=== PATIENT | male | born 1945 | race Caucasian/White ===

== ENCOUNTER 2021-12-22 09:57 | Emergency (ER) | payer OTHER, SELFPAY ==
--- NOTE | ~2021-12-22 | XR_ITS ---
EXAMINATION: XR KNEE, LEFT CLINICAL INFORMATION: Atraumatic left knee pain. COMPARISON: Left knee pain status post trauma. TECHNIQUE: Four views of the left knee. FINDINGS: Bones and soft tissues are normal. No fracture or joint effusion. Alignment is anatomic. Joint spaces are well maintained. No abnormal soft tissue calcification. XR/XR knee LT 3V IMPRESSION: Unremarkable left knee.
--- NOTE | ~2021-12-22 | US_ITS ---
EXAMINATION: US VENOUS ULTRASOUND WITH DOPPLER LOWER EXTREMITY, LEFT CLINICAL INFORMATION: Left calf pain. COMPARISON: None TECHNIQUE: Ultrasound of the deep veins is performed from the hip to the calf with compression sonography and color and pulse Doppler assessment. Spectral analysis with color-flow imaging is performed. FINDINGS: Nonocclusive thrombus is present within the proximal mid, distal left femoral vein and left popliteal vein. The left peroneal vein is not well visualized. There is no significant popliteal fossa cyst. Incidental note is made of a solid circumscribed oval-shaped echogenic structure within the proximal left thigh, measures 1.0 x 1.0 x 1.0 cm, may represent soft tissue neoplasm versus hematoma, not optimally characterized. Clinical correlation is recommended. Follow-up alternative imaging modality including MRI may be considered for further clarification, if appropriate. US/US venous duplex LE IMPRESSION: 1. Abnormal left lower extremity DVT study showing evidence of nonocclusive thrombus involving left thigh to the calf (proximal left femoral vein to the popliteal vein). 2. Solid circumscribed oval shaped echogenic structure within the proximal left thigh musculature, measures 1.0 cm at its maximum dimension, may represent soft tissue neoplasm versus hematoma. This critical result was discussed with Alondra Key NP at 12:55 PM on 12/22/2021 and it was ascertained that the content and urgency of the report was understood at the time of direct communication.
--- NOTE | 2021-12-22 11:09 | ED.LOWEXIN ---
HPI - Extremity Injury (Lower) General Chief Complaint: Extremity Injury, Lower Stated Complaint: swollen L leg Time Seen by Provider: 12/22/21 11:09 Source: patient Mode of arrival: ambulatory Limitations: no limitations History of Present Illness HPI Narrative: 76 y/o male with history of diabetes and hypertension presents to the ER with left lower extremity pain and swelling that started 2 days ago when he woke up. He denies any injury. He reports the pain is mostly behind his left knee. It is causing him to limp. He reports 2 days ago his leg was very swollen and the swelling has gotten better in the last 24 hours. He denies any shortness of breath or chest pain. He has no history of DVT. He admits to a rather sedentary lifestyle, denies any long trips or plane rides. MD complaint: other (LLE Pain and swelling, nontraumatic) Onset (ago): day(s) (2) Type of Injury: unknown Place: home Severity: moderate Relieving factors: nothing Exacerbating factors: weight bearing, movement and palpation Associated symptoms: swelling Other symptoms: none Related Data Previous Rx's Medication Instructions Recorded apixaban 5 mg tablet (Eliquis) See Rx Instructions .ROUTE 12/22/21 .COMPLEX #60 tab Allergies Allergy/AdvReac Type Severity Reaction Status Date / Time Rtqunhm-VNP-KrX Reductase Allergy Intermediate ELEVATED Unverified 04/28/20 15:57 Inhibitor LIVER [Kuxoded-Ofw-Ecn Reductase ENZYMES Inhibitor] Statins Depletion Allergy Unknown Uncoded 12/14/15 00:00 Review of Systems Review of Systems: Constitutional: No Fever, No Chills Cardiovascular: No Chest Pain, No SOB, No Orthopnea, + Edema Respiratory: No Cough, No Sputum Gastrointestinal: No Nausea, No Vomiting Musculoskeletal: No joint pain, No Myalgias Skin: No Skin Lesions, No rash Neuro: No Weakness, No Numbness, No Dizziness, No Headache Psych: No Anxiety/Panic, No Depression Heme/Lymph: No Bruising, No Lymphadenopathy PMFSH Social History Social History Advance Directives: Yes Advance Directives Information Provided: No Advance Directives on File: No Physical Exam Vital Signs: Vital Signs: Last Vital Signs Temp 97.5 F 12/22/21 11:34 Pulse 68 12/22/21 11:34 Resp 16 12/22/21 11:34 BP 115/63 12/22/21 11:34 Pulse Ox 96 12/22/21 11:34 BMI result Body Mass Index 35.5 Appearance: Alert. Oriented X3. No acute distress. HEENT: normal inspection CVS: Normal heart rate and rhythm. Pulses normal. Respiratory: No respiratory distress. Lungs CTAB Skin: Skin warm and dry. Normal skin color. Normal skin turgor. No rashes. Extremities: mild generalized swelling of the left lower extremity, nonpitting. tenderness of the popliteal fossa, no palpable mass. no calf tenderness. NV intact distally. left anterior and posterior thigh are soft, compressible, no soft tissue mass palpable. Neuro: Oriented X 3. No motor deficit. No sensory deficit. Course Course Course Narrative: 76-year-old male with history of hypertension diabetes presents to the ER with 2 days of nontraumatic left lower extremity swelling and pain, causing him to limp. Most of his pain is located in the popliteal fossa without any palpable mass. X-ray of his knee is normal. Reevaluation(s) Reevaluation #1: LE doppler shows nonoccluive DVT from femoral vein down to the calf. He has no chest pain, SOB or clinical signs of PE. His baseline labs are WNL. We discussed the pros and cons of anticoagulation as well as the possibility of an IVC filter. Patient reports history of 2 mechanical falls in the last year, 1 when walking down the stairs in the dark time and to when getting out of a slippery wet tub. He has not fallen in several months. He does not use alcohol. We discussed the risks of GI bleed with anticoagulation as well as traumatic bleeding and possible intracranial bleeding if he were to fall. He expressed comfort in starting anticoagulation, will start Eliquis. Shared decision making had but the patient. His ultrasound also showed 1 cm soft tissue mass in the musculature of the left thigh, differentials including hematoma verses neoplasm. Discussed the results with the patient and expressed need for him to follow-up with his primary care doctor for further evaluation and workup. He will follow-up with his PCP for hypercoagulable workup, and assessment of the 1 cm mass in his LLE. Verbal and written instructions for anticoagulation including the Eliquis load were discussed with the patient and he expressed understanding. He is stable for discharge home with close outpatient follow-up. MDM - Extremity Injury (Lower) Lab Data Result diagrams: 12/22/21 13:20 12/22/21 13:54 Labs: Lab Results 12/22/21 12/22/21 12/22/21 Range/Units 13:20 13:20 13:54 WBC 9.6 (4.8-10.8) X10*3/uL RBC 4.53 L (4.60-5.80) X10*6/uL Hgb 13.2 L (14.0-18.0) g/dl Hct 41.0 L (42.0-52.0) % MCV 90.5 (80.0-98.0) fL MCH 29.1 (27.0-33.0) pg MCHC 32.2 (31.0-36.0) g/dl RDW 14.4 (11.0-16.0) % Plt Count 238 (160-400) X10*3/uL MPV 9.3 L (9.4-12.4) fL Immature Gran % (Auto) 0.3 (0.0-0.4) % Neut % (Auto) 62.5 (45-73) % Lymph % (Auto) 22.1 (20-40) % [place] % (Auto) 11.1 H (2-11) % Eos % (Auto) 3.6 (0-4) % Baso % (Auto) 0.4 (0-2) % Lymph # (Auto) 2.1 (1.2-4.9) X10*3/uL [place] # (Auto) 1.1 (0.1-1.2) X10*3/uL Eos # (Auto) 0.3 (0.0-0.4) X10*3/uL Baso # (Auto) 0.0 (0.0-0.2) X10*3/uL Abs Immat Gran (auto) 0.03 (0.00-0.03) X10*3/uL Absolute Neuts (auto) 6.0 (2.0-8.3) x10*3/uL Absolute Nucleated RBC 0.000 (0.0-0.012) X10*3/uL Nucleated RBC % (auto) 0.0 (0.0-0.2) /100WBC PT 12.3 (9.9-13.0) SEC INR 1.1 (0.9-1.1) APTT 33.0 (24.1-38.0) SEC Sodium 140 (135-145) mmol/L Potassium 4.8 (3.3-5.1) mmol/L Chloride 107 (96-108) mmol/L Carbon Dioxide 26 (22-29) mmol/L Anion Gap 12 (12-20) BUN 24 H (9-16) mg/dL Creatinine 1.37 (0.5-1.4) mg/dL Estim Creat Clear Calc 60.2 Estimated GFR 51 Random Glucose 164 H (60-115) mg/dL Calcium 9.4 (8.4-10.2) mg/dL Magnesium 2.3 (1.6-2.6) mg/dL Total Bilirubin 0.3 (0.0-1.0) mg/dL Direct Bilirubin 0.2 (0.0-0.5) mg/dL AST 15 (5-37) U/L ALT 17 (0-40) U/L Alkaline Phosphatase 47 (39-117) U/L Total Protein 7.0 (6.5-8.0) g/dL Albumin 3.8 (3.5-5.0) g/dL Discharge Plan Discharge Clinical Impression: Acute deep vein thrombosis (DVT) of left lower extremity Patient Disposition: Home, Self-Care Instructions: Deep Vein Thrombosis (ED), Blood Thinners (ED) Additional Instructions: Your ultrasound today showed a blood clot involving the veins of your left thigh down to your left calf. Treatment is anticoagulation with blood thinner, Eliquis has been sent to your pharmacy. Please take as prescribed. You will need to follow-up with her primary care doctor for additional refills. You need to be on this blood thinner for at least 6 months. Elevate your leg when possible to help with swelling. If you develop any signs or symptoms of bleeding or develops any shortness of breath or chest pain call 911 or come back to the ER for further evaluation. Your ultrasound also showed a solid 1 cm oval-shaped structure within the left thigh muscle. This needs to be followed up. This could represent a small hematoma versus a soft tissue neoplasm. Your primary care doctor should arrange follow-up for this. Prescriptions: New Eliquis 5 mg tablet See Rx Instructions .ROUTE .COMPLEX Qty: 60 0RF Rx Instructions: 10 mg PO BID x 7 days then 5 mg PO BID for the rest of treatment Interventions: ED Discharge Assessment Last Done: 12/22/21 15:05 Discharge Date/Time: 12/22/21 15:10
[2021-12-22 11:34] VITALS: BP 115/63; PULSE 68; RESP 16; TEMP 36.4; O2SAT 96; BMI 35.5
[2021-12-22 13:27] LABS: MANUAL DIFF FLAG NO
[2021-12-22 13:29] LABS: Hemoglobin 13.2 g/dl (14.0-18.0); Mean Corpuscular Hemoglobin 29.1 pg (27.0-33.0); Mean Corpuscular Volume 90.5 fL (80.0-98.0); Red Blood Count 4.53 X10*6/uL (4.60-5.80); White Blood Count 9.6 X10*3/uL (4.8-10.8)
[2021-12-22 13:30] LABS: Basophils Percent Auto 0.4 % (0-2); Eosinophils Absolute Auto 0.3 X10*3/uL (0.0-0.4); Eosinophils Percent Auto 3.6 % (0-4); Imm Gran Abs Auto 0.03 X10*3/uL (0.00-0.03); Imm Gran Pct Auto 0.3 % (0.0-0.4); Lymphocytes Absolute Auto 2.1 X10*3/uL (1.2-4.9); Lymphocytes Percent Auto 22.1 % (20-40); Mean Corpuscular HGB Conc 32.2 g/dl (31.0-36.0); Mean Platelet Volume 9.3 fL (9.4-12.4); Monocytes Absolute Auto 1.1 X10*3/uL (0.1-1.2); Monocytes Percent Auto 11.1 % (2-11); Neutrophils Percent Auto 62.5 % (45-73); Platelet Count 238 X10*3/uL (160-400); Red Cell Distribution Width 14.4 % (11.0-16.0)
[2021-12-22 13:41] LABS: INTERNATIONAL NORM RATIO 1.1 (0.9-1.1); Prothrombin Time 12.3 SEC (9.9-13.0)
[2021-12-22 14:18] LABS: Alanine Aminotransferase 17 U/L (0-40); Albumin Level 3.8 g/dL (3.5-5.0); Alkaline Phosphatase 47 U/L (39-117); Anion Gap 12 (12-20); Aspartate Amino Transferase 15 U/L (5-37); Bilirubin Direct 0.2 mg/dL (0.0-0.5); Bilirubin Total 0.3 mg/dL (0.0-1.0); Blood Urea Nitrogen 24 mg/dL (9-16); Calcium 9.4 mg/dL (8.4-10.2); Carbon Dioxide 26 mmol/L (22-29); Chloride 107 mmol/L (96-108); Creatinine Clr Calc Pharmacy 60.2; Estimated Glomerular Filt Rate 51; Glucose Random 164 mg/dL (60-115); Magnesium 2.3 mg/dL (1.6-2.6); Potassium 4.8 mmol/L (3.3-5.1); Sodium 140 mmol/L (135-145)
== END 2021-12-22 15:10 | disposition home or self-care (01) ==
PROVIDERS: Physician Assistant; Emergency Provider Emergency Medicine
DX: I82.412 Acute embolism and thrombosis of left femoral vein (principal); M25.562 Pain in left knee; M79.89 Other specified soft tissue disorders; E11.9 Type 2 diabetes mellitus without complications; I10 Essential (primary) hypertension
CPT/HCPCS: 36415; 73562; 80048; 80076; 83735; 85025; 85610; 85730; 93971; 99283; 99284

== ENCOUNTER 2022-04-10 20:53 | Emergency (ER) | payer OTHER, SELFPAY ==
--- NOTE | ~2022-04-10 | XR_ITS ---
EXAMINATION: RIGHT HIP, RIGHT FEMUR CLINICAL INFORMATION: Fall with pain COMPARISON: None TECHNIQUE: Single view pelvis with 2 additional views right hip, 2 views right femur FINDINGS: No pelvic fracture is seen. Some minimal degenerative changes are present in both hips. No hip fracture is seen. The remainder of the femur appears unremarkable. Incidental note made of degenerative changes in the knee most marked at in the medial compartment. XR/XR hip RT min 2V IMPRESSION: No evidence of a traumatic osseous injury status post the patient's fall.
--- NOTE | ~2022-04-10 | XR_ITS ---
EXAMINATION: RIGHT HIP, RIGHT FEMUR CLINICAL INFORMATION: Fall with pain COMPARISON: None TECHNIQUE: Single view pelvis with 2 additional views right hip, 2 views right femur FINDINGS: No pelvic fracture is seen. Some minimal degenerative changes are present in both hips. No hip fracture is seen. The remainder of the femur appears unremarkable. Incidental note made of degenerative changes in the knee most marked at in the medial compartment. XR/XR femur RT 2V IMPRESSION: No evidence of a traumatic osseous injury status post the patient's fall.
--- NOTE | ~2022-04-10 | CT_ITS ---
EXAMINATION: NONCONTRAST HEAD CT NONCONTRAST CERVICAL SPINE CT INDICATION INFORMATION: Fall on blood thinners COMPARISON: CT head dated 10/08/2019 TECHNIQUE: Separate noncontrast CT examinations of the head and cervical spine were performed. Coronal and sagittal images were created for each examination at the technologist workstation. This CT examination was performed using dose optimization techniques as appropriate, variously including the following: *Automated exposure control *Adjustment of mA and/or kV according to patient size (this includes techniques or standardized protocols for targeted exams where dose is matched to indication/reason for exam; i.e. extremities or head) *Use of iterative reconstruction technique DLP: 1507 mGy-cm FINDINGS: Head: There is no evidence of acute intracranial hemorrhage or territorial infarction. No abnormal mass effect or midline shift is seen. [place] to white matter differentiation is well preserved. No extra-axial fluid collections are identified. No hydrocephalus. No significant volume loss. There is no abnormal attenuation within the brain parenchyma. No acute osseous or soft tissue abnormality. Mild mucosal thickening of the bilateral maxillary sinuses and throughout the ethmoid air cells. Previous functional endoscopic sinus surgery. New chronic appearing fracture of the right lamina papyracea with medial displacement of the 4 mm. Cervical spine: There is anatomic alignment of the vertebral bodies and posterior elements. The atlantoaxial and atlantooccipital articulations are intact. Vertebral body heights maintained. Prominent endplate osteophytes and loss of disc space height present at C5-C6, C6-C7, with accompanying uncovertebral arthrosis. Facet arthropathy present throughout the cervical spine, resulting in varying degrees of foraminal narrowing throughout. No evidence of acute fracture. No prevertebral soft tissue swelling. Visualized portions of the lung apices are unremarkable. The thyroid gland is unremarkable. CT/CT cervical spine wo IV con IMPRESSION: No acute intracranial pathology. No cervical spine fracture or traumatic malalignment.
[2022-04-10 20:55] VITALS: BP 147/65; PULSE 83; RESP 18; TEMP 37.2; O2SAT 99; BMI 35.5
--- NOTE | 2022-04-10 21:02 | ECG_ITS ---
Test Reason : FALL Blood Pressure : / mmHG Vent. Rate : 080 BPM Atrial Rate : 080 BPM P-R Int : 220 ms QRS Dur : 070 ms QT Int : 344 ms P-R-T Axes : 082 017 066 degrees QTc Int : 396 ms Sinus rhythm with 1st degree A-V block with frequent Premature ventricular complexes Otherwise normal ECG When compared with ECG of 08-OCT-2019 13:09, Premature ventricular complexes are now Present Referred By: Generic ED Physician Electronically Signed By:TOBIN WALKER
[2022-04-10 21:18] LABS: MANUAL DIFF FLAG NO
[2022-04-10 21:25] LABS: Basophils Percent Auto 0.3 % (0-2); Eosinophils Absolute Auto 0.2 X10*3/uL (0.0-0.4); Eosinophils Percent Auto 1.6 % (0-4); Hematocrit 40.7 % (42.0-52.0); Hemoglobin 13.1 g/dl (14.0-18.0); Imm Gran Abs Auto 0.04 X10*3/uL (0.00-0.03); Imm Gran Pct Auto 0.3 % (0.0-0.4); Lymphocytes Absolute Auto 3.1 X10*3/uL (1.2-4.9); Lymphocytes Percent Auto 26.2 % (20-40); Mean Corpuscular HGB Conc 32.2 g/dl (31.0-36.0); Mean Corpuscular Hemoglobin 29.2 pg (27.0-33.0); Mean Corpuscular Volume 90.6 fL (80.0-98.0); Mean Platelet Volume 9.8 fL (9.4-12.4); Monocytes Absolute Auto 1.2 X10*3/uL (0.1-1.2); Monocytes Percent Auto 10.5 % (2-11); Neutrophils Absolute Auto 7.1 x10*3/uL (2.0-8.3); Neutrophils Percent Auto 61.1 % (45-73); Platelet Count 227 X10*3/uL (160-400); Red Blood Count 4.49 X10*6/uL (4.60-5.80); Red Cell Distribution Width 15.1 % (11.0-16.0); White Blood Count 11.6 X10*3/uL (4.8-10.8)
[2022-04-10 21:31] LABS: INTERNATIONAL NORM RATIO 1.2 (0.9-1.1); Prothrombin Time 13.7 SEC (10.0-13.1)
[2022-04-10 21:44] LABS: Alanine Aminotransferase 18 U/L (0-40); Alkaline Phosphatase 43 U/L (39-117); Anion Gap 17 (12-20); Aspartate Amino Transferase 20 U/L (5-37); Bilirubin Total 0.5 mg/dL (0.0-1.0); Blood Urea Nitrogen 25 mg/dL (9-16); Calcium 9.4 mg/dL (8.4-10.2); Carbon Dioxide 23 mmol/L (22-29); Chloride 104 mmol/L (96-108); Creatinine Clr Calc Pharmacy 46.6; Estimated Glomerular Filt Rate 38; Glucose Random 255 mg/dL (60-115); Potassium 4.7 mmol/L (3.3-5.1); Sodium 139 mmol/L (135-145)
[2022-04-10 21:48] LABS: Troponin-I High Sensitivity 9.8 ng/L (<3.5-35.0)
--- NOTE | 2022-04-10 22:24 | ED.FALL ---
HPI - Fall General Chief Complaint: Fall Stated Complaint: Fall Time Seen by Provider: 04/10/22 22:07 Source: patient Mode of arrival: ambulatory Limitations: no limitations History of Present Illness HPI Narrative: 76-year-old male who presents emergency department for evaluation of injuries from fall that occurred on Saturday (3 days prior to evaluation). The patient states that he was getting out of his car and turned, he then tripped over a rock falling on his right side. He did strike his head on the driveway. He did not lose consciousness. He was able to get up. States since the fall he has developed a right sided black eye. He has also developed pain in his right eye is having difficulty walking secondary to his right thigh pain. The patient states that in December of 2021 he was diagnosed with a left lower extremity DVT and is on Eliquis. The patient denied headache, nausea, vomiting, fever, chills, chest pain or shortness of breath. He states that he is having pain in his right thigh which is a constant, dull ache which is moderate intensity, 6/10, worse with walking. States he is having difficulty walking secondary to his leg pain. MD complaint: fall Onset (ago): day(s) (3) Fall from: standing Fall witnessed: no Place fall occurred: home Loss of consciousness: none Prolonged down time: no Symptoms prior to fall: none Context: tripped/slipped Location of injury: head and other (Right leg) Severity: moderate Severity scale (1-10): 6 Quality: dull Associated symptoms (after fall): other (Trouble walking secondary to right leg pain) Related Data Previous Rx's Medication Instructions Recorded apixaban 5 mg tablet (Eliquis) See Rx Instructions .Route 12/22/21 .COMPLEX #60 tabs Allergies Allergy/AdvReac Type Severity Reaction Status Date / Time Wsmqicv-QPQ-SsM Reductase Allergy Intermediate ELEVATED Unverified 04/28/20 15:57 Inhibitor LIVER [Sgwewyh-Dnu-Tuj Reductase ENZYMES Inhibitor] Statins Depletion Allergy Unknown Uncoded 12/14/15 00:00 Review of Systems Review of Systems: Yes all other systems are reviewed and are negative COUNT INCLUDES THE [facility] Past Medical History COUNT INCLUDES THE [facility] Narrative: Past medical history: Diabetes mellitus, hypertension, left lower extremity DVT diagnosed December 2021. Past surgical history: None. Social history: He lives alone. Denies tobacco use. He states he very rarely drinks alcohol. He denies drug use. Social History Social History Advance Directives: No Advance Directives Information Provided: Yes Physical Exam Vital Signs: Vital Signs: Last Vital Signs Temp 98.9 F 04/10/22 20:55 Pulse 83 04/10/22 20:55 Resp 18 04/10/22 20:55 BP 147/65 H 04/10/22 20:55 Pulse Ox 99 04/10/22 20:55 O2 Del Method 04/10/22 20:55 BMI result Body Mass Index 35.5 Const: General: cooperative and no acute distress Orientation/consciousness: oriented to person and oriented to place Limitations: no limitations HEENT: Head: Yes normal to inspection, Yes normocephalic and Yes atraumatic Ears: external ears normal General nose exam: Normal external nose present Face and sinus: Yes normal facial exam Mouth: Normal oral and palatal mucosa present Throat: Yes posterior oropharynx normal Eyes: Alignment and Position: alignment normal Periorbital: periorbital findings abnormal right periorbital swelling and periorbital ecchymosis Eyelids: Yes eyelids normal Corneas: corneas normal Pupils: Equal, round and reactive pupils present EOM: EOMs intact bilaterally Direct Ophthalmoscopy: normal light reflex Neck: Neck: Yes normal visual inspection, Yes no lymphadenopathy, Yes trachea midline and Yes supple Chest: Chest palpation & inspection: normal inspection of the chest and normal palpation of entire chest wall Resp: Effort & Inspection: normal respiratory effort and able to speak in complete sentences Auscultation: clear to auscultation bilaterally Cardio: Rate: regular rate Rhythm: regular rhythm Heart sounds: S1 normal heart sound present, S2 normal heart sound present and no murmurs GI: Inspection: Yes normal to inspection Palpation (GI): Soft to palpation, nontender and no guarding Auscultation: normal bowel sounds : General: Yes no CVA tenderness Back/Spine/Pelvis: Back: no CVA tenderness Skin: General skin exam: no rashes or lesions noted Neuro: General: oriented to person and oriented to place Cranial nerves: Yes CN's II-XII intact bilaterally and Yes Equal, round and reactive pupils present Cognition (Neuro): normal cognition Motor exam (neuro): 5/5 motor strength present throughout Extrem: Other: Patient has no ecchymosis of his lower extremities, he does have tenderness palpation of his right lateral thigh muscle with localized swelling in this area consistent with the hematoma, extremities neurovascularly intact Psych: Appearance: grossly normal Speech and movement: Normal speech and movement present Affect: normal affect Attitude: cooperative Thought process: Normal thought process present Thought content: Normal thought content present Course Course Course Narrative: 76-year-old male who had a trip and fall from a standing position 3 days prior, landing on his right side, striking his head with no loss of consciousness. The patient is on Eliquis for a left lower extremity DVT. The patient complained of pain in his right lower extremity and difficulty walking secondary to the pain. Physical examination did reveal right periorbital ecchymosis and swelling and a right lateral thigh hematoma. Given the fact that he is on Eliquis, fell and had a head strike I did order blood work, CT scan of the head and neck, right hip and pelvic x-rays 2229: Laboratory evaluation: H&H was normal 13 and 40.7. Glucose elevated 225. Creatinine elevated 1.77. Troponin detectable but not elevated at 9.8. INR normal at 1.2. Radiology evaluation: X ray of the right right hip and pelvis revealed no acute fractures. Twelve EKG: No acute findings. 2248: CT scan of the head and cervical spine was unremarkable. I did discuss the patient's laboratory and x-ray findings with him. At this time I believe that he has a hematoma in his right thigh muscle which is giving him his right leg pain. He was advised to use ice for 15 minutes 4 to 6 times a day for the next week, take Tylenol for pain and follow-up with his PCP. Patient was advised to continue taking his Eliquis as well. MDM - Fall Medical Records Attestation: I reviewed the patient's medical records. Lab Data Attestation: I reviewed the patient's lab results. Result diagrams: 04/10/22 21:12 04/10/22 21:12 Labs: Lab Results 04/10/22 04/10/22 04/10/22 Range/Units 21:12 21:12 21:12 WBC 11.6 H (4.8-10.8) X10*3/uL RBC 4.49 L (4.60-5.80) X10*6/uL Hgb 13.1 L (14.0-18.0) g/dl Hct 40.7 L (42.0-52.0) % MCV 90.6 (80.0-98.0) fL MCH 29.2 (27.0-33.0) pg MCHC 32.2 (31.0-36.0) g/dl RDW 15.1 (11.0-16.0) % Plt Count 227 (160-400) X10*3/uL MPV 9.8 (9.4-12.4) fL Immature Gran % (Auto) 0.3 (0.0-0.4) % Neut % (Auto) 61.1 (45-73) % Lymph % (Auto) 26.2 (20-40) % [place] % (Auto) 10.5 (2-11) % Eos % (Auto) 1.6 (0-4) % Baso % (Auto) 0.3 (0-2) % Lymph # (Auto) 3.1 (1.2-4.9) X10*3/uL [place] # (Auto) 1.2 (0.1-1.2) X10*3/uL Eos # (Auto) 0.2 (0.0-0.4) X10*3/uL Baso # (Auto) 0.0 (0.0-0.2) X10*3/uL Abs Immat Gran (auto) 0.04 H (0.00-0.03) X10*3/uL Absolute Neuts (auto) 7.1 (2.0-8.3) x10*3/uL Absolute Nucleated RBC 0.000 (0.0-0.012) X10*3/uL Nucleated RBC % (auto) 0.0 (0.0-0.2) /100WBC PT 13.7 H (10.0-13.1) SEC INR 1.2 H (0.9-1.1) Sodium 139 (135-145) mmol/L Potassium 4.7 (3.3-5.1) mmol/L Chloride 104 (96-108) mmol/L Carbon Dioxide 23 (22-29) mmol/L Anion Gap 17 (12-20) BUN 25 H (9-16) mg/dL Creatinine 1.77 H (0.5-1.4) mg/dL Estim Creat Clear Calc 46.6 Estimated GFR 38 Random Glucose 255 H D (60-115) mg/dL Calcium 9.4 (8.4-10.2) mg/dL Total Bilirubin 0.5 (0.0-1.0) mg/dL AST 20 (5-37) U/L ALT 18 (0-40) U/L Alkaline Phosphatase 43 (39-117) U/L Troponin I High Sens (<3.5-35.0) ng/L Total Protein 7.0 (6.5-8.0) g/dL Albumin 4.0 (3.5-5.0) g/dL 04/10/22 Range/Units 21:13 WBC (4.8-10.8) X10*3/uL RBC (4.60-5.80) X10*6/uL Hgb (14.0-18.0) g/dl Hct (42.0-52.0) % MCV (80.0-98.0) fL MCH (27.0-33.0) pg MCHC (31.0-36.0) g/dl RDW (11.0-16.0) % Plt Count (160-400) X10*3/uL MPV (9.4-12.4) fL Immature Gran % (Auto) (0.0-0.4) % Neut % (Auto) (45-73) % Lymph % (Auto) (20-40) % [place] % (Auto) (2-11) % Eos % (Auto) (0-4) % Baso % (Auto) (0-2) % Lymph # (Auto) (1.2-4.9) X10*3/uL [place] # (Auto) (0.1-1.2) X10*3/uL Eos # (Auto) (0.0-0.4) X10*3/uL Baso # (Auto) (0.0-0.2) X10*3/uL Abs Immat Gran (auto) (0.00-0.03) X10*3/uL Absolute Neuts (auto) (2.0-8.3) x10*3/uL Absolute Nucleated RBC (0.0-0.012) X10*3/uL Nucleated RBC % (auto) (0.0-0.2) /100WBC PT (10.0-13.1) SEC INR (0.9-1.1) Sodium (135-145) mmol/L Potassium (3.3-5.1) mmol/L Chloride (96-108) mmol/L Carbon Dioxide (22-29) mmol/L Anion Gap (12-20) BUN (9-16) mg/dL Creatinine (0.5-1.4) mg/dL Estim Creat Clear Calc Estimated GFR Random Glucose (60-115) mg/dL Calcium (8.4-10.2) mg/dL Total Bilirubin (0.0-1.0) mg/dL AST (5-37) U/L ALT (0-40) U/L Alkaline Phosphatase (39-117) U/L Troponin I High Sens 9.8 (<3.5-35.0) ng/L Total Protein (6.5-8.0) g/dL Albumin (3.5-5.0) g/dL ECG Data Attestation: I personally reviewed and interpreted this ECG as follows: Interpretation: 2112: Sinus rhythm with a rate of 81, first-degree block with AL interval of 214 milliseconds, normal QRS and QTC intervals, Q-wave in lead 3, no ST segment elevation, no ST segment depression, no T-wave abnormalities, no PACs, no PVCs. Compared to EKG dated 10/08/2019 there are no acute changes. Discharge Plan Discharge Clinical Impression: Closed head injury, Contusion of periorbital region, right, Hematoma of right thigh, Fall Patient Disposition: Home, Self-Care Instructions: Head Injury (ED), Hematoma (ED) Additional Instructions: Your blood work was unremarkable, you are not anemic which is reassuring. The CT scan of your head and neck revealed no bleeding in the brain and no broken bones. The x-ray of your right hip and pelvic bones revealed no fractures/broken bones. You do have pain along the lateral aspect of your right thigh with swelling in this area, this is consistent with bleeding in the muscle (hematoma). A hematoma is treated with ice for 15-20 minutes 4 to 6 times and elevation. It is important to continue to walk-in be mobile and this will help reduce the pain is well. Take Tylenol (acetaminophen) 500 mg pills, 2 pills every 4 to 6 hours as needed for pain. Continue taking her Eliquis. Follow-up with your doctor in 2 days. Please return to the emergency department if your symptoms get worse or if you develop any symptoms that are concerning to you. Prescriptions: No Action Eliquis 5 mg tablet See Rx Instructions .ROUTE .COMPLEX Qty: 60 0RF Rx Instructions: 10 mg PO BID x 7 days then 5 mg PO BID for the rest of treatment Interventions: ED Discharge Assessment Last Done: 04/10/22 23:22 Discharge Date/Time: 04/10/22 23:23
== END 2022-04-10 23:23 | disposition home or self-care (01) ==
PROVIDERS: Emergency Provider Emergency Medicine Emergency Medical Services
DX: S09.90XA Unspecified injury of head, initial encounter (principal); S00.11XA Contusion of right eyelid and periocular area, initial encounter; S70.11XA Contusion of right thigh, initial encounter; W01.0XXA Fall on same level from slipping, tripping and stumbling without subsequent striking against object, initial encounter; Z86.718 Personal history of other venous thrombosis and embolism; Z79.01 Long term (current) use of anticoagulants; Y93.01 Activity, walking, marching and hiking; Y92.410 Unspecified street and highway as the place of occurrence of the external cause; Y99.9 Unspecified external cause status
CPT/HCPCS: 36415; 70450; 72125; 73502; 73552; 80053; 84484; 85025; 85610; 93005; 99283; 99284

== ENCOUNTER 2023-06-25 19:50 | Inpatient (IN) | payer OTHER, SELFPAY ==
--- NOTE | ~2023-06-25 | XR_ITS ---
EXAMINATION: XR CHEST CLINICAL INFORMATION: Cough COMPARISON: Previous chest x-ray September 2019 TECHNIQUE: Frontal view of the chest was obtained. FINDINGS: The cardiac and mediastinal contours are stable. The lungs are clear. No pleural or pneumothorax. Degenerative changes of the spine. XR/XR chest 1V IMPRESSION: No evidence for acute disease in the chest.
[2023-06-25 19:53] VITALS: BP 130/64; PULSE 93; O2SAT 94
--- NOTE | 2023-06-25 19:58 | ECG_ITS ---
Test Reason : FALL Blood Pressure : / mmHG Vent. Rate : 082 BPM Atrial Rate : 082 BPM P-R Int : 226 ms QRS Dur : 082 ms QT Int : 336 ms P-R-T Axes : 080 048 059 degrees QTc Int : 392 ms Sinus rhythm with 1st degree A-V block Low voltage QRS Abnormal ECG When compared with ECG of 10-APR-2022 21:12, Premature ventricular complexes are no longer Present Referred By: Generic ED Physician Electronically Signed By:ELVIA ULRICH MD
[2023-06-25 20:01] VITALS: BP 142/64; PULSE 88; RESP 19; TEMP 37.5; O2SAT 99; BMI 36.1
[2023-06-25 20:09] VITALS: PULSE 82; RESP 20
[2023-06-25 20:28] LABS: MANUAL DIFF FLAG NO
[2023-06-25 20:30] LABS: Basophils Percent Auto 0.3 % (0-2); Eosinophils Absolute Auto 0.1 X10*3/uL (0.0-0.4); Eosinophils Percent Auto 0.7 % (0-4); Hematocrit 36.8 % (42.0-52.0); Hemoglobin 12.1 g/dl (14.0-18.0); Imm Gran Abs Auto 0.02 X10*3/uL (0.00-0.03); Imm Gran Pct Auto 0.3 % (0.0-0.4); Lymphocytes Absolute Auto 0.9 X10*3/uL (1.2-4.9); Lymphocytes Percent Auto 13.3 % (20-40); Mean Corpuscular HGB Conc 32.9 g/dl (31.0-36.0); Mean Corpuscular Hemoglobin 29.8 pg (27.0-33.0); Mean Corpuscular Volume 90.6 fL (80.0-98.0); Mean Platelet Volume 9.5 fL (9.4-12.4); Monocytes Absolute Auto 1.3 X10*3/uL (0.1-1.2); Monocytes Percent Auto 18.8 % (2-11); Neutrophils Absolute Auto 4.5 x10*3/uL (2.0-8.3); Neutrophils Percent Auto 66.6 % (45-73); Platelet Count 189 X10*3/uL (160-400); Red Blood Count 4.06 X10*6/uL (4.60-5.80); Red Cell Distribution Width 14.6 % (11.0-16.0); White Blood Count 6.8 X10*3/uL (4.8-10.8)
[2023-06-25 20:37] LABS: Partial Thromboplastin Time 28.5 SEC (26.0-36.4)
[2023-06-25 20:42] LABS: Alanine Aminotransferase 14 U/L (0-40); Albumin Level 3.8 g/dL (3.5-5.0); Alkaline Phosphatase 42 U/L (39-117); Anion Gap 14 (12-20); Aspartate Amino Transferase 23 U/L (5-37); Bilirubin Total 0.5 mg/dL (0.0-1.0); Blood Urea Nitrogen 37 mg/dL (9-16); Calcium 9.2 mg/dL (8.4-10.2); Carbon Dioxide 25 mmol/L (22-29); Chloride 105 mmol/L (96-108); Creatinine Clr Calc Pharmacy 46.6; Estimated Glomerular Filt Rate 38; Glucose Random 206 mg/dL (60-115); Potassium 4.8 mmol/L (3.3-5.1); Sodium 139 mmol/L (135-145); Total Protein 7.2 g/dL (6.5-8.0)
[2023-06-25 20:49] LABS: Troponin-I High Sensitivity 12.7 ng/L (<3.5-35.0)
--- NOTE | 2023-06-25 21:18 | ED.DIZZY ---
HPI - Dizziness General Chief Complaint: Dizziness Stated Complaint: DIZZINESS, COUPLE FALLS TODAY,CELLULITIS Time Seen by Provider: 06/25/23 21:13 Source: patient Mode of arrival: EMS Limitations: no limitations History of Present Illness HPI Narrative: Patient diabetic, hypertension , DVT on Eliquis had a small red spot on the right arm for last 4 days unsure whether the bug bite or not was seen at urgent care center on 06/24 prescribed Keflex which she has been taking since then been feeling weak was feeling so weak that today when he tried to get up from the bed could not get up and slumped down to the ground no head injury no loss of consciousness patient been feeling weak and tired not eating much had a trainee temperature 100.7 in the ER and didn't have fever at home but had chills Related Data Previous Rx's Medication Instructions Recorded apixaban 5 mg tablet (Eliquis) See Rx Instructions .Route 12/22/21 .COMPLEX #60 tabs Allergies Allergy/AdvReac Type Severity Reaction Status Date / Time Yeiekcn-YIO-BzZ Reductase Allergy Intermediate ELEVATED Unverified 04/28/20 15:57 Inhibitor LIVER [Fcrjgpi-Wph-Juj Reductase ENZYMES Inhibitor] Statins Depletion Allergy Unknown Uncoded 12/14/15 00:00 Review of Systems Review of Systems: Yes all other systems are reviewed and are negative PMFSH Past Medical History Medical History Mixed hyperlipidemia Benign prostatic hyperplasia Essential hypertension PATRICK on CPAP DVT (deep venous thrombosis) Insulin dependent type 2 diabetes mellitus Social History Social History Smoked in Last 30 Days: No Advance Directives: No Advance Directives Information Provided: No Physical Exam Vital Signs: Vital Signs: Last Vital Signs Temp 100.7 F H 06/25/23 23:57 Pulse 69 06/25/23 23:57 Resp 20 06/25/23 23:57 BP 103/32 L 06/25/23 23:57 Pulse Ox 92 06/25/23 23:57 O2 Del Method Room Air 06/25/23 23:57 BMI result Body Mass Index 36.1 Appearance: Alert. Oriented X3. No acute distress. Eyes: PERRLA, no pyloric ENT: Pharynx normal. Oral Mucosa moist AT NC Neck: Normal inspection. Neck supple. CVS: Normal heart rate and rhythm. Pulses normal. Respiratory: No respiratory distress. Equal air entry bilateral, no wheezing/rales/rhonchi Abdomen: Soft and nontender. Bowel sounds are present, Skin: Skin warm and dry. Right arm small indurated swelling about 1 in in diameter with surrounding erythema and warmth Extremities: No lower extremity edema. No calf tenderness Neuro: Oriented X 3. No motor deficit. No sensory deficit.No cerebellar signs , cranial nerves II-XII intact Medications Administered Discontinued Medications Generic Name Dose Route Start Last Admin Trade Name Freq PRN Reason Stop Dose Admin Acetaminophen 650 mg 06/25/23 21:41 06/25/23 22:31 Acetaminophen 325 Mg Tablet PO 06/25/23 21:42 650 mg ONCE ONE Administration Sodium Chloride 1,000 mls @ 999 mls/hr 06/25/23 21:39 06/25/23 22:31 Ns IV 06/25/23 22:39 999 mls/hr .Q1H1M ONE Administration Vancomycin HCl 1,000 mg/ 270 mls @ 270 mls/hr 06/25/23 21:39 06/25/23 22:32 Sodium Chloride IV 06/25/23 22:38 270 mls/hr ONCE ONE Administration Medical Decision Making Medical Decision Making [facility] Narrative: Patient with small induration swelling with surrounding cellulitis in right arm needle aspiration without any pus. Patient been feeling weak dizzy exhausted failed outpatient antibiotic treatment will admit patient for IV vancomycin like patient has a staph infection Differential Diagnosis Differential Diagnoses: The differential diagnosis associated with the presentation includes Staph infection/cellulitis/bacteremia Admission/Observation Consideration of admission/observation: Escalation of care including admission/observation considered Consult Healthcare Provider Management of the patient was discussed with: Hospitalist Lab Data [facility] Lab Attestation statement: I reviewed the patient's lab results. 06/25/23 20:21 06/25/23 20:21 Labs: Lab Results 06/25/23 06/25/23 06/25/23 Range/Units 20:21 22:14 22:25 WBC 6.8 (4.8-10.8) X10*3/uL RBC 4.06 L (4.60-5.80) X10*6/uL Hgb 12.1 L (14.0-18.0) g/dl Hct 36.8 L (42.0-52.0) % MCV 90.6 (80.0-98.0) fL MCH 29.8 (27.0-33.0) pg MCHC 32.9 (31.0-36.0) g/dl RDW 14.6 (11.0-16.0) % Plt Count 189 (160-400) X10*3/uL MPV 9.5 (9.4-12.4) fL Immature Gran % (Auto) 0.3 (0.0-0.4) % Neut % (Auto) 66.6 (45-73) % Lymph % (Auto) 13.3 L (20-40) % [place] % (Auto) 18.8 H (2-11) % Eos % (Auto) 0.7 (0-4) % Baso % (Auto) 0.3 (0-2) % Lymph # (Auto) 0.9 L (1.2-4.9) X10*3/uL [place] # (Auto) 1.3 H (0.1-1.2) X10*3/uL Eos # (Auto) 0.1 (0.0-0.4) X10*3/uL Baso # (Auto) 0.0 (0.0-0.2) X10*3/uL Abs Immat Gran (auto) 0.02 (0.00-0.03) X10*3/uL Absolute Neuts (auto) 4.5 (2.0-8.3) x10*3/uL Absolute Nucleated RBC 0.000 (0.0-0.012) X10*3/uL Nucleated RBC % (auto) 0.0 (0.0-0.2) /100WBC APTT 28.5 (26.0-36.4) SEC Sodium 139 (135-145) mmol/L Potassium 4.8 (3.3-5.1) mmol/L Chloride 105 (96-108) mmol/L Carbon Dioxide 25 (22-29) mmol/L Anion Gap 14 (12-20) BUN 37 H (9-16) mg/dL Creatinine 1.73 H (0.5-1.4) mg/dL Estim Creat Clear Calc 46.6 Estimated GFR 38 Random Glucose 206 H (60-115) mg/dL Lactic Acid 1.4 (0.5-2.0) mmol/L Calcium 9.2 (8.4-10.2) mg/dL Total Bilirubin 0.5 (0.0-1.0) mg/dL AST 23 (5-37) U/L ALT 14 (0-40) U/L Alkaline Phosphatase 42 (39-117) U/L Troponin I High Sens 12.7 (<3.5-35.0) ng/L Total Protein 7.2 (6.5-8.0) g/dL Albumin 3.8 (3.5-5.0) g/dL Influenza Type A (PCR) NEGATIVE (Negative) Influenza Type B (PCR) NEGATIVE (Negative) RSV RNA Qual (PCR) NEGATIVE (Negative) SARS-CoV-2 RNA (RT-PCR) POSITIVE A (Negative) Independent Interpretation I performed an independent interpretation of an: EKG Interpretation: Normal sinus rhythm SOB or lower no acute ST-T changes no acute ischemia Discharge Plan Discharge Clinical Impression: Cellulitis of arm, right Patient Disposition: Admitted As Inpatient
[2023-06-25] MEDS: Acetaminophen 325 MG TABLET 650 MG PO (22:31)
[2023-06-25] MEDS: 0.9 % Sodium Chloride 1,000 ML 999 ML IV (22:31)
[2023-06-25] MEDS: vancomycin HCL 1,000 MG in 0.9 % Sodium Chloride 250 ML 270 MG IV (22:32)
[2023-06-25 22:42] LABS: Lactic Acid 1.4 mmol/L (0.5-2.0)
[2023-06-25 23:08] LABS: Influenza A PCR NEGATIVE (Negative); Influenza B PCR NEGATIVE (Negative); Resp Syncy Virus RNA Qual PCR NEGATIVE (Negative); SARS COV2 PCR INHOUSE POSITIVE (Negative)
--- NOTE | 2023-06-25 23:32 | P.HPHOSP_ITS ---
History of Present Illness Date of Service: 06/25/23 Chief Complaint: Right arm infection This is a 78-year-old male with pertinent history of DVT on Eliquis, essential hypertension, insulin-dependent diabetes mellitus, mixed hyperlipidemia, BPH, PATRICK on CPAP, chronic kidney disease who presents to the emergency department for evaluation of right upper arm infection. Patient states he noticed redness, burning and warmth over his right arm that started 4 days prior to presentation. Patient went to urgent care and was prescribed Keflex. Patient noticed no improvement with p.o. medications. No associated fevers or chills. No history of similar infections in the past. Patient states he also had an episode of dizziness/lightheadedness when he tried to get up. Denies chest discomfort, palpitations, shortness of breath, abdominal pain, changes in urinary or bowel habits. In the emergency department, patient tested positive for COVID-19. Review of Systems 2 Constitutional: Constitutional: Reports no additional constitutional complaints Cardiovascular: Cardiovascular: Reports no additional cardiovascular complaints Respiratory: Respiratory: Reports no additional respiratory complaints Gastrointestinal: Gastrointestinal: Reports no additional gastrointestinal complaints Genitourinary: Genitourinary: Reports no additional male genitourinary complaints [facility] Medical History Mixed hyperlipidemia Benign prostatic hyperplasia Essential hypertension PATRICK on CPAP DVT (deep venous thrombosis) Insulin dependent type 2 diabetes mellitus Pertinent family history: No family history of early CAD Social History Smoked in Last 30 Days: No Advance Directives: No Advance Directives Information Provided: No Meds Allergies Allergy/AdvReac Type Severity Reaction Status Date / Time Gsgmbwm-GTD-RaF Reductase Allergy Intermediate ELEVATED Unverified 04/28/20 15:57 Inhibitor LIVER [Jhdmafd-Rcy-Gqi Reductase ENZYMES Inhibitor] Statins Depletion Allergy Unknown Uncoded 12/14/15 00:00 Physical Exam 2 Vital Signs and Narrative: Vital Signs: Last Vital Signs Temp 99.5 F 06/25/23 20:01 Pulse 82 06/25/23 20:09 Resp 20 06/25/23 20:09 BP 142/64 H 06/25/23 20:01 Pulse Ox 99 06/25/23 20:01 O2 Del Method Room Air 06/25/23 20:01 BMI result Body Mass Index 36.1 Middle-aged male lying in bed in no distress Neck supple, no JVD Regular rate and rhythm, S1-S2 heard Regular breath sounds bilaterally, no wheezing or crackles appreciated Abdomen soft nontender, no guarding, no rigidity Patient is awake, alert and oriented to self, place, time and person ; no focal motor deficit Skin: Right upper arm with erythema, warmth and tenderness, no drainage Psych: Normal mood No pedal edema Results Labs 06/25/23 20:21 06/25/23 20:21 Labs: Laboratory Results - last 24 hr 06/25/23 06/25/23 06/25/23 20:21 22:14 22:25 MCV 90.6 MCH 29.8 MCHC 32.9 RDW 14.6 Plt Count 189 MPV 9.5 Immature Gran % (Auto) 0.3 Neut % (Auto) 66.6 Lymph % (Auto) 13.3 L [place] % (Auto) 18.8 H Eos % (Auto) 0.7 Baso % (Auto) 0.3 Lymph # (Auto) 0.9 L [place] # (Auto) 1.3 H Eos # (Auto) 0.1 Baso # (Auto) 0.0 Abs Immat Gran (auto) 0.02 Absolute Neuts (auto) 4.5 Absolute Nucleated RBC 0.000 Nucleated RBC % (auto) 0.0 APTT 28.5 Anion Gap 14 Estim Creat Clear Calc 46.6 Estimated GFR 38 Random Glucose 206 H Lactic Acid 1.4 Calcium 9.2 Total Bilirubin 0.5 AST 23 ALT 14 Alkaline Phosphatase 42 Total Protein 7.2 Albumin 3.8 Influenza Type A (PCR) NEGATIVE Influenza Type B (PCR) NEGATIVE RSV RNA Qual (PCR) NEGATIVE SARS-CoV-2 RNA (RT-PCR) POSITIVE A Imaging Radiologist's Impressions: Impressions Chest X-Ray 06/25/23 22:50 IMPRESSION: No evidence for acute disease in the chest. Assessment and Plan (1) Cellulitis: Status: Acute Plan This is a 78-year-old male with pertinent history of DVT on Eliquis, essential hypertension, insulin-dependent diabetes mellitus, mixed hyperlipidemia, BPH, PATRICK on CPAP, chronic kidney disease who presents to the emergency department for evaluation of right upper arm infection. #. Right arm cellulitis: Will admit patient with IV antibiotics as he failed outpatient p.o. antibiotics. No sepsis. #. COVID-19 infection: Isolation precautions. No indication for Decadron as patient not hypoxemic. #. Presyncope, likely orthostatic in the setting of above. Resuscitated with IV crystalloids. Monitor on telemetry. Repeat orthostatics in a.m. #. History of DVT: On Eliquis #. Insulin-dependent diabetes mellitus with hyperglycemia: Initiating basal plus insulin regimen #. BPH: On finasteride #. PATRICK: Continue CPAP at bedtime #. Mixed hyperlipidemia: Continue home medication #. Chronic kidney disease: Creatinine at baseline Med rec pending DVT prophylaxis: Eliquis Admit as inpatient and will require two night minimum hospital stay for IV antibiotics (as above), which is not possible in a lesser acute setting. Quality Stroke Does the patient have a stroke diagnosis?: No VTE Prior VTE?: No VTE Risk Level:: Medical - moderate - high VTE Device Contraindication: Treatment Not Indicated VTE Drug Contraindication: N/A - Med Ordered
[2023-06-25 23:57] VITALS: BP 103/32; PULSE 69; RESP 20; TEMP 38.2; O2SAT 92
[2023-06-26] VITALS (10 sets, daily range): BP systolic 119–158; BP diastolic 58–70; PULSE 60–74; RESP 15–20; TEMP 36.6–37.7; O2SAT 95–97; BMI 34.9
[2023-06-26] MEDS: vancomycin HCL 1,000 MG in 0.9 % Sodium Chloride 250 ML 270 MG IV (00:59)
[2023-06-26] MEDS: Insulin Glargine,Hum.rec.anlog 100 UNIT/ML 10 ML VIAL 20 UNIT SUBCUT ×2 (01:00→20:49)
[2023-06-26 03:59] LABS: Glucose, Whole Blood 161 mg/dL (60-115)
[2023-06-26 05:52] LABS: MANUAL DIFF FLAG NO
[2023-06-26 05:54] LABS: Basophils Percent Auto 0.4 % (0-2); Eosinophils Percent Auto 0.6 % (0-4); Hematocrit 35.5 % (42.0-52.0); Hemoglobin 11.5 g/dl (14.0-18.0); Imm Gran Abs Auto 0.02 X10*3/uL (0.00-0.03); Imm Gran Pct Auto 0.3 % (0.0-0.4); Lymphocytes Absolute Auto 1.4 X10*3/uL (1.2-4.9); Mean Corpuscular HGB Conc 32.4 g/dl (31.0-36.0); Mean Corpuscular Hemoglobin 30.3 pg (27.0-33.0); Mean Corpuscular Volume 93.7 fL (80.0-98.0); Mean Platelet Volume 10.1 fL (9.4-12.4); Monocytes Absolute Auto 1.2 X10*3/uL (0.1-1.2); Monocytes Percent Auto 18.1 % (2-11); Neutrophils Percent Auto 59.6 % (45-73); Platelet Count 171 X10*3/uL (160-400); Red Blood Count 3.79 X10*6/uL (4.60-5.80); Red Cell Distribution Width 14.8 % (11.0-16.0); White Blood Count 6.7 X10*3/uL (4.8-10.8)
[2023-06-26 06:06] LABS: Anion Gap 12 (12-20); Blood Urea Nitrogen 32 mg/dL (9-16); Calcium 8.6 mg/dL (8.4-10.2); Carbon Dioxide 22 mmol/L (22-29); Chloride 111 mmol/L (96-108); Creatinine Clr Calc Pharmacy 50.7; Estimated Glomerular Filt Rate 42; Glucose Random 190 mg/dL (60-115); Potassium 3.9 mmol/L (3.3-5.1); Sodium 141 mmol/L (135-145)
--- NOTE | 2023-06-26 07:11 | MHC.EDTECH ---
Pt up to eat breakfast.
[2023-06-26 07:18] LABS: Glucose, Whole Blood 161 mg/dL (60-115)
[2023-06-26] MEDS: 0.9 % Sodium Chloride Flush 3 ML SYRINGE IVFLUSH ×3 (07:30→20:50)
--- NOTE | 2023-06-26 07:31 | PC.NURSE ---
Patient alert and oriented, denies pain or discomfort, declined insulin stating a bs of 161 does not need insulin. Aware plan is to admit upstairs for IV abt r/t cellulitis.
[2023-06-26 08:55] LABS: C Reactive Protein 5.95 mg/dL (< or = 0.50); Lactate Dehydrogenase 193 U/L (118-273)
[2023-06-26 09:11] LABS: Ferritin 161 ng/mL (20-250)
--- NOTE | 2023-06-26 09:47 | PHA.MEDREC ---
Pharmacy Consult ? Medication Reconciliation Pharmacy has completed the medication reconciliation.PT WAS UNSURE OF MEDICATIONS. OB[facility] LIST [facility] AND CLARIFIED INSULIN DOSING AND TIMING OF MEDICATIONS WITH PATIENT.
[2023-06-26 10:35] LABS: MRSA Nasal PCR NEGATIVE (Negative); SA Nasal PCR POSITIVE (Negative)
[2023-06-26 12:10] LABS: Glucose, Whole Blood 157 mg/dL (60-115)
--- NOTE | 2023-06-26 13:00 | PHA.PROG ---
Admission Date/Time: June 25, 2023 23:30 Indication: SKIN Weight in k.5 kg Adjusted body weight in K.18 [place] body weight in K.3 Obesity Dosing Indication % IBW: Serum Creatinine - Last 168 Hours 06/25/23 06/26/23 20:21 05:16 Creatinine 1.73 H 1.59 H Estimated CrCl and GFR - Last 168 Hours 06/25/23 06/26/23 20:21 05:16 Estim Creat Clear Calc 46.6 50.7 Estimated GFR 38 42 Vancomycin Loading Dose: 1000 X 1 + 1000 X 1 Current Vancomycin Dosing Regimen: 1250 MG q24h Vancomycin Monitoring using AUC goal of 400 - 600 range with trough as surrogate marke: 429 Date and Time for next Vancomycin Level to be drawn: 06/29 @2100 Pharmacist Comments on Vancomycin Plan: Vancomycin dosing will take advantage of [employer] as a clinical decision support tool that uses Bayesian modeling to calculate individual patient's pharmacokinetic parameters and forecast the patient's drug concentration time course with the target goal AUC 24 range of 400 - 600 mg/L/hr.
--- NOTE | 2023-06-26 14:52 | P.PNIM_ITS ---
Subjective Subjective Date of Service: 06/26/23 Interval History: very minimal cough and he says this is chronic sore throat started 4d ago no fever dizziness improved RUE redness improved, no drainage Review of Systems Review of Systems: Yes all other systems are reviewed and are negative Physical Exam 2 Vital Signs: Vital Signs: Last Vital Signs Temp 98.2 F 06/26/23 14:13 Pulse 67 06/26/23 14:13 Resp 20 06/26/23 14:13 BP 124/58 L 06/26/23 14:13 Pulse Ox 96 06/26/23 14:13 O2 Del Method Room Air 06/26/23 14:13 BMI result Body Mass Index 36.1 Gen: in no acute distress HEENT: sclera anicteric, moist mucus membranes Neck: supple Lungs: clear to auscultation bilaterally Heart: regular rate and rhythm, no murmurs Abd: soft, non-tender, non-distended Ext: no edema Skin: warm/well-perfused, RUE over deltoid with erythema/induration but no purulence/fluctuance Neuro: alert and oriented x3, no focal findings Psych: appropriate affect Objective Data Active Medications Acetaminophen (Acetaminophen 325 Mg Tablet) 650 mg PO Q6H PRN PRN Reason: Pain, Mild (Pain Scale 1-3) Dextrose (Dextrose 50 % 25 Gm/50 Ml Syringe) 25 gm IVPUSH Q15M PRN; Protocol PRN Reason: per Hypoglycemia Standing Ord. Glucose (Glucose Gel 15 Gm Gel..Gram.) 15 gm PO Q15M PRN; Protocol PRN Reason: per Hypoglycemia Standing Ord. Vancomycin HCl 1,250 mg/ (Sodium Chloride) 250 mls @ 166.667 mls/hr IV Q24H ENIO Remdesivir 200 mg/ Sodium (Chloride) 210 mls @ 105 mls/hr IV ONCE ONE Stop: 06/26/23 15:59 Remdesivir 100 mg/ Sodium (Chloride) 230 mls @ 115 mls/hr IV Q24H ENIO Stop: 06/28/23 15:59 Insulin Glargine (Insulin Glargine,Hum.Rec.Anlog 100 Unit/Ml 10 Ml Vial) 20 unit SUBCUT BEDTIME [facility] Last Admin: 06/26/23 01:00 Dose: 20 unit Documented By: JERSON Insulin Human Lispro (Insulin Lispro 100 Unit/Ml 3 Ml Vial) 0 unit SUBCUT QIDACHS [facility]; Protocol Last Admin: 06/26/23 12:28 Dose: Not Given Documented By: TEETEE Non-Admin Reason: Patient Refused Melatonin (Melatonin 3 Mg Tablet) 6 mg PO BEDTIME PRN PRN Reason: Insomnia Ondansetron HCl (Ondansetron Hcl 4 Mg/2 Ml Vial) 4 mg IVPUSH Q8H PRN PRN Reason: Nausea and Vomiting Pharmacy Consult (Consult Rx Vancomycin Dosing) 1 each MISCELLANE DAILY PRN PRN Reason: Consult order Sodium Chloride (0.9 % Sodium Chloride Flush 3 Ml Syringe) 3 ml IVFLUSH [facility] Last Admin: 06/26/23 07:30 Dose: 3 ml Documented By: TEETEE Labs 06/26/23 05:16 06/26/23 05:16 Labs: Laboratory Results - last 24 hr 06/25/23 06/25/23 06/25/23 20:21 22:14 22:25 MCV 90.6 MCH 29.8 MCHC 32.9 RDW 14.6 Plt Count 189 MPV 9.5 Immature Gran % (Auto) 0.3 Neut % (Auto) 66.6 Lymph % (Auto) 13.3 L [place] % (Auto) 18.8 H Eos % (Auto) 0.7 Baso % (Auto) 0.3 Lymph # (Auto) 0.9 L [place] # (Auto) 1.3 H Eos # (Auto) 0.1 Baso # (Auto) 0.0 Abs Immat Gran (auto) 0.02 Absolute Neuts (auto) 4.5 Absolute Nucleated RBC 0.000 Nucleated RBC % (auto) 0.0 APTT 28.5 Anion Gap 14 Estim Creat Clear Calc 46.6 Estimated GFR 38 POC Glucose Random Glucose 206 H Lactic Acid 1.4 Calcium 9.2 Ferritin Total Bilirubin 0.5 AST 23 ALT 14 Alkaline Phosphatase 42 Lactate Dehydrogenase C-Reactive Protein Total Protein 7.2 Albumin 3.8 Nasal Screen MRSA (PCR) Nasal S. aureus Screen Nasal MRSA/S.aureus Interp Influenza Type A (PCR) NEGATIVE Influenza Type B (PCR) NEGATIVE RSV RNA Qual (PCR) NEGATIVE SARS-CoV-2 RNA (RT-PCR) POSITIVE A 06/26/23 06/26/23 06/26/23 00:58 05:16 07:13 MCV 93.7 MCH 30.3 MCHC 32.4 RDW 14.8 Plt Count 171 MPV 10.1 Immature Gran % (Auto) 0.3 Neut % (Auto) 59.6 Lymph % (Auto) 21.0 [place] % (Auto) 18.1 H Eos % (Auto) 0.6 Baso % (Auto) 0.4 Lymph # (Auto) 1.4 [place] # (Auto) 1.2 Eos # (Auto) 0.0 Baso # (Auto) 0.0 Abs Immat Gran (auto) 0.02 Absolute Neuts (auto) 4.0 Absolute Nucleated RBC 0.000 Nucleated RBC % (auto) 0.0 APTT Anion Gap 12 Estim Creat Clear Calc 50.7 Estimated GFR 42 POC Glucose 161 H 161 H Random Glucose 190 H Lactic Acid Calcium 8.6 D Ferritin 161 Total Bilirubin AST ALT Alkaline Phosphatase Lactate Dehydrogenase 193 C-Reactive Protein 5.95 H Total Protein Albumin Nasal Screen MRSA (PCR) Nasal S. aureus Screen Nasal MRSA/S.aureus Interp Influenza Type A (PCR) Influenza Type B (PCR) RSV RNA Qual (PCR) SARS-CoV-2 RNA (RT-PCR) 06/26/23 06/26/23 09:12 12:06 MCV MCH MCHC RDW Plt Count MPV Immature Gran % (Auto) Neut % (Auto) Lymph % (Auto) [place] % (Auto) Eos % (Auto) Baso % (Auto) Lymph # (Auto) [place] # (Auto) Eos # (Auto) Baso # (Auto) Abs Immat Gran (auto) Absolute Neuts (auto) Absolute Nucleated RBC Nucleated RBC % (auto) APTT Anion Gap Estim Creat Clear Calc Estimated GFR POC Glucose 157 H Random Glucose Lactic Acid Calcium Ferritin Total Bilirubin AST ALT Alkaline Phosphatase Lactate Dehydrogenase C-Reactive Protein Total Protein Albumin Nasal Screen MRSA (PCR) NEGATIVE Nasal S. aureus Screen POSITIVE A Nasal MRSA/S.aureus Interp SEE NOTE Influenza Type A (PCR) Influenza Type B (PCR) RSV RNA Qual (PCR) SARS-CoV-2 RNA (RT-PCR) Assessment and Plan (1) Cellulitis of arm, right: Status: Acute Plan d2 78yo M with DVT on apixaban, HTN, DM2, HLD, BPH, PATRICK on CPAP, CKD3 presenting with RUE infection failing cephalexin therapy also found to have Covid-19 RUE cellulitis - likely MRSA, will continue vancomycin d2, follow BCx Covid-19 infection - minimally symptomatic but high risk for severe disease given age + DM; will give remdesivir; no dexamethasone as not hypoxic orthostatic syncope - resolved s/p IV fluids hx DVT - apixaban DM2 - basal-bolus insulin BPH - finasteride PATRICK - CPAP HLD - statin HTN - amlodipine, lisinopril CKD3 - SCr at baseline VTE ppx - apixaban dispo - eventual return home In my clinical judgment, the patient requires continued inpatient hospitalization for the following reasons: IV ABX Total time managing care of this patient today: 40 minutes. Quality Stroke Does the patient have a stroke diagnosis?: No VTE Prior VTE?: No VTE Risk Level:: Medical - moderate - high VTE Device Contraindication: Treatment Not Indicated VTE Drug Contraindication: N/A - Med Ordered
[2023-06-26] MEDS: Remdesivir 200 MG in 0.9 % Sodium Chloride 210 ML 105 MG IV (15:29)
[2023-06-26 16:14] LABS: Glucose, Whole Blood 169 mg/dL (60-115)
[2023-06-26 20:26] LABS: Glucose, Whole Blood 199 mg/dL (60-115)
[2023-06-26] MEDS: Apixaban 2.5 MG TABLET PO (20:49)
[2023-06-26] MEDS: amLODIPine Besylate 10 MG TABLET PO (20:49)
[2023-06-26] MEDS: lisinopriL 40 MG TABLET PO (20:49)
[2023-06-26] MEDS: vancomycin HCL 1,250 MG in 0.9 % Sodium Chloride 250 ML 166.67 MG IV (23:16)
[2023-06-27] VITALS: BP 110/61; PULSE 60; RESP 17; TEMP 36.6; O2SAT 94
[2023-06-27 03:49] VITALS: BP 141/80; PULSE 68; RESP 17; TEMP 37.2; O2SAT 96
[2023-06-27 07:17] LABS: Glucose, Whole Blood 130 mg/dL (60-115)
[2023-06-27 07:37] VITALS: BP 123/67; PULSE 59; RESP 20; TEMP 37; O2SAT 93
[2023-06-27 08:30] LABS: Anion Gap 11 (12-20); Blood Urea Nitrogen 24 mg/dL (9-16); Carbon Dioxide 27 mmol/L (22-29); Chloride 106 mmol/L (96-108); Creatinine Clr Calc Pharmacy 60.9; Estimated Glomerular Filt Rate 54; Glucose Random 134 mg/dL (60-115); Potassium 4.8 mmol/L (3.3-5.1); Sodium 139 mmol/L (135-145)
[2023-06-27] MEDS: Apixaban 2.5 MG TABLET PO (09:18)
[2023-06-27] MEDS: 0.9 % Sodium Chloride Flush 3 ML SYRINGE IVFLUSH (09:20)
--- NOTE | 2023-06-27 09:32 | MHC.CM.PN ---
Pt lives alone, is independent, has no home health services. He has a CPAP machine at home, which he uses. He has not utilized VNA services before, nor been in a STR, and offers no preference if it is recommended. His sister is his HCP, he will complete form. A friend will pick him up at DC. Plan is home, self care. CM to follow and assist with DC planning.
[2023-06-27 11:03] LABS: Glucose, Whole Blood 195 mg/dL (60-115)
[2023-06-27 11:16] VITALS: BP 116/59; PULSE 66; RESP 18; TEMP 36.8; O2SAT 95
--- NOTE | 2023-06-27 11:41 | P.DS_ITS ---
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 Patient states he noticed redness, burning and warmth over his right arm that started 4 days prior to presentation. Patient went to urgent care and was prescribed Keflex. Patient noticed no improvement with p.o. medications. No associated fevers or chills. No history of similar infections in the past. Patient states he also had an episode of dizziness/lightheadedness when he tried to get up. Denies chest discomfort, palpitations, shortness of breath, abdominal pain, changes in urinary or bowel habits. In the emergency department, patient tested positive for COVID-19. 78yo M with DVT on apixaban, HTN, DM2, HLD, BPH, PATRICK on CPAP, and CKD3 presenting with RUE infection failing cephalexin therapy, and also found to have Covid-19 though very minimally symptomatic [sore throat; has chronic cough]. He was admitted to the hospitalist service and given IV vancomycin with clinical improvement. Nasal swab positive for MRSA. Blood cultures negative at discharge; final pending. Regarding Covid-19, he was not hypoxic and had little in the way of symptoms but given high risk for severe disease given age, diabetes, and unvaccinated status, he was given remdesivir. He was discharged home on doxycycline for the cellulitis and should see his primary care doctor in 1 week. Time Attestation Total time managing care of this patient today: 35 mintues. Discharge coordination time: Greater than 30 minutes Quality: Safe Use of Opioids Does Pt have an Active Cancer Diagnosis on the Problem List?: No Quality: Stroke Does the patient have a stroke diagnosis?: No Physical Exam Vital Signs: Vital Signs: Last Vital Signs Temp 98.2 F 06/27/23 11:16 Pulse 66 06/27/23 11:16 Resp 18 06/27/23 11:16 BP 116/59 L 06/27/23 11:16 Pulse Ox 95 06/27/23 11:16 O2 Del Method Room Air 06/27/23 11:16 BMI result Body Mass Index 34.9 Gen: in no acute distress HEENT: sclera anicteric, moist mucus membranes Neck: supple Lungs: clear to auscultation bilaterally Heart: regular rate and rhythm, no murmurs Abd: soft, non-tender, non-distended Ext: no edema Skin: warm/well-perfused, RUE over deltoid with erythema/induration but no purulence/fluctuance Neuro: alert and oriented x3, no focal findings Psych: appropriate affect DS: Data Data Completed and Pending Completed studies during hospitalization [Text1]: Laboratory Results WBC 6.7 X10*3/uL (4.8-10.8) 06/26/23 05:16 RBC 3.79 X10*6/uL (4.60-5.80) L 06/26/23 05:16 Hgb 11.5 g/dl (14.0-18.0) L 06/26/23 05:16 Hct 35.5 % (42.0-52.0) L 06/26/23 05:16 MCV 93.7 fL (80.0-98.0) 06/26/23 05:16 MCH 30.3 pg (27.0-33.0) 06/26/23 05:16 MCHC 32.4 g/dl (31.0-36.0) 06/26/23 05:16 RDW 14.8 % (11.0-16.0) 06/26/23 05:16 Plt Count 171 X10*3/uL (160-400) 06/26/23 05:16 MPV 10.1 fL (9.4-12.4) 06/26/23 05:16 Immature Gran % (Auto) 0.3 % (0.0-0.4) 06/26/23 05:16 Neut % (Auto) 59.6 % (45-73) 06/26/23 05:16 Lymph % (Auto) 21.0 % (20-40) 06/26/23 05:16 [place] % (Auto) 18.1 % (2-11) H 06/26/23 05:16 Eos % (Auto) 0.6 % (0-4) 06/26/23 05:16 Baso % (Auto) 0.4 % (0-2) 06/26/23 05:16 Lymph # (Auto) 1.4 X10*3/uL (1.2-4.9) 06/26/23 05:16 [place] # (Auto) 1.2 X10*3/uL (0.1-1.2) 06/26/23 05:16 Eos # (Auto) 0.0 X10*3/uL (0.0-0.4) 06/26/23 05:16 Baso # (Auto) 0.0 X10*3/uL (0.0-0.2) 06/26/23 05:16 Abs Immat Gran (auto) 0.02 X10*3/uL (0.00-0.03) 06/26/23 05:16 Absolute Neuts (auto) 4.0 x10*3/uL (2.0-8.3) 06/26/23 05:16 Absolute Nucleated RBC 0.000 X10*3/uL (0.0-0.012) 06/26/23 05:16 Nucleated RBC % (auto) 0.0 /100WBC (0.0-0.2) 06/26/23 05:16 Hold Purple Top SEE NOTE 06/27/23 07:46 APTT 28.5 SEC (26.0-36.4) 06/25/23 20:21 Sodium 139 mmol/L (135-145) 06/27/23 06:27 Potassium 4.8 mmol/L (3.3-5.1) D 06/27/23 06:27 Chloride 106 mmol/L (96-108) 06/27/23 06:27 Carbon Dioxide 27 mmol/L (22-29) 06/27/23 06:27 Anion Gap 11 (12-20) L 06/27/23 06:27 BUN 24 mg/dL (9-16) H 06/27/23 06:27 Creatinine 1.30 mg/dL (0.5-1.4) 06/27/23 06:27 Estim Creat Clear Calc 60.9 06/27/23 06:27 Estimated GFR 54 06/27/23 06:27 POC Glucose 195 mg/dL (60-115) H 06/27/23 11:00 Random Glucose 134 mg/dL (60-115) H 06/27/23 06:27 Lactic Acid 1.4 mmol/L (0.5-2.0) 06/25/23 22:25 Calcium 9.0 mg/dL (8.4-10.2) 06/27/23 06:27 Ferritin 161 ng/mL (20-250) 06/26/23 05:16 Total Bilirubin 0.5 mg/dL (0.0-1.0) 06/25/23 20:21 AST 23 U/L (5-37) 06/25/23 20:21 ALT 14 U/L (0-40) 06/25/23 20:21 Alkaline Phosphatase 42 U/L (39-117) 06/25/23 20:21 Lactate Dehydrogenase 193 U/L (118-273) 06/26/23 05:16 Troponin I High Sens 12.7 ng/L (<3.5-35.0) 06/25/23 20:21 C-Reactive Protein 5.95 mg/dL (< or = 0.50) H 06/26/23 05:16 Total Protein 7.2 g/dL (6.5-8.0) 06/25/23 20:21 Albumin 3.8 g/dL (3.5-5.0) 06/25/23 20:21 Nasal Screen MRSA (PCR) NEGATIVE (Negative) 06/26/23 09:12 Nasal S. aureus Screen POSITIVE (Negative) A 06/26/23 09:12 Nasal MRSA/S.aureus Interp SEE NOTE 06/26/23 09:12 Influenza Type A (PCR) NEGATIVE (Negative) 06/25/23 22:14 Influenza Type B (PCR) NEGATIVE (Negative) 06/25/23 22:14 RSV RNA Qual (PCR) NEGATIVE (Negative) 06/25/23 22:14 SARS-CoV-2 RNA (RT-PCR) POSITIVE (Negative) A 06/25/23 22:14 Impressions Chest X-Ray 06/25/23 22:50 IMPRESSION: No evidence for acute disease in the chest. Discharge Plan Discharge Anticipated Discharge Date/Time: 06/27/23 11:38 Patient Disposition: Home, Self-Care Discharge Diagnosis: Cellulitis of right upper arm, likely MRSA infection Covid-19 infection Referrals: Josse Iniguez [Physician] - 1 Week Physician,Angus J [Primary Care Provider] - 1 Week Discharge Medications: New doxycycline monohydrate 100 mg tablet 100 mg PO BID Qty: 16 0RF Continued amlodipine 10 mg Tablet 10 mg PO BEDTIME Eliquis 2.5 mg Tablet 2.5 mg PO BID glucosamine sulfate [Glucosamine] 500 mg Tablet 500 mg PO DAILY Rx Instructions: administer with a meal finasteride 5 mg Tablet 5 mg PO DAILY@1200 cholecalciferol (vitamin D3) 50 mcg (2,000 unit) Tablet 50 mcg PO DAILY@1200 empagliflozin 25 mg Tablet 25 mg PO DAILY@1200 insulin glargine 100 unit/mL Solution 26 unit SUBCUT BEDTIME insulin aspart U-100 [Novolog U-100 Insulin aspart] 100 unit/mL Solution 1 sliding scale dose SUBCUT USEASDIRECTD Rx Instructions: MAX 40 UNITS DAILY lisinopril 40 mg Tablet 40 mg PO BEDTIME Discharge Orders: Discharge Order (Routine); Ordered 06/27/23 Ordered By: Danyelle Hutchins Activity on Discharge: As tolerated Stand Alone Forms: Patient Portal Discharge page Care Plan Goals: cure of infection prevention of severe Covid-19 Health Concerns: Cellulitis of right upper arm, likely MRSA infection Covid-19 infection Plan of Treatment: Doxycycline 100 mg twice daily for 8 days Maintain isolation for 5 days from onset of symptoms and wear mask for 5 more days afterwards Please follow up with your primary care doctor within 1 week. Return to the hospital if you experience recurrent or worsening symptoms. Assessment: See Discharge Summary.
[2023-06-27] MEDS: Cholecalciferol (Vitamin D3) 25 MCG TABLET 50 MCG PO (11:54)
[2023-06-27] MEDS: Finasteride 5 MG TABLET PO (11:54)
--- NOTE | 2023-06-28 18:17 | P.CDIM_ITS ---
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 Please review below and update the documentation accordingly. Clinical Indicators: Nursing Height and Weight: BMI 34.9 113.398kg Obese If possible, please provide an associated diagnosis related to the abnormal BMI, such as: Overweight Obesity Due to excess calories Obesity Due to other cause Specify the other cause Other (explain) Clinically unable to determine (explain) Thank you, Marly Guevara, CCS, CDIS Use of terms such as suspected, likely, concern for, or probable (associated with a specific diagnosi s that is being evaluated, monitored, or treated as if it exists) are acceptable and can be coded in the inpatient se tting, when documented at the time of discharge. Please use your independent medical judgment in providing your response. THIS QUERY IS PART OF THE PERMANENT MEDICAL RECORD
== END 2023-06-27 12:45 | disposition home or self-care (01) | DRG 602 ==
LOC: HO.ED 21:13 → HO.EDOVER 23:41 → HO.IMC 06-26 11:45
PROVIDERS: Admitting Provider Student in an Organized Health Care Education/Training Program; Emergency Provider Internal Medicine; PCP Internal Medicine; Visit Provider Family Medicine
DX: L03.113 Cellulitis of right upper limb (principal); U07.1 COVID-19; E11.65 Type 2 diabetes mellitus with hyperglycemia; N18.30 Chronic kidney disease, stage 3 unspecified; I12.9 Hypertensive chronic kidney disease with stage 1 through stage 4 chronic kidney disease, or unspecified chronic kidney disease; E11.22 Type 2 diabetes mellitus with diabetic chronic kidney disease; I95.1 Orthostatic hypotension; E66.8 Other obesity; Z68.34 Body mass index [BMI] 34.0-34.9, adult; N40.0 Benign prostatic hyperplasia without lower urinary tract symptoms; E78.2 Mixed hyperlipidemia; G47.33 Obstructive sleep apnea (adult) (pediatric); Z86.718 Personal history of other venous thrombosis and embolism; Z79.4 Long term (current) use of insulin; Z79.01 Long term (current) use of anticoagulants; Z79.899 Other long term (current) drug therapy
CPT/HCPCS: 0241U; 36415; 71045; 80048; 80053; 82728; 82947; 83605; 83615; 84484; 85025; 85730; 86140; 87040; 87640; 87641; 93005; 94660; 99285; J0248; J3370; J3371

== ENCOUNTER → 2023-06-25 23:30 | Outpatient (BNV) | payer OTHER, SELFPAY | PROVIDERS: Admitting Provider Student in an Organized Health Care Education/Training Program; Emergency Provider Internal Medicine; Visit Provider Student in an Organized Health Care Education/Training Program | DX: L03.113 Cellulitis of right upper limb (principal) | CPT/HCPCS: 99222; 99232; 99239 ==

== ENCOUNTER 2024-10-05 10:58 | Inpatient (IN) | payer OTHER, SELFPAY ==
[2024-10-05] VITALS (8 sets, daily range): BP systolic 112–146; BP diastolic 42–59; PULSE 74–98; RESP 18–25; TEMP 36.6–37.1; O2SAT 96–100; BMI 35.3
--- NOTE | ~2024-10-05 | XR_ITS ---
EXAMINATION: XR CHEST 2 VIEWS HISTORY: cough COMPARISON: Comparison is made with the prior examination dated 06/25/2023. FINDINGS: PA and lateral views of the chest are submitted. The lungs are expanded and clear. There is no pleural effusion, pneumothorax, or pulmonary vascular congestion. The heart is normal in size. There is degenerative disc disease of the spine. XR/XR chest 2V IMPRESSION: No acute cardiopulmonary abnormality. Electronically signed by: Theodore Fuentes MD 10/05/2024 01:24 PM MANAN
--- NOTE | ~2024-10-05 | CT_ITS ---
EXAMINATION: CT ABDOMEN PELVIS WITHOUT IV CONTRAST, CT CHEST WITHOUT IV CONTRAST INDICATION: Chest pain and shortness of breath. Low back pain, difficulty urinating COMPARISON: There are no prior studies available for comparison. TECHNIQUE: CT scan of the chest, abdomen and pelvis was performed without contrast using standard departmental protocol. Coronal and sagittal reformatted images were generated and reviewed. Oral contrast material was not administered at the request of the referring physician. This CT exam was performed with one or more of the following dose reduction techniques: automated exposure control, adjustment of the mA and/or kV according to patient size, use of iterative reconstruction technique. DLP: 1050 mGy-cm CHEST: THYROID: The thyroid is unremarkable. LUNGS: There is scarring at the right lung base. The lungs are otherwise clear. There are no focal airspace opacities. MEDIASTINUM: There is no mediastinal lymphadenopathy. JANINE: Evaluation of the hilar regions is limited by lack of intravenous contrast material. CARDIOVASCULATURE: The heart is normal in size. There is no pericardial effusion. The thoracic aorta is normal in caliber. DEGREE OF CORONARY CALCIFICATION: none PLEURA: There is no pleural effusion. No pneumothorax. MAIN AIRWAYS: The mainstem bronchi and proximal branches are patent. AXILLA: There is no axillary lymphadenopathy. SOFT TISSUES: Unremarkable. BONES: There is degenerative disc disease of the spine. ABDOMEN: LIVER: The liver is normal in size and contour. The liver has an unremarkable unenhanced appearance. GALLBLADDER / BILE DUCTS: The gallbladder is unremarkable. There is no intra or extrahepatic biliary ductal dilatation. SPLEEN: The spleen is normal in size and has an unremarkable unenhanced appearance. PANCREAS: The pancreas is atrophic. There is a 1.0 cm cystic focus in the uncinate process and a 1.4 cm cystic focus in the tail. ADRENAL GLANDS: Unremarkable. KIDNEYS/RETROPERITONEUM: No renal or ureteral calculi are identified. There is no hydronephrosis or hydroureter. LYMPH NODES: No retroperitoneal lymphadenopathy is identified in the abdomen or pelvis. VASCULATURE: The abdominal aorta demonstrates atherosclerotic calcification, but is normal in caliber. MESENTERY/PERITONEUM: No free fluid. No masses. There is no free intraperitoneal gas. STOMACH: The stomach is unremarkable. SMALL BOWEL: The small bowel is normal in caliber. COLON: There is diverticulosis of the descending and sigmoid colon, without evidence of diverticulitis. APPENDIX: Normal. URINARY BLADDER/PELVIC ORGANS: The urinary bladder is unremarkable. The prostate is normal in size. BONES / SOFT TISSUES: There is degenerative disc disease of the spine. CT/CT abdomen pelvis wo IV con IMPRESSION: 1. Scarring at the right lung base. No focal airspace opacity is identified. 2. Cystic foci in the pancreas as described above. Nonemergent MRI of the abdomen without and with contrast is recommended. 3. Diverticulosis of the descending and sigmoid colon, without evidence of diverticulitis. Electronically signed by: Theodore Fuentes MD 10/05/2024 03:27 PM EST
--- NOTE | ~2024-10-05 | CT_ITS ---
Thrombocytopenia PROCEDURES: 1. Limited preprocedure CT of the pelvis. Permanent images saved in PACS. 2. 11 g bone marrow core biopsy of the left posterior iliac spine 3. 11 g bone marrow aspirate of the left posterior iliac spine CLINICIANS: Louie Sorto PA-C MEDICATIONS: -Fentanyl 50 mcg, and lidocaine 1% 10 mL SQ -Antibiotics: None -For additional details, please see nursing flowsheet. COMPLICATIONS: None ESTIMATED BLOOD LOSS: < 5 ml CONTRAST: None SPECIMENS: 11 g core placed in formalin. Bone marrow aspirate placed in EDTA and sodium heparin tubes PROCEDURE NOTE: The procedure, risks, benefits, and alternatives were carefully explained to the patient and written informed consent was obtained. The patient was placed prone on the CT table. A timeout was performed. A limited CT of the pelvis was performed to localize the posterior iliac spine and choose appropriate needle entry and trajectory. The patient was prepped and draped in usual sterile fashion. The skin, subcutaneous tissues, and periosteum were anesthetized with lidocaine. Under CT guidance, an 11-gauge bone marrow biopsy needle was advanced into the left posterior iliac spine, with the tip positioned slightly cephalad. A bone marrow aspiration was performed. The specimen was placed in the provided EDTA and sodium heparin tubes. Next, the 11-gauge bone marrow biopsy needle was then advanced into the posterior iliac spine, under CT guidance, with the tip positioned slightly caudal. An 11-gauge core biopsy of the bone marrow was performed and was placed in formalin. The needle was removed. A dry dressing was applied and secured with Tegaderm. There were no immediate complications. The patient was stable after the procedure and was transferred to the post anesthesia care unit. CT/CT biopsy asp core bone marrow Impression: CT-guided bone marrow biopsy and aspiration. This procedure was performed by Louie Sorto PA-C and supervised by Dr. Munson. Electronically signed by: Noah Munson MD 10/07/2024 02:20 PM [facility]
--- NOTE | ~2024-10-05 | XR_ITS ---
EXAMINATION: XR CHEST CLINICAL INFORMATION: SOB COMPARISON: None available. TECHNIQUE: Frontal view of the chest was obtained. FINDINGS: There is mild rightward rotation. The cardiac, hilar, and mediastinal contours are normal. The lungs are grossly clear bilaterally. No pneumothorax or effusion. No focal osseous or soft tissue abnormality. There are spinal degenerative changes. XR/XR chest 1V IMPRESSION: No active pulmonary disease. Electronically signed by: Brandyn Mosher MD 10/07/2024 09:42 AM MANAN
--- NOTE | 2024-10-05 11:54 | ED_ITS ---
HPI - URI/Sore Throat General Chief Complaint: Weakness Stated Complaint: congestion Time Seen by Provider: 10/05/24 13:41 Source: patient Mode of arrival: ambulatory Limitations: no limitations History of Present Illness ED Provider: Katey Lane PA-C HPI Narrative: Patient is a 79 year old assigned male at with a history of DVT on eliquis, HTN, DM, HLD, BPH, PATRICK on CPAP, and CKD stage 3 presenting to the emergency department today with shortness of breath, low back pain, weakness, and fatigue. Patient states that over the last 3 months he has had fatigue, shortness of breath, low back pain, and weakness. Patient denies any dizziness, lightheadedness, abdominal pain, nausea, vomiting, fever, chills, blurry vision, double vision, loss of vision, chest pain, night sweats, pain with urination, increased urinary frequency, increased urinary urgency, blood in his urine or stool, syncope or a near syncopal episode, recent trauma or falls, bowel incontinence, bladder incontinence, or any other complaints at this time. Patient states that he has a history of smoking for approximately 13 years but quit approximately 55 years ago. 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 Patient states that [facility] 4 [facility]. Relieving factors: nothing Associated symptoms: cough and shortness of breath Treatments prior to arrival: none Related Data Home Medications ?Medication ?Instructions ?Recorded ?Confirmed amlodipine 10 mg tablet 10 mg PO BEDTIME 06/26/23 06/26/23 cholecalciferol (vitamin D3) 50 50 mcg PO DAILY@1200 06/26/23 06/26/23 mcg (2,000 unit) tablet empagliflozin 25 mg tablet 25 mg PO DAILY 06/26/23 06/26/23 finasteride 5 mg tablet 5 mg PO DAILY 06/26/23 06/26/23 glucosamine sulfate 500 mg tablet 1,000 mg PO DAILY 06/26/23 06/26/23 (Glucosamine) insulin aspart U-100 100 unit/mL 1 sliding scale dose subcut 06/26/23 06/26/23 subcutaneous solution (Novolog USEASDIRECTD U-100 Insulin aspart) insulin glargine 100 unit/mL 25 unit subcut BEDTIME 06/26/23 06/26/23 subcutaneous solution lisinopril 40 mg tablet 40 mg PO BEDTIME 06/26/23 06/26/23 albuterol sulfate 90 mcg/actuation 2 puff inhalation Q4H PRN 10/05/24 aerosol inhaler Shortness Of Breath Or Wheezing benzonatate 200 mg capsule 200 mg PO TID PRN Cough 10/05/24 carboxymethylcellulose sodium 0.5 1 drp ophthalmic (eye) QID PRN Dry 10/05/24 % eye drops Eye(S) dextromethorphan-guaifenesin 10 10 ml PO Q6H PRN Cough 10/05/24 mg-100 mg/5 mL oral syrup glucose 4 gram chewable tablet 4 g PO Q15M PRN Low Blood Sugar 10/05/24 rosuvastatin 40 mg tablet 40 mg PO DAILY 10/05/24 Allergies Allergy/AdvReac Type Severity Reaction Status Date / Time Ffmhnnq-XSC-GzG Reductase Allergy Intermediate ELEVATED Verified 10/05/24 11:56 Inhibitor LIVER [Vpsrqkc-Huw-Qwt Reductase ENZYMES Inhibitor] Statins Depletion Allergy Unknown Unknown Uncoded 06/26/23 00:42 Review of Systems 2 Constitutional: Constitutional: Reports no additional constitutional complaints, Denies chills, Denies fever(s), Denies night sweats and Reports weakness Eyes: Eyes: Reports no additional eye complaints, Denies blurry vision, Denies change in vision, Denies diplopia, Denies eye discharge, Denies loss of vision and Denies eye pain ENT: Denies dizziness Cardiovascular: Cardiovascular: Reports no additional cardiovascular complaints, Denies chest pain, Denies lightheadedness, Denies Loss of Consciousness and Reports dyspnea Respiratory: Respiratory: Reports no additional respiratory complaints, Reports cough and Reports dyspnea Gastrointestinal: Gastrointestinal: Reports no additional gastrointestinal complaints, Denies abdominal pain, Denies melena, Denies hematochezia, Denies change in bowel habits and Denies change in stool character Genitourinary: Genitourinary: Reports no additional male genitourinary complaints, Denies hematuria, Denies oliguria, Denies difficulty urinating, Denies dysuria, Denies urinary frequency, Denies urinary hesitancy, Denies urinary incontinence and Denies urinary urgency Musculoskeletal: Musculoskeletal: Reports no additional musculoskeletal complaints, Reports back pain, Denies numbness and Denies tingling Neurologic: Denies dizziness, Denies loss of vision, Denies numbness, Denies tingling and Reports weakness Psychiatric: Psychiatric: Reports no additional psychiatric complaints Endocrine: Endocrine: Reports no additional endocrine complaints Hematologic/Lymphatic: Hematologic/Lymphatic: Reports no additional hematologic/lymphatic complaints Allergic/Immunologic: Allergic/Immunologic: Reports no additional allergic/immunologic complaints [facility] Past Medical History Attestation statement: The following information was validated with the patient. Source: old records reviewed and nursing notes reviewed Medical History Mixed hyperlipidemia Benign prostatic hyperplasia Essential hypertension PATRICK on CPAP DVT (deep venous thrombosis) Insulin dependent type 2 diabetes mellitus Social History Social History Household Members: None Housing: House Do you presently have visiting nurse or other home services: No Patient Tobacco Use Status: Former Tobacco user Smoked in Last 30 Days: No Use of substances other than those prescribed or required for medical reasons: No Advance Directives: No Advance Directives Information Provided: Yes Physical Exam 2 Vital Signs: Vital Signs: Last Vital Signs Temp 98.1 F 10/05/24 19:01 Pulse 74 10/05/24 19:01 Resp 20 10/05/24 19:01 BP 114/49 L 10/05/24 19:01 Pulse Ox 96 10/05/24 18:14 O2 Del Method Room Air 10/05/24 18:14 BMI result Body Mass Index 35.3 Const: General: cooperative, no acute distress, alert and awake Nutritional Appearance: well nourished Orientation/consciousness: patient oriented x3 Limitations: no limitations HEENT: Head: Yes normal to inspection and Yes atraumatic Ears: hearing grossly normal bilaterally and external ears normal General nose exam: Normal external nose present, no nasal discharge noted and no epistaxis Face and sinus: Yes normal facial exam, No abrasion and No laceration Mouth: Normal oral and palatal mucosa present, no drooling and no muffled voice Eyes: General: appearance normal, both eyes and all related structures P eriorbital: periorbital findings normal Eyelids: Yes eyelids normal C onjunctivae: conjunctivae normal Pupils: Equal, round and reactive pupils present EOM: EOMs intact bilaterally Neck: Neck: Yes normal visual inspection, Yes full ROM and Yes no lymphadenopathy Chest: Chest palpation & inspection: normal inspection of the chest Resp: Effort & Inspection: normal respiratory effort and able to speak in complete sentences GI: Inspection: Yes normal to inspection Neuro: General: patient oriented x3, moves all extremities and CN's II-XI intact bilaterally Cranial nerves: Yes Equal, round and reactive pupils present Cognition (Neuro): normal cognition Extrem: General: Yes normal to inspection, Yes full ROM and Yes capillary refill normal Psych: Appearance: grossly normal Mental Status: mental status grossly normal Affect: normal affect Attitude: cooperative Thought process: N ormal thought process present Thought content: Normal thought content present Insight: Good insight present (Psych) Course Course Course Narrative: 79 yo male with PMH of PATRICK on CPAP, HTN, IDDM, DVT on eliquis here with URI symptoms nausea, weakness, FTT, diarrhea, near syncope x 1 month. He has been given neb therapy and antibiotics. [facility] No travel/sick contacts. At this time basic labs, EKG, CXR, viral panel this is a RAPID medical screening exam the rest of the history and physical exam is to be done by the main provider. Medications Administered Generic Name Dose Route Start Last Admin Trade Name Freq PRN Reason Stop Dose Admin Allopurinol 200 mg 10/05/24 16:45 10/05/24 17:10 Allopurinol 100 Mg Tablet PO 200 mg DAILY ENIO Administration Sodium Bicarbonate 150 meq/ 1,000 mls @ 125 mls/hr 10/05/24 18:15 10/05/24 19:06 Dextrose IV 125 mls/hr .Q8H ENIO Administration Discontinued Medications Generic Name Dose Route Start Last Admin Trade Name Freq PRN Reason Stop Dose Admin Sodium Chloride 1,000 mls @ 200 mls/hr 10/05/24 17:30 10/05/24 18:20 Ns IVCONT 10/05/24 22:29 Infused .Q5H ENIO Infusion Rasburicase 6 mg/ Sodium 50 mls @ 100 mls/hr 10/05/24 18:00 10/05/24 19:07 Chloride IV 10/05/24 18:29 Infused ONCE ONE Infusion Silver Nitrate 1 appl 10/05/24 17:30 10/05/24 17:46 Silver Nitrate Applicator Stick..Ea. TOPICAL 10/05/24 17:31 1 appl ONCE ONE Administration Medical Decision Making Medical Decision Making MDM Narrative: Patient is a 79 year old assigned male at with a history of DVT on eliquis, HTN, DM, HLD, BPH, PATRICK on CPAP, and CKD stage 3 presenting to the emergency department today with shortness of breath, low back pain, weakness, and fatigue. Patient's physical exam was unremarkable. Patient's blood work showed multiple abnormalities including a hgb of 9.2, hct of 26.8, plt of 19, ESR of 19, BUN of 70, CR of 2.48, calcium of 10.3 and a grossly abnormal differential. Patient's urine showed no acute process. Patient's EKG was unremarkable. Patient's chest x-ray showed no acute process. Patient's CT chest, abdomen, and pelvis showed no acute process. Patient's abdomen/pelvis CT showed pancreatitis cysts which according to [facility] records, he had an MRI that confirmed the pancrease cysts were only cysts - not malignancy. I consulted with Dr. Nation from heme/onc who recommended medical admission, IV fluids, 200mg of allopurinol, and 1 unit of platelets. She stated there is concern for an underlying malignant pathology such as leukemia or multiple myeloma. I spoke with the hospitalist Dr. Alegria who agreed to admission. Patient's clinical presentation is not consistent with sepsis (@1745). I explained my physical exam findings as well as all test results to the patient. I answered all questions asked by the patient. Patient verbalized agreement and understanding with this treatment plan and admission. While awaiting admission, the patient scratched a skin lesion off of his right shoulder that continued to slowly ooze blood even after pressure with gauze was applied. I applied silver nitrate to the area and the bleeding subsided. Differential Diagnosis Differential Diagnoses: The differential diagnosis associated with the presentation includes Low platelets Hypercalcemia HIRO Admission/Observation Consideration of admission/observation: Escalation of care including admission/observation considered Patient admitted as noted in the MDM Rationale portion of this note. Consult Healthcare Provider Management of the patient was discussed with: Hospitalist (agreed to admission as noted in the MDM Rationale portion of this note.) and Prior Authorization Technician (spoke to the heme/onc team as noted in the MDM Rationale portion of this note.) Lab Data [facility] Lab Attestation statement: I reviewed the patient's lab results. My interpretation of these results are in the MDM Rationale portion of this note. 10/05/24 12:20 10/05/24 18:30 Labs: Lab Results 10/05/24 10/05/24 10/05/24 Range/Units 12:17 12:20 14:14 WBC 9.4 (4.8-10.8) X10*3/uL RBC 3.02 L D (4.60-5.80) X10*6/uL Hgb 9.2 L (14.0-18.0) g/dl Hct 26.8 L D (42.0-52.0) % MCV 88.7 (80.0-98.0) fL MCH 30.5 (27.0-33.0) pg MCHC 34.3 (31.0-36.0) g/dl RDW 15.6 (11.0-16.0) % Plt Count 19 L* D (160-400) X10*3/uL MPV 12.1 (9.4-12.4) fL Immature Gran % (Auto) 4.7 H (0.0-0.4) % Neut % (Auto) 21.7 L (45-73) % Lymph % (Auto) 49.9 H (20-40) % Wirt % (Auto) 22.0 H (2-11) % Eos % (Auto) 0.3 (0-4) % Baso % (Auto) 1.4 (0-2) % Lymph # (Auto) 4.7 (1.2-4.9) X10*3/uL Wirt # (Auto) 2.1 H (0.1-1.2) X10*3/uL Eos # (Auto) 0.0 (0.0-0.4) X10*3/uL Baso # (Auto) 0.1 (0.0-0.2) X10*3/uL Abs Immat Gran (auto) 0.44 H (0.00-0.03) X10*3/uL Absolute Neuts (auto) 2.0 (2.0-8.3) x10*3/uL Absolute Nucleated RBC 0.290 H (0.0-0.012) X10*3/uL Nucleated RBC % (auto) 3.1 H (0.0-0.2) /100WBC Smear Tech's Comments VERIFIED Smear Path Review SEE NOTE ESR (0-15) MM/HR PT 14.3 H (10.9-12.4) SEC INR 1.2 H (0.9-1.1) APTT 25.1 L (26.0-36.8) SEC Fibrinogen (259-690) MG/DL Sodium 134 L (135-145) mmol/L Potassium 5.0 (3.3-5.1) mmol/L Chloride 105 (96-108) mmol/L Carbon Dioxide 22 (22-29) mmol/L Anion Gap 12 (12-20) BUN 78 H (9-16) mg/dL Creatinine 2.59 H (0.5-1.4) mg/dL Estim Creat Clear Calc 29.4 Estimated GFR 24 Random Glucose 274 H (60-115) mg/dL Haptoglobin (40-268) mg/dL Uric Acid (3.4-7.0) mg/dL Calcium 10.7 H D (8.4-10.2) mg/dL Phosphorus (2.7-4.5) mg/dL Magnesium 2.4 (1.6-2.6) mg/dL Ferritin (20-250) ng/mL Total Bilirubin 0.6 (0.0-1.0) mg/dL Direct Bilirubin 0.3 (0.0-0.5) mg/dL AST 41 H (5-37) U/L ALT 47 H (0-40) U/L Alkaline Phosphatase 39 (39-117) U/L Lactate Dehydrogenase (118-273) U/L Troponin I High Sens 11.1 (<3.5-35.0) ng/L C-Reactive Protein 0.30 (< or = 0.50) mg/dL B-Natriuretic Peptide 100 (<100) pg/mL Total Protein 10.9 H (6.5-8.0) g/dL Albumin 3.2 L (3.5-5.0) g/dL Lipase 18 (8-78) U/L Influenza Type A (PCR) NEGATIVE (Negative) Influenza Type B (PCR) NEGATIVE (Negative) RSV RNA Qual (PCR) NEGATIVE (Negative) SARS-CoV-2 RNA (RT-PCR) NEGATIVE (Negative) Blood Type Antibody Screen 10/05/24 10/05/24 Range/Units 15:11 17:07 WBC (4.8-10.8) X10*3/uL RBC (4.60-5.80) X10*6/uL Hgb (14.0-18.0) g/dl Hct (42.0-52.0) % MCV (80.0-98.0) fL MCH (27.0-33.0) pg MCHC (31.0-36.0) g/dl RDW (11.0-16.0) % Plt Count (160-400) X10*3/uL MPV (9.4-12.4) fL Immature Gran % (Auto) (0.0-0.4) % Neut % (Auto) (45-73) % Lymph % (Auto) (20-40) % Wirt % (Auto) (2-11) % Eos % (Auto) (0-4) % Baso % (Auto) (0-2) % Lymph # (Auto) (1.2-4.9) X10*3/uL Wirt # (Auto) (0.1-1.2) X10*3/uL Eos # (Auto) (0.0-0.4) X10*3/uL Baso # (Auto) (0.0-0.2) X10*3/uL Abs Immat Gran (auto) (0.00-0.03) X10*3/uL Absolute Neuts (auto) (2.0-8.3) x10*3/uL Absolute Nucleated RBC (0.0-0.012) X10*3/uL Nucleated RBC % (auto) (0.0-0.2) /100WBC Smear Tech's Comments Smear Path Review ESR 109 H (0-15) MM/HR PT (10.9-12.4) SEC INR (0.9-1.1) APTT (26.0-36.8) SEC Fibrinogen 266 (259-690) MG/DL Sodium (135-145) mmol/L Potassium (3.3-5.1) mmol/L Chloride (96-108) mmol/L Carbon Dioxide (22-29) mmol/L Anion Gap (12-20) BUN (9-16) mg/dL Creatinine (0.5-1.4) mg/dL Estim Creat Clear Calc Estimated GFR Random Glucose (60-115) mg/dL Haptoglobin 97 (40-268) mg/dL Uric Acid 13.3 H (3.4-7.0) mg/dL Calcium (8.4-10.2) mg/dL Phosphorus 5.3 H (2.7-4.5) mg/dL Magnesium (1.6-2.6) mg/dL Ferritin 734 H (20-250) ng/mL Total Bilirubin (0.0-1.0) mg/dL Direct Bilirubin (0.0-0.5) mg/dL AST (5-37) U/L ALT (0-40) U/L Alkaline Phosphatase (39-117) U/L Lactate Dehydrogenase 300 H (118-273) U/L Troponin I High Sens (<3.5-35.0) ng/L C-Reactive Protein (< or = 0.50) mg/dL B-Natriuretic Peptide (<100) pg/mL Total Protein (6.5-8.0) g/dL Albumin (3.5-5.0) g/dL Lipase (8-78) U/L Influenza Type A (PCR) (Negative) Influenza Type B (PCR) (Negative) RSV RNA Qual (PCR) (Negative) SARS-CoV-2 RNA (RT-PCR) (Negative) Blood Type A Positive Antibody Screen NEGATIVE Independent Interpretation I performed an independent interpretation of an: EKG, Plain X-Ray and CT Scan Interpretation: My interpretation is in agreement with the radiologist's impression of these imaging studies. L Report Number: [id number]: Total DLP = 303.00 mGy-cm EXAMINATION: CT ABDOMEN PELVIS WITHOUT IV CONTRAST, CT CHEST WITHOUT IV CONTRAST INDICATION: Chest pain and shortness of breath. Low back pain, difficulty urinating COMPARISON: There are no prior studies available for comparison. TECHNIQUE: CT scan of the chest, abdomen and pelvis was performed without contrast using standard departmental protocol. Coronal and sagittal reformatted images were generated and reviewed. Oral contrast material was not administered at the request of the referring physician. This CT exam was performed with one or more of the following dose reduction techniques: automated exposure control, adjustment of the mA and/or kV according to patient size, use of iterative reconstruction technique. DLP: 1050 mGy-cm CHEST: THYROID: The thyroid is unremarkable. LUNGS: There is scarring at the right lung base. The lungs are otherwise clear. There are no focal airspace opacities. MEDIASTINUM: There is no mediastinal lymphadenopathy. JANINE: Evaluation of the hilar regions is limited by lack of intravenous contrast material. CARDIOVASCULATURE: The heart is normal in size. There is no pericardial effusion. The thoracic aorta is normal in caliber. DEGREE OF CORONARY CALCIFICATION: none PLEURA: There is no pleural effusion. No pneumothorax. MAIN AIRWAYS: The mainstem bronchi and proximal branches are patent. AXILLA: There is no axillary lymphadenopathy. SOFT TISSUES: Unremarkable. BONES: There is degenerative disc disease of the spine. ABDOMEN: LIVER: The liver is normal in size and contour. The liver has an unremarkable unenhanced appearance. GALLBLADDER / BILE DUCTS: The gallbladder is unremarkable. There is no intra or extrahepatic biliary ductal dilatation. SPLEEN: The spleen is normal in size and has an unremarkable unenhanced appearance. PANCREAS: The pancreas is atrophic. There is a 1.0 cm cystic focus in the uncinate process and a 1.4 cm cystic focus in the tail. ADRENAL GLANDS: Unremarkable. KIDNEYS/RETROPERITONEUM: No renal or ureteral calculi are identified. There is no hydronephrosis or hydroureter. LYMPH NODES: No retroperitoneal lymphadenopathy is identified in the abdomen or pelvis. VASCULATURE: The abdominal aorta demonstrates atherosclerotic calcification, but is normal in caliber. MESENTERY/PERITONEUM: No free fluid. No masses. There is no free intraperitoneal gas. STOMACH: The stomach is unremarkable. SMALL BOWEL: The small bowel is normal in caliber. COLON: There is diverticulosis of the descending and sigmoid colon, without evidence of diverticulitis. APPENDIX: Normal. URINARY BLADDER/PELVIC ORGANS: The urinary bladder is unremarkable. The prostate is normal in size. BONES / SOFT TISSUES: There is degenerative disc disease of the spine. CT/CT chest wo IV con IMPRESSION: 1. Scarring at the right lung base. No focal airspace opacity is identified. 2. Cystic foci in the pancreas as described above. Nonemergent MRI of the abdomen without and with contrast is recommended. 3. Diverticulosis of the descending and sigmoid colon, without evidence of diverticulitis. Electronically signed by: Theodore Fuentes MD 10/05/2024 03:27 PM EST RP Dictated By: Theodore Fuentes MD Signed By: Electronically signed by Theodore Fuentes MD 10/05/24 1527 EXAMINATION: XR CHEST 2 VIEWS HISTORY: cough COMPARISON: Comparison is made with the prior examination dated 06/25/2023. FINDINGS: PA and lateral views of the chest are submitted. The lungs are expanded and clear. There is no pleural effusion, pneumothorax, or pulmonary vascular congestion. The heart is normal in size. There is degenerative disc disease of the spine. XR/XR chest 2V IMPRESSION: No acute cardiopulmonary abnormality. Electronically signed by: Theodore Fuentes MD 10/05/2024 01:24 PM [facility] RP Dictated By: Theodore Fuentes MD Signed By: Electronically signed by Theodore Fuentes MD 10/05/24 1324 I independently interpreted this EKG and am in agreement with the below findings: Vent. Rate: 82 BPM Atrial Rate: 82 BPM P-R Int: 258 ms QRS Dur: 70 ms QT Int: 340 ms P-R-T Axes: 10 25 65 degrees QTcB Int: 397 ms Baseline artifact Undetermined rhythm Premature ventricular complexes Nonspecific ST abnormality When compared with ECG of 25-Jun-2023 20:06, Premature ventricular complexes are now Present Referred By: Judy Lobato Electronically Signed By: OJ BARRY Dictated By: Oj Barry MD Signed By: Electronically signed by Oj Barry MD 10/05/24 2951 Radiology Impression Discussion of test interpretation with radiology: I have reviewed the radiologist's reading. Chronic Conditions Patient?s care impacted by: Diabetes and Hypertension Procedures Laceration right shoulder lesion: Side (If applicable): right Size (cm): 0.5 Description: other (circular) Depth: simple, single layer Pre-repair: deep structures intact Technique: other (silver nitrate applied - gauze + pressure held) Critical Care Time Critical Care Time Critical Care Time: Yes Total Critical Care Time: 58 Attestation: I spent 58 minutes of Critical Care Time with this patient. This does not include time spent on separately reported billable procedures. Discharge Plan Discharge Clinical Impression: HIRO (acute kidney injury), Low platelet count, Hypercalcemia Patient Disposition: Admitted As Inpatient
--- NOTE | 2024-10-05 11:57 | ECG_ITS ---
Test Reason : DYSPNEA Blood Pressure : */* mmHG Vent. Rate : 82 BPM Atrial Rate : 82 BPM P-R Int : 258 ms QRS Dur : 70 ms QT Int : 340 ms P-R-T Axes : 10 25 65 degrees QTcB Int : 397 ms Baseline artifact Undetermined rhythm Premature ventricular complexes Nonspecific ST abnormality Abnormal ECG When compared with ECG of 25-Jun-2023 20:06, Premature ventricular complexes are now Present Referred By: Judy Lobato Electronically Signed By: LON BARRY
[2024-10-05 12:49] LABS: Basophils Absolute Auto 0.1 X10*3/uL (0.0-0.2); Basophils Percent Auto 1.4 % (0-2); Eosinophils Percent Auto 0.3 % (0-4); Hematocrit 26.8 % (42.0-52.0); Hemoglobin 9.2 g/dl (14.0-18.0); Imm Gran Abs Auto 0.44 X10*3/uL (0.00-0.03); Imm Gran Pct Auto 4.7 % (0.0-0.4); Lymphocytes Absolute Auto 4.7 X10*3/uL (1.2-4.9); Lymphocytes Percent Auto 49.9 % (20-40); MANUAL DIFF FLAG SCAN; Mean Corpuscular HGB Conc 34.3 g/dl (31.0-36.0); Mean Corpuscular Hemoglobin 30.5 pg (27.0-33.0); Mean Corpuscular Volume 88.7 fL (80.0-98.0); Mean Platelet Volume 12.1 fL (9.4-12.4); Monocytes Absolute Auto 2.1 X10*3/uL (0.1-1.2); Neutrophils Percent Auto 21.7 % (45-73); PLT CLUMP 1; Red Blood Count 3.02 X10*6/uL (4.60-5.80); Red Cell Distribution Width 15.6 % (11.0-16.0); SCAN SMEAR FLAG 1
[2024-10-05 12:50] LABS: NRBC Pct Auto 3.1 /100WBC (0.0-0.2); White Blood Count 9.4 X10*3/uL (4.8-10.8)
[2024-10-05 12:51] LABS: B Type Natriuretic Peptide 100 pg/mL (<100)
[2024-10-05 12:53] LABS: Albumin Level 3.2 g/dL (3.5-5.0); Alkaline Phosphatase 39 U/L (39-117); Anion Gap 12 (12-20); Aspartate Amino Transferase 41 U/L (5-37); Bilirubin Direct 0.3 mg/dL (0.0-0.5); Bilirubin Total 0.6 mg/dL (0.0-1.0); Blood Urea Nitrogen 78 mg/dL (9-16); Calcium 10.7 mg/dL (8.4-10.2); Carbon Dioxide 22 mmol/L (22-29); Chloride 105 mmol/L (96-108); Creatinine Clr Calc Pharmacy 29.4; Estimated Glomerular Filt Rate 24; Glucose Random 274 mg/dL (60-115); Lipase 18 U/L (8-78); Magnesium 2.4 mg/dL (1.6-2.6); Sodium 134 mmol/L (135-145); Total Protein 10.9 g/dL (6.5-8.0)
[2024-10-05 12:56] LABS: Platelet Count 19 X10*3/uL (160-400); SLIDE REVIEW VERIFIED
[2024-10-05 12:57] LABS: Troponin-I High Sensitivity 11.1 ng/L (<3.5-35.0)
[2024-10-05 13:05] LABS: Influenza A PCR NEGATIVE (Negative); Influenza B PCR NEGATIVE (Negative); Resp Syncy Virus RNA Qual PCR NEGATIVE (Negative); SARS COV2 PCR INHOUSE NEGATIVE (Negative)
[2024-10-05 13:11] LABS: Alanine Aminotransferase 47 U/L (0-40)
[2024-10-05 15:24] LABS: Fibrinogen 266 MG/DL (259-690)
[2024-10-05 15:25] LABS: INTERNATIONAL NORM RATIO 1.2 (0.9-1.1); Prothrombin Time 14.3 SEC (10.9-12.4)
[2024-10-05 15:27] LABS: Partial Thromboplastin Time 25.1 SEC (26.0-36.8)
[2024-10-05 15:45] LABS: Haptoglobin 97 mg/dL (40-268)
[2024-10-05 15:49] LABS: Lactate Dehydrogenase 300 U/L (118-273); Uric Acid 13.3 mg/dL (3.4-7.0)
[2024-10-05 16:02] LABS: Erythrocyte Sedimentation Rate 109 MM/HR (0-15)
--- NOTE | 2024-10-05 17:04 | PM.HEMONCCN ---
Subjective - Subjective Chief complaint: Weakness/fatigue Patient: new to practice Consult date: 10/05/24 Requesting Physician: Katey KHAN Primary Care Provider: Josse Iniguez Final Expense Agent Utilized?: No - Congolese Speaking HPI - Consult Narrative Reason for consult: Thrombocytopenia/anemia Narrative: Raman Ogden is a 79 year old male with history of diabetes mellitus, chronic kidney disease stage 3, obstructive sleep apnea, DVT on Eliquis who presented with 2 to three-month history of fatigue and weakness. He has been feeling poorly, he had low back pain, loss of appetite and some weight loss. [facility] [place] a few days ago for upper respiratory symptoms and was prescribed azithromycin. He was diagnosed with left lower extremity DVT in December 2021. He appears to be on Eliquis ever since. He denies chest pain, abdominal pain or change in bowel habits. He has never been told of low blood counts in the past. He saw his PCP at the OR in [facility] about 3 months ago. He denies any fever or chills. He lives alone at home. He has a brother and sister who are next of kin. He has never been diagnosed with any malignancy in the past. He was exposed to agent orange. Review of Systems - Constitutional Reports as per HPI, Reports fatigue, Reports lack of energy, Reports malaise, Reports poor appetite - Cardiovascular Reports no additional cardiovascular complaints - Respiratory Reports no additional respiratory complaints - Gastrointestinal Reports no additional gastrointestinal complaints [facility] Medical History: Medical History (Last Reviewed 06/26/23 @ 14:39 by Tony Irving RN) Benign prostatic hyperplasia DVT (deep venous thrombosis) Essential hypertension Insulin dependent type 2 diabetes mellitus Mixed hyperlipidemia PATRICK on CPAP Social History: Social History (Last Reviewed 06/26/23 @ 00:17 by Satish Adams MD) Living Situation History: Household Members: None Housing: House Do you presently have visiting nurse or other home services: No Alcohol History Details: 1. How often do you have a drink containing alcohol?: a. Never Tobacco History: Patient Tobacco Use Status: Former Tobacco user Smoked in Last 30 Days: No Substance Use History: Use of substances other than those prescribed or required for medical reasons: No Advance Directives: Advance Directives: No Advance Directives Information Provided: Yes Home Medications and Allergies Current Medications: Current Medications Allopurinol (Allopurinol 100 Mg Tablet) 200 mg PO DAILY ENIO Sodium Chloride (Ns) 500 mls @ 200 mls/hr IV .Q2H30M ENIO Stop: 10/05/24 19:14 Home Medications ?Medication ?Instructions ?Recorded ?Confirmed ?Type amlodipine 10 mg tablet 10 mg PO BEDTIME 06/26/23 06/26/23 History apixaban 2.5 mg tablet (Eliquis) 2.5 mg PO BID 06/26/23 06/26/23 History cholecalciferol (vitamin D3) 50 50 mcg PO DAILY@1200 06/26/23 06/26/23 History mcg (2,000 unit) tablet empagliflozin 25 mg tablet 25 mg PO DAILY@1200 06/26/23 06/26/23 History finasteride 5 mg tablet 5 mg PO DAILY@1200 06/26/23 06/26/23 History glucosamine sulfate 500 mg tablet 500 mg PO DAILY 06/26/23 06/26/23 History (Glucosamine) insulin aspart U-100 100 unit/mL 1 sliding scale dose subcut 06/26/23 06/26/23 History subcutaneous solution (Novolog USEASDIRECTD U-100 Insulin aspart) insulin glargine 100 unit/mL 26 unit subcut BEDTIME 06/26/23 06/26/23 History subcutaneous solution lisinopril 40 mg tablet 40 mg PO BEDTIME 06/26/23 06/26/23 History Allergies Allergy/AdvReac Type Severity Reaction Status Date / Time Vjcnhdb-PMY-DcA Reductase Allergy Intermediate ELEVATED Verified 10/05/24 11:56 Inhibitor LIVER [Zpjsvys-Wev-Jvu Reductase ENZYMES Inhibitor] Statins Depletion Allergy Unknown Unknown Uncoded 06/26/23 00:42 Physical Exam Vital signs: Vital Signs Temp 98.7 F 10/05/24 15:23 Pulse 98 10/05/24 15:23 Resp 18 10/05/24 15:23 BP 112/59 L 10/05/24 15:23 Pulse Ox 100 10/05/24 15:23 O2 Del Method Room Air 10/05/24 15:23 Intake & Output 10/04/24 10/05/24 10/05/24 18:59 06:59 18:59 Other: Weight 111.6 kg Weight 111.6 kg - Constitutional Present: no acute distress, obese - Routine HEENT Exam Head: Present: normal inspection Eye: Present: EOMI, PERRL - Routine Neck Exam Present: supple. Absent: lymphadenopathy - Routine Respiratory Exam Present: CTAB. Absent: accessory muscle use, stridor, wheezes - Routine Cardiovascular Exam Cardiovascular: Present: RRR, S1, S2 - Routine Abdominal Exam Present: soft. Absent: mass - Routine Extremities Exam Present: normal inspection. Absent: pedal edema - Routine Skin Exam Present: intact - Routine Neurological Exam Present: alert, oriented X3 Hem/Onc Consult Result - Labs CBC & Chem 7: 10/05/24 12:20 10/05/24 12:20 Labs: Short CBC 10/05/24 Range/Units 12:20 WBC 9.4 (4.8-10.8) X10*3/uL Hgb 9.2 L (14.0-18.0) g/dl Hct 26.8 L D (42.0-52.0) % Plt Count 19 L* D (160-400) X10*3/uL BMP 10/05/24 12:20 Sodium 134 L Potassium 5.0 Chloride 105 Carbon Dioxide 22 BUN 78 H Creatinine 2.59 H Calcium 10.7 H D Liver Function 10/05/24 Range/Units 12:20 Total Bilirubin 0.6 (0.0-1.0) mg/dL Direct Bilirubin 0.3 (0.0-0.5) mg/dL AST 41 H (5-37) U/L ALT 47 H (0-40) U/L Alkaline Phosphatase 39 (39-117) U/L Albumin 3.2 L (3.5-5.0) g/dL Assessment and Plan Patient Active problem list reviewed?: Yes (1) Thrombocytopenia Status: Acute Assessment and plan: 1. This is a 79-year-old male with multiple medical problems including diabetes mellitus, hypertension, obstructive sleep apnea, chronic stage 3 kidney disease and history of left lower extremity DVT who is presenting with new onset thrombocytopenia and anemia. He also has developed acute on chronic insufficiency. He received azithromycin recently for upper respiratory symptoms. Blood work shows moderately severe thrombocytopenia, platelet count of 19, previously 171 K. ESR elevated at 109, LDH elevated 300, uric acid 13.3. This no evidence of hemolysis. No evidence of DIC or myelophthisic process such as TTP. Pathology review of peripheral smear shows rare nucleated red blood cells, atypical cells in reactive appearing lymphocytes. Platelets are reduced in number. Total protein is elevated it is suppressed albumin raising concern for plasma cell dyscrasia. Differential diagnosis include acute hematological process such as leukemia, myelodysplastic syndrome and lymphoma. Imaging with CT chest/abdomen and pelvis without contrast shows scarring at right lung base. Cystic foci in pancreas and diverticulosis. No evidence of hepatosplenomegaly or lymphadenopathy. I recommend hydration, platelet transfusion, rasburicase/allopurinol for hyperuricemia. CT-guided bone marrow aspiration/biopsy. Further recommendations to follow. Above was discussed with the patient and hospitalist. Follow daily labs including LDH and uric acid. I thank you for this referral. - Time Spent With Patient Time Spent with Patient (in minutes): 20
[2024-10-05] MEDS: allopurinoL 100 MG TABLET 200 MG PO (17:10)
--- OUTSIDE RECORDS SUMMARY | 2024-10-05 17:22 | XMS_ITS | Clinical Summary ---
Author Organization [employer] Address [address] [place] [address] Care Team Providers Care Credit Union Manager Name Role Phone Unavailable Primary Care Provider Unavailabl e Social History Tobacco Use Types Packs/Day Years Used Date Smoking Tobacco: Never Assessed Sex and Gender Information Value Date Recorded Sex Assigned at Male 06/11/2022 10:36 AM EDT Legal Sex Male 10:36 AM EDT Gender Identity Not on file Sexual Orientation Not on file Plan of Treatment Health Maintenance Due Date Last Done Comments Depression Screening 1945 Lipid Panel 1946 Alcohol/Substance Use Screening 1958 Tobacco Screening 1958 DTaP/Tdap/Td Vaccines (1 - Tdap) 1965 Pneumococcal Vaccine: 50+ Ye ars (1 of 1 - PCV) 1996 Zoster Vaccines (1 of 2) 1996 RSV Patients and Pa tients Aged 60 years or older (1 - 1-dose 75+ series) 2021 COVID-19 Vaccine ( - 2023-2 5 season) 2024 Influenza Vaccine (#1) 2024 HIB Vaccines Aged Out No longer eligi ble based on patient's age to complete this topic HPV Vaccines Aged Out No longer eligi ble based on patient's age to complete this topic Hepatitis A Vaccines Aged Out No long er eligible based on patient's age to complete this topic Hepatitis B Vaccines Aged Out No long er eligible based on patient's age to complete this topic IPV Vaccines Aged Out No longer eligi ble based on patient's age to complete this topic Meningococcal Vaccine Aged Out No sonido anthony eligible based on patient's age to complete this topic RSV under 20 months Aged Out No longe r eligible based on patient's age to complete this topic Rotavirus Vaccines Aged Out No longer eligible based on patient's age to complete this topic
--- OUTSIDE RECORDS SUMMARY | 2024-10-05 17:22 | XMS_ITS | Encounter Summary ---
Author Organization [employer] Address [address] [place] [address] Care Team Providers Care Buffer Copper Name Role Phone Unavailable Primary Care Provider Unavailabl e Encounter Details Date Type Department Care Team (Latest Contact Info) Description 10/15/2019 Abstract [facility] CONVERSIONS Dental, Provider, DDS Social History Tobacco Use Types Packs/Day Years Used Date Smoking Tobacco: Never Assessed Sex and Gender Information Value Date Recorded Sex Assigned at Male 06/11/2022 10:36 AM EDT Legal Sex Male 10:36 AM EDT Gender Identity Not on file Sexual Orientation Not on file documented as of this encounter Plan of Treatment Not on file documented as of this encounter Visit Diagnoses Not on filedocumented in this encounter
[2024-10-05] MEDS: 0.9 % Sodium Chloride 1,000 ML 200 ML IVCONT (17:46)
[2024-10-05] MEDS: Silver Nitrate Applicator STICK..EA. 1 APPL TOPICAL (17:46)
--- NOTE | 2024-10-05 17:47 | PM.IMHP ---
History of Present Illness Date of Service: 10/05/24 Attending physician on admission: Judy Alegria Chief Complaint: ? 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 Recently had URI for which he went to [facility] and was given azithromycin and cough medication, he did not improve much and still was not feeling better and getting more weaker and weaker so decided to come to the hospital. Denies any new complaint of chest pain or abdominal pain or fever or chills or nausea or vomiting Has Dry cough Lab imaging reviewed: Found to have anemia H&H of 9, platelets of 19 peripheral smear shows rare nucleated red blood cells, atypical cells in reactive appearing lymphocytes. Platelets are reduced in number. Sodium of 134, BUN 78, creatinine is 2.59 Uric acid 13.3, haptoglobin 97 Calcium 10.7 Magnesium 2.4, phosphorus level added, ferritin also pending, LDH is 300 Total protein is 10.9 and albumin is 3.2 Coagulation profile: PT is 14.3, INR 1.2, APTT is 25.1, fibrinogen is 266. CT chest: 1. Scarring at the right lung base. No focal airspace opacity is identified. 2. Cystic foci in the pancreas as described above. Nonemergent MRI of the abdomen without and with contrast is recommended. 3. Diverticulosis of the descending and sigmoid colon, without evidence of diverticulitis. CTabdomen:1 CT/CT abdomen pelvis wo IV con IMPRESSION: 1. Scarring at the right lung base. No focal airspace opacity is identified. 2. Cystic foci in the pancreas as described above. Nonemergent MRI of the abdomen without and with contrast is recommended. 3. Diverticulosis of the descending and sigmoid colon, without evidence of diverticulitis Review of Systems Review of Systems: As above. Yes all other systems are reviewed and are negative [facility] Medical History Mixed hyperlipidemia Benign prostatic hyperplasia Essential hypertension PATRICK on CPAP DVT (deep venous thrombosis) Insulin dependent type 2 diabetes mellitus Social History Household Members: None Housing: House Do you presently have visiting nurse or other home services: No Patient Tobacco Use Status: Former Tobacco user service: Yes Meds Allergies Allergy/AdvReac Type Severity Reaction Status Date / Time Mygkczw-ZEX-AiJ Reductase Allergy Intermediate ELEVATED Verified 10/05/24 11:56 Inhibitor LIVER [Egdkndc-Ihp-Mpx Reductase ENZYMES Inhibitor] Statins Depletion Allergy Unknown Unknown Uncoded 06/26/23 00:42 Active Medications: Current Medications Acetaminophen (Acetaminophen 325 Mg Tablet) 650 mg PO Q6H PRN PRN Reason: Pain, Mild 1-3,fever,headache Allopurinol (Allopurinol 100 Mg Tablet) 200 mg PO DAILY [facility] Last Admin: 10/05/24 17:10 Dose: 200 mg Calcium Carbonate (Calcium Carbonate 750 Mg Tab.Chew) 750 mg PO Q4H PRN PRN Reason: Heartburn Dextrose (Dextrose 50 % 25 Gm/50 Ml Syringe) 25 gm IVPUSH Q15M PRN; Protocol PRN Reason: per Hypoglycemia Standing Ord. Finasteride (Finasteride 5 Mg Tablet) 5 mg PO DAILY [facility] Glucose (Glucose Gel 15 Gm Gel..Gram.) 15 gm PO Q15M PRN; Protocol PRN Reason: per Hypoglycemia Standing Ord. Sodium Chloride (Ns) 1,000 mls @ 200 mls/hr IVCONT .Q5H ENIO Stop: 10/05/24 22:29 Last Admin: 10/05/24 17:46 Dose: 200 mls/hr Rasburicase 6 mg/ Sodium (Chloride) 50 mls @ 100 mls/hr IV ONCE ONE Stop: 10/05/24 18:29 Insulin Human Lispro (Insulin Lispro 100 Unit/Ml 3 Ml Vial) 0 unit SUBCUT QIDACHS [facility]; Protocol Magnesium Hydroxide (Milk Of Magnesia 30 Ml Oral.Susp) 30 ml PO DAILY PRN PRN Reason: Constipation Melatonin (Melatonin 3 Mg Tablet) 6 mg PO BEDTIME PRN PRN Reason: Insomnia Sodium Chloride (0.9 % Sodium Chloride Flush 3 Ml Syringe) 3 ml IVFLUSH QSHIFT [facility] Tamsulosin HCl (Tamsulosin Hcl 0.4 Mg Capsule) 0.4 mg PO BEDTIME ENIO Home Medications ?Medication ?Instructions ?Recorded ?Confirmed ?Last Taken ?Type amlodipine 10 mg tablet 10 mg PO BEDTIME 06/26/23 10/05/24 10/04/24 History cholecalciferol (vitamin D3) 50 50 mcg PO DAILY@1200 06/26/23 10/05/24 10/04/24 History mcg (2,000 unit) tablet empagliflozin 25 mg tablet 25 mg PO DAILY 06/26/23 10/05/24 10/04/24 History finasteride 5 mg tablet 5 mg PO DAILY 06/26/23 10/05/24 10/04/24 History glucosamine sulfate 500 mg tablet 1,000 mg PO DAILY 06/26/23 10/05/24 10/04/24 History (Glucosamine) insulin aspart U-100 100 unit/mL 1 sliding scale dose subcut TIDAC 06/26/23 10/05/24 10/04/24 History subcutaneous solution (Novolog U-100 Insulin aspart) insulin glargine 100 unit/mL 25 unit subcut BEDTIME 06/26/23 10/05/24 10/04/24 History subcutaneous solution lisinopril 40 mg tablet 40 mg PO BEDTIME 06/26/23 10/05/24 10/04/24 History albuterol sulfate 90 mcg/actuation 2 puff inhalation Q4H PRN 10/05/24 10/05/24 10/04/24 History aerosol inhaler Shortness Of Breath Or Wheezing apixaban 2.5 mg tablet (Eliquis) 2.5 mg PO BID 10/05/24 10/05/24 10/04/24 History benzonatate 200 mg capsule 200 mg PO TID PRN Cough 10/05/24 10/05/24 10/04/24 History carboxymethylcellulose sodium 0.5 1 drp ophthalmic (eye) QID PRN Dry 10/05/24 10/05/24 10/04/24 History % eye drops Eye(S) dextromethorphan-guaifenesin 10 10 ml PO Q6H PRN Cough 10/05/24 10/05/24 10/04/24 History mg-100 mg/5 mL oral syrup glucose 4 gram chewable tablet 4 g PO Q15M PRN Low Blood Sugar 10/05/24 10/05/24 10/04/24 History rosuvastatin 40 mg tablet 20 mg PO DAILY 10/05/24 10/05/24 10/04/24 History Physical Exam Vital Signs and Narrative: Vital Signs: Last Vital Signs Temp 98.7 F 10/05/24 15:23 Pulse 98 10/05/24 15:23 Resp 18 10/05/24 15:23 BP 112/59 L 10/05/24 15:23 Pulse Ox 100 10/05/24 15:23 O2 Del Method Room Air 10/05/24 15:23 BMI result Body Mass Index 35.3 Appearance: Alert.? Oriented X3.? generlaised weak , seems ch sick. cvs: rrr, [id number]. res: air entry fair ,slightly diminshed at bases. abd: no rebound or guarding ,nt, bs present. ext pulses present , no cyanosis. skin:? Skin erosion and right shoulder area. neuro: axo3 , nonfocal. Results Labs 10/07/24 06:32 10/07/24 06:32 Labs: Laboratory Results - last 24 hr 10/05/24 10/05/24 10/05/24 12:17 12:20 14:14 MCV 88.7 MCH 30.5 MCHC 34.3 RDW 15.6 Plt Count 19 L* D MPV 12.1 Immature Gran % (Auto) 4.7 H Neut % (Auto) 21.7 L Lymph % (Auto) 49.9 H [place] % (Auto) 22.0 H Eos % (Auto) 0.3 Baso % (Auto) 1.4 Lymph # (Auto) 4.7 [place] # (Auto) 2.1 H Eos # (Auto) 0.0 Baso # (Auto) 0.1 Abs Immat Gran (auto) 0.44 H Absolute Neuts (auto) 2.0 Absolute Nucleated RBC 0.290 H Nucleated RBC % (auto) 3.1 H Smear Tech's Comments VERIFIED Smear Path Review SEE NOTE ESR PT 14.3 H INR 1.2 H APTT 25.1 L Fibrinogen Anion Gap 12 Estim Creat Clear Calc 29.4 Estimated GFR 24 Random Glucose 274 H Haptoglobin Uric Acid Calcium 10.7 H D Magnesium 2.4 Total Bilirubin 0.6 Direct Bilirubin 0.3 AST 41 H ALT 47 H Alkaline Phosphatase 39 Lactate Dehydrogenase C-Reactive Protein 0.30 B-Natriuretic Peptide 100 Total Protein 10.9 H Albumin 3.2 L Lipase 18 Influenza Type A (PCR) NEGATIVE Influenza Type B (PCR) NEGATIVE RSV RNA Qual (PCR) NEGATIVE SARS-CoV-2 RNA (RT-PCR) NEGATIVE Blood Type 10/05/24 10/05/24 15:11 17:07 MCV MCH MCHC RDW Plt Count MPV Immature Gran % (Auto) Neut % (Auto) Lymph % (Auto) [place] % (Auto) Eos % (Auto) Baso % (Auto) Lymph # (Auto) [place] # (Auto) Eos # (Auto) Baso # (Auto) Abs Immat Gran (auto) Absolute Neuts (auto) Absolute Nucleated RBC Nucleated RBC % (auto) Smear Tech's Comments Smear Path Review ESR 109 H PT INR APTT Fibrinogen 266 Anion Gap Estim Creat Clear Calc Estimated GFR Random Glucose Haptoglobin 97 Uric Acid 13.3 H Calcium Magnesium Total Bilirubin Direct Bilirubin AST ALT Alkaline Phosphatase Lactate Dehydrogenase 300 H C-Reactive Protein B-Natriuretic Peptide Total Protein Albumin Lipase Influenza Type A (PCR) Influenza Type B (PCR) RSV RNA Qual (PCR) SARS-CoV-2 RNA (RT-PCR) Blood Type A Positive Imaging Radiologist's Impressions: Impressions Chest X-Ray 10/05/24 11:57 IMPRESSION: No acute cardiopulmonary abnormality. Electronically signed by: Theodore Fuentes MD 10/05/2024 01:24 PM EST RP Abdomen/Pelvis CT 10/05/24 14:01 IMPRESSION: 1. Scarring at the right lung base. No focal airspace opacity is identified. 2. Cystic foci in the pancreas as described above. Nonemergent MRI of the abdomen without and with contrast is recommended. 3. Diverticulosis of the descending and sigmoid colon, without evidence of diverticulitis. Electronically signed by: Theodore Fuentes MD 10/05/2024 03:27 PM EST RP Chest CT 10/05/24 14:42 IMPRESSION: 1. Scarring at the right lung base. No focal airspace opacity is identified. 2. Cystic foci in the pancreas as described above. Nonemergent MRI of the abdomen without and with contrast is recommended. 3. Diverticulosis of the descending and sigmoid colon, without evidence of diverticulitis. Electronically signed by: Theodore Fuentes MD 10/05/2024 03:27 PM EST RP Assessment and Plan (1) Thrombocytopenia: Status: Acute (2) Anemia: Qualifiers: Anemia type: unspecified type Qualified Code(s): D64.9 - Anemia, unspecified Status: Acute (3) HIRO (acute kidney injury): Status: Acute (4) Hyperuricemia: Status: Acute Plan 79-year-old male with multiple medical issues comes to the patient with multiple nonspecific complain with decreased appetite decreased urination weight loss and multiple hematological and renal function and electrolyte abnormalities; Anemia/thrombocytopenia: Peripheral smear mostly unrevealing except some reactive lymphocytosis and reduced platelets number. Less likely hemolysis or DIC per lab review. But patient has HIRO, elevated protein level, hypercalcemia mildly as well as hyperuricemia and anemia/thrombocytopenia-differential could be broad including hematological process leukemia, myelodysplastic syndrome and lymphoma. Discussed with the Hematology and Nephrology : Plan is to hydration, added allopurinol, 1 unit of platelet, rasburicase.CT-guided bone marrow aspiration/biopsy. Will also add bicarb drip which help alkaline addition of urine . Monitor BMP q.6 hours Hematology/Nephrology evaluation pending Hypertension: Hold lisinopril blood pressures acceptable without medications. Hold medication that can interfere with kidney function. HIRO on CKD 3 a: Possibly multifactorial blood pressure medications, decreased p.o. intake, question hematological process as above. Management is hydration/respiratory care/allopurinol PVR monitoring I&O monitoring Nephrology evaluation as above. hx DVT Hold apixaban-due to thrombocytopenia DM2- fingerstick with sliding scale coverage. BPH- finasteride PATRICK- CPAP Above management discussed with the patient in detail length he understand and in agreement with the above plan, time spent 70 minute patient is full code. Considering multiple hematological/electrolytic abnormalities and unclear diagnosis-patient need IV hydration/allopurinol/rasburicase/close monitoring of electrolytes and CBC as well as further workup for hematological process-patient will benefit from 2 midnight stays at least. Above was discussed in detail with the Hematology/Oncology as well as Nephro( due to availabity of rasburicase)-recommended above management and currently did not recommend to transfer patient. Quality Stroke Does the patient have a stroke diagnosis?: No VTE Prior VTE?: No VTE Risk Level:: Medical - moderate - high VTE Device Contraindication: N/A - Device Ordered VTE Drug Contraindication: N/A - Med Ordered
--- NOTE | 2024-10-05 17:47 | PC.NURSE ---
Pt able to urinate 350mL on his own.
[2024-10-05 18:27] LABS: Ferritin 734 ng/mL (20-250); Phosphorus 5.3 mg/dL (2.7-4.5)
[2024-10-05] MEDS: Rasburicase 6 MG in 0.9 % Sodium Chloride 46 ML 100 MG IV (18:33)
[2024-10-05 18:43] LABS: Appearance Urine Clear; Color Urine Yellow; Glucose Urine UA >=1000 mg/dL (Negative); Leukocyte Esterase Urine Negative (Negative); Nitrite Urine Negative (Negative); PH 5.5 (5.0-9.0); UMIC TRIGGER UACC YES; Urine Blood Trace (Negative); Urine Ketones Negative (Negative); Urine Protein Trace mg/dL (Neg-Trace)
--- NOTE | 2024-10-05 18:43 | PC.NURSE ---
Stuart placed with no issues, 400 mL of urine output immediately
[2024-10-05 18:45] LABS: Bacteria Urine None Seen (None Seen); RBC Urine 0-2 /HPF (0-2); Squamous Epithelial Cell Urine 0-2 /HPF (0-2); WBC Urine 0-5 /HPF (0-5)
[2024-10-05 18:52] LABS: Anion Gap 11 (12-20); Blood Urea Nitrogen 70 mg/dL (9-16); Calcium 10.3 mg/dL (8.4-10.2); Carbon Dioxide 21 mmol/L (22-29); Chloride 107 mmol/L (96-108); Creatinine Clr Calc Pharmacy 30.7; Estimated Glomerular Filt Rate 25; Glucose Random 161 mg/dL (60-115); Potassium 4.5 mmol/L (3.3-5.1); Sodium 134 mmol/L (135-145)
--- NOTE | 2024-10-05 18:52 | PC.NURSE ---
Platelets infusing, this RN remaining in the room. No infusion related reactions at this time, vitals remaining stable
[2024-10-05 19:01] LABS: Glucose, Whole Blood 144 mg/dL (60-115)
[2024-10-05] MEDS: Sodium Bicarbonate 8.4% 150 MEQ in Dextrose 5 % 850 ML 125 MEQ IV (19:06)
--- NOTE | 2024-10-05 19:26 | PC.NURSE ---
assumed care of pt at 1900. report received from Saritha MONTANEZ. pt resting comfortably, on ballroom dance instructor, respirations even and unlabored. call yang within reach,. plan of care ongoing.
[2024-10-05] MEDS: Calcium Carbonate 750 MG TAB.CHEW PO (19:50)
[2024-10-05 20:12] LABS: Folate 4.4 ng/mL (> or = 4.0); Vitamin B12 383 pg/mL (200-900)
--- NOTE | 2024-10-05 21:17 | PHA.MEDREC ---
Addendum entered by Jonathan Ferraro, [facility], located within [facility] 10/06/24 08:52: Spoke to pharmacist Francisco Javier Love at the [facility]...last fill of eliquis 2.5 mg bid was on 11/14/22, there was a note on 05/30/23 that patient is overdue for refill and patient was contacted about it. Notified Dr. Alegria of the finding and Dr. Alegria said hold eliquis for now because of anemia and thrombocytopenia . Addendum entered by Debora Sharma [facility] located [facility] 10/05/24 22:51: [facility] reviewed. will follow up with [facility] pharmacy in AM to confirm patient is on because eliquis was not on med list sent over by overnight [facility]. Original Note: Pharmacy Consult ? Medication Reconciliation Pharmacy has completed the medication reconciliation. Got list from [facility] and spoke with patient and confirmed list. Patient confirmed the Novolog insulin and states he is testing his blood sugars three times a day before meals and injecting it per a sliding scale. He also confirmed the insulin glargine and confirmed he is injecting 25 units of that at bedtime. He confirmed he is still taking the Eliquis 2.5mg tab twice a day and stated he only fills medicaiotns at the [facility] unless he can get them over the counter. He also confirmed he is taking the Rosuvastatin 40mg tab 1/2 tab in the morning. He confirmed he last took his medications yesterday and was not able to take any today.
[2024-10-05 22:11] LABS: Glucose, Whole Blood 278 mg/dL (60-115)
[2024-10-05] MEDS: Insulin Lispro 100 UNIT/ML 3 ML VIAL SUBCUT (22:38)
[2024-10-05] MEDS: Tamsulosin HCL 0.4 MG CAPSULE PO (22:38)
--- NOTE | 2024-10-05 22:54 | PC.RT ---
Patient declining hospital cpap at this time.
[2024-10-05 23:57] LABS: Anion Gap 11 (12-20); Blood Urea Nitrogen 70 mg/dL (9-16); Calcium 9.7 mg/dL (8.4-10.2); Carbon Dioxide 23 mmol/L (22-29); Chloride 102 mmol/L (96-108); Estimated Glomerular Filt Rate 26; Glucose Random 332 mg/dL (60-115); Potassium 4.1 mmol/L (3.3-5.1); Sodium 132 mmol/L (135-145)
[2024-10-06] VITALS (13 sets, daily range): BP systolic 103–137; BP diastolic 48–67; PULSE 71–87; RESP 14–22; TEMP 36.4–37; O2SAT 92–97; BMI 35.2
--- NOTE | 2024-10-06 01:46 | PC.NURSE ---
1300 cc urine drained/emptied from brasher catheter bag. appeared to be blood tinged. unknown if pt had blood in urine prior. MD Acosta made aware. no other interventions/orders at this time.
[2024-10-06] MEDS: Sodium Bicarbonate 8.4% 150 MEQ in Dextrose 5 % 850 ML 125 MEQ IV ×2 (03:18→10:52)
--- NOTE | 2024-10-06 03:48 | PC.NURSE ---
patient with episodes of bradycardia, noted to be in the 30's at the lowest. patient appears to be asleep at this time
[2024-10-06 05:25] LABS: Anion Gap 11 (12-20); Blood Urea Nitrogen 66 mg/dL (9-16); Calcium 9.6 mg/dL (8.4-10.2); Carbon Dioxide 24 mmol/L (22-29); Chloride 104 mmol/L (96-108); Creatinine Clr Calc Pharmacy 33.6; Estimated Glomerular Filt Rate 28; Glucose Random 199 mg/dL (60-115); Lactate Dehydrogenase 307 U/L (118-273); Sodium 135 mmol/L (135-145)
[2024-10-06 06:57] LABS: Glucose, Whole Blood 175 mg/dL (60-115)
[2024-10-06] MEDS: Insulin Lispro 100 UNIT/ML 3 ML VIAL SUBCUT ×4 (07:22→21:48)
[2024-10-06 08:06] LABS: Hemoglobin 8.8 g/dl (14.0-18.0); Mean Corpuscular HGB Conc 33.8 g/dl (31.0-36.0); Mean Corpuscular Hemoglobin 30.3 pg (27.0-33.0); Mean Corpuscular Volume 89.7 fL (80.0-98.0); Mean Platelet Volume 11.6 fL (9.4-12.4); Red Cell Distribution Width 15.5 % (11.0-16.0); White Blood Count 9.6 X10*3/uL (4.8-10.8)
[2024-10-06 08:07] LABS: NRBC Pct Auto 3.1 /100WBC (0.0-0.2); Platelet Count 35 X10*3/uL (160-400)
--- NOTE | 2024-10-06 08:41 | P.PNIM_ITS ---
Subjective Subjective Date of Service: 10/06/24 Interval History: multiple electrolytic abnormalities Review of Systems seems feels some improving -less weak denies any other c/o except has hematuria -light punch colour( got brasher last night) no fevers Physical Exam 2 Vital Signs: Vital Signs: Last Vital Signs Temp 98.2 F 10/06/24 08:28 Pulse 79 10/06/24 08:28 Resp 20 10/06/24 08:28 BP 109/48 L 10/06/24 08:28 Pulse Ox 93 10/06/24 08:28 O2 Del Method Room Air 10/06/24 08:28 BMI result Body Mass Index 35.3 Appearance: Alert.? Oriented X3.?feeling little improving cvs: rrr, [id number]. res: air entry fair ,slightly diminshed at bases. abd: no rebound or guarding ,nt, bs present. ext pulses present , no cyanosis. skin:? Skin erosion and right shoulder area-no ozzing today. Gu-has brasher -light punch color urine. neuro: axo3 , nonfocal. Objective Data Active Medications Acetaminophen (Acetaminophen 325 Mg Tablet) 650 mg PO Q6H PRN PRN Reason: Pain, Mild 1-3,fever,headache Allopurinol (Allopurinol 100 Mg Tablet) 200 mg PO DAILY [facility] Last Admin: 10/05/24 17:10 Dose: 200 mg Documented By: PAUL Calcium Carbonate (Calcium Carbonate 750 Mg Tab.Chew) 750 mg PO Q4H PRN PRN Reason: Heartburn Last Admin: 10/05/24 19:50 Dose: 750 mg Documented By: ANIVAL Dextrose (Dextrose 50 % 25 Gm/50 Ml Syringe) 25 gm IVPUSH Q15M PRN; Protocol PRN Reason: per Hypoglycemia Standing Ord. Finasteride (Finasteride 5 Mg Tablet) 5 mg PO DAILY [facility] Glucose (Glucose Gel 15 Gm Gel..Gram.) 15 gm PO Q15M PRN; Protocol PRN Reason: per Hypoglycemia Standing Ord. Sodium Bicarbonate 150 meq/ (Dextrose) 1,000 mls @ 125 mls/hr IV .Q8H [facility] Last Admin: 10/06/24 03:18 Dose: 125 mls/hr Documented By: IHSAN Insulin Human Lispro (Insulin Lispro 100 Unit/Ml 3 Ml Vial) 0 unit SUBCUT QIDACHS [facility]; Protocol Last Admin: 10/06/24 07:22 Dose: 2 unit Documented By: МАРИЯ Magnesium Hydroxide (Milk Of Magnesia 30 Ml Oral.Susp) 30 ml PO DAILY PRN PRN Reason: Constipation Melatonin (Melatonin 3 Mg Tablet) 6 mg PO BEDTIME PRN PRN Reason: Insomnia Sodium Chloride (0.9 % Sodium Chloride Flush 3 Ml Syringe) 3 ml IVFLUSH QSHIFT [facility] Last Admin: 10/06/24 06:59 Dose: Not Given Documented By: МАРИЯ Non-Admin Reason: IV Running Tamsulosin HCl (Tamsulosin Hcl 0.4 Mg Capsule) 0.4 mg PO BEDTIME [facility] Last Admin: 10/05/24 22:38 Dose: 0.4 mg Documented By: ANIVAL Labs 10/06/24 07:59 10/06/24 04:50 Labs: Laboratory Results - last 24 hr 10/05/24 10/05/24 10/05/24 12:17 12:20 14:14 MCV 88.7 MCH 30.5 MCHC 34.3 RDW 15.6 Plt Count 19 L* D MPV 12.1 Immature Gran % (Auto) 4.7 H Neut % (Auto) 21.7 L Lymph % (Auto) 49.9 H [place] % (Auto) 22.0 H Eos % (Auto) 0.3 Baso % (Auto) 1.4 Lymph # (Auto) 4.7 [place] # (Auto) 2.1 H Eos # (Auto) 0.0 Baso # (Auto) 0.1 Abs Immat Gran (auto) 0.44 H Absolute Neuts (auto) 2.0 Absolute Nucleated RBC 0.290 H Nucleated RBC % (auto) 3.1 H Smear Tech's Comments VERIFIED Smear Path Review SEE NOTE ESR PT 14.3 H INR 1.2 H APTT 25.1 L Fibrinogen Anion Gap 12 Estim Creat Clear Calc 29.4 Estimated GFR 24 POC Glucose Random Glucose 274 H Haptoglobin Uric Acid Calcium 10.7 H D Phosphorus Magnesium 2.4 Ferritin Total Bilirubin 0.6 Direct Bilirubin 0.3 AST 41 H ALT 47 H Alkaline Phosphatase 39 Lactate Dehydrogenase C-Reactive Protein 0.30 B-Natriuretic Peptide 100 Total Protein 10.9 H Albumin 3.2 L Lipase 18 Vitamin B12 Folate Urine Color Urine Appearance Urine pH Ur Specific [place] Urine Protein Urine Glucose (UA) Urine Ketones Urine Blood Urine Nitrite Ur Leukocyte Esterase Urine RBC Urine WBC Ur Squamous Epith Cells Urine Bacteria Hyaline Casts Uric Pt Rasburicase Influenza Type A (PCR) NEGATIVE Influenza Type B (PCR) NEGATIVE RSV RNA Qual (PCR) NEGATIVE SARS-CoV-2 RNA (RT-PCR) NEGATIVE Blood Type Antibody Screen 10/05/24 10/05/24 10/05/24 15:11 17:07 18:30 MCV MCH MCHC RDW Plt Count MPV Immature Gran % (Auto) Neut % (Auto) Lymph % (Auto) [place] % (Auto) Eos % (Auto) Baso % (Auto) Lymph # (Auto) [place] # (Auto) Eos # (Auto) Baso # (Auto) Abs Immat Gran (auto) Absolute Neuts (auto) Absolute Nucleated RBC Nucleated RBC % (auto) Smear Tech's Comments Smear Path Review ESR 109 H PT INR APTT Fibrinogen 266 Anion Gap 11 L Estim Creat Clear Calc 30.7 Estimated GFR 25 POC Glucose Random Glucose 161 H Haptoglobin 97 Uric Acid 13.3 H Calcium 10.3 H Phosphorus 5.3 H Magnesium Ferritin 734 H Total Bilirubin Direct Bilirubin AST ALT Alkaline Phosphatase Lactate Dehydrogenase 300 H C-Reactive Protein B-Natriuretic Peptide Total Protein Albumin Lipase Vitamin B12 383 Folate 4.4 Urine Color Yellow Urine Appearance Clear Urine pH 5.5 Ur Specific [place] 1.020 Urine Protein Trace Urine Glucose (UA) >=1000 H Urine Ketones Negative Urine Blood Trace H Urine Nitrite Negative Ur Leukocyte Esterase Negative Urine RBC 0-2 Urine WBC 0-5 Ur Squamous Epith Cells 0-2 Urine Bacteria None Seen Hyaline Casts 3-5 Uric Pt Rasburicase Influenza Type A (PCR) Influenza Type B (PCR) RSV RNA Qual (PCR) SARS-CoV-2 RNA (RT-PCR) Blood Type A Positive Antibody Screen NEGATIVE 10/05/24 10/05/24 10/05/24 18:56 22:07 23:41 MCV MCH MCHC RDW Plt Count MPV Immature Gran % (Auto) Neut % (Auto) Lymph % (Auto) [place] % (Auto) Eos % (Auto) Baso % (Auto) Lymph # (Auto) [place] # (Auto) Eos # (Auto) Baso # (Auto) Abs Immat Gran (auto) Absolute Neuts (auto) Absolute Nucleated RBC Nucleated RBC % (auto) Smear Tech's Comments Smear Path Review ESR PT INR APTT Fibrinogen Anion Gap 11 L Estim Creat Clear Calc 31.0 Estimated GFR 26 POC Glucose 144 H 278 H Random Glucose 332 H Haptoglobin Uric Acid Calcium 9.7 Phosphorus Magnesium Ferritin Total Bilirubin Direct Bilirubin AST ALT Alkaline Phosphatase Lactate Dehydrogenase C-Reactive Protein B-Natriuretic Peptide Total Protein Albumin Lipase Vitamin B12 Folate Urine Color Urine Appearance Urine pH Ur Specific [place] Urine Protein Urine Glucose (UA) Urine Ketones Urine Blood Urine Nitrite Ur Leukocyte Esterase Urine RBC Urine WBC Ur Squamous Epith Cells Urine Bacteria Hyaline Casts Uric Pt Rasburicase Influenza Type A (PCR) Influenza Type B (PCR) RSV RNA Qual (PCR) SARS-CoV-2 RNA (RT-PCR) Blood Type Antibody Screen 10/06/24 10/06/24 10/06/24 04:50 06:53 07:59 MCV 89.7 MCH 30.3 MCHC 33.8 RDW 15.5 Plt Count 35 L D MPV 11.6 Immature Gran % (Auto) Neut % (Auto) Lymph % (Auto) [place] % (Auto) Eos % (Auto) Baso % (Auto) Lymph # (Auto) [place] # (Auto) Eos # (Auto) Baso # (Auto) Abs Immat Gran (auto) Absolute Neuts (auto) Absolute Nucleated RBC 0.300 H Nucleated RBC % (auto) 3.1 H Smear Tech's Comments Smear Path Review ESR PT INR APTT Fibrinogen Anion Gap 11 L Estim Creat Clear Calc 33.6 Estimated GFR 28 POC Glucose 175 H Random Glucose 199 H Haptoglobin Uric Acid Calcium 9.6 Phosphorus Magnesium Ferritin Total Bilirubin Direct Bilirubin AST ALT Alkaline Phosphatase Lactate Dehydrogenase 307 H C-Reactive Protein B-Natriuretic Peptide Total Protein Albumin Lipase Vitamin B12 Folate Urine Color Urine Appearance Urine pH Ur Specific [place] Urine Protein Urine Glucose (UA) Urine Ketones Urine Blood Urine Nitrite Ur Leukocyte Esterase Urine RBC Urine WBC Ur Squamous Epith Cells Urine Bacteria Hyaline Casts Uric Pt Rasburicase 4.0 Influenza Type A (PCR) Influenza Type B (PCR) RSV RNA Qual (PCR) SARS-CoV-2 RNA (RT-PCR) Blood Type Antibody Screen Assessment and Plan (1) Hypercalcemia: Status: Acute (2) Low platelet count: Status: Acute (3) Hyperuricemia: Status: Acute (4) HIRO (acute kidney injury): Status: Acute Plan 79-year-old male with multiple medical issues comes to the patient with multiple nonspecific complain with decreased appetite decreased urination weight loss and multiple hematological and renal function and electrolyte abnormalities; Anemia/thrombocytopenia: Peripheral smear mostly unrevealing except some reactive lymphocytosis and reduced platelets number. Less likely hemolysis or DIC per lab review. HIRO, elevated protein level, hypercalcemia mildly as well as hyperuricemia and anemia/thrombocytopenia-differential could be broad including hematological process leukemia, myelodysplastic syndrome and lymphoma. Discussed with the Hematology and Nephrology : given hydration, allopurinol, 1 unit of platelet, rasburicase, bicarb drip. CT-guided bone marrow aspiration/biopsy-s/p biopsy Will change bicarb drip to normal saline 80 mL/hours since hyperuricemia and hypercalcemia and kidney functions also slightly improving. Patient is still making urine, BMP Q daily Nephrology following as well as Hem/onc: Labs with PT PTT INR, fibrinogen added,, CBC. Hypertension: Hold lisinopril blood pressures acceptable without medications. Hold medication that can interfere with kidney function. HIRO on CKD 3 a: Possibly multifactorial blood pressure medications, decreased p.o. intake, question hematological process as above. PVR monitoring I&O monitoring Nephrology evaluation noted as well as discussed the case: IV fluid with normal saline as above. Hematuria: Possible related to difficult Brasher insertion in the setting of BPH and thrombocytopenia. Platelet count improving Patient has Brasher, producing urine Urology evaluation added, hold apixaban due to multiple factors- thrombocytopenia, hematuria. hx DVT-Hold apixaban-as above. DM2- fingerstick with sliding scale coverage. BPH- finasteride PATRICK- CPAP bedtime Quality Stroke Does the patient have a stroke diagnosis?: No VTE Prior VTE?: No VTE Risk Level:: Medical - moderate - high VTE Device Contraindication: N/A - Device Ordered VTE Drug Contraindication: N/A - Med Ordered
--- NOTE | 2024-10-06 10:05 | PC.NURSE ---
plan to observe urine output from brasher, bladder scan obtained d/t clotting noticed in the brasher bag. 0mL urine in bladder.
--- NOTE | 2024-10-06 10:06 | PC.NURSE ---
plan for bone marrow biopsy approx [id number]
--- NOTE | 2024-10-06 10:32 | MHC.CM.PN ---
Pt lives alone, he does not have home care services. PCP is confirmed: Josse Iniguez at the [place]. For DME, he has a CPAP machine. He is able to arrange transport home at [place]. DCP: home with services. CM to follow for DC needs.
[2024-10-06] MEDS: fentaNYL citrate/PF 100 MCG/2 ML VIAL 50 MCG IVPUSH (11:35)
--- NOTE | 2024-10-06 11:58 | PM.PROC ---
Brief Operative Note Date of procedure: 10/06/24 Pre-op diagnosis: Thrombocytopenia Post-op diagnosis: same Procedure: CT bone marrow biopsy Left PIS- 11 g core and aspiration performed. No immediate complications.
[2024-10-06 12:16] LABS: Bone Marrow SEE SEPARATE REPORT
--- NOTE | 2024-10-06 13:01 | P.CONNP_ITS ---
History of Present Illness Reason for Consult Consult date: 10/06/24 Reason for consult: HIRO Chief Complaint Chief complaint: ? myeloma/tumer lysis syndrome, VT History of Present Illness Narrative: 79-year-old male with pertinent history of DVT on Eliquis, essential hypertension, insulin-dependent diabetes mellitus, mixed hyperlipidemia, BPH, PATRICK on CPAP, chronic kidney disease who presents patient came with multiple nonspecific complaints including generalized weakness, fatigue, low appetite, weight loss, he also says that he has decreased urination from long time unable to tell duration, also some short of breath initially-he says his symptoms are from 2-3 months duration. Recently had URI for which he went to [facility] and was given azithromycin and cough medication, he did not improve much and still was not feeling better and getting more weaker and weaker so decided to come to the hospital. At the time of admission serum creatinine was 2.48. With IV hydration creatinine has decreased to 2.26. He had hypercalcemia with a elevated serum protein and low serum albumin. LDH was elevated at 300. Uric acid was elevated Haptoglobin was normal. He was also found to have severe anemia with thrombocytopenia. Hematology consult has been requested. Review of Systems Constitutional: Denies fever(s) and Denies weight loss Cardiovascular: Denies chest pain Respiratory: Denies cough and Denies hemoptysis Gastrointestinal: Denies abdominal pain, Denies diarrhea and Denies nausea Musculoskeletal: Denies back pain Denies focal weakness PMFSH Past Medical History Medical History Mixed hyperlipidemia Benign prostatic hyperplasia Essential hypertension PATRICK on CPAP DVT (deep venous thrombosis) Insulin dependent type 2 diabetes mellitus Social History Social History Household Members: None Housing: House Do you presently have visiting nurse or other home services: No Patient Tobacco Use Status: Former Tobacco user service: Yes Meds Allergies Allergy/AdvReac Type Severity Reaction Status Date / Time Ncqgcgd-WQC-[id number] Reductase Allergy Intermediate ELEVATED Verified 10/05/24 11:56 Inhibitor LIVER [Swmwpqg-Nju-Ssg Reductase ENZYMES Inhibitor] Statins Depletion Allergy Unknown Unknown Uncoded 06/26/23 00:42 Active Medications: Current Medications Acetaminophen (Acetaminophen 325 Mg Tablet) 650 mg PO Q6H PRN PRN Reason: Pain, Mild 1-3,fever,headache Allopurinol (Allopurinol 100 Mg Tablet) 200 mg PO DAILY [facility] Last Admin: 10/06/24 12:49 Dose: Not Given Calcium Carbonate (Calcium Carbonate 750 Mg Tab.Chew) 750 mg PO Q4H PRN PRN Reason: Heartburn Last Admin: 10/05/24 19:50 Dose: 750 mg Dextrose (Dextrose 50 % 25 Gm/50 Ml Syringe) 25 gm IVPUSH Q15M PRN; Protocol PRN Reason: per Hypoglycemia Standing Ord. Finasteride (Finasteride 5 Mg Tablet) 5 mg PO DAILY [facility] Last Admin: 10/06/24 12:48 Dose: Not Given Glucose (Glucose Gel 15 Gm Gel..Gram.) 15 gm PO Q15M PRN; Protocol PRN Reason: per Hypoglycemia Standing Ord. Sodium Bicarbonate 150 meq/ (Dextrose) 1,000 mls @ 125 mls/hr IV .Q8H [facility] Last Admin: 10/06/24 10:52 Dose: 125 mls/hr Insulin Human Lispro (Insulin Lispro 100 Unit/Ml 3 Ml Vial) 0 unit SUBCUT QIDACHS [facility]; Protocol Last Admin: 10/06/24 07:22 Dose: 2 unit Magnesium Hydroxide (Milk Of Magnesia 30 Ml Oral.Susp) 30 ml PO DAILY PRN PRN Reason: Constipation Melatonin (Melatonin 3 Mg Tablet) 6 mg PO BEDTIME PRN PRN Reason: Insomnia Sodium Chloride (0.9 % Sodium Chloride Flush 3 Ml Syringe) 3 ml IVFLUSH QSHIFT [facility] Last Admin: 10/06/24 06:59 Dose: Not Given Tamsulosin HCl (Tamsulosin Hcl 0.4 Mg Capsule) 0.4 mg PO BEDTIME [facility] Last Admin: 10/05/24 22:38 Dose: 0.4 mg Home Medications ?Medication ?Instructions ?Recorded ?Confirmed ?Last Taken ?Type amlodipine 10 mg tablet 10 mg PO BEDTIME 06/26/23 10/05/24 10/04/24 History cholecalciferol (vitamin D3) 50 50 mcg PO DAILY@1200 06/26/23 10/05/24 10/04/24 History mcg (2,000 unit) tablet empagliflozin 25 mg tablet 25 mg PO DAILY 06/26/23 10/05/24 10/04/24 History finasteride 5 mg tablet 5 mg PO DAILY 06/26/23 10/05/24 10/04/24 History glucosamine sulfate 500 mg tablet 1,000 mg PO DAILY 06/26/23 10/05/24 10/04/24 History (Glucosamine) insulin aspart U-100 100 unit/mL 1 sliding scale dose subcut TIDAC 06/26/23 10/05/24 10/04/24 History subcutaneous solution (Novolog U-100 Insulin aspart) insulin glargine 100 unit/mL 25 unit subcut BEDTIME 06/26/23 10/05/24 10/04/24 History subcutaneous solution lisinopril 40 mg tablet 40 mg PO BEDTIME 06/26/23 10/05/24 10/04/24 History albuterol sulfate 90 mcg/actuation 2 puff inhalation Q4H PRN 10/05/24 10/05/24 10/04/24 History aerosol inhaler Shortness Of Breath Or Wheezing apixaban 2.5 mg tablet (Eliquis) 2.5 mg PO BID 10/05/24 10/05/24 10/04/24 History benzonatate 200 mg capsule 200 mg PO TID PRN Cough 10/05/24 10/05/24 10/04/24 History carboxymethylcellulose sodium 0.5 1 drp ophthalmic (eye) QID PRN Dry 10/05/24 10/05/24 10/04/24 History % eye drops Eye(S) dextromethorphan-guaifenesin 10 10 ml PO Q6H PRN Cough 10/05/24 10/05/24 10/04/24 History mg-100 mg/5 mL oral syrup glucose 4 gram chewable tablet 4 g PO Q15M PRN Low Blood Sugar 10/05/24 10/05/24 10/04/24 History rosuvastatin 40 mg tablet 20 mg PO DAILY 10/05/24 10/05/24 10/04/24 History Physical Exam Vital Signs: Last Vital Signs Temp 98.2 F 10/06/24 08:28 Pulse 82 10/06/24 11:50 Resp 15 10/06/24 11:50 BP 120/62 10/06/24 11:50 Pulse Ox 97 10/06/24 11:50 O2 Del Method Room Air 10/06/24 11:50 BMI result Body Mass Index 35.3 Awake. Comfortable. Neck is supple. Mucosa moist. Lungs bilateral scattered rhonchi. Heart S1-S2 heard no gallop. Abdomen soft. Extremities no edema. No involuntary movements. No myoclonus. No rash. No petechiae Results Lab Results 10/08/24 05:53 10/08/24 05:53 Lab results: Chemistry 10/05/24 10/05/24 10/05/24 12:20 15:11 18:30 Sodium 134 L 134 L Potassium 5.0 4.5 Carbon Dioxide 22 21 L BUN 78 H 70 H Creatinine 2.59 H 2.48 H Calcium 10.7 H D 10.3 H Phosphorus 5.3 H 10/05/24 10/06/24 23:41 04:50 Sodium 132 L 135 Potassium 4.1 4.0 Carbon Dioxide 23 24 BUN 70 H 66 H Creatinine 2.45 H 2.26 H Calcium 9.7 9.6 Phosphorus Hematology 10/05/24 10/06/24 12:20 07:59 WBC 9.4 9.6 Hgb 9.2 L 8.8 L Plt Count 19 L* D 35 L D Urinalysis 10/05/24 18:30 Urine Color Yellow Urine Appearance Clear Urine pH 5.5 Ur Specific [place] 1.020 Urine Protein Trace Urine Glucose (UA) >=1000 H Urine Ketones Negative Urine Blood Trace H Urine Nitrite Negative Ur Leukocyte Esterase Negative Urine RBC 0-2 Urine WBC 0-5 Ur Squamous Epith Cells 0-2 Hyaline Casts 3-5 Assessment and Plan (1) HIRO (acute kidney injury): Status: Acute (2) Hyperuricemia: Status: Acute (3) Anemia: Qualifiers: Anemia type: unspecified type Qualified Code(s): D64.9 - Anemia, unspecified Status: Acute (4) Thrombocytopenia: Status: Acute (5) Hypercalcemia: Status: Acute Plan 73-year-old man with acute kidney injury with severe anemia and thrombocytopenia along with hypercalcemia and hyperuricemia. Differential diagnosis includes tumor lysis syndrome. Although he has severe thrombocytopenia there were no schistocytes. No petechiae. Urine sediments were benign. HUS/ TTP seems unlikely. Given hypercalcemia with elevated serum protein multiple myeloma seems likely Suggest IV hydration with bicarbonate. Keep intake more than output. He will benefit from rasburicase. Watch urine output Watch serum calcium potassium and uric acid. Serology workup ordered. No absolute indication for dialysis today. Further clinical course we will determine this. Follow results of bone marrow biopsy Procedures Date of Service Date of Service: 10/08/24
[2024-10-06 13:41] LABS: Uric Acid < 1.0 mg/dL (3.4-7.0)
[2024-10-06 13:42] LABS: Glucose, Whole Blood 224 mg/dL (60-115)
[2024-10-06] MEDS: Calcium Carbonate 750 MG TAB.CHEW PO (13:43)
[2024-10-06 15:02] LABS: Hemoglobin 8.3 g/dl (14.0-18.0); Mean Corpuscular HGB Conc 33.2 g/dl (31.0-36.0); Mean Corpuscular Hemoglobin 30.3 pg (27.0-33.0); Mean Corpuscular Volume 91.2 fL (80.0-98.0); Mean Platelet Volume 9.6 fL (9.4-12.4); NRBC Pct Auto 2.9 /100WBC (0.0-0.2); Platelet Count 27 X10*3/uL (160-400); Red Blood Count 2.74 X10*6/uL (4.60-5.80); Red Cell Distribution Width 15.2 % (11.0-16.0); White Blood Count 7.2 X10*3/uL (4.8-10.8)
[2024-10-06 15:09] LABS: Fibrinogen 243 MG/DL (259-690); INTERNATIONAL NORM RATIO 1.3 (0.9-1.1); Prothrombin Time 14.6 SEC (10.9-12.4)
[2024-10-06 15:26] LABS: Partial Thromboplastin Time > 200.0 SEC (26.0-36.8)
--- NOTE | 2024-10-06 16:00 | PM.UROCN ---
History of Present Illness Consult details Consult date: 10/06/24 Narrative: 79-year-old male with pertinent history of DVT on Eliquis, essential hypertension, insulin-dependent diabetes mellitus, mixed hyperlipidemia, BPH, PATRICK on CPAP, chronic kidney disease presenting with complaints including generalized weakness, fatigue, low appetite, weight loss. Recently had URI for which he went to [facility] and was given azithromycin. Pt denies hematuria prior to admission Brasher placed in ED. Comorbidity thrombocytopenia. hematuria post brasher Urology called due to hematuria. Pt currently on CBI. Blood products ordered 10/05/24--KIDNEYS/RETROPERITONEUM: No renal or ureteral calculi are identified. There is no hydronephrosis or hydroureter. Review of Systems Review of Systems: Yes all other systems are reviewed and are negative Constitutional: Constitutional: Reports no additional constitutional complaints Eyes: Eyes: Reports no additional eye complaints ENT: Reports system reviewed and no additional complaints, except as documented Cardiovascular: Cardiovascular: Reports no additional cardiovascular complaints Respiratory: Respiratory: Reports no additional respiratory complaints Gastrointestinal: Gastrointestinal: Reports no additional gastrointestinal complaints Genitourinary: Genitourinary: Reports as per HPI Musculoskeletal: Musculoskeletal: Reports no additional musculoskeletal complaints Integumentary/Breasts: Skin/Breast: Reports system reviewed and no additional complaints, except as docu Neurologic: Reports system reviewed and no additional complaints, except as documented Psychiatric: Psychiatric: Reports no additional psychiatric complaints Endocrine: Endocrine: Reports no additional endocrine complaints Hematologic/Lymphatic: Hematologic/Lymphatic: Reports no additional hematologic/lymphatic complaints Allergic/Immunologic: Allergic/Immunologic: Reports no additional allergic/immunologic complaints [facility] Past Medical History Medical History Mixed hyperlipidemia Benign prostatic hyperplasia Essential hypertension PATRICK on CPAP DVT (deep venous thrombosis) Insulin dependent type 2 diabetes mellitus Social History Social History Household Members: None Housing: House Do you presently have visiting nurse or other home services: No Patient Tobacco Use Status: Former Tobacco user service: Yes Meds Allergies Allergy/AdvReac Type Severity Reaction Status Date / Time Ypsolvd-LHN-OgS Reductase Allergy Intermediate ELEVATED Verified 10/05/24 11:56 Inhibitor LIVER [Eefhmrz-Nnl-Myy Reductase ENZYMES Inhibitor] Statins Depletion Allergy Unknown Unknown Uncoded 06/26/23 00:42 Active Medications: Current Medications Acetaminophen (Acetaminophen 325 Mg Tablet) 650 mg PO Q6H PRN PRN Reason: Pain, Mild 1-3,fever,headache Albuterol Sulfate (Albuterol Sulfate 90 Mcg 8 Gm Inhaler) 2 puff INHALE Q4H PRN PRN Reason: Shortness Of Breath Or Wheezing Artificial Tears (Artificial Tears 15 Ml Drops) 1 drop EYE-BOTH QID PRN PRN Reason: Dry Eye(S) Calcium Carbonate (Calcium Carbonate 750 Mg Tab.Chew) 750 mg PO Q4H PRN PRN Reason: Heartburn Last Admin: 10/06/24 13:43 Dose: 750 mg Dextrose (Dextrose 50 % 25 Gm/50 Ml Syringe) 25 gm IVPUSH Q15M PRN; Protocol PRN Reason: per Hypoglycemia Standing Ord. Finasteride (Finasteride 5 Mg Tablet) 5 mg PO DAILY [facility] Last Admin: 10/06/24 12:48 Dose: Not Given Glucose (Glucose Gel 15 Gm Gel..Gram.) 15 gm PO Q15M PRN; Protocol PRN Reason: per Hypoglycemia Standing Ord. Sodium Chloride (Ns) 1,000 mls @ 80 mls/hr IVCONT .[id number] [facility] Insulin Human Lispro (Insulin Lispro 100 Unit/Ml 3 Ml Vial) 0 unit SUBCUT QIDACHS [facility]; Protocol Last Admin: 10/06/24 13:43 Dose: 4 unit Magnesium Hydroxide (Milk Of Magnesia 30 Ml Oral.Susp) 30 ml PO DAILY PRN PRN Reason: Constipation Melatonin (Melatonin 3 Mg Tablet) 6 mg PO BEDTIME PRN PRN Reason: Insomnia Sodium Chloride (0.9 % Sodium Chloride Flush 3 Ml Syringe) 3 ml IVFLUSH QSHIFT [facility] Last Admin: 10/06/24 06:59 Dose: Not Given Tamsulosin HCl (Tamsulosin Hcl 0.4 Mg Capsule) 0.4 mg PO BEDTIME [facility] Last Admin: 10/05/24 22:38 Dose: 0.4 mg Home Medications ?Medication ?Instructions ?Recorded ?Confirmed ?Last Taken ?Type amlodipine 10 mg tablet 10 mg PO BEDTIME 06/26/23 10/05/24 10/04/24 History cholecalciferol (vitamin D3) 50 50 mcg PO DAILY@1200 06/26/23 10/05/24 10/04/24 History mcg (2,000 unit) tablet empagliflozin 25 mg tablet 25 mg PO DAILY 06/26/23 10/05/24 10/04/24 History finasteride 5 mg tablet 5 mg PO DAILY 06/26/23 10/05/24 10/04/24 History glucosamine sulfate 500 mg tablet 1,000 mg PO DAILY 06/26/23 10/05/24 10/04/24 History (Glucosamine) insulin aspart U-100 100 unit/mL 1 sliding scale dose subcut TIDAC 06/26/23 10/05/24 10/04/24 History subcutaneous solution (Novolog U-100 Insulin aspart) insulin glargine 100 unit/mL 25 unit subcut BEDTIME 06/26/23 10/05/24 10/04/24 History subcutaneous solution lisinopril 40 mg tablet 40 mg PO BEDTIME 06/26/23 10/05/24 10/04/24 History albuterol sulfate 90 mcg/actuation 2 puff inhalation Q4H PRN 10/05/24 10/05/24 10/04/24 History aerosol inhaler Shortness Of Breath Or Wheezing apixaban 2.5 mg tablet (Eliquis) 2.5 mg PO BID 10/05/24 10/05/24 10/04/24 History benzonatate 200 mg capsule 200 mg PO TID PRN Cough 10/05/24 10/05/24 10/04/24 History carboxymethylcellulose sodium 0.5 1 drp ophthalmic (eye) QID PRN Dry 10/05/24 10/05/24 10/04/24 History % eye drops Eye(S) dextromethorphan-guaifenesin 10 10 ml PO Q6H PRN Cough 10/05/24 10/05/24 10/04/24 History mg-100 mg/5 mL oral syrup glucose 4 gram chewable tablet 4 g PO Q15M PRN Low Blood Sugar 10/05/24 10/05/24 10/04/24 History rosuvastatin 40 mg tablet 20 mg PO DAILY 10/05/24 10/05/24 10/04/24 History Physical Exam Vital Signs: Vital Signs: Last Vital Signs Temp 98.2 F 10/06/24 08:28 Pulse 82 10/06/24 11:50 Resp 15 10/06/24 11:50 BP 120/62 10/06/24 11:50 Pulse Ox 97 10/06/24 11:50 O2 Del Method Room Air 10/06/24 11:50 BMI result Body Mass Index 35.3 Const: General: healthy appearing, no acute distress and well developed Orientation/consciousness: patient oriented x3 HEENT: Head: Yes normocephalic and Yes atraumatic Eyes: Conjunctivae: conjunctivae normal Neck: Neck: Yes normal visual inspection Chest: Chest palpation & inspection: normal inspection of the chest Resp: Effort & Inspection: normal respiratory effort Cardio: Rate: regular rate GI: Inspection: Yes normal to inspection Palpation (GI): Soft to palpation : Other: brasher with CBI- running Neuro: General: patient oriented x3 Psych: Appearance: grossly normal Affect: normal affect Results Labs 10/09/24 05:59 10/09/24 05:59 Labs: Abnormal lab results 10/05/24 10/05/24 10/05/24 Range/Units 15:11 18:30 18:56 RBC (4.60-5.80) X10*6/uL Hgb (14.0-18.0) g/dl Hct (42.0-52.0) % Plt Count (160-400) X10*3/uL Absolute Nucleated RBC (0.0-0.012) X10*3/uL Nucleated RBC % (auto) (0.0-0.2) /100WBC ESR 109 H (0-15) MM/HR PT (10.9-12.4) SEC INR (0.9-1.1) APTT (26.0-36.8) SEC Fibrinogen (259-690) MG/DL Sodium 134 L (135-145) mmol/L Carbon Dioxide 21 L (22-29) mmol/L Anion Gap 11 L (12-20) BUN 70 H (9-16) mg/dL Creatinine 2.48 H (0.5-1.4) mg/dL POC Glucose 144 H (60-115) mg/dL Random Glucose 161 H (60-115) mg/dL Uric Acid (3.4-7.0) mg/dL Calcium 10.3 H (8.4-10.2) mg/dL Phosphorus 5.3 H (2.7-4.5) mg/dL Ferritin 734 H (20-250) ng/mL Lactate Dehydrogenase (118-273) U/L Urine Glucose (UA) >=1000 H (Negative) mg/dL Urine Blood Trace H (Negative) 10/05/24 10/05/24 10/06/24 Range/Units 22:07 23:41 04:50 RBC (4.60-5.80) X10*6/uL Hgb (14.0-18.0) g/dl Hct (42.0-52.0) % Plt Count (160-400) X10*3/uL Absolute Nucleated RBC (0.0-0.012) X10*3/uL Nucleated RBC % (auto) (0.0-0.2) /100WBC ESR (0-15) MM/HR PT (10.9-12.4) SEC INR (0.9-1.1) APTT (26.0-36.8) SEC Fibrinogen (259-690) MG/DL Sodium 132 L (135-145) mmol/L Carbon Dioxide (22-29) mmol/L Anion Gap 11 L 11 L (12-20) BUN 70 H 66 H (9-16) mg/dL Creatinine 2.45 H 2.26 H (0.5-1.4) mg/dL POC Glucose 278 H (60-115) mg/dL Random Glucose 332 H 199 H (60-115) mg/dL Uric Acid < 1.0 L (3.4-7.0) mg/dL Calcium (8.4-10.2) mg/dL Phosphorus (2.7-4.5) mg/dL Ferritin (20-250) ng/mL Lactate Dehydrogenase 307 H (118-273) U/L Urine Glucose (UA) (Negative) mg/dL Urine Blood (Negative) 10/06/24 10/06/24 10/06/24 Range/Units 06:53 07:59 13:35 RBC 2.90 L (4.60-5.80) X10*6/uL Hgb 8.8 L (14.0-18.0) g/dl Hct 26.0 L (42.0-52.0) % Plt Count 35 L D (160-400) X10*3/uL Absolute Nucleated RBC 0.300 H (0.0-0.012) X10*3/uL Nucleated RBC % (auto) 3.1 H (0.0-0.2) /100WBC ESR (0-15) MM/HR PT (10.9-12.4) SEC INR (0.9-1.1) APTT (26.0-36.8) SEC Fibrinogen (259-690) MG/DL Sodium (135-145) mmol/L Carbon Dioxide (22-29) mmol/L Anion Gap (12-20) BUN (9-16) mg/dL Creatinine (0.5-1.4) mg/dL POC Glucose 175 H 224 H (60-115) mg/dL Random Glucose (60-115) mg/dL Uric Acid (3.4-7.0) mg/dL Calcium (8.4-10.2) mg/dL Phosphorus (2.7-4.5) mg/dL Ferritin (20-250) ng/mL Lactate Dehydrogenase (118-273) U/L Urine Glucose (UA) (Negative) mg/dL Urine Blood (Negative) 10/06/24 Range/Units 14:55 RBC 2.74 L (4.60-5.80) X10*6/uL Hgb 8.3 L (14.0-18.0) g/dl Hct 25.0 L (42.0-52.0) % Plt Count 27 L (160-400) X10*3/uL Absolute Nucleated RBC 0.210 H (0.0-0.012) X10*3/uL Nucleated RBC % (auto) 2.9 H (0.0-0.2) /100WBC ESR (0-15) MM/HR PT 14.6 H (10.9-12.4) SEC INR 1.3 H (0.9-1.1) APTT > 200.0 H* D (26.0-36.8) SEC Fibrinogen 243 L (259-690) MG/DL Sodium (135-145) mmol/L Carbon Dioxide (22-29) mmol/L Anion Gap (12-20) BUN (9-16) mg/dL Creatinine (0.5-1.4) mg/dL POC Glucose (60-115) mg/dL Random Glucose (60-115) mg/dL Uric Acid (3.4-7.0) mg/dL Calcium (8.4-10.2) mg/dL Phosphorus (2.7-4.5) mg/dL Ferritin (20-250) ng/mL Lactate Dehydrogenase (118-273) U/L Urine Glucose (UA) (Negative) mg/dL Urine Blood (Negative) Short CBC 10/06/24 10/06/24 Range/Units 07:59 14:55 WBC 9.6 7.2 (4.8-10.8) X10*3/uL Hgb 8.8 L 8.3 L (14.0-18.0) g/dl Hct 26.0 L 25.0 L (42.0-52.0) % Plt Count 35 L D 27 L (160-400) X10*3/uL BMP 10/05/24 10/05/24 10/06/24 18:30 23:41 04:50 Sodium 134 L 132 L 135 Potassium 4.5 4.1 4.0 Chloride 107 102 104 Carbon Dioxide 21 L 23 24 BUN 70 H 70 H 66 H Creatinine 2.48 H 2.45 H 2.26 H Calcium 10.3 H 9.7 9.6 Urine 10/05/24 Range/Units 18:30 Urine Color Yellow Urine Appearance Clear Urine pH 5.5 (5.0-9.0) Ur Specific [place] 1.020 (1.005-1.025) Urine Protein Trace (Neg-Trace) mg/dL Urine Glucose (UA) >=1000 H (Negative) mg/dL Imaging Abdomen CT scan report/results: report reviewed and image reviewed CT scan - pelvis: report reviewed and image reviewed Additional studies: Date of Service: 10/05/24 EXAMINATION: CT ABDOMEN PELVIS WITHOUT IV CONTRAST, CT CHEST WITHOUT IV CONTRAST INDICATION: Chest pain and shortness of breath. Low back pain, difficulty urinating COMPARISON: There are no prior studies available for comparison. TECHNIQUE: CT scan of the chest, abdomen and pelvis was performed without contrast using standard departmental protocol. Coronal and sagittal reformatted images were generated and reviewed. Oral contrast material was not administered at the request of the referring physician. This CT exam was performed with one or more of the following dose reduction techniques: automated exposure control, adjustment of the mA and/or kV according to patient size, use of iterative reconstruction technique. DLP: 1050 mGy-cm CHEST: THYROID: The thyroid is unremarkable. LUNGS: There is scarring at the right lung base. The lungs are otherwise clear. There are no focal airspace opacities. MEDIASTINUM: There is no mediastinal lymphadenopathy. JANINE: Evaluation of the hilar regions is limited by lack of intravenous contrast material. CARDIOVASCULATURE: The heart is normal in size. There is no pericardial effusion. The thoracic aorta is normal in caliber. DEGREE OF CORONARY CALCIFICATION: none PLEURA: There is no pleural effusion. No pneumothorax. MAIN AIRWAYS: The mainstem bronchi and proximal branches are patent. AXILLA: There is no axillary lymphadenopathy. SOFT TISSUES: Unremarkable. BONES: There is degenerative disc disease of the spine. ABDOMEN: LIVER: The liver is normal in size and contour. The liver has an unremarkable unenhanced appearance. GALLBLADDER / BILE DUCTS: The gallbladder is unremarkable. There is no intra or extrahepatic biliary ductal dilatation. SPLEEN: The spleen is normal in size and has an unremarkable unenhanced appearance. PANCREAS: The pancreas is atrophic. There is a 1.0 cm cystic focus in the uncinate process and a 1.4 cm cystic focus in the tail. ADRENAL GLANDS: Unremarkable. KIDNEYS/RETROPERITONEUM: No renal or ureteral calculi are identified. There is no hydronephrosis or hydroureter. LYMPH NODES: No retroperitoneal lymphadenopathy is identified in the abdomen or pelvis. VASCULATURE: The abdominal aorta demonstrates atherosclerotic calcification, but is normal in caliber. MESENTERY/PERITONEUM: No free fluid. No masses. There is no free intraperitoneal gas. STOMACH: The stomach is unremarkable. SMALL BOWEL: The small bowel is normal in caliber. COLON: There is diverticulosis of the descending and sigmoid colon, without evidence of diverticulitis. APPENDIX: Normal. URINARY BLADDER/PELVIC ORGANS: The urinary bladder is unremarkable. The prostate is normal in size. BONES / SOFT TISSUES: There is degenerative disc disease of the spine. IMPRESSION: 1. Scarring at the right lung base. No focal airspace opacity is identified. 2. Cystic foci in the pancreas as described above. Nonemergent MRI of the abdomen without and with contrast is recommended. 3. Diverticulosis of the descending and sigmoid colon, without evidence of diverticulitis. Assessment and Plan (1) Low platelet count: Status: Acute (2) Gross hematuria: Status: Acute Plan Pt being treated for pneumonia. hematuria may be secondary to traumatic brasher placement, Comorbidity, thrombocytopenia Cont CBI Procedures Date of Service Date of Service: 10/09/24
[2024-10-06] MEDS: 0.9 % Sodium Chloride 1,000 ML 80 ML IVCONT (16:23)
[2024-10-06] MEDS: 0.9 % Sodium Chloride Flush 3 ML SYRINGE IVFLUSH (16:23)
[2024-10-06 16:47] LABS: Appearance Urine Cloudy; Color Urine RED; Fibrinogen 260 MG/DL (259-690); Glucose Urine UA >=1000 mg/dL (Negative); INTERNATIONAL NORM RATIO 1.3 (0.9-1.1); Nitrite Urine Positive (Negative); PH 8.5 (5.0-9.0); Prothrombin Time 15.2 SEC (10.9-12.4); Specific Gravity - Urine 1.015 (1.005-1.025); UMIC TRIGGER UA YES; Urine Blood Large (3+) (Negative); Urine Ketones Trace mg/dL (Negative); Urine Protein 30 (1+) mg/dL (Neg-Trace)
[2024-10-06 16:48] LABS: Leukocyte Esterase Urine Large (3+) (Negative)
[2024-10-06 16:50] LABS: Partial Thromboplastin Time 24.9 SEC (26.0-36.8)
[2024-10-06 16:51] LABS: Bacteria Urine None Seen (None Seen); Hyaline Casts Urine 0-2 /LPF (0-2); RBC Urine >20 /HPF (0-2); Squamous Epithelial Cell Urine 0-2 /HPF (0-2); WBC Urine 21-50 /HPF (0-5)
[2024-10-06 17:05] LABS: Creatinine Urine 47.73 mg/dL; Microalbum/Creatinine Ratio Ur 670.4 ug/mg cr (<30); Total Protein Urine Random 105 mg/dL (<12)
--- NOTE | 2024-10-06 17:12 | P.PNHO-ONC_ITS ---
Medical Summary - Medical Summary Date of Service: 10/06/24 Chief complaint: Hematuria Primary Care Provider: [employer] Psychologist Utilized?: No - Yi Speaking Interval History Interval history: Raman Ogden is a 79 year old male with history of diabetes mellitus, chronic kidney disease stage 3, obstructive sleep apnea, DVT on Eliquis who presented with 2 to three-month history of fatigue and weakness. He has been feeling poorly, he had low back pain, loss of appetite and some weight loss. [facility] at [facility] [place] [facility] ago for upper respiratory symptoms and was prescribed azithromycin. He was diagnosed with left lower extremity DVT in December 2021. He appears to be on Eliquis ever since. He denies chest pain, abdominal pain or change in bowel habits. He has never been told of low blood counts in the past. He saw his PCP at the [facility] about 3 months ago. He denies any fever or chills. He lives alone at home. He has a brother and sister who are next of kin. He has never been diagnosed with any malignancy in the past. He was exposed to agent orange. Today he reported hematuria. He had Brasher catheter placed last night. He denies any other bruising or mucosal bleeding. Review of Systems - Neurologic Denies dizziness, Denies focal weakness, Denies loss of vision, Denies numbness, Denies tingling, Reports weakness PMFSH Medical History: Medical History (Last Reviewed 10/06/24 @ 17:55 by Amina Pastrana RN) Benign prostatic hyperplasia DVT (deep venous thrombosis) Essential hypertension Insulin dependent type 2 diabetes mellitus Mixed hyperlipidemia PATRICK on CPAP Social History: Social History (Last Reviewed 10/05/24 @ 19:13 by REIN Oakley) Living Situation History: Household Members: None Housing: House Do you presently have visiting nurse or other home services: No Tobacco History: Patient Tobacco Use Status: Former Tobacco user Occupation Assessmet: service: Yes Home Medications and Allergies Current Medications: Current Medications Acetaminophen (Acetaminophen 325 Mg Tablet) 650 mg PO Q6H PRN PRN Reason: Pain, Mild 1-3,fever,headache Albuterol Sulfate (Albuterol Sulfate 90 Mcg 8 Gm Inhaler) 2 puff INHALE Q4H PRN PRN Reason: Shortness Of Breath Or Wheezing Artificial Tears (Artificial Tears 15 Ml Drops) 1 drop EYE-BOTH QID PRN PRN Reason: Dry Eye(S) Calcium Carbonate (Calcium Carbonate 750 Mg Tab.Chew) 750 mg PO Q4H PRN PRN Reason: Heartburn Last Admin: 10/06/24 13:43 Dose: 750 mg Dextrose (Dextrose 50 % 25 Gm/50 Ml Syringe) 25 gm IVPUSH Q15M PRN; Protocol PRN Reason: per Hypoglycemia Standing Ord. Finasteride (Finasteride 5 Mg Tablet) 5 mg PO DAILY [facility] Last Admin: 10/06/24 12:48 Dose: Not Given Glucose (Glucose Gel 15 Gm Gel..Gram.) 15 gm PO Q15M PRN; Protocol PRN Reason: per Hypoglycemia Standing Ord. Sodium Chloride (Ns) 1,000 mls @ 80 mls/hr IVCONT .[id number] [facility] Last Admin: 10/06/24 16:23 Dose: 80 mls/hr Insulin Human Lispro (Insulin Lispro 100 Unit/Ml 3 Ml Vial) 0 unit SUBCUT QIDACHS [facility]; Protocol Last Admin: 10/06/24 13:43 Dose: 4 unit Magnesium Hydroxide (Milk Of Magnesia 30 Ml Oral.Susp) 30 ml PO DAILY PRN PRN Reason: Constipation Melatonin (Melatonin 3 Mg Tablet) 6 mg PO BEDTIME PRN PRN Reason: Insomnia Sodium Chloride (0.9 % Sodium Chloride Flush 3 Ml Syringe) 3 ml IVFLUSH QSHIFT [facility] Last Admin: 10/06/24 16:23 Dose: 3 ml Tamsulosin HCl (Tamsulosin Hcl 0.4 Mg Capsule) 0.4 mg PO BEDTIME [facility] Last Admin: 10/05/24 22:38 Dose: 0.4 mg Home Medications ?Medication ?Instructions ?Recorded ?Confirmed ?Type amlodipine 10 mg tablet 10 mg PO BEDTIME 06/26/23 10/05/24 History cholecalciferol (vitamin D3) 50 50 mcg PO DAILY@1200 06/26/23 10/05/24 History mcg (2,000 unit) tablet empagliflozin 25 mg tablet 25 mg PO DAILY 06/26/23 10/05/24 History finasteride 5 mg tablet 5 mg PO DAILY 06/26/23 10/05/24 History glucosamine sulfate 500 mg tablet 1,000 mg PO DAILY 06/26/23 10/05/24 History (Glucosamine) insulin aspart U-100 100 unit/mL 1 sliding scale dose subcut TIDAC 11/15/23 02/24/25 History subcutaneous solution (Novolog U-100 Insulin aspart) insulin glargine 100 unit/mL 25 unit subcut BEDTIME 06/26/23 10/05/24 History subcutaneous solution lisinopril 40 mg tablet 40 mg PO BEDTIME 06/26/23 10/05/24 History albuterol sulfate 90 mcg/actuation 2 puff inhalation Q4H PRN 10/05/24 10/05/24 History aerosol inhaler Shortness Of Breath Or Wheezing apixaban 2.5 mg tablet (Eliquis) 2.5 mg PO BID 10/05/24 10/05/24 History benzonatate 200 mg capsule 200 mg PO TID PRN Cough 10/05/24 10/05/24 History carboxymethylcellulose sodium 0.5 1 drp ophthalmic (eye) QID PRN Dry 10/05/24 10/05/24 History % eye drops Eye(S) dextromethorphan-guaifenesin 10 10 ml PO Q6H PRN Cough 10/05/24 10/05/24 History mg-100 mg/5 mL oral syrup glucose 4 gram chewable tablet 4 g PO Q15M PRN Low Blood Sugar 10/05/24 10/05/24 History rosuvastatin 40 mg tablet 20 mg PO DAILY 10/05/24 10/05/24 History Allergies Allergy/AdvReac Type Severity Reaction Status Date / Time Ymbnisn-LPD-InU Reductase Allergy Intermediate ELEVATED Verified 10/05/24 11:56 Inhibitor LIVER [Lnqfhhj-Gft-Eop Reductase ENZYMES Inhibitor] Statins Depletion Allergy Unknown Unknown Uncoded 06/26/23 00:42 Exam Vital signs: Vital Signs Temp 97.9 F 10/06/24 16:27 Pulse 81 10/06/24 16:27 Resp 22 H 10/06/24 16:27 BP 104/56 L 10/06/24 16:27 Pulse Ox 94 10/06/24 16:27 O2 Del Method Room Air 10/06/24 16:27 Intake & Output 10/05/24 10/06/24 10/06/24 18:59 06:59 18:59 Intake Total 113.333 / 6619.584 3477 / 6688.616 3260.750 / 750 Output Total 817 / 2742 1925 / 2742 200 / 200 Balance -703.667 / -1187.667 -484 / -6071.595 4000.750 / 1803.750 Urine Output (Average ml/kg/hr) 0.26 1.44 0.15 Intake: Intake, Oral Amount 120 / 120 360 / 360 Intake (Blood Product) Amount 0 271 271 / 271 Plt Aph Pas Pathreduced(E8341) 0 271 / 271 Unit [id number] Intake, IV Amount 113.333 / 9582.816 5121 / 2379.788 5698.750 / 1643.750 Rasburicase 6 mg In 0.9 % 50 / 50 Sodium Chloride 46 ml @ 100 mls /hr IV ONCE ONE Rx#:[id number] Sodium Bicarbonate 8.4% 150 meq 1000 / 1000 1643.750 / 1643.750 In Dextrose 5 % 850 ml @ 125 mls/hr IV .Q8H [facility] Rx#: [id number] 0.9 % Sodium Chloride 1,000 ml 113.333 / 113.333 @ 200 mls/hr IVCONT .Q5H [facility] Rx #:[id number] Output: Output, Urine Amount 350 / 1650 1300 / 1650 Output, Post Void Residual 467 / 467 Amount Output, Urine Amount (Catheter) 625 / 625 200 / 200 2-way Urethral 625 / 625 200 / 200 Other: Breakfast % Eaten 75% Urine brasher Urine Color Punch Punch Weight 111.6 kg Weight 111.6 kg BMI result Body Mass Index 35.3 - Constitutional Present: no acute distress, obese - Routine HEENT Exam Head: Present: normal inspection - Routine Respiratory Exam Present: CTAB. Absent: accessory muscle use, stridor, wheezes - Routine Cardiovascular Exam Cardiovascular: Present: RRR, S1, S2 - Routine Abdominal Exam Present: soft. Absent: mass - Routine Extremities Exam Present: normal inspection. Absent: pedal edema - Routine Skin Exam Present: intact - Routine Neurological Exam Present: alert, oriented X3 Data - Labs CBC & Chem 7: 10/08/24 05:53 10/08/24 05:53 Labs: Laboratory Last Values WBC 7.2 X10*3/uL (4.8-10.8) 10/06/24 14:55 RBC 2.74 X10*6/uL (4.60-5.80) L 10/06/24 14:55 Hgb 8.3 g/dl (14.0-18.0) L 10/06/24 14:55 Hct 25.0 % (42.0-52.0) L 10/06/24 14:55 MCV 91.2 fL (80.0-98.0) 10/06/24 14:55 MCH 30.3 pg (27.0-33.0) 10/06/24 14:55 MCHC 33.2 g/dl (31.0-36.0) 10/06/24 14:55 RDW 15.2 % (11.0-16.0) 10/06/24 14:55 Plt Count 27 X10*3/uL (160-400) L 10/06/24 14:55 MPV 9.6 fL (9.4-12.4) 10/06/24 14:55 Immature Gran % (Auto) 4.7 % (0.0-0.4) H 10/05/24 12:20 Neut % (Auto) 21.7 % (45-73) L 10/05/24 12:20 Lymph % (Auto) 49.9 % (20-40) H 10/05/24 12:20 [place] % (Auto) 22.0 % (2-11) H 10/05/24 12:20 Eos % (Auto) 0.3 % (0-4) 10/05/24 12:20 Baso % (Auto) 1.4 % (0-2) 10/05/24 12:20 Lymph # (Auto) 4.7 X10*3/uL (1.2-4.9) 10/05/24 12:20 [place] # (Auto) 2.1 X10*3/uL (0.1-1.2) H 10/05/24 12:20 Eos # (Auto) 0.0 X10*3/uL (0.0-0.4) 10/05/24 12:20 Baso # (Auto) 0.1 X10*3/uL (0.0-0.2) 10/05/24 12:20 Abs Immat Gran (auto) 0.44 X10*3/uL (0.00-0.03) H 10/05/24 12:20 Absolute Neuts (auto) 2.0 x10*3/uL (2.0-8.3) 10/05/24 12:20 Absolute Nucleated RBC 0.210 X10*3/uL (0.0-0.012) H 10/06/24 14:55 Nucleated RBC % (auto) 2.9 /100WBC (0.0-0.2) H 10/06/24 14:55 Smear Tech's Comments VERIFIED 10/05/24 12:20 Smear Path Review SEE NOTE 10/05/24 12:20 ESR 109 MM/HR (0-15) H 10/05/24 15:11 PT 15.2 SEC (10.9-12.4) H 10/06/24 16:37 INR 1.3 (0.9-1.1) H 10/06/24 16:37 APTT 24.9 SEC (26.0-36.8) L D 10/06/24 16:37 Fibrinogen 260 MG/DL (259-690) 10/06/24 16:37 Sodium 135 mmol/L (135-145) 10/06/24 04:50 Potassium 4.0 mmol/L (3.3-5.1) 10/06/24 04:50 Chloride 104 mmol/L (96-108) 10/06/24 04:50 Carbon Dioxide 24 mmol/L (22-29) 10/06/24 04:50 Anion Gap 11 (12-20) L 10/06/24 04:50 BUN 66 mg/dL (9-16) H 10/06/24 04:50 Creatinine 2.26 mg/dL (0.5-1.4) H 10/06/24 04:50 Estim Creat Clear Calc 33.6 10/06/24 04:50 Estimated GFR 28 10/06/24 04:50 POC Glucose 224 mg/dL (60-115) H 10/06/24 13:35 Random Glucose 199 mg/dL (60-115) H 10/06/24 04:50 Haptoglobin 97 mg/dL (40-268) 10/05/24 15:11 Uric Acid < 1.0 mg/dL (3.4-7.0) L 10/06/24 04:50 Calcium 9.6 mg/dL (8.4-10.2) 10/06/24 04:50 Phosphorus 5.3 mg/dL (2.7-4.5) H 10/05/24 15:11 Magnesium 2.4 mg/dL (1.6-2.6) 10/05/24 12:20 Ferritin 734 ng/mL (20-250) H 10/05/24 15:11 Total Bilirubin 0.6 mg/dL (0.0-1.0) 10/05/24 12:20 Direct Bilirubin 0.3 mg/dL (0.0-0.5) 10/05/24 12:20 AST 41 U/L (5-37) H 10/05/24 12:20 ALT 47 U/L (0-40) H 10/05/24 12:20 Alkaline Phosphatase 39 U/L (39-117) 10/05/24 12:20 Lactate Dehydrogenase 307 U/L (118-273) H 10/06/24 04:50 Troponin I High Sens 11.1 ng/L (<3.5-35.0) 10/05/24 12:20 C-Reactive Protein 0.30 mg/dL (< or = 0.50) 10/05/24 12:20 B-Natriuretic Peptide 100 pg/mL (<100) 10/05/24 12:20 Total Protein 10.9 g/dL (6.5-8.0) H 10/05/24 12:20 Albumin 3.2 g/dL (3.5-5.0) L 10/05/24 12:20 Lipase 18 U/L (8-78) 10/05/24 12:20 Vitamin B12 383 pg/mL (200-900) 10/05/24 15:11 Folate 4.4 ng/mL (> or = 4.0) 10/05/24 15:11 Urine Color RED 10/06/24 16:37 Urine Appearance Cloudy 10/06/24 16:37 Urine pH 8.5 (5.0-9.0) 10/06/24 16:37 Ur Specific [place] 1.015 (1.005-1.025) 10/06/24 16:37 Urine Protein 30 (1+) mg/dL (Neg-Trace) H 10/06/24 16:37 Urine Glucose (UA) >=1000 mg/dL (Negative) H 10/06/24 16:37 Urine Ketones Trace mg/dL (Negative) 10/06/24 16:37 Urine Blood Large (3+) (Negative) H 10/06/24 16:37 Urine Nitrite Positive (Negative) H 10/06/24 16:37 Ur Leukocyte Esterase Large (3+) (Negative) H 10/06/24 16:37 Urine RBC >20 /HPF (0-2) H 10/06/24 16:37 Urine WBC 21-50 /HPF (0-5) H 10/06/24 16:37 Ur Squamous Epith Cells 0-2 /HPF (0-2) 10/06/24 16:37 Urine Bacteria None Seen (None Seen) 10/06/24 16:37 Hyaline Casts 0-2 /LPF (0-2) 10/06/24 16:37 U Random Total Protein 105 mg/dL (<12) H 10/06/24 16:37 Urine Creatinine 47.73 mg/dL 10/06/24 16:37 Urine Microalbumin 320.0 mg/L 10/06/24 16:37 Microalb/Creat Ratio 670.4 ug/mg cr (<30) H 10/06/24 16:37 Protein/Creatinin Ratio 2.20 (<0.2) H 10/06/24 16:37 Uric Pt Rasburicase 4.0 mg/dL 10/06/24 04:50 Influenza Type A (PCR) NEGATIVE (Negative) 10/05/24 12:17 Influenza Type B (PCR) NEGATIVE (Negative) 10/05/24 12:17 RSV RNA Qual (PCR) NEGATIVE (Negative) 10/05/24 12:17 SARS-CoV-2 RNA (RT-PCR) NEGATIVE (Negative) 10/05/24 12:17 Blood Type A Positive 10/05/24 17:07 Antibody Screen NEGATIVE 10/05/24 17:07 - Imaging Radiologist's impression: ITS Impressions Chest X-Ray 10/05/24 11:57 IMPRESSION: No acute cardiopulmonary abnormality. Electronically signed by: Theodore Fuentes MD 10/05/2024 01:24 PM [facility] Abdomen/Pelvis CT 10/05/24 14:01 IMPRESSION: 1. Scarring at the right lung base. No focal airspace opacity is identified. 2. Cystic foci in the pancreas as described above. Nonemergent MRI of the abdomen without and with contrast is recommended. 3. Diverticulosis of the descending and sigmoid colon, without evidence of diverticulitis. Electronically signed by: Theodore Fuentes MD 10/05/2024 03:27 PM EST RP Chest CT 10/05/24 14:42 IMPRESSION: 1. Scarring at the right lung base. No focal airspace opacity is identified. 2. Cystic foci in the pancreas as described above. Nonemergent MRI of the abdomen without and with contrast is recommended. 3. Diverticulosis of the descending and sigmoid colon, without evidence of diverticulitis. Electronically signed by: Theodore Fuentes MD 10/05/2024 03:27 PM EST RP Assessment and Plan Patient Active problem list reviewed?: Yes (1) Thrombocytopenia Status: Acute Assessment and plan: 1. This is a 79-year-old male with multiple medical problems including diabetes mellitus, hypertension, obstructive sleep apnea, chronic stage 3 kidney disease and history of left lower extremity DVT who is presenting with new onset thrombocytopenia and anemia. He also has developed acute on chronic insufficiency. He received azithromycin recently for upper respiratory symptoms. Blood work shows moderately severe thrombocytopenia, platelet count of 19, previously 171 K. ESR elevated at 109, LDH elevated 300, uric acid 13.3. This no evidence of hemolysis. No evidence of DIC or myelophthisic process such as TTP. Pathology review of peripheral smear shows rare nucleated red blood cells, atypical cells in reactive appearing lymphocytes. Platelets are reduced in number. Total protein is elevated it is suppressed albumin raising concern for plasma cell dyscrasia. Differential diagnosis include acute hematological process such as leukemia, myelodysplastic syndrome and lymphoma. Imaging with CT chest/abdomen and pelvis without contrast shows scarring at right lung base. Cystic foci in pancreas and diverticulosis. No evidence of hepatosplenomegaly or lymphadenopathy. I recommend hydration, platelet transfusion, rasburicase/allopurinol for hyperuricemia. Hematuria probably secondary to traumatic Brasher catheter placement and low platelets. Repeat coagulation tests do not show evidence of DIC. CT-guided bone marrow aspiration/biopsy has been scheduled for today. Will follow with you. I - Time Spent With Patient Time Spent with Patient (in minutes): 10
[2024-10-06 19:59] LABS: Glucose, Whole Blood 233 mg/dL (60-115)
[2024-10-06 21:09] LABS: Glucose, Whole Blood 154 mg/dL (60-115)
[2024-10-06] MEDS: Tamsulosin HCL 0.4 MG CAPSULE PO (21:48)
[2024-10-06] MEDS: Throat Lozenge, Medicated LOZENGE 1 LOZENGE MUCOUS MEM (21:49)
[2024-10-07] VITALS (11 sets, daily range): BP systolic 99–174; BP diastolic 52–84; PULSE 73–145; RESP 16–18; TEMP 24.2–37.1; O2SAT 90–96
[2024-10-07] MEDS: 0.9 % Sodium Chloride 1,000 ML 80 ML IVCONT (04:22)
[2024-10-07 07:18] LABS: Hematocrit 24.5 % (42.0-52.0); Hemoglobin 8.1 g/dl (14.0-18.0); Mean Corpuscular HGB Conc 33.1 g/dl (31.0-36.0); Mean Corpuscular Hemoglobin 30.2 pg (27.0-33.0); Mean Corpuscular Volume 91.4 fL (80.0-98.0); Red Blood Count 2.68 X10*6/uL (4.60-5.80); Red Cell Distribution Width 15.2 % (11.0-16.0); White Blood Count 8.6 X10*3/uL (4.8-10.8)
[2024-10-07 07:23] LABS: NRBC Pct Auto 2.4 /100WBC (0.0-0.2); Platelet Count 28 X10*3/uL (160-400)
[2024-10-07 07:28] LABS: Anion Gap 9 (12-20); Blood Urea Nitrogen 59 mg/dL (9-16); Calcium 9.4 mg/dL (8.4-10.2); Carbon Dioxide 26 mmol/L (22-29); Chloride 105 mmol/L (96-108); Estimated Glomerular Filt Rate 27; Glucose Random 152 mg/dL (60-115); Potassium 4.3 mmol/L (3.3-5.1); Sodium 136 mmol/L (135-145)
--- NOTE | 2024-10-07 07:28 | HO.SKINPHOTO ---
Location: Right shoulder Category: Chronic nodule Foam applied
[2024-10-07 07:58] LABS: Glucose, Whole Blood 153 mg/dL (60-115)
[2024-10-07] MEDS: Insulin Lispro 100 UNIT/ML 3 ML VIAL SUBCUT ×4 (08:03→21:18)
[2024-10-07] MEDS: 0.9 % Sodium Chloride Flush 3 ML SYRINGE IVFLUSH ×3 (08:04→21:20)
[2024-10-07] MEDS: Finasteride 5 MG TABLET PO (08:10)
--- NOTE | 2024-10-07 10:52 | HO.PM.IMPN ---
Subjective Subjective Date of Service: 10/07/24 Interval History: c/o sob and doesn't feel good cxr no acute finding, per record he has been feeling short of breath for nearly 3 months. episodes of Vtachs topping 200 bpm Physical Exam Vital Signs: Vital Signs: Last Vital Signs Temp 98.7 F 10/07/24 07:27 Pulse 79 10/07/24 07:27 Resp 18 10/07/24 07:27 BP 102/55 L 10/07/24 07:27 Pulse Ox 90 L 10/07/24 07:27 O2 Del Method Room Air 10/07/24 07:27 BMI result Body Mass Index 35.2 Const: Other: General: AO X 3, no acute distress, obesity Resp: CTA bilateral CVS: S1,S2,RRR GI: +BS, NT, no distention Skin: No rash Neuro: motor grossly intact Psych: appropriate affect Objective Data Active Medications Acetaminophen (Acetaminophen 325 Mg Tablet) 650 mg PO Q6H PRN PRN Reason: Pain, Mild 1-3,fever,headache Albuterol Sulfate (Albuterol Sulfate 90 Mcg 8 Gm Inhaler) 2 puff INHALE Q4H PRN PRN Reason: Shortness Of Breath Or Wheezing Artificial Tears (Artificial Tears 15 Ml Drops) 1 drop EYE-BOTH QID PRN PRN Reason: Dry Eye(S) Benzocaine (Throat Lozenge, Medicated Lozenge) 1 lozenge MUCOUS MEM Q2H PRN PRN Reason: Sore Throat Last Admin: 10/06/24 21:49 Dose: 1 lozenge Documented By: LACIE Calcium Carbonate (Calcium Carbonate 750 Mg Tab.Chew) 750 mg PO Q4H PRN PRN Reason: Heartburn Last Admin: 10/06/24 13:43 Dose: 750 mg Documented By: ELLA Dextrose (Dextrose 50 % 25 Gm/50 Ml Syringe) 25 gm IVPUSH Q15M PRN; Protocol PRN Reason: per Hypoglycemia Standing Ord. Finasteride (Finasteride 5 Mg Tablet) 5 mg PO DAILY [facility] Last Admin: 10/07/24 08:10 Dose: 5 mg Documented By: TEMO Glucose (Glucose Gel 15 Gm Gel..Gram.) 15 gm PO Q15M PRN; Protocol PRN Reason: per Hypoglycemia Standing Ord. Insulin Human Lispro (Insulin Lispro 100 Unit/Ml 3 Ml Vial) 0 unit SUBCUT QIDACHS [facility]; Protocol Last Admin: 10/07/24 08:03 Dose: 2 unit Documented By: TEMO Comments: Magnesium Hydroxide (Milk Of Magnesia 30 Ml Oral.Susp) 30 ml PO DAILY PRN PRN Reason: Constipation Melatonin (Melatonin 3 Mg Tablet) 6 mg PO BEDTIME PRN PRN Reason: Insomnia Sodium Chloride (0.9 % Sodium Chloride Flush 3 Ml Syringe) 3 ml IVFLUSH QSHIFT [facility] Last Admin: 10/07/24 08:04 Dose: 3 ml Documented By: TEMO Tamsulosin HCl (Tamsulosin Hcl 0.4 Mg Capsule) 0.4 mg PO BEDTIME [facility] Last Admin: 10/06/24 21:48 Dose: 0.4 mg Documented By: PABLOUMOC Labs 10/08/24 05:53 10/08/24 05:53 Labs: Laboratory Results - last 24 hr 10/06/24 10/06/24 10/06/24 04:50 13:35 14:55 MCV 91.2 MCH 30.3 MCHC 33.2 RDW 15.2 Plt Count 27 L MPV 9.6 Absolute Nucleated RBC 0.210 H Nucleated RBC % (auto) 2.9 H PT 14.6 H INR 1.3 H APTT > 200.0 H* D Fibrinogen 243 L Anion Gap Estim Creat Clear Calc Estimated GFR POC Glucose 224 H Random Glucose Uric Acid < 1.0 L Calcium Urine Color Urine Appearance Urine pH Ur Specific [place] Urine Protein Urine Glucose (UA) Urine Ketones Urine Blood Urine Nitrite Ur Leukocyte Esterase Urine RBC Urine WBC Ur Squamous Epith Cells Urine Bacteria Hyaline Casts U Random Total Protein Urine Creatinine Urine Microalbumin Microalb/Creat Ratio Protein/Creatinin Ratio 10/06/24 10/06/24 10/06/24 16:37 17:38 21:02 MCV MCH MCHC RDW Plt Count MPV Absolute Nucleated RBC Nucleated RBC % (auto) PT 15.2 H INR 1.3 H APTT 24.9 L D Fibrinogen 260 Anion Gap Estim Creat Clear Calc Estimated GFR POC Glucose 233 H 154 H Random Glucose Uric Acid Calcium Urine Color RED Urine Appearance Cloudy Urine pH 8.5 Ur Specific [place] 1.015 Urine Protein 30 (1+) H Urine Glucose (UA) >=1000 H Urine Ketones Trace Urine Blood Large (3+) H Urine Nitrite Positive H Ur Leukocyte Esterase Large (3+) H Urine RBC >20 H Urine WBC 21-50 H Ur Squamous Epith Cells 0-2 Urine Bacteria None Seen Hyaline Casts 0-2 U Random Total Protein 105 H Urine Creatinine 47.73 Urine Microalbumin 320.0 Microalb/Creat Ratio 670.4 H Protein/Creatinin Ratio 2.20 H 10/07/24 10/07/24 06:32 07:55 MCV 91.4 MCH 30.2 MCHC 33.1 RDW 15.2 Plt Count 28 L MPV 11.0 Absolute Nucleated RBC 0.210 H Nucleated RBC % (auto) 2.4 H PT INR APTT Fibrinogen Anion Gap 9 L Estim Creat Clear Calc 33.0 Estimated GFR 27 POC Glucose 153 H Random Glucose 152 H Uric Acid Calcium 9.4 Urine Color Urine Appearance Urine pH Ur Specific [place] Urine Protein Urine Glucose (UA) Urine Ketones Urine Blood Urine Nitrite Ur Leukocyte Esterase Urine RBC Urine WBC Ur Squamous Epith Cells Urine Bacteria Hyaline Casts U Random Total Protein Urine Creatinine Urine Microalbumin Microalb/Creat Ratio Protein/Creatinin Ratio Assessment and Plan (1) Hypercalcemia: Status: Acute (2) Low platelet count: Status: Acute (3) Hyperuricemia: Status: Acute (4) HIRO (acute kidney injury): Status: Acute Plan 79/m with history of DVT on eliquis, HTN, DM, HLD, BPH, PATRICK on CPAP, and CKD stage 3 presenting to the emergency department today with shortness of breath, low back pain, weakness, and fatigue for 3 months and found to have HIRO, anemia, thromobocytopenia, high calcium, elevated urinc acid that rasied concern for tumor lyis, he has been having hematuria. 10/07 evpisodes of sustained VTs Anemia/thrombocytopenia. Peripheral smear mostly unrevealing except some reactive lymphocytosis and reduced platelets number. DIC ruled out, doesn't look like hemolysis either. H/H has been stable, has not required transfusion as of yet. Seen by Heme and had bone marrow biopsy on 10/06 result pending. HIRO on CDd3, elevated protein level, hypercalcemia mildly as well as hyperuricemia and anemia/thrombocytopenia-differential could be broad including hematological process leukemia, myelodysplastic syndrome and lymphoma. renal function is stable Discussed with the Hematology and Nephrology : given hydration, allopurinol, platelet, rasburicase, bicarb drip. renal function stable. Nephrology following, no indication for HD at this time time. Hematuria: Possible related to difficult Stuart insertion in the setting of BPH and thrombocytopenia. Plat low and experieincing hematuria, CBI started. No anticoagulation Platlet transfusion, consider tranexamic acid. Follow H/H. Urology following Sustained VTs, iv metoprolol, and start oral metoprolol 25 mg twice a day, get echo tomorrow and cardiology consultation. If recurrent, start amiodarone Hypertension: Hold lisinopril blood pressures acceptable without medications. Hold medication that can interfere with kidney function. hx DVT-Hold apixaban d/t low platlets anemia and hematuria DM2- sliding scale insulin BPH- finasteride PATRICK- CPAP bedtime DVT : low palat Full code Quality Stroke Does the patient have a stroke diagnosis?: No VTE Prior VTE?: No VTE Risk Level:: Medical - moderate - high VTE Device Contraindication: N/A - Device Ordered VTE Drug Contraindication: N/A - Med Ordered
[2024-10-07 11:25] LABS: Magnesium 2.1 mg/dL (1.6-2.6)
[2024-10-07 11:51] LABS: Glucose, Whole Blood 237 mg/dL (60-115)
[2024-10-07 13:19] LABS: Kappa Light Chain, Free Serum 12.2 mg/L (3.3-19.4); Kappa/Lambda Lt Ch Free Ratio 0.04 (0.26-1.65)
--- NOTE | 2024-10-07 13:26 | P.PNNP_ITS ---
Subjective Subjective Date of Service: 10/07/24 Interval history: Seen this AM. C/O SOB; All recent data reviewed. Had bone marrow biopsy yesterday Physical Exam 2 Vital Signs: Vital Signs: Last Vital Signs Temp 98.3 F 10/07/24 11:20 Pulse 91 10/07/24 11:20 Resp 18 10/07/24 11:20 BP 99/55 L 10/07/24 11:20 Pulse Ox 94 10/07/24 11:20 O2 Del Method Room Air 10/07/24 11:20 BMI result Body Mass Index 35.2 Const: General: no acute distress Orientation/consciousness: patient oriented x3 Eyes: EOM: EOMs intact bilaterally Neck: Neck: Yes supple Resp: Auscultation: diminished lung sounds Cardio: Rate: regular rate GI: Palpation (GI): Soft to palpation Neuro: General: patient oriented x3 Objective Data Labs 10/07/24 06:32 10/07/24 06:32 Labs: Laboratory Results - last 24 hr 10/05/24 10/06/24 10/06/24 15:11 04:50 13:35 WBC RBC Hgb Hct MCV MCH MCHC RDW Plt Count MPV Absolute Nucleated RBC Nucleated RBC % (auto) PT INR APTT Fibrinogen Sodium Potassium Chloride Carbon Dioxide Anion Gap BUN Creatinine Estim Creat Clear Calc Estimated GFR POC Glucose 224 H Random Glucose Uric Acid < 1.0 L Calcium Magnesium Urine Color Urine Appearance Urine pH Ur Specific [place] Urine Protein Urine Glucose (UA) Urine Ketones Urine Blood Urine Nitrite Ur Leukocyte Esterase Urine RBC Urine WBC Ur Squamous Epith Cells Urine Bacteria Hyaline Casts U Random Total Protein Urine Creatinine Urine Microalbumin Microalb/Creat Ratio Protein/Creatinin Ratio Free [place] LC, Quant 12.2 Free Lambda LC, Quant 305.0 H Free [place]/Lambda Ratio 0.04 L 10/06/24 10/06/24 10/06/24 14:55 16:37 17:38 WBC 7.2 RBC 2.74 L Hgb 8.3 L Hct 25.0 L MCV 91.2 MCH 30.3 MCHC 33.2 RDW 15.2 Plt Count 27 L MPV 9.6 Absolute Nucleated RBC 0.210 H Nucleated RBC % (auto) 2.9 H PT 14.6 H 15.2 H INR 1.3 H 1.3 H APTT > 200.0 H* D 24.9 L D Fibrinogen 243 L 260 Sodium Potassium Chloride Carbon Dioxide Anion Gap BUN Creatinine Estim Creat Clear Calc Estimated GFR POC Glucose 233 H Random Glucose Uric Acid Calcium Magnesium Urine Color RED Urine Appearance Cloudy Urine pH 8.5 Ur Specific [place] 1.015 Urine Protein 30 (1+) H Urine Glucose (UA) >=1000 H Urine Ketones Trace Urine Blood Large (3+) H Urine Nitrite Positive H Ur Leukocyte Esterase Large (3+) H Urine RBC >20 H Urine WBC 21-50 H Ur Squamous Epith Cells 0-2 Urine Bacteria None Seen Hyaline Casts 0-2 U Random Total Protein 105 H Urine Creatinine 47.73 Urine Microalbumin 320.0 Microalb/Creat Ratio 670.4 H Protein/Creatinin Ratio 2.20 H Free [place] LC, Quant Free Lambda LC, Quant Free [place]/Lambda Ratio 10/06/24 10/07/24 10/07/24 21:02 06:32 07:55 WBC 8.6 RBC 2.68 L Hgb 8.1 L Hct 24.5 L MCV 91.4 MCH 30.2 MCHC 33.1 RDW 15.2 Plt Count 28 L MPV 11.0 Absolute Nucleated RBC 0.210 H Nucleated RBC % (auto) 2.4 H PT INR APTT Fibrinogen Sodium 136 Potassium 4.3 Chloride 105 Carbon Dioxide 26 Anion Gap 9 L BUN 59 H Creatinine 2.37 H Estim Creat Clear Calc 33.0 Estimated GFR 27 POC Glucose 154 H 153 H Random Glucose 152 H Uric Acid Calcium 9.4 Magnesium 2.1 Urine Color Urine Appearance Urine pH Ur Specific [place] Urine Protein Urine Glucose (UA) Urine Ketones Urine Blood Urine Nitrite Ur Leukocyte Esterase Urine RBC Urine WBC Ur Squamous Epith Cells Urine Bacteria Hyaline Casts U Random Total Protein Urine Creatinine Urine Microalbumin Microalb/Creat Ratio Protein/Creatinin Ratio Free [place] LC, Quant Free Lambda LC, Quant Free [place]/Lambda Ratio 10/07/24 11:24 WBC RBC Hgb Hct MCV MCH MCHC RDW Plt Count MPV Absolute Nucleated RBC Nucleated RBC % (auto) PT INR APTT Fibrinogen Sodium Potassium Chloride Carbon Dioxide Anion Gap BUN Creatinine Estim Creat Clear Calc Estimated GFR POC Glucose 237 H Random Glucose Uric Acid Calcium Magnesium Urine Color Urine Appearance Urine pH Ur Specific [place] Urine Protein Urine Glucose (UA) Urine Ketones Urine Blood Urine Nitrite Ur Leukocyte Esterase Urine RBC Urine WBC Ur Squamous Epith Cells Urine Bacteria Hyaline Casts U Random Total Protein Urine Creatinine Urine Microalbumin Microalb/Creat Ratio Protein/Creatinin Ratio Free [place] LC, Quant Free Lambda LC, Quant Free [place]/Lambda Ratio Procedures Date of Service Date of Service: 10/07/24 Assessment & Plan Assessment and plan (1) HIRO (acute kidney injury): Status: Acute (2) Hypercalcemia: Status: Acute (3) Low platelet count: Status: Acute Plan 73-year-old man with acute kidney injury with severe anemia and thrombocytopenia along with hypercalcemia and hyperuricemia. no schistocytes. No petechiae. Urine sediments were benign. HUS/ TTP seems unlikely. Given hypercalcemia with elevated serum protein multiple myeloma seems likely D/C IV fluids; Await bone marrow biopsy results; NO indication for renal replacement CXR. May need diuresis; Shall closely follow up Progress Note: Quality Stroke Does the patient have a stroke diagnosis?: No
[2024-10-07 16:16] LABS: Glucose, Whole Blood 210 mg/dL (60-115)
--- NOTE | 2024-10-07 17:33 | ECG_ITS ---
Test Reason : vtach Blood Pressure : */* mmHG Vent. Rate : 117 BPM Atrial Rate : * BPM P-R Int : * ms QRS Dur : 76 ms QT Int : 306 ms P-R-T Axes : * 17 66 degrees QTcB Int : 426 ms Sinus tachycardia with occasional Premature ventricular complexes Nonspecific ST abnormality Abnormal ECG When compared with ECG of 05-Oct-2024 12:11, No significant changes seen Referred By: Casper Romero Electronically Signed By: Tommie Masters
[2024-10-07] MEDS: Metoprolol Tartrate 5 MG/5 ML VIAL IVPUSH (17:42)
[2024-10-07] MEDS: Metoprolol Tartrate 25 MG TABLET PO (18:26)
[2024-10-07 19:16] LABS: Hematocrit 23.9 % (42.0-52.0); Mean Corpuscular HGB Conc 33.5 g/dl (31.0-36.0); Mean Corpuscular Hemoglobin 30.8 pg (27.0-33.0); Mean Corpuscular Volume 91.9 fL (80.0-98.0); Mean Platelet Volume 9.9 fL (9.4-12.4); Red Cell Distribution Width 15.6 % (11.0-16.0); White Blood Count 12.4 X10*3/uL (4.8-10.8)
[2024-10-07 19:30] LABS: Platelet Count 27 X10*3/uL (160-400)
--- NOTE | 2024-10-07 19:57 | PC.NURSE ---
At approx 1733, pt ambulated to toilet and was straining to have a bowel movement. At this time, pt's cardiac rhythm changed from SR with PVCs to SVT, HR as high as 200. MD aware. Pt asymptomatic, converted to sinus tachycardia while on toilet, finished cleaning himself and was ambulated back to bed. MD at bedside. New orders placed, see OCT.
[2024-10-07 21:01] LABS: Glucose, Whole Blood 249 mg/dL (60-115)
[2024-10-07] MEDS: Tamsulosin HCL 0.4 MG CAPSULE PO (21:18)
[2024-10-07 21:43] LABS: Prot Elec - Albumin 3.9 g/dL (3.8-4.8); Prot Elec - Alpha1 0.3 g/dL (0.2-0.3); Prot Elec - Alpha2 0.8 g/dL (0.5-0.9); Prot Elec - Beta 1 0.4 g/dL (0.4-0.6); Prot Elec - Beta 2 0.3 g/dL (0.2-0.5); Prot Elec - Gamma 4.5 g/dL (0.8-1.7); Prot Elec - Total Protein 10.2 g/dL (6.1-8.1)
[2024-10-08 00:38] VITALS: BP 132/60; PULSE 95; RESP 20; TEMP 36.6
[2024-10-08 03:12] VITALS: BP 109/49; PULSE 70; RESP 18; TEMP 36.8; O2SAT 92
[2024-10-08 03:23] LABS: IgA 21 mg/dL (70-320); IgG 6587 mg/dL (600-1540); IgM <5 mg/dL (50-300)
[2024-10-08 06:42] LABS: Hematocrit 23.7 % (42.0-52.0); Hemoglobin 8.1 g/dl (14.0-18.0); Mean Corpuscular HGB Conc 34.2 g/dl (31.0-36.0); Mean Corpuscular Hemoglobin 30.9 pg (27.0-33.0); Mean Corpuscular Volume 90.5 fL (80.0-98.0); Red Blood Count 2.62 X10*6/uL (4.60-5.80); Red Cell Distribution Width 15.6 % (11.0-16.0); White Blood Count 12.7 X10*3/uL (4.8-10.8)
[2024-10-08 06:45] LABS: NRBC Pct Auto 2.1 /100WBC (0.0-0.2); Platelet Count 39 X10*3/uL (160-400)
[2024-10-08 06:57] LABS: Anion Gap 11 (12-20); Blood Urea Nitrogen 59 mg/dL (9-16); Calcium 9.8 mg/dL (8.4-10.2); Carbon Dioxide 24 mmol/L (22-29); Chloride 105 mmol/L (96-108); Creatinine Clr Calc Pharmacy 34.5; Estimated Glomerular Filt Rate 28; Glucose Random 156 mg/dL (60-115); Potassium 4.3 mmol/L (3.3-5.1); Sodium 136 mmol/L (135-145)
--- NOTE | 2024-10-08 07:00 | CA_ITS ---
Transthoracic Echocardiogram Patient (Last, First, Middle): Raman Ogden, Gender: Male Date of : 1945 Age: 79 Procedure Date: 10/08/2024 Procedure Type: Transthoracic Echocardiogram Location: [facility] [place] Height: 180. cm Weight: 114.31 kg BSA: 2.32 m2 Heart Rate: 80 bpm BP: 122 / 59 mmHg [employer] Machine Tender: JASON Referring MD: Casper Romero MD Symptoms: Ventricular tachycardia Study Quality: Fair w/Contrast Conclusions: - Normal left ventricular size, thickness, systolic function, and wall motion. The visually estimated ejection fraction is between 55-60%. - E/E prime ratio is between 8 and 15 consistent with indeterminate filling pressures. - Mildly increased right ventricular cavity size. There is normal right ventricular systolic function. - The left atrium is mildly dilated. The right atrium is mildly dilated. - There is mild aortic valve stenosis. - There is mild dilatation of the ascending aorta measuring 4.20 cm and mild dilatation of the aortic arch measuring 4.00 cm. Findings Procedure Information Contrast agent, definity, is being given per protocol without apparent complications. Left Ventricle Normal left ventricular size, thickness, systolic function, and wall motion. The visually estimated ejection fraction is between 55-60%. Abnormal diastolic function is noted. Spectral Doppler is indicative of a pseudonormal filling pattern. E/E prime ratio is between 8 and 15 consistent with indeterminate filling pressures. Right Ventricle Mildly increased right ventricular cavity size. There is normal right ventricular systolic function. Atria The left atrium is mildly dilated. The right atrium is mildly dilated. Aortic Valve There is a normal trileaflet aortic valve. There is mild calcification of the aortic valve. There is mild aortic valve stenosis. There is no aortic valve regurgitation. Mitral Valve The mitral valve appears normal. There is no mitral valve regurgitation. There is no mitral valve stenosis. Pulmonic Valve The pulmonic valve is normal. There is no pulmonic valve regurgitation. Tricuspid Valve Normal tricuspid valve structure. There is mild tricuspid valve regurgitation. The right ventricular systolic pressure is 35 mmHg. Moderately elevated right atrial pressure. Mild pulmonary hypertension is present. Great Vessels There is mild dilatation of the ascending aorta measuring 4.20 cm and mild dilatation of the aortic arch measuring 4.00 cm. The visualized portions of the pulmonary artery and branches are normal. Venous The inferior vena cava is dilated and collapses greater than 50% with inspiration. Pericardium/Pleural There is no evidence of pericardial effusion. Prior Study Comparison No prior study available for comparison. Measurements 2D Linear Measurements IVSd: 1.03 0.6-0.9/0.6-1.0 cm LVIDd: 5.31 3.9-5.3/4.2-5.9 cm LVIDd Index: 2.29 2.4-3.2/2.2-3.1 cm/m2 LVIDs: 3.17 2.0-3.6 cm LVPWd: 1.04 0.7-1.1 cm LA Diam: 4.50 2.7-3.8/3.0-4.0 cm LAIDs Index: 1.94 1.5-2.3 cm/m2 LV Mass: 262.32 67-162/88-224 g LV Mass Index: 113.07 43-95/49-115 g/m2 LVOT Diam: 2.10 3.0+(-)1.3 cm 2D Systolic Function EF 4C: 63.00 >55% EF 2C: 69.30 >55% EF BiP: 66.10 >55% Mitral Valve MV Pk E: 1.01 MV PK A: 0.89 MV Decel Time: 266.00 E/A: 1.10 E'Lateral: 8.78 E'Medial: 7.07 E/E' Med: 14.30 E/E' Lat: 11.50 PHT: 78.00 MVA PHT: 2.82 Decel [place]: 3.80 Aortic Valve AoV Pk Mendoza: 2.08 AoV Mn Mendoza: 1.49 AoV VTI: 0.43 AoV Pk Grad: 17.00 Aov Mn Grad: 10.00 MYAH Cont.VTI: 2.61 LVOT LVOT Pk Mendo[place]: 1.57 LVOT Mn [place]endo[place]: 1.13 LVOT VTI: 0.32 LVOT Pk Grad: 10.00 LVOT Mn Grad: 6.00 LVOT Diam: 2.10 LVOT Area: 3.46 Diastolic Function MV Pk E: 1.01 MV Pk A: 0.89 E/A: 1.10 E'Medial: 7.07 E/E' Med: 14.30 E' Laterial: 8.78 E/E' Lat: 11.50 Right Ventricle TAPSE (mm): 31.00 TVS' Mendoza: 15.10 Tricuspid Valve TR Pk Mendoza: 2.58 TR Pk Grad: 27.00 RA Press: 8.00 RVSP: 35.00 Great Vessels Aorta Sinus of Valsalva: 3.30 2.0-3.5 cm Ao Asc: 4.20 2.1-3.4 cm Ao Arch: 4.00 Pulmonary Valve PV Pk Mendoza: 1.90 Peak PV Grad: 14.00 Updated in Other Vendor System with Status of Final Tommie Masters MD electronically signed on 10/08/2024 1:21:19 PM with status of Final
[2024-10-08 07:10] LABS: INTERNATIONAL NORM RATIO 1.3 (0.9-1.1); Prothrombin Time 14.9 SEC (10.9-12.4)
[2024-10-08 07:20] VITALS: BP 122/59; PULSE 84; RESP 18; TEMP 36.7; O2SAT 92
[2024-10-08 07:44] LABS: Glucose, Whole Blood 150 mg/dL (60-115)
--- NOTE | 2024-10-08 07:45 | PC.NURSE ---
Upon starting shift at 18:45 CBI was running. Bright red output with large clots. CBI required to be irrigated multiple times throughout shift for large clots. Patient denied any pain but describes feeling pressure. Approximately at 06:00 CBI was not able to run. Irrigating CBI attempted but unable to pass clots. Patient denies any pain but describes feeling pressure to abdomen. Dr. Horvath notified at 06:00 and ordered to pause CBI.
--- NOTE | 2024-10-08 07:55 | PC.NURSE ---
At 10/07/2024 22:30 temperature accidentally recorded for 75.6. Patients temperature at 22:30 is 97.6 temporal.
--- NOTE | 2024-10-08 08:26 | PM.HEMONCPN ---
Medical Summary - Medical Summary Date of Service: 10/08/24 Chief complaint: Fatigue Primary Care Provider: Josse Iniguez Monitoring Coordinator Utilized?: No - Ukrainian Speaking Interval History Interval history: Raman Ogden is a 79 year old male with history of diabetes mellitus, chronic kidney disease stage 3, obstructive sleep apnea, DVT on Eliquis who presented with 2 to three-month history of fatigue and weakness. He has been feeling poorly, he had low back pain, loss of appetite and some weight loss. [facility] and was prescribed azithromycin. He was diagnosed with left lower extremity DVT in December 2021. He appears to be on Eliquis ever since. He denies chest pain, abdominal pain or change in bowel habits. He has never been told of low blood counts in the past. He saw his PCP at the [facility] about 3 months ago. He denies any fever or chills. He lives alone at home. He has a brother and sister who are next of kin. He has never been diagnosed with any malignancy in the past. He was exposed to agent orange. He reports persistent fatigue. He received platelets yesterday because of ongoing hematuria. Eliquis is on hold. Review of Systems - Constitutional Reports as per HPI, Reports fatigue, Reports malaise - Cardiovascular Denies chest pain at rest - Respiratory Denies cough, Denies dyspnea - Neurologic Denies dizziness, Denies focal weakness, Denies loss of vision, Denies numbness, Denies tingling, Reports weakness PMFSH Medical History: Medical History (Last Reviewed 10/06/24 @ 17:55 by Amina Pastrana RN) Benign prostatic hyperplasia DVT (deep venous thrombosis) Essential hypertension Insulin dependent type 2 diabetes mellitus Mixed hyperlipidemia PATRICK on CPAP Social History: Social History (Last Reviewed 10/05/24 @ 19:13 by ERIN Oakley) Living Situation History: Household Members: None Housing: House Do you presently have visiting nurse or other home services: No Tobacco History: Patient Tobacco Use Status: Former Tobacco user Occupation Assessmet: service: Yes Home Medications and Allergies Current Medications: Current Medications Acetaminophen (Acetaminophen 325 Mg Tablet) 650 mg PO Q6H PRN PRN Reason: Pain, Mild 1-3,fever,headache Albuterol Sulfate (Albuterol Sulfate 90 Mcg 8 Gm Inhaler) 2 puff INHALE Q4H PRN PRN Reason: Shortness Of Breath Or Wheezing Artificial Tears (Artificial Tears 15 Ml Drops) 1 drop EYE-BOTH QID PRN PRN Reason: Dry Eye(S) Benzocaine (Throat Lozenge, Medicated Lozenge) 1 lozenge MUCOUS MEM Q2H PRN PRN Reason: Sore Throat Last Admin: 10/06/24 21:49 Dose: 1 lozenge Calcium Carbonate (Calcium Carbonate 750 Mg Tab.Chew) 750 mg PO Q4H PRN PRN Reason: Heartburn Last Admin: 10/06/24 13:43 Dose: 750 mg Dextrose (Dextrose 50 % 25 Gm/50 Ml Syringe) 25 gm IVPUSH Q15M PRN; Protocol PRN Reason: per Hypoglycemia Standing Ord. Finasteride (Finasteride 5 Mg Tablet) 5 mg PO DAILY [facility] Last Admin: 10/07/24 08:10 Dose: 5 mg Glucose (Glucose Gel 15 Gm Gel..Gram.) 15 gm PO Q15M PRN; Protocol PRN Reason: per Hypoglycemia Standing Ord. Insulin Human Lispro (Insulin Lispro 100 Unit/Ml 3 Ml Vial) 0 unit SUBCUT QIDACHS [facility]; Protocol Last Admin: 10/07/24 21:18 Dose: 4 unit Magnesium Hydroxide (Milk Of Magnesia 30 Ml Oral.Susp) 30 ml PO DAILY PRN PRN Reason: Constipation Melatonin (Melatonin 3 Mg Tablet) 6 mg PO BEDTIME PRN PRN Reason: Insomnia Metoprolol Tartrate (Metoprolol Tartrate 25 Mg Tablet) 25 mg PO BID [facility]; Protocol Last Admin: 10/07/24 18:26 Dose: 25 mg Sodium Chloride (0.9 % Sodium Chloride Flush 3 Ml Syringe) 3 [facility] Last Admin: 10/07/24 21:20 Dose: 3 ml Tamsulosin HCl (Tamsulosin Hcl 0.4 Mg Capsule) 0.4 mg PO BEDTIME [facility] Last Admin: 10/07/24 21:18 Dose: 0.4 mg Home Medications ?Medication ?Instructions ?Recorded ?Confirmed ?Type amlodipine 10 mg tablet 10 mg PO BEDTIME 06/26/23 10/05/24 History cholecalciferol (vitamin D3) 50 50 mcg PO DAILY@1200 06/26/23 10/05/24 History mcg (2,000 unit) tablet empagliflozin 25 mg tablet 25 mg PO DAILY 06/26/23 10/05/24 History finasteride 5 mg tablet 5 mg PO DAILY 06/26/23 10/05/24 History glucosamine sulfate 500 mg tablet 1,000 mg PO DAILY 06/26/23 10/05/24 History (Glucosamine) insulin aspart U-100 100 unit/mL 1 sliding scale dose subcut TIDAC 06/26/23 10/05/24 History subcutaneous solution (Novolog U-100 Insulin aspart) insulin glargine 100 unit/mL 25 unit subcut BEDTIME 06/26/23 10/05/24 History subcutaneous solution lisinopril 40 mg tablet 40 mg PO BEDTIME 06/26/23 10/05/24 History albuterol sulfate 90 mcg/actuation 2 puff inhalation Q4H PRN 10/05/24 10/05/24 History aerosol inhaler Shortness Of Breath Or Wheezing apixaban 2.5 mg tablet (Eliquis) 2.5 mg PO BID 10/05/24 10/05/24 History benzonatate 200 mg capsule 200 mg PO TID PRN Cough 10/05/24 10/05/24 History carboxymethylcellulose sodium 0.5 1 drp ophthalmic (eye) QID PRN Dry 10/05/24 10/05/24 History % eye drops Eye(S) dextromethorphan-guaifenesin 10 10 ml PO Q6H PRN Cough 10/05/24 10/05/24 History mg-100 mg/5 mL oral syrup glucose 4 gram chewable tablet 4 g PO Q15M PRN Low Blood Sugar 10/05/24 10/05/24 History rosuvastatin 40 mg tablet 20 mg PO DAILY 10/05/24 10/05/24 History Allergies Allergy/AdvReac Type Severity Reaction Status Date / Time [id number] Reductase Allergy Intermediate ELEVATED Verified 10/05/24 11:56 Inhibitor LIVER [Cwkgpgk-Via-Rhi Reductase ENZYMES Inhibitor] Statins Depletion Allergy Unknown Unknown Uncoded 06/26/23 00:42 Exam Vital signs: Vital Signs Temp 98.1 F 10/08/24 07:20 Pulse 84 10/08/24 07:20 Resp 18 10/08/24 07:20 BP 122/59 L 10/08/24 07:20 Pulse Ox 92 10/08/24 07:20 O2 Del Method Room Air 10/08/24 07:20 Intake & Output 10/07/24 10/08/24 10/08/24 18:59 06:59 18:59 Intake Total -498.333 / 222.667 721 / 222.667 Output Total 2024 Balance -2523.333 / -1802.333 721 / -1802.333 Urine Output (Average ml/kg/hr) 1.47 1.47 Intake: Intake, Oral Amount 720 / 1190 470 / 1190 Intake (Blood Product) Amount 251 / 251 Plt Aph Pas Pathreduced(E8343) 251 / 251 Unit [id number] Continuous Bladder Irrigation -1625 / -1625 Fluid - Amount Retained 3-way Urethral -1625 / -1625 Intake, IV Amount 406.667 / 406.667 0.9 % Sodium Chloride 1,000 ml 406.667 / 406.667 @ 80 mls/hr IVCONT .[id number] [facility] Rx#:[id number] Output: Output, Urine Amount (Catheter) 2024 2-way Urethral 400 / 400 3-way Urethral 1625 / 1625 Other: Number of Bowel Movements 2 2 Urine Color Punch Last Bowel Movement 10/07/24 10/08/24 Stool Bathroom Stool Amount Small Small Stool Color Brown Brown Stool Consistency Formed Soft Continuous Bladder Irrigation Fluid - Amount Instilled 3-way Urethral 3,000 Continuous Bladder Irrigation Fluid - Amount Drained 3-way Urethral 3,500 Weight 114.5 kg BMI result Body Mass Index 35.2 - Constitutional Present: no acute distress, obese - Routine HEENT Exam Head: Present: normal inspection - Routine Respiratory Exam Present: CTAB. Absent: accessory muscle use, stridor, wheezes - Routine Cardiovascular Exam Cardiovascular: Present: RRR, S1, S2 - Routine Abdominal Exam Present: soft. Absent: mass - Routine Extremities Exam Present: normal inspection. Absent: pedal edema - Routine Skin Exam Present: intact - Routine Neurological Exam Present: alert, oriented X3 Data - Labs CBC & Chem 7: 10/08/24 05:53 10/08/24 05:53 - Imaging Radiologist's impression: ITS Impressions Chest X-Ray 10/05/24 11:57 IMPRESSION: No acute cardiopulmonary abnormality. Electronically signed by: Theodore Fuentes MD 10/05/2024 01:24 PM EST RP Abdomen/Pelvis CT 10/05/24 14:01 IMPRESSION: 1. Scarring at the right lung base. No focal airspace opacity is identified. 2. Cystic foci in the pancreas as described above. Nonemergent MRI of the abdomen without and with contrast is recommended. 3. Diverticulosis of the descending and sigmoid colon, without evidence of diverticulitis. Electronically signed by: Theodore Fuentes MD 10/05/2024 03:27 PM EST RP Chest CT 10/05/24 14:42 IMPRESSION: 1. Scarring at the right lung base. No focal airspace opacity is identified. 2. Cystic foci in the pancreas as described above. Nonemergent MRI of the abdomen without and with contrast is recommended. 3. Diverticulosis of the descending and sigmoid colon, without evidence of diverticulitis. Electronically signed by: Theodore Fuentes MD 10/05/2024 03:27 PM EST RP Bone Marrow Biopsy w/ CT 10/06/24 11:12 Impression: CT-guided bone marrow biopsy and aspiration. This procedure was performed by Louie Sorto PA-C and supervised by Dr. Munson. Electronically signed by: Noah Munson MD 10/07/2024 02:20 PM EST RP Chest X-Ray 10/07/24 09:22 IMPRESSION: No active pulmonary disease. Electronically signed by: Brandyn Mosher MD 10/07/2024 09:42 AM EST RP Assessment and Plan Patient Active problem list reviewed?: Yes (1) Thrombocytopenia Status: Acute Assessment and plan: 1. This is a 79-year-old male with multiple medical problems including diabetes mellitus, hypertension, obstructive sleep apnea, chronic stage 3 kidney disease and history of left lower extremity DVT who is presenting with new onset thrombocytopenia and anemia. He also has developed acute on chronic insufficiency. He received azithromycin recently for upper respiratory symptoms. Blood work shows moderately severe thrombocytopenia, platelet count of 19, previously 171 K. ESR elevated at 109, LDH elevated 300, uric acid 13.3. This no evidence of hemolysis. No evidence of DIC or myelophthisic process such as TTP. Imaging with CT chest/abdomen and pelvis without contrast shows scarring at right lung base. Cystic foci in pancreas and diverticulosis. No evidence of hepatosplenomegaly or lymphadenopathy. I recommend hydration, platelet transfusion, rasburicase/allopurinol for hyperuricemia. Hematuria probably secondary to traumatic Stuart catheter placement and low platelets. Repeat coagulation tests do not show evidence of DIC. CT-guided bone marrow aspiration/biopsy, flow cytometry shows lambda light chain restricted plasma cells. Serum immunofixation showed IgG lambda monoclonal band, IgG level 6.5 g with suppression of IgA and IgM levels. Free kappa/lambda ratio 12.2/305, abnormal at 0.04. He has only mild hypercalcemia, this has improved with IV hydration. His kidney functions are stable. He does not need any acute intervention such as plasma pheresis or dialysis. I discussed with the patient about diagnosis of lambda light chain multiple myeloma. He will be started on pulse steroids with dexamethasone 40 mg IV for 4 days. Upon discharge he will start treatment with daratumumab/Velcade and dexamethasone. He mentioned some sort of allergy to prednisone but he could not say what happened. I reached out to his PCP Dr. Josse Iniguez this morning, have not heard back from him. Please monitor daily labs including LFTs. Will follow with you. I - Time Spent With Patient Time Spent with Patient (in minutes): 20 Additional Coding: - Additional E/M codes Complex E/M visit Add On: CPT G2211
[2024-10-08 09:26] LABS: Alanine Aminotransferase 27 U/L (0-40); Albumin Level 2.7 g/dL (3.5-5.0); Alkaline Phosphatase 34 U/L (39-117); Aspartate Amino Transferase 38 U/L (5-37); Bilirubin Direct 0.3 mg/dL (0.0-0.5); Bilirubin Total 0.6 mg/dL (0.0-1.0); Total Protein 9.3 g/dL (6.5-8.0)
--- NOTE | 2024-10-08 10:07 | PC.NURSE ---
Stuart cath was irrigated as per Dr Romero order , moderate blood clot came out, pink tinged drainage in the collection bag . Pt denied bladder spasm at this time , CBI still on hold ,
[2024-10-08] MEDS: Metoprolol Tartrate 25 MG TABLET PO ×2 (10:30→20:51)
[2024-10-08] MEDS: Finasteride 5 MG TABLET PO (10:31)
[2024-10-08] MEDS: Insulin Glargine,Hum.rec.anlog 100 UNIT/ML 10 ML VIAL 25 UNIT SUBCUT (10:31)
[2024-10-08] MEDS: 0.9 % Sodium Chloride Flush 3 ML SYRINGE IVFLUSH ×3 (10:32→20:56)
[2024-10-08] MEDS: DEXAMETHASONE SOD PHOSPHATE IV (10:38)
[2024-10-08] MEDS: SODIUM CHLORIDE 0.9% IV (10:38)
[2024-10-08 10:43] LABS: Complement C3 89 mg/dL (82-185)
--- NOTE | 2024-10-08 10:47 | HO.PM.IMPN ---
Subjective Subjective Date of Service: 10/08/24 Interval History: feels the same, some sob cxr 10/07 no acute finding, he has been feeling short of breath for nearly 3 months. episodes of Vtachs topping 200 bpm yesterday, none reported overnight, hematuria --> CBI overnight, frequent irigation for clot, tasia color this morning. Bone marrow aspirate results suggest multiple myeloma (MM) Physical Exam Vital Signs: Vital Signs: Last Vital Signs Temp 98.1 F 10/08/24 07:20 Pulse 84 10/08/24 07:20 Resp 18 10/08/24 07:20 BP 122/59 L 10/08/24 07:20 Pulse Ox 92 10/08/24 07:20 O2 Del Method Room Air 10/08/24 07:20 BMI result Body Mass Index 35.2 Const: Other: General: AO X 3, no acute distress, obese Resp: CTA bilateral CVS: S1,S2,RRR GI: +BS, NT, no distention Skin: No rash Neuro: motor grossly intact Psych: appropriate affect Objective Data Active Medications Acetaminophen (Acetaminophen 325 Mg Tablet) 650 mg PO Q6H PRN PRN Reason: Pain, Mild 1-3,fever,headache Albuterol Sulfate (Albuterol Sulfate 90 Mcg 8 Gm Inhaler) 2 puff INHALE Q4H PRN PRN Reason: Shortness Of Breath Or Wheezing Artificial Tears (Artificial Tears 15 Ml Drops) 1 drop EYE-BOTH QID PRN PRN Reason: Dry Eye(S) Benzocaine (Throat Lozenge, Medicated Lozenge) 1 lozenge MUCOUS MEM Q2H PRN PRN Reason: Sore Throat Last Admin: 10/06/24 21:49 Dose: 1 lozenge Documented By: LACIE Calcium Carbonate (Calcium Carbonate 750 Mg Tab.Chew) 750 mg PO Q4H PRN PRN Reason: Heartburn Last Admin: 10/06/24 13:43 Dose: 750 mg Documented By: ELLA Dextrose (Dextrose 50 % 25 Gm/50 Ml Syringe) 25 gm IVPUSH Q15M PRN; Protocol PRN Reason: per Hypoglycemia Standing Ord. Finasteride (Finasteride 5 Mg Tablet) 5 mg PO DAILY [facility] Last Admin: 10/08/24 10:31 Dose: 5 mg Documented By: HO.NICK Glucose (Glucose Gel 15 Gm Gel..Gram.) 15 gm PO Q15M PRN; Protocol PRN Reason: per Hypoglycemia Standing Ord. Dexamethasone Sodium Phosphate (40 mg/ Sodium Chloride) 54 mls @ 216 mls/hr IV DAILY [facility] Stop: 10/11/24 09:00 Last Admin: 10/08/24 10:38 Dose: 216 mls/hr Documented By: KEVIN Insulin Glargine (Insulin Glargine,Hum.Rec.Anlog 100 Unit/Ml 10 Ml Vial) 25 unit SUBCUT DAILY [facility] Last Admin: 10/08/24 10:31 Dose: 25 unit Documented By: KEVIN Insulin Human Lispro (Insulin Lispro 100 Unit/Ml 3 Ml Vial) 0 unit SUBCUT QIDACHS [facility]; Protocol Last Admin: 10/08/24 10:03 Dose: Not Given Documented By: KEVIN Non-Admin Reason: No Insulin Coverage Magnesium Hydroxide (Milk Of Magnesia 30 Ml Oral.Susp) 30 ml PO DAILY PRN PRN Reason: Constipation Melatonin (Melatonin 3 Mg Tablet) 6 mg PO BEDTIME PRN PRN Reason: Insomnia Metoprolol Tartrate (Metoprolol Tartrate 25 Mg Tablet) 25 mg PO BID [facility]; Protocol Last Admin: 10/08/24 10:30 Dose: 25 mg Documented By: KEVIN Sodium Chloride (0.9 % Sodium Chloride Flush 3 Ml Syringe) 3 ml IVFLUSH QSHIFT [facility] Last Admin: 10/08/24 10:32 Dose: 3 ml Documented By: KEVIN Tamsulosin HCl (Tamsulosin Hcl 0.4 Mg Capsule) 0.4 mg PO BEDTIME [facility] Last Admin: 10/07/24 21:18 Dose: 0.4 mg Documented By: MELANIE Labs 10/08/24 05:53 10/08/24 05:53 Labs: Laboratory Results - last 24 hr 10/05/24 10/05/24 10/07/24 15:11 17:07 06:32 MCV MCH MCHC RDW Plt Count MPV Absolute Nucleated RBC Nucleated RBC % (auto) PT INR Hold Blue Top Anion Gap Estim Creat Clear Calc Estimated GFR POC Glucose Random Glucose Calcium Magnesium 2.1 Total Bilirubin Direct Bilirubin AST ALT Alkaline Phosphatase Total Protein Total Protein (PEP) 10.2 H Albumin Albumin (PEP) 3.9 Xwzrp-5-Zewwcvuzd 0.3 Lgrte-9-Tdocwfjzv 0.8 Qdcr-3-Kszpohhl 0.4 Ybxn-6-Auoxqefi 0.3 Gamma Globulins 4.5 H Abnorm Protein Band 1 4.0 H PEP Interpretation SEE NOTE Hold Yellow Top IgG Total 6587 H IgA Total 21 L IgM <5 L KATHRYN Interpretation SEE NOTE Complement C3 89 Complement C4 6 L Free [place] LC, Quant 12.2 Free Lambda LC, Quant 305.0 H Free [place]/Lambda Ratio 0.04 L Blood Type A Positive Antibody Screen NEGATIVE 10/07/24 10/07/24 10/07/24 11:24 16:12 18:58 MCV 91.9 MCH 30.8 MCHC 33.5 RDW 15.6 Plt Count 27 L MPV 9.9 Absolute Nucleated RBC 0.370 H Nucleated RBC % (auto) 3.0 H PT INR Hold Blue Top SEE NOTE Anion Gap Estim Creat Clear Calc Estimated GFR POC Glucose 237 H 210 H Random Glucose Calcium Magnesium Total Bilirubin Direct Bilirubin AST ALT Alkaline Phosphatase Total Protein Total Protein (PEP) Albumin Albumin (PEP) Akzxm-4-Yuvjikzgo Lpjwq-6-Yarsfsnrc Eluo-0-Clyzojak Aouy-6-Byksljsj Gamma Globulins Abnorm Protein Band 1 PEP Interpretation Hold Yellow Top See Note IgG Total IgA Total IgM KATHRYN Interpretation Complement C3 Complement C4 Free [place] LC, Quant Free Lambda LC, Quant Free [place]/Lambda Ratio Blood Type Antibody Screen 10/07/24 10/08/24 10/08/24 20:53 05:53 07:38 MCV 90.5 MCH 30.9 MCHC 34.2 RDW 15.6 Plt Count 39 L D MPV 11.0 Absolute Nucleated RBC 0.270 H Nucleated RBC % (auto) 2.1 H PT 14.9 H INR 1.3 H Hold Blue Top Anion Gap 11 L Estim Creat Clear Calc 34.5 Estimated GFR 28 POC Glucose 249 H 150 H Random Glucose 156 H Calcium 9.8 Magnesium Total Bilirubin 0.6 Direct Bilirubin 0.3 AST 38 H ALT 27 Alkaline Phosphatase 34 L Total Protein 9.3 H Total Protein (PEP) Albumin 2.7 L Albumin (PEP) Bdhlp-9-Qegrrmupg Jinfm-2-Mkgcrerzk Tqjr-1-Rigpkqlk Rwwr-9-Idurdrcn Gamma Globulins Abnorm Protein Band 1 PEP Interpretation Hold Yellow Top IgG Total IgA Total IgM KATHRYN Interpretation Complement C3 Complement C4 Free [place] LC, Quant Free Lambda LC, Quant Free [place]/Lambda Ratio Blood Type Antibody Screen Microbiology Microbiology Results: Microbiology 10/06/24 16:37 Urine Culture - Preliminary Urine clean catch - Clean Catch Midstream Enterococcus/Streptococcus sp Assessment and Plan (1) Hypercalcemia: Status: Acute (2) Low platelet count: Status: Acute (3) Hyperuricemia: Status: Acute (4) HIRO (acute kidney injury): Status: Acute Plan 79/m with history of DVT on eliquis, HTN, DM, HLD, BPH, PATRICK on CPAP, and CKD stage 3 presenting to the emergency department today with shortness of breath, low back pain, weakness, and fatigue for 3 months and found to have HIRO, anemia, thromobocytopenia, high calcium, elevated urinc acid that rasied concern for tumor lyis, he has been having hematuria. 10/07 evpisodes of sustained VTs Anemia/thrombocytopenia. Peripheral smear mostly unrevealing except some reactive lymphocytosis and reduced platelets number. DIC ruled out, doesn't look like hemolysis either. H/H has been stable, has not required transfusion as of yet. Seen by Heme and had bone marrow biopsy on 10/06 pending. Immunological study suggest Multiple Myeloma (MM). Platlets is better following 1 unit fo transfusion 10/07 and 2 units on , monitor level MM--Heme starting Dexamethasone, watch for hyperglycemia HIRO on CD3 d/t MM -stable after IVF -continue monitoring and further management of MM as above Hematuria: Possible related to difficult Stuart insertion in the setting of BPH and thrombocytopenia. Hematuria is better, CBI with gross hematuria. Urology following. Sustained VTs, iv metoprolol overn and started on oral metoprolol 25 mg twice a day, Echo today and cardiology consultation. If recurrent, start amiodarone Hypertension: BP lower side, hold meds, especially in light of renal failure. hx DVT-Hold apixaban d/t low platlets anemia and hematuria DM2- sliding scale insulin BPH- finasteride PATRICK- CPAP bedtime DVT : low palat, compression device Full code, discussed with RN present on 10/07 Quality Stroke Does the patient have a stroke diagnosis?: No VTE Prior VTE?: No VTE Risk Level:: Medical - moderate - high VTE Device Contraindication: N/A - Device Ordered VTE Drug Contraindication: N/A - Med Ordered
[2024-10-08 11:06] LABS: Glucose, Whole Blood 199 mg/dL (60-115)
[2024-10-08 11:14] VITALS: BP 108/53; PULSE 93; RESP 18; TEMP 36.7; O2SAT 94
--- NOTE | 2024-10-08 11:22 | PC.NURSE ---
Pt stated he gave his car keys and his home keys to his friends Manpreet and Efrain .
--- NOTE | 2024-10-08 11:23 | PC.NURSE ---
RN spoke with Dr Mccray from urology and per MD : keep Stuart cath to to drainage , do not restart CBI at this time , Hand irrigate PRN for blood clots
[2024-10-08] MEDS: Insulin Lispro 100 UNIT/ML 3 ML VIAL SUBCUT ×5 (13:09→21:13)
--- NOTE | 2024-10-08 13:11 | PM.CNCAR ---
History of Present Illness History of Present Illness Date of Service: 10/08/24 Requesting physician: Casper Romero Chief complaint: ? myeloma/tumer lysis syndrome, VT Narrative: 79-year-old gentleman with background history of DVT on Eliquis, hypertension, diabetes, hyperlipidemia, chronic kidney disease stage 3 who presented with shortness of breath low back pain and weakness and was noticed to have hypercalcemia and hyperuricemia along with thrombocytopenia and anemia. He was diagnosed as tumor lysis syndrome. He has been noticed to have runs of nonsustained VT on telemetry. The patient did not have any syncopal episode. He did have some dizziness off and on but he is saying that did not happen yesterday. He is somewhat vague about the history. He also has a pressure-like feeling in his chest which is persistently present. Telemetry reviewed which is showing runs of nonsustained VT. He is saying he is feeling somewhat better compared to when he presented to the hospital. [facility] Past Medical History Medical History Mixed hyperlipidemia Benign prostatic hyperplasia Essential hypertension PATRICK on CPAP DVT (deep venous thrombosis) Insulin dependent type 2 diabetes mellitus Social History Social History Household Members: None Housing: House Do you presently have visiting nurse or other home services: No Patient Tobacco Use Status: Former Tobacco user service: Yes Meds Allergies Allergy/AdvReac Type Severity Reaction Status Date / Time Syrgpok-LEL-SaP Reductase Allergy Intermediate ELEVATED Verified 10/05/24 11:56 Inhibitor LIVER [Kpcxuol-Avv-Yuf Reductase ENZYMES Inhibitor] Statins Depletion Allergy Unknown Unknown Uncoded 06/26/23 00:42 Active Medications: Current Medications Acetaminophen (Acetaminophen 325 Mg Tablet) 650 mg PO Q6H PRN PRN Reason: Pain, Mild 1-3,fever,headache Albuterol Sulfate (Albuterol Sulfate 90 Mcg 8 Gm Inhaler) 2 puff INHALE Q4H PRN PRN Reason: Shortness Of Breath Or Wheezing Artificial Tears (Artificial Tears 15 Ml Drops) 1 drop EYE-BOTH QID PRN PRN Reason: Dry Eye(S) Benzocaine (Throat Lozenge, Medicated Lozenge) 1 lozenge MUCOUS MEM Q2H PRN PRN Reason: Sore Throat Last Admin: 10/06/24 21:49 Dose: 1 lozenge Calcium Carbonate (Calcium Carbonate 750 Mg Tab.Chew) 750 mg PO Q4H PRN PRN Reason: Heartburn Last Admin: 10/06/24 13:43 Dose: 750 mg Dextrose (Dextrose 50 % 25 Gm/50 Ml Syringe) 25 gm IVPUSH Q15M PRN; Protocol PRN Reason: per Hypoglycemia Standing Ord. Finasteride (Finasteride 5 Mg Tablet) 5 mg PO DAILY [facility] Last Admin: 10/08/24 10:31 Dose: 5 mg Glucose (Glucose Gel 15 Gm Gel..Gram.) 15 gm PO Q15M PRN; Protocol PRN Reason: per Hypoglycemia Standing Ord. Dexamethasone Sodium Phosphate (40 mg/ Sodium Chloride) 54 mls @ 216 mls/hr IV DAILY [facility] Stop: 10/11/24 09:00 Last Infusion: 10/08/24 11:14 Dose: Infused Insulin Glargine (Insulin Glargine,Hum.Rec.Anlog 100 Unit/Ml 10 Ml Vial) 25 unit SUBCUT DAILY [facility] Last Admin: 10/08/24 10:31 Dose: 25 unit Insulin Human Lispro (Insulin Lispro 100 Unit/Ml 3 Ml Vial) 0 unit SUBCUT QIDACHS [facility]; Protocol Last Admin: 10/08/24 13:09 Dose: 2 unit Magnesium Hydroxide (Milk Of Magnesia 30 Ml Oral.Susp) 30 ml PO DAILY PRN PRN Reason: Constipation Melatonin (Melatonin 3 Mg Tablet) 6 mg PO BEDTIME PRN PRN Reason: Insomnia Metoprolol Tartrate (Metoprolol Tartrate 25 Mg Tablet) 25 mg PO BID [facility]; Protocol Last Admin: 10/08/24 10:30 Dose: 25 mg Sodium Chloride (0.9 % Sodium Chloride Flush 3 Ml Syringe) 3 ml IVFLUSH QSHIFT [facility] Last Admin: 10/08/24 10:32 Dose: 3 ml Tamsulosin HCl (Tamsulosin Hcl 0.4 Mg Capsule) 0.4 mg PO BEDTIME [facility] Last Admin: 10/07/24 21:18 Dose: 0.4 mg Home Medications ?Medication ?Instructions ?Recorded ?Confirmed ?Last Taken ?Type amlodipine 10 mg tablet 10 mg PO BEDTIME 06/26/23 10/05/24 10/04/24 History cholecalciferol (vitamin D3) 50 50 mcg PO DAILY@1200 06/26/23 10/05/24 10/04/24 History mcg (2,000 unit) tablet empagliflozin 25 mg tablet 25 mg PO DAILY 06/26/23 10/05/24 10/04/24 History finasteride 5 mg tablet 5 mg PO DAILY 06/26/23 10/05/24 10/04/24 History glucosamine sulfate 500 mg tablet 1,000 mg PO DAILY 06/26/23 10/05/24 10/04/24 History (Glucosamine) insulin aspart U-100 100 unit/mL 1 sliding scale dose subcut TIDAC 06/26/23 10/05/24 10/04/24 History subcutaneous solution (Novolog U-100 Insulin aspart) insulin glargine 100 unit/mL 25 unit subcut BEDTIME 06/26/23 10/05/24 10/04/24 History subcutaneous solution lisinopril 40 mg tablet 40 mg PO BEDTIME 06/26/23 10/05/24 10/04/24 History albuterol sulfate 90 mcg/actuation 2 puff inhalation Q4H PRN 10/05/24 10/05/24 10/04/24 History aerosol inhaler Shortness Of Breath Or Wheezing apixaban 2.5 mg tablet (Eliquis) 2.5 mg PO BID 10/05/24 10/05/24 10/04/24 History benzonatate 200 mg capsule 200 mg PO TID PRN Cough 10/05/24 10/05/24 10/04/24 History carboxymethylcellulose sodium 0.5 1 drp ophthalmic (eye) QID PRN Dry 10/05/24 10/05/24 10/04/24 History % eye drops Eye(S) dextromethorphan-guaifenesin 10 10 ml PO Q6H PRN Cough 10/05/24 10/05/24 10/04/24 History mg-100 mg/5 mL oral syrup glucose 4 gram chewable tablet 4 g PO Q15M PRN Low Blood Sugar 10/05/24 10/05/24 10/04/24 History rosuvastatin 40 mg tablet 20 mg PO DAILY 10/05/24 10/05/24 10/04/24 History Physical Exam Vital Signs: Vital Signs: Last Vital Signs Temp 98.1 F 10/08/24 11:14 Pulse 93 10/08/24 11:14 Resp 18 10/08/24 11:14 BP 108/53 L 10/08/24 11:14 Pulse Ox 94 10/08/24 11:14 O2 Del Method Room Air 10/08/24 11:14 BMI result Body Mass Index 35.2 GENERAL APPEARANCE: in no acute distress, pleasant. NECK: no carotid bruit, no jugular venous distention. SKIN: no suspicious lesions, warm and dry. HEART: no murmurs, regular rate and rhythm. LUNGS: clear to auscultation bilaterally. ABDOMEN: soft, nontender. EXTREMITIES: no edema. PERIPHERAL PULSES: equal. NEUROLOGIC: No gross deficits, AAO X 3 Objective Labs and Meds 10/08/24 05:53 10/08/24 05:53 Lab results: Laboratory Results - last 24 hr 10/05/24 10/05/24 10/06/24 15:11 17:07 11:42 WBC RBC Hgb Hct MCV MCH MCHC RDW Plt Count MPV Absolute Nucleated RBC Nucleated RBC % (auto) PT INR Hold Blue Top Sodium Potassium Chloride Carbon Dioxide Anion Gap BUN Creatinine Estim Creat Clear Calc Estimated GFR POC Glucose Random Glucose Calcium Total Bilirubin Direct Bilirubin AST ALT Alkaline Phosphatase Total Protein Total Protein (PEP) 10.2 H Albumin Albumin (PEP) 3.9 Rtutk-2-Qxjjzdyzj 0.3 Xqcyz-9-Qfvrrgrde 0.8 Sjqs-5-Yxkyzgzk 0.4 Gkjq-2-Vodfvfxd 0.3 Gamma Globulins 4.5 H Abnorm Protein Band 1 4.0 H Abnorm Protein Band 2 TNP Abnorm Protein Band 3 TNP PEP Interpretation SEE NOTE Hold Yellow Top IgG Total 6587 H IgA Total 21 L IgM <5 L KATHRYN Interpretation SEE NOTE Complement C3 Complement C4 Leuk/Lym Interpretation See Note Free [place] LC, Quant 12.2 Free Lambda LC, Quant 305.0 H Free [place]/Lambda Ratio 0.04 L Blood Type A Positive Antibody Screen NEGATIVE 10/07/24 10/07/24 10/07/24 06:32 16:12 18:58 WBC 12.4 H RBC 2.60 L Hgb 8.0 L Hct 23.9 L MCV 91.9 MCH 30.8 MCHC 33.5 RDW 15.6 Plt Count 27 L MPV 9.9 Absolute Nucleated RBC 0.370 H Nucleated RBC % (auto) 3.0 H PT INR Hold Blue Top SEE NOTE Sodium Potassium Chloride Carbon Dioxide Anion Gap BUN Creatinine Estim Creat Clear Calc Estimated GFR POC Glucose 210 H Random Glucose Calcium Total Bilirubin Direct Bilirubin AST ALT Alkaline Phosphatase Total Protein Total Protein (PEP) Albumin Albumin (PEP) Cqyrt-0-Uxfsjqdkz Fqiwa-5-Dgcnfqrgo Zyni-0-Crpqqvhm Lyvj-4-Iichzlvt Gamma Globulins Abnorm Protein Band 1 Abnorm Protein Band 2 Abnorm Protein Band 3 PEP Interpretation Hold Yellow Top See Note IgG Total IgA Total IgM KATHRYN Interpretation Complement C3 89 Complement C4 6 L Leuk/Lym Interpretation Free [place] LC, Quant Free [place]ambda LC, Quant Free [place]/Lambda Ratio Blood Type Antibody Screen 10/07/24 10/08/24 10/08/24 20:53 05:53 07:38 WBC 12.7 H RBC 2.62 L Hgb 8.1 L Hct 23.7 L MCV 90.5 MCH 30.9 MCHC 34.2 RDW 15.6 Plt Count 39 L D MPV 11.0 Absolute Nucleated RBC 0.270 H Nucleated RBC % (auto) 2.1 H PT 14.9 H INR 1.3 H Hold Blue Top Sodium 136 Potassium 4.3 Chloride 105 Carbon Dioxide 24 Anion Gap 11 L BUN 59 H Creatinine 2.27 H Estim Creat Clear Calc 34.5 Estimated GFR 28 POC Glucose 249 H 150 H Random Glucose 156 H Calcium 9.8 Total Bilirubin 0.6 Direct Bilirubin 0.3 AST 38 H ALT 27 Alkaline Phosphatase 34 L Total Protein 9.3 H Total Protein (PEP) Albumin 2.7 L Albumin (PEP) Cpvos-0-Ymoqvetxd Oshal-2-Uutpukrfu Dbod-6-Csdhdwrs Qjyu-5-Aylzrewv Gamma Globulins Abnorm Protein Band 1 Abnorm Protein Band 2 Abnorm Protein Band 3 PEP Interpretation Hold Yellow Top IgG Total IgA Total IgM KATHRYN Interpretation Complement C3 Complement C4 Leuk/Lym Interpretation Free [place] LC, Quant Free [place]ambda LC, Quant Free [place]/Lambda Ratio Blood Type Antibody Screen 10/08/24 11:00 WBC RBC Hgb Hct MCV MCH MCHC RDW Plt Count MPV Absolute Nucleated RBC Nucleated RBC % (auto) PT INR Hold Blue Top Sodium Potassium Chloride Carbon Dioxide Anion Gap BUN Creatinine Estim Creat Clear Calc Estimated GFR POC Glucose 199 H Random Glucose Calcium Total Bilirubin Direct Bilirubin AST ALT Alkaline Phosphatase Total Protein Total Protein (PEP) Albumin Albumin (PEP) Jomlm-7-Sywwuaymp Jvyqs-9-Qgvkssoms Nvkf-4-Krqkznmb Vkql-3-Dikbdcpf Gamma Globulins Abnorm Protein Band 1 Abnorm Protein Band 2 Abnorm Protein Band 3 PEP Interpretation Hold Yellow Top IgG Total IgA Total IgM KATHRYN Interpretation Complement C3 Complement C4 Leuk/Lym Interpretation Free [place] LC, Quant Free [place]ambda LC, Quant Free [place]/Lambda Ratio Blood Type Antibody Screen Imaging Radiologist's impression: Impressions Bone Marrow Biopsy w/ CT 10/06/24 11:12 Impression: CT-guided bone marrow biopsy and aspiration. This procedure was performed by Louie Sorto PA-C and supervised by Dr. Munson. 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 He was noticed to have runs of nonsustained VT on telemetry. He is mostly asymptomatic. Echocardiography reviewed showing normal LV function with mild RV dilation but normal function of the right ventricle. Clinically not in heart failure. Increase metoprolol to 50 mg twice a day. If he tolerates this then can be changed to Toprol-XL 100 mg daily in the coming days. If he has persistent runs of VT despite titration of metoprolol then we will consider adding amiodarone. Thank you for allowing me to participate in the care of your patient. Please feel free to contact me if you have any questions. Procedures Date of Service Date of Service: 10/08/24
--- NOTE | 2024-10-08 13:44 | PC.NURSE ---
urinary cath irrigated by hand x 2 for small blood clots
--- NOTE | 2024-10-08 14:23 | MHC.CM.PN ---
CM assisted Patient with the completion of a HCP; he named his Brother/Merlin as his Agent.
--- NOTE | 2024-10-08 15:18 | P.PNNP_ITS ---
Subjective Subjective Date of Service: 10/08/24 Interval history: Event s noted No significant change in creatinine. Bone marrow biopsy suggestive of multiple myeloma Physical Exam 2 Vital Signs: Vital Signs: Last Vital Signs Temp 98.1 F 10/08/24 11:14 Pulse 93 10/08/24 11:14 Resp 18 10/08/24 11:14 BP 108/53 L 10/08/24 11:14 Pulse Ox 94 10/08/24 11:14 O2 Del Method Room Air 10/08/24 11:14 BMI result Body Mass Index 35.2 Const: General: no acute distress Orientation/consciousness: patient oriented x3 Eyes: EOM: EOMs intact bilaterally Neck: Neck: Yes supple Resp: Auscultation: diminished lung sounds Cardio: Rate: regular rate GI: Palpation (GI): Soft to palpation Neuro: General: patient oriented x3 Objective Data Labs 10/12/24 06:14 10/12/24 06:14 Labs: Laboratory Results - last 24 hr 10/05/24 10/05/24 10/06/24 15:11 17:07 11:42 WBC RBC Hgb Hct MCV MCH MCHC RDW Plt Count MPV Absolute Nucleated RBC Nucleated RBC % (auto) PT INR Hold Blue Top Sodium Potassium Chloride Carbon Dioxide Anion Gap BUN Creatinine Estim Creat Clear Calc Estimated GFR POC Glucose Random Glucose Calcium Total Bilirubin Direct Bilirubin AST ALT Alkaline Phosphatase Total Protein Total Protein (PEP) 10.2 H Albumin Albumin (PEP) 3.9 Yhlpo-4-Kkaqifvkb 0.3 Jscel-5-Ekqgenkkz 0.8 Tcar-1-Rwfetwtm 0.4 Dmhv-5-Ycaaoune 0.3 Gamma Globulins 4.5 H Abnorm Protein Band 1 4.0 H Abnorm Protein Band 2 TNP Abnorm Protein Band 3 TNP PEP Interpretation SEE NOTE Hold Yellow Top IgG Total 6587 H IgA Total 21 L IgM <5 L KATHRYN Interpretation SEE NOTE Complement C3 Complement C4 Leuk/Lym Interpretation See Note Blood Type A Positive Antibody Screen NEGATIVE 10/07/24 10/07/24 10/07/24 06:32 16:12 18:58 WBC 12.4 H RBC 2.60 L Hgb 8.0 L Hct 23.9 L MCV 91.9 MCH 30.8 MCHC 33.5 RDW 15.6 Plt Count 27 L MPV 9.9 Absolute Nucleated RBC 0.370 H Nucleated RBC % (auto) 3.0 H PT INR Hold Blue Top SEE NOTE Sodium Potassium Chloride Carbon Dioxide Anion Gap BUN Creatinine Estim Creat Clear Calc Estimated GFR POC Glucose 210 H Random Glucose Calcium Total Bilirubin Direct Bilirubin AST ALT Alkaline Phosphatase Total Protein Total Protein (PEP) Albumin Albumin (PEP) Cwwxv-1-Zzxzcwoye Pcxda-6-Pdgorwmzo Hszf-7-Ltzisdio Qzvl-2-Rfauwhzj Gamma Globulins Abnorm Protein Band 1 Abnorm Protein Band 2 Abnorm Protein Band 3 PEP Interpretation Hold Yellow Top See Note IgG Total IgA Total IgM KATHRYN Interpretation Complement C3 89 Complement C4 6 L Leuk/Lym Interpretation Blood Type Antibody Screen 10/07/24 10/08/24 10/08/24 20:53 05:53 07:38 WBC 12.7 H RBC 2.62 L Hgb 8.1 L Hct 23.7 L MCV 90.5 MCH 30.9 MCHC 34.2 RDW 15.6 Plt Count 39 L D MPV 11.0 Absolute Nucleated RBC 0.270 H Nucleated RBC % (auto) 2.1 H PT 14.9 H INR 1.3 H Hold Blue Top Sodium 136 Potassium 4.3 Chloride 105 Carbon Dioxide 24 Anion Gap 11 L BUN 59 H Creatinine 2.27 H Estim Creat Clear Calc 34.5 Estimated GFR 28 POC Glucose 249 H 150 H Random Glucose 156 H Calcium 9.8 Total Bilirubin 0.6 Direct Bilirubin 0.3 AST 38 H ALT 27 Alkaline Phosphatase 34 L Total Protein 9.3 H Total Protein (PEP) Albumin 2.7 L Albumin (PEP) Evrcg-6-Orofvqigo Vaylp-6-Uzqudgnrh Ikwp-3-Kqqcnrxd Mjvn-0-Ozrdiwwf Gamma Globulins Abnorm Protein Band 1 Abnorm Protein Band 2 Abnorm Protein Band 3 PEP Interpretation Hold Yellow Top IgG Total IgA Total IgM KATHRYN Interpretation Complement C3 Complement C4 Leuk/Lym Interpretation Blood Type Antibody Screen 10/08/24 11:00 WBC RBC Hgb Hct MCV MCH MCHC RDW Plt Count MPV Absolute Nucleated RBC Nucleated RBC % (auto) PT INR Hold Blue Top Sodium Potassium Chloride Carbon Dioxide Anion Gap BUN Creatinine Estim Creat Clear Calc Estimated GFR POC Glucose 199 H Random Glucose Calcium Total Bilirubin Direct Bilirubin AST ALT Alkaline Phosphatase Total Protein Total Protein (PEP) Albumin Albumin (PEP) Bpdqz-0-Beenybhss Kyums-0-Ixxtarjco Eazr-7-Nrhvystp Gqnv-1-Zbbcgcog Gamma Globulins Abnorm Protein Band 1 Abnorm Protein Band 2 Abnorm Protein Band 3 PEP Interpretation Hold Yellow Top IgG Total IgA Total IgM KATHRYN Interpretation Complement C3 Complement C4 Leuk/Lym Interpretation Blood Type Antibody Screen Microbiology Microbiology Results: Microbiology 10/06/24 16:37 Urine clean catch - Clean Catch Midstream Urine Culture - Preliminary Enterococcus/Streptococcus sp Procedures Date of Service Date of Service: 10/12/24 Assessment & Plan Assessment and plan (1) HIRO (acute kidney injury): Status: Acute (2) Hyperuricemia: Status: Acute (3) Anemia: Status: Acute (4) Thrombocytopenia: Status: Acute (5) Hypercalcemia: Status: Acute (6) Low platelet count: Status: Acute Plan 73-year-old man with acute kidney injury with severe anemia and thrombocytopenia along with hypercalcemia and hyperuricemia. Differential diagnosis includes tumor lysis syndrome. Although he has severe thrombocytopenia there were no schistocytes. No petechiae. Urine sediments were benign. HUS/ TTP seems unlikely. 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 Watch urine output Watch serum calcium potassium and uric acid. Serology workup in progress No absolute indication for dialysis today. Time Spent With Patient Time: Total time managing care of this patient today ____ minutes. Progress Note: Quality Stroke Does the patient have a stroke diagnosis?: No
[2024-10-08 15:43] VITALS: BP 122/60; PULSE 78; RESP 20; TEMP 36.5; O2SAT 92
[2024-10-08 16:24] LABS: Glucose, Whole Blood 374 mg/dL (60-115)
[2024-10-08 19:31] VITALS: BP 105/53; PULSE 72; RESP 18; TEMP 36.5; O2SAT 93
[2024-10-08 20:41] LABS: Glucose, Whole Blood 362 mg/dL (60-115)
[2024-10-08] MEDS: Tamsulosin HCL 0.4 MG CAPSULE PO (20:51)
[2024-10-09] VITALS (8 sets, daily range): BP systolic 100–153; BP diastolic 53–86; PULSE 71–86; RESP 17–20; TEMP 36.1–36.6; O2SAT 93–95
[2024-10-09 06:49] LABS: Hematocrit 23.4 % (42.0-52.0); Mean Corpuscular HGB Conc 34.2 g/dl (31.0-36.0); Mean Corpuscular Hemoglobin 30.9 pg (27.0-33.0); Mean Corpuscular Volume 90.3 fL (80.0-98.0); Mean Platelet Volume 10.2 fL (9.4-12.4); NRBC Pct Auto 2.6 /100WBC (0.0-0.2); Platelet Count 35 X10*3/uL (160-400); Red Blood Count 2.59 X10*6/uL (4.60-5.80); Red Cell Distribution Width 15.7 % (11.0-16.0); White Blood Count 10.5 X10*3/uL (4.8-10.8)
[2024-10-09 06:51] LABS: Anion Gap 11 (12-20); Blood Urea Nitrogen 68 mg/dL (9-16); Calcium 10.3 mg/dL (8.4-10.2); Carbon Dioxide 23 mmol/L (22-29); Chloride 105 mmol/L (96-108); Creatinine Clr Calc Pharmacy 34.9; Estimated Glomerular Filt Rate 28; Glucose Random 242 mg/dL (60-115); Potassium 4.3 mmol/L (3.3-5.1); Sodium 135 mmol/L (135-145)
[2024-10-09 07:19] LABS: Glucose, Whole Blood 245 mg/dL (60-115)
[2024-10-09] MEDS: Insulin Lispro 100 UNIT/ML 3 ML VIAL SUBCUT ×8 (07:46→20:52)
[2024-10-09] MEDS: 0.9 % Sodium Chloride Flush 3 ML SYRINGE IVFLUSH ×3 (07:50→20:53)
--- NOTE | 2024-10-09 08:33 | PC.NURSE ---
CBI restarted now as per DR Horvath order , cath hand irrigated multiple time overnight per retail shift leader report, this am cath irrigated x 1 for a multiple bloody clots ,
[2024-10-09 09:03] LABS: Anti Glomerular Basement Memb <1.0 AI; Myeloperoxidase Antibody <1.0 AI; Proteinase 3 PR3 Antibodies <1.0 AI
--- NOTE | 2024-10-09 09:09 | MHC.CM.PN ---
Patient is not yet medically cleared for dc (CBI started); Patient may benefit from a PT Eval to assist with disposition. CM will follow.
[2024-10-09] MEDS: Finasteride 5 MG TABLET PO (09:37)
[2024-10-09] MEDS: Metoprolol Tartrate 25 MG TABLET PO ×2 (09:37→20:50)
[2024-10-09] MEDS: SODIUM CHLORIDE 0.9% IV (09:38)
[2024-10-09] MEDS: DEXAMETHASONE SOD PHOSPHATE IV (09:38)
[2024-10-09] MEDS: Insulin Glargine,Hum.rec.anlog 100 UNIT/ML 10 ML VIAL 25 UNIT SUBCUT (09:38)
--- NOTE | 2024-10-09 10:16 | PC.NURSE ---
pt's friend brought back to patient pt's car and home keys
[2024-10-09 10:56] LABS: Magnesium 2.3 mg/dL (1.6-2.6)
[2024-10-09 11:10] LABS: Glucose, Whole Blood 404 mg/dL (60-115)
--- NOTE | 2024-10-09 12:56 | P.PNNP_ITS ---
Subjective Subjective Date of Service: 10/09/24 Interval history: Serum creatinine stable; Bone marrow biopsy suggestive of multiple myeloma Physical Exam 2 Vital Signs: Vital Signs: Last Vital Signs Temp 97.0 F 10/09/24 11:51 Pulse 82 10/09/24 11:51 Resp 18 10/09/24 11:51 BP 107/53 L 10/09/24 11:51 Pulse Ox 94 10/09/24 11:51 O2 Del Method Room Air 10/09/24 11:51 BMI result Body Mass Index 35.2 Const: General: no acute distress Orientation/consciousness: patient oriented x3 Eyes: EOM: EOMs intact bilaterally Neck: Neck: Yes supple Resp: Auscultation: diminished lung sounds Cardio: Rate: regular rate GI: Palpation (GI): Soft to palpation Neuro: General: patient oriented x3 and moves all extremities Objective Data Labs 10/09/24 05:59 10/09/24 05:59 Labs: Laboratory Results - last 24 hr 10/07/24 10/08/24 10/08/24 06:32 16:15 20:37 WBC RBC Hgb Hct MCV MCH MCHC RDW Plt Count MPV Absolute Nucleated RBC Nucleated RBC % (auto) Sodium Potassium Chloride Carbon Dioxide Anion Gap BUN Creatinine Estim Creat Clear Calc Estimated GFR POC Glucose 374 H* 362 H* Random Glucose Calcium Magnesium Proteinase 3 (PR3) Ab <1.0 Myeloperoxidase Ab <1.0 Glomerular Base Memb Ab <1.0 10/09/24 10/09/24 10/09/24 05:59 07:04 10:55 WBC 10.5 RBC 2.59 L Hgb 8.0 L Hct 23.4 L MCV 90.3 MCH 30.9 MCHC 34.2 RDW 15.7 Plt Count 35 L MPV 10.2 Absolute Nucleated RBC 0.270 H Nucleated RBC % (auto) 2.6 H Sodium 135 Potassium 4.3 Chloride 105 Carbon Dioxide 23 Anion Gap 11 L BUN 68 H Creatinine 2.24 H Estim Creat Clear Calc 34.9 Estimated GFR 28 POC Glucose 245 H 404 H* Random Glucose 242 H Calcium 10.3 H Magnesium 2.3 Proteinase 3 (PR3) Ab Myeloperoxidase Ab Glomerular Base Memb Ab Microbiology Microbiology Results: Microbiology 10/06/24 16:37 Urine clean catch - Clean Catch Midstream Urine Culture - Preliminary Gram positive cocci Procedures Date of Service Date of Service: 10/09/24 Assessment & Plan Assessment and plan (1) HIRO (acute kidney injury): Status: Acute Plan 73-year-old man with acute kidney injury with severe anemia and thrombocytopenia along with hypercalcemia and hyperuricemia. No schistocytes. No petechiae. Urine sediments were benign. Had hypercalcemia with elevated serum protein - multiple myeloma confirmed by bone marrow biopsy NO indication for renal replacement; C/W current supportive management; Shall closely follow up Progress Note: Quality Stroke Does the patient have a stroke diagnosis?: No
--- NOTE | 2024-10-09 12:56 | PM.PNCARD ---
Subjective Subjective Date of Service: 10/09/24 Interval history: seen examined at bedside. Frequent PVCs in a bigeminy pattern. Physical Exam Vital Signs: Last Vital Signs Temp 97.0 F 10/09/24 11:51 Pulse 82 10/09/24 11:51 Resp 18 10/09/24 11:51 BP 107/53 L 10/09/24 11:51 Pulse Ox 94 10/09/24 11:51 O2 Del Method Room Air 10/09/24 11:51 BMI result Body Mass Index 35.2 GENERAL APPEARANCE: in no acute distress, pleasant. NECK: no carotid bruit, no jugular venous distention. SKIN: no suspicious lesions, warm and dry. HEART: no murmurs, regular rate and rhythm. LUNGS: clear to auscultation bilaterally. ABDOMEN: soft, nontender. EXTREMITIES: no edema. PERIPHERAL PULSES: equal. NEUROLOGIC: No gross deficits, AAO X 3 Objective Labs and Meds 10/09/24 05:59 10/09/24 05:59 Lab results: Laboratory Results - last 24 hr 10/07/24 10/08/24 10/08/24 06:32 16:15 20:37 WBC RBC Hgb Hct MCV MCH MCHC RDW Plt Count MPV Absolute Nucleated RBC Nucleated RBC % (auto) Sodium Potassium Chloride Carbon Dioxide Anion Gap BUN Creatinine Estim Creat Clear Calc Estimated GFR POC Glucose 374 H* 362 H* Random Glucose Calcium Magnesium Proteinase 3 (PR3) Ab <1.0 Myeloperoxidase Ab <1.0 Glomerular Base Memb Ab <1.0 10/09/24 10/09/24 10/09/24 05:59 07:04 10:55 WBC 10.5 RBC 2.59 L Hgb 8.0 L Hct 23.4 L MCV 90.3 MCH 30.9 MCHC 34.2 RDW 15.7 Plt Count 35 L MPV 10.2 Absolute Nucleated RBC 0.270 H Nucleated RBC % (auto) 2.6 H Sodium 135 Potassium 4.3 Chloride 105 Carbon Dioxide 23 Anion Gap 11 L BUN 68 H Creatinine 2.24 H Estim Creat Clear Calc 34.9 Estimated GFR 28 POC Glucose 245 H 404 H* Random Glucose 242 H Calcium 10.3 H Magnesium 2.3 Proteinase 3 (PR3) Ab Myeloperoxidase Ab Glomerular Base Memb Ab Progress Note: A&P Assessment and plan (1) NSVT (nonsustained ventricular tachycardia): Status: Acute Plan 79-year-old gentleman with nonsustained ventricular tachycardia. he has been on metoprolol but continues to have frequent PVCs and bigeminy. I think we should start him on amiodarone 400 mg daily and continue the metoprolol succinate at 50 mg daily. Amiodarone should be decreased to 200 mg in 2 weeks. Thank you for allowing me to participate in the care of your patient. Please feel free to contact me if you have any questions. Time Spent With Patient Time: Total time managing care of this patient today ____ minutes. Progress Note: Quality Stroke Does the patient have a stroke diagnosis?: No Procedures Date of Service Date of Service: 10/09/24
[2024-10-09] MEDS: Amiodarone HCL 200 MG TABLET 400 MG PO ×2 (13:31→20:50)
[2024-10-09 13:35] LABS: Glucose, Whole Blood 478 mg/dL (60-115)
[2024-10-09] MEDS: Insulin Regular, Human 100 UNIT/ML 10 ML VIAL 10 UNIT IVPUSH ×2 (14:17→17:05)
--- NOTE | 2024-10-09 14:40 | HO.PM.IMPN ---
Subjective Subjective Date of Service: 10/09/24 Interval History: feels a little better, no sob having frequent ventricular ectopy and hyperglycemia Physical Exam Vital Signs: Vital Signs: Last Vital Signs Temp 97.0 F 10/09/24 11:51 Pulse 82 10/09/24 11:51 Resp 18 10/09/24 11:51 BP 107/53 L 10/09/24 11:51 Pulse Ox 94 10/09/24 11:51 O2 Del Method Room Air 10/09/24 11:51 BMI result Body Mass Index 35.2 Const: Other: General: AO X 3, no acute distress, obese Resp: CTA bilateral CVS: S1,S2,RRR GI: +BS, NT, no distention Skin: No rash Neuro: motor grossly intact Psych: appropriate affect Objective Data Active Medications Acetaminophen (Acetaminophen 325 Mg Tablet) 650 mg PO Q6H PRN PRN Reason: Pain, Mild 1-3,fever,headache Albuterol Sulfate (Albuterol Sulfate 90 Mcg 8 Gm Inhaler) 2 puff INHALE Q4H PRN PRN Reason: Shortness Of Breath Or Wheezing Amiodarone HCl (Amiodarone Hcl 200 Mg Tablet) 400 mg PO BID [facility] Last Admin: 10/09/24 13:31 Dose: 400 mg Documented By: KEVIN Artificial Tears (Artificial Tears 15 Ml Drops) 1 drop EYE-BOTH QID PRN PRN Reason: Dry Eye(S) Benzocaine (Throat Lozenge, Medicated Lozenge) 1 lozenge MUCOUS MEM Q2H PRN PRN Reason: Sore Throat Last Admin: 10/06/24 21:49 Dose: 1 lozenge Documented By: LACIE Calcium Carbonate (Calcium Carbonate 750 Mg Tab.Chew) 750 mg PO Q4H PRN PRN Reason: Heartburn Last Admin: 10/06/24 13:43 Dose: 750 mg Documented By: ELLA Dextrose (Dextrose 50 % 25 Gm/50 Ml Syringe) 25 gm IVPUSH Q15M PRN; Protocol PRN Reason: per Hypoglycemia Standing Ord. Finasteride (Finasteride 5 Mg Tablet) 5 mg PO DAILY [facility] Last Admin: 10/09/24 09:37 Dose: 5 mg Documented By: KEVIN Glucose (Glucose Gel 15 Gm Gel..Gram.) 15 gm PO Q15M PRN; Protocol PRN Reason: per Hypoglycemia Standing Ord. Dexamethasone Sodium Phosphate (40 mg/ Sodium Chloride) 54 mls @ 216 mls/hr IV DAILY [facility] Stop: 10/11/24 09:00 Last Infusion: 10/09/24 10:10 Dose: Infused Documented By: KEVIN Insulin Glargine (Insulin Glargine,Hum.Rec.Anlog 100 Unit/Ml 10 Ml Vial) 25 unit SUBCUT DAILY [facility] Last Admin: 10/09/24 09:38 Dose: 25 unit Documented By: KEVIN Insulin Human Lispro (Insulin Lispro 100 Unit/Ml 3 Ml Vial) 0 unit SUBCUT QIDACHS [facility]; Protocol Last Admin: 10/09/24 11:34 Dose: 10 unit Documented By: KEVIN Insulin Human Lispro (Insulin Lispro 100 Unit/Ml 3 Ml Vial) 5 unit SUBCUT QIDACHS [facility] Last Admin: 10/09/24 11:33 Dose: 5 unit Documented By: KEVIN Magnesium Hydroxide (Milk Of Magnesia 30 Ml Oral.Susp) 30 ml PO DAILY PRN PRN Reason: Constipation Melatonin (Melatonin 3 Mg Tablet) 6 mg PO BEDTIME PRN PRN Reason: Insomnia Metoprolol Tartrate (Metoprolol Tartrate 25 Mg Tablet) 25 mg PO BID [facility]; Protocol Last Admin: 10/09/24 09:37 Dose: 25 mg Documented By: KEVIN Sodium Chloride (0.9 % Sodium Chloride Flush 3 Ml Syringe) 3 ml IVFLUSH QSHIFT [facility] Last Admin: 10/09/24 13:32 Dose: 3 ml Documented By: KEVIN Tamsulosin HCl (Tamsulosin Hcl 0.4 Mg Capsule) 0.4 mg PO BEDTIME [facility] Last Admin: 10/08/24 20:51 Dose: 0.4 mg Documented By: MELANIE Labs 10/09/24 05:59 10/09/24 05:59 Labs: Laboratory Results - last 24 hr 10/07/24 10/08/24 10/08/24 06:32 16:15 20:37 MCV MCH MCHC RDW Plt Count MPV Absolute Nucleated RBC Nucleated RBC % (auto) Anion Gap Estim Creat Clear Calc Estimated GFR POC Glucose 374 H* 362 H* Random Glucose Calcium Magnesium Proteinase 3 (PR3) Ab <1.0 Myeloperoxidase Ab <1.0 Glomerular Base Memb Ab <1.0 10/09/24 10/09/24 10/09/24 05:59 07:04 10:55 MCV 90.3 MCH 30.9 MCHC 34.2 RDW 15.7 Plt Count 35 L MPV 10.2 Absolute Nucleated RBC 0.270 H Nucleated RBC % (auto) 2.6 H Anion Gap 11 L Estim Creat Clear Calc 34.9 Estimated GFR 28 POC Glucose 245 H 404 H* Random Glucose 242 H Calcium 10.3 H Magnesium 2.3 Proteinase 3 (PR3) Ab Myeloperoxidase Ab Glomerular Base Memb Ab 10/09/24 13:31 MCV MCH MCHC RDW Plt Count MPV Absolute Nucleated RBC Nucleated RBC % (auto) Anion Gap Estim Creat Clear Calc Estimated GFR POC Glucose 478 H* Random Glucose Calcium Magnesium Proteinase 3 (PR3) Ab Myeloperoxidase Ab Glomerular Base Memb Ab Microbiology Microbiology Results: Microbiology 10/06/24 16:37 Urine Culture - Preliminary Urine clean catch - Clean Catch Midstream Gram positive cocci Assessment and Plan (1) Hypercalcemia: Status: Acute (2) Low platelet count: Status: Acute (3) Hyperuricemia: Status: Acute (4) HIRO (acute kidney injury): Status: Acute Plan 79/m with history of DVT on eliquis, HTN, DM, HLD, BPH, PATRICK on CPAP, and CKD stage 3 presenting to the emergency department today with shortness of breath, low back pain, weakness, and fatigue for 3 months and found to have HIRO, anemia, thromobocytopenia, high calcium, elevated urinc acid that rasied concern for tumor lyis, he has been having hematuria. 10/07 evpisodes of sustained VTs Anemia/thrombocytopenia. Peripheral smear mostly unrevealing except some reactive lymphocytosis and reduced platelets number. DIC ruled out, doesn't look like hemolysis either. H/H has been stable, has not required transfusion as of yet. Seen by Lan and had bone marrow biopsy on 10/06 pending. Immunological study suggest Multiple Myeloma (MM). Platlets low but stable, 1 unit fo transfusion 10/07 and 2 units on , monitor level MM--Heme starting Dexamethasone, watch for hyperglycemia HIRO on CD3 d/t MM -stable after IVF -continue monitoring and further management of MM as above Hematuria: Possible related to difficult Stuart insertion in the setting of BPH and thrombocytopenia. Hematuria is better, CBI ongoing, uro following Sustained VTs, iv metoprolol overn and started on oral metoprolol 25 mg twice a day, persistent frequent ventricular ectopy. cardiology advises amio 400 bid and Hypertension: BP lower side, hold meds, especially in light of renal failure. hx DVT-Hold apixaban d/t low platlets anemia and hematuria DM2- with hyperglycemia d/t steroid, continue Lantus, pre-meal insulin, might add bedtime Lantus BPH- finasteride PATRICK- CPAP bedtime DVT : low palat, compression device when platlet above 50 Full code, discussed with RN present on 10/07 Quality Stroke Does the patient have a stroke diagnosis?: No VTE Prior VTE?: No VTE Risk Level:: Medical - moderate - high VTE Device Contraindication: N/A - Device Ordered VTE Drug Contraindication: N/A - Med Ordered
--- NOTE | 2024-10-09 15:15 | PC.NURSE ---
blood sugar 478, Regular Insulin 10 units IV administered as per order
[2024-10-09 16:24] LABS: Glucose, Whole Blood 403 mg/dL (60-115)
[2024-10-09 17:02] LABS: Glucose, Whole Blood 401 mg/dL (60-115)
[2024-10-09 19:17] LABS: Glucose, Whole Blood 341 mg/dL (60-115)
[2024-10-09] MEDS: Tamsulosin HCL 0.4 MG CAPSULE PO (20:51)
[2024-10-09] MEDS: Insulin Glargine,Hum.rec.anlog 100 UNIT/ML 10 ML VIAL 15 UNIT SUBCUT (20:52)
[2024-10-09] MEDS: Calcium Carbonate 750 MG TAB.CHEW PO (21:02)
[2024-10-09 22:07] LABS: Glucose, Whole Blood 296 mg/dL (60-115)
[2024-10-10 03:07] VITALS: BP 131/62; PULSE 66; RESP 17; TEMP 36.3; O2SAT 93
--- NOTE | 2024-10-10 03:17 | PC.NURSE ---
Assumed care of patient at 19:00. POCs were high in 400s during the day prior to assuming care and required regular insulin IVP x2 per MAR review. Of note, this patient is on daily dexamethasone infusions for multiple myeloma. At 19:08, a POC was obtained to reassess = 341. Covering Dr. Acosta was notified with orders to give ISS per MAR as well as 15 units lantus HS also ordered. Both were administered with MD written orders to recheck POC at 22:00. Repeat POC was 296. MD made aware, orders to resume previously ordered achs POCs, next to be done before breakfast. Remains sinus rhythm with PACs and PVCs on tele. Pt c/o heartburn this evening and requested tums, reported he ate a burger for dinner. Denies chest pain or palpitations. Tums given with +effect. No further complaints. Patient resting in bed. Breathing is even and unlabored without distress. Bed alarm on and safety measures in place. Call yang is within reach and educated on use. Rings to make needs known. Q2h repositioning. Please see shift assessments, tasks, and MAR for full details.
[2024-10-10 07:48] LABS: Hematocrit 23.3 % (42.0-52.0); Hemoglobin 7.9 g/dl (14.0-18.0); Mean Corpuscular HGB Conc 33.9 g/dl (31.0-36.0); Mean Corpuscular Hemoglobin 30.6 pg (27.0-33.0); Mean Corpuscular Volume 90.3 fL (80.0-98.0); Mean Platelet Volume 11.8 fL (9.4-12.4); Red Blood Count 2.58 X10*6/uL (4.60-5.80); Red Cell Distribution Width 15.5 % (11.0-16.0); White Blood Count 10.2 X10*3/uL (4.8-10.8)
[2024-10-10 07:56] LABS: NRBC Pct Auto 4.5 /100WBC (0.0-0.2); Platelet Count 30 X10*3/uL (160-400)
[2024-10-10 07:59] LABS: Anion Gap 10 (12-20); Blood Urea Nitrogen 76 mg/dL (9-16); Calcium 9.8 mg/dL (8.4-10.2); Carbon Dioxide 21 mmol/L (22-29); Chloride 105 mmol/L (96-108); Creatinine Clr Calc Pharmacy 38.4; Estimated Glomerular Filt Rate 32; Glucose Random 255 mg/dL (60-115); Potassium 4.4 mmol/L (3.3-5.1); Sodium 132 mmol/L (135-145)
[2024-10-10 08:00] VITALS: BP 135/65; PULSE 75; RESP 16; TEMP 36.6; O2SAT 94
[2024-10-10 08:38] LABS: Glucose, Whole Blood 254 mg/dL (60-115)
[2024-10-10] MEDS: Insulin Lispro 100 UNIT/ML 3 ML VIAL SUBCUT ×5 (09:24→21:13)
[2024-10-10] MEDS: Insulin Glargine,Hum.rec.anlog 100 UNIT/ML 10 ML VIAL 25 UNIT SUBCUT (09:24)
[2024-10-10] MEDS: 0.9 % Sodium Chloride Flush 3 ML SYRINGE IVFLUSH ×3 (09:25→21:14)
[2024-10-10] MEDS: Amiodarone HCL 200 MG TABLET 400 MG PO ×2 (09:26→21:10)
[2024-10-10] MEDS: Metoprolol Tartrate 25 MG TABLET PO ×2 (09:26→21:11)
[2024-10-10] MEDS: Finasteride 5 MG TABLET PO (09:28)
[2024-10-10] MEDS: SODIUM CHLORIDE 0.9% IV (09:28)
[2024-10-10] MEDS: DEXAMETHASONE SOD PHOSPHATE IV (09:28)
[2024-10-10 11:29] LABS: Glucose, Whole Blood 399 mg/dL (60-115)
[2024-10-10 11:29] LABS: Glucose, Whole Blood 394 mg/dL (60-115)
--- NOTE | 2024-10-10 11:43 | ECG_ITS ---
Test Reason : new a.fib Blood Pressure : */* mmHG Vent. Rate : 68 BPM Atrial Rate : * BPM P-R Int : * ms QRS Dur : 94 ms QT Int : 394 ms P-R-T Axes : * 29 60 degrees QTcB Int : 418 ms Atrial fibrillation with premature ventricular or aberrantly conducted complexes Abnormal ECG When compared with ECG of 07-Oct-2024 17:33, Atrial fibrillation has replaced Junctional rhythm Vent. rate has decreased by 49 bpm Referred By: Casper Rmoero Electronically Signed By: Tommie Masters
[2024-10-10 12:00] VITALS: BP 133/53; PULSE 65; RESP 20; TEMP 36.6; O2SAT 95
[2024-10-10] MEDS: Insulin Lispro 100 UNIT/ML 3 ML VIAL 8 UNIT SUBCUT ×2 (12:13→16:56)
--- NOTE | 2024-10-10 14:11 | P.PNHO-ONC_ITS ---
Medical Summary - Medical Summary Date of Service: 10/10/24 Primary Care Provider: Josse Iniguez Corporate Event Planner Utilized?: No - [place] Speaking Interval History Interval history: Raman Ogden is a 79 year old male with history of diabetes mellitus, chronic kidney disease stage 3, obstructive sleep apnea, DVT on Eliquis who presented with 2 to three-month history of fatigue and weakness. He has been feeling poorly, he had low back pain, loss of appetite and some weight loss. [facility] upper [facility] symptoms and was prescribed azithromycin. He was diagnosed with left lower extremity DVT in December 2021. He appears to be on Eliquis ever since. He denies chest pain, abdominal pain or change in bowel habits. He has never been told of low blood counts in the past. He saw his PCP at the [facility] about 3 months ago. He denies any fever or chills. He lives alone at home. He has a brother and sister who are next of kin. He has never been diagnosed with any malignancy in the past. He was exposed to agent orange. He reports persistent fatigue. He received platelets yesterday because of ongoing hematuria. Eliquis is on hold. Review of Systems - Eyes Reports other - ENT Reports other - Cardiovascular Reports shortness of breath - Respiratory Reports dyspnea - Gastrointestinal Reports abdominal pain - Neurologic Reports system reviewed and no additional complaints, except as documented, Reports weakness, Denies focal weakness, Denies loss of vision, Denies numbness, Denies tingling PMFSH Medical History: Medical History (Last Reviewed 10/06/24 @ 17:55 by Amina Pastrana RN) Benign prostatic hyperplasia DVT (deep venous thrombosis) Essential hypertension Insulin dependent type 2 diabetes mellitus Mixed hyperlipidemia PATRICK on CPAP Social History: Social History (Last Reviewed 10/05/24 @ 19:13 by ERIN Oakley) Living Situation History: Household Members: None Housing: House Do you presently have visiting nurse or other home services: No Tobacco History: Patient Tobacco Use Status: Former Tobacco user Occupation Assessmet: service: Yes Home Medications and Allergies Current Medications: Current Medications Acetaminophen (Acetaminophen 325 Mg Tablet) 650 mg PO Q6H PRN PRN Reason: Pain, Mild 1-3,fever,headache Albuterol Sulfate (Albuterol Sulfate 90 Mcg 8 Gm Inhaler) 2 puff INHALE Q4H PRN PRN Reason: Shortness Of Breath Or Wheezing Amiodarone HCl (Amiodarone Hcl 200 Mg Tablet) 400 mg PO BID [facility] Last Admin: 10/10/24 09:26 Dose: 400 mg Artificial Tears (Artificial Tears 15 Ml Drops) 1 drop EYE-BOTH QID PRN PRN Reason: Dry Eye(S) Benzocaine (Throat Lozenge, Medicated Lozenge) 1 lozenge MUCOUS MEM Q2H PRN PRN Reason: Sore Throat Last Admin: 10/06/24 21:49 Dose: 1 lozenge Calcium Carbonate (Calcium Carbonate 750 Mg Tab.Chew) 750 mg PO Q4H PRN PRN Reason: Heartburn Last Admin: 10/09/24 21:02 Dose: 750 mg Dextrose (Dextrose 50 % 25 Gm/50 Ml Syringe) 25 gm IVPUSH Q15M PRN; Protocol PRN Reason: per Hypoglycemia Standing Ord. Finasteride (Finasteride 5 Mg Tablet) 5 mg PO DAILY [facility] Last Admin: 10/10/24 09:28 Dose: 5 mg Glucose (Glucose Gel 15 Gm Gel..Gram.) 15 gm PO Q15M PRN; Protocol PRN Reason: per Hypoglycemia Standing Ord. Dexamethasone Sodium Phosphate (40 mg/ Sodium Chloride) 54 mls @ 216 mls/hr IV DAILY [facility] Stop: 10/11/24 09:00 Last Infusion: 10/10/24 09:57 Dose: Infused Insulin Glargine (Insulin Glargine,Hum.Rec.Anlog 100 Unit/Ml 10 Ml Vial) 25 unit SUBCUT DAILY [facility] Last Admin: 10/10/24 09:24 Dose: 25 unit Insulin Glargine (Insulin Glargine,Hum.Rec.Anlog 100 Unit/Ml 10 Ml Vial) 15 unit SUBCUT BEDTIME [facility] Last Admin: 10/09/24 20:52 Dose: 15 unit Insulin Human Lispro (Insulin Lispro 100 Unit/Ml 3 Ml Vial) 0 unit SUBCUT QIDACHS [facility]; Protocol Last Admin: 10/10/24 12:07 Dose: 12 unit Insulin Human Lispro (Insulin Lispro 100 Unit/Ml 3 Ml Vial) 8 unit SUBCUT QIDACHS [facility] Last Admin: 10/10/24 12:13 Dose: 8 unit Magnesium Hydroxide (Milk Of Magnesia 30 Ml Oral.Susp) 30 ml PO DAILY PRN PRN Reason: Constipation Melatonin (Melatonin 3 Mg Tablet) 6 mg PO BEDTIME PRN PRN Reason: Insomnia Metoprolol Tartrate (Metoprolol Tartrate 25 Mg Tablet) 25 mg PO BID [facility]; Protocol Last Admin: 10/10/24 09:26 Dose: 25 mg Sodium Chloride (0.9 % Sodium Chloride Flush 3 Ml Syringe) 3 ml IVFLUSH QSHIFT [facility] Last Admin: 10/10/24 09:25 Dose: 3 ml Tamsulosin HCl (Tamsulosin Hcl 0.4 Mg Capsule) 0.4 mg PO BEDTIME [facility] Last Admin: 10/09/24 20:51 Dose: 0.4 mg Home Medications ?Medication ?Instructions ?Recorded ?Confirmed ?Type amlodipine 10 mg tablet 10 mg PO BEDTIME 06/26/23 10/05/24 History cholecalciferol (vitamin D3) 50 50 mcg PO DAILY@1200 06/26/23 10/05/24 History mcg (2,000 unit) tablet empagliflozin 25 mg tablet 25 mg PO DAILY 06/26/23 10/05/24 History finasteride 5 mg tablet 5 mg PO DAILY 06/26/23 10/05/24 History glucosamine sulfate 500 mg tablet 1,000 mg PO DAILY 06/26/23 10/05/24 History (Glucosamine) insulin aspart U-100 100 unit/mL 1 sliding scale dose subcut TIDAC 06/26/23 10/05/24 History subcutaneous solution (Novolog U-100 Insulin aspart) insulin glargine 100 unit/mL 25 unit subcut BEDTIME 06/26/23 10/05/24 History subcutaneous solution lisinopril 40 mg tablet 40 mg PO BEDTIME 06/26/23 10/05/24 History albuterol sulfate 90 mcg/actuation 2 puff inhalation Q4H PRN 10/05/24 10/05/24 History aerosol inhaler Shortness Of Breath Or Wheezing apixaban 2.5 mg tablet (Eliquis) 2.5 mg PO BID 10/05/24 10/05/24 History benzonatate 200 mg capsule 200 mg PO TID PRN Cough 10/05/24 10/05/24 History carboxymethylcellulose sodium 0.5 1 drp ophthalmic (eye) QID PRN Dry 10/05/24 10/05/24 History % eye drops Eye(S) dextromethorphan-guaifenesin 10 10 ml PO Q6H PRN Cough 10/05/24 10/05/24 History mg-100 mg/5 mL oral syrup glucose 4 gram chewable tablet 4 g PO Q15M PRN Low Blood Sugar 10/05/24 10/05/24 History rosuvastatin 40 mg tablet 20 mg PO DAILY 10/05/24 10/05/24 History Allergies Allergy/AdvReac Type Severity Reaction Status Date / Time [id number] Reductase Allergy Intermediate ELEVATED Verified 10/05/24 11:56 Inhibitor LIVER [Iparada-Hmy-Rqi Reductase ENZYMES Inhibitor] Statins Depletion Allergy Unknown Unknown Uncoded 06/26/23 00:42 Exam Vital signs: Vital Signs Temp 97.8 F 10/10/24 12:00 Pulse 65 10/10/24 12:00 Resp 20 10/10/24 12:00 BP 133/53 L 10/10/24 12:00 Pulse Ox 95 10/10/24 12:00 O2 Del Method Room Air 10/10/24 12:00 Intake & Output 10/09/24 10/10/24 10/10/24 18:59 06:59 18:59 Intake Total -1226 / -3616 -2390 / -3616 -746 / -746 Output Total 2400 / 5300 2900 / 5300 1900 / 1900 Balance -3626 / -8916 -5290 / -8916 -2646 / -2646 Urine Output (Average ml/kg/hr) 1.75 2.11 1.24 Intake: Intake, Oral Amount 270 / 780 510 / 780 400 / 400 Continuous Bladder Irrigation -1550 / -4450 -2900 / -4450 -1200 / -1200 Fluid - Amount Retained 3-way Urethral -1550 / -4450 -2900 / -4450 -1200 / -1200 Intake, IV Amount 54 / 54 54 / 54 dexAMETHasone sod phosphate 40 54 / 54 54 / 54 mg In 0.9 % Sodium Chloride 50 ml @ 216 mls/hr IV DAILY [facility] Rx #:[id number] Output: Output, Stool Amount 0 / 0 Output, Urine/Stool Mix Amount 0 / 0 Output, Other Amount 200 / 200 Output, Urine Amount (Catheter) 2400 / 5300 2900 / 5300 1700 / 1700 3-way Urethral 2400 / 5300 2900 / 5300 1700 / 1700 Other: Meal Refused No NPO No Breakfast % Eaten 100% 100% Lunch % Eaten 100% Dinner % Eaten 75% Eating (Feeding) Ability Independent Independent Number of Bowel Movements 0 0 Urine Color [place] Tinged T[place] Tinged Red Tinged Last Bowel Movement 10/09/24 10/10/24 Stool Bedside Commode Stool Amount Moderate Stool Color Brown Stool Consistency Mushy Continuous Bladder Irrigation Fluid - Amount Instilled 3-way Urethral 3,000 3,000 3,000 Continuous Bladder Irrigation Fluid - Amount Drained 3-way Urethral 3,600 3,100 3,300 Weight 114.5 kg BMI result Body Mass Index 35.2 - Constitutional Present: no acute distress, obese - Routine HEENT Exam Head: Present: atraumatic, normal inspection ENT: Present: normal oropharynx - Routine Neck Exam Present: full ROM - Routine Respiratory Exam Present: CTAB. Absent: accessory muscle use, stridor, wheezes - Routine Cardiovascular Exam Cardiovascular: Present: RRR (obese), S1, S2 - Routine Abdominal Exam Present: soft. Absent: mass - Routine Extremities Exam Present: normal inspection. Absent: pedal edema - Routine Skin Exam Present: intact - Routine Neurological Exam Present: alert, oriented X3 Data - Labs CBC & Chem 7: 10/10/24 07:22 10/10/24 07:22 - Imaging Radiologist's impression: ITS Impressions Chest X-Ray 10/05/24 11:57 IMPRESSION: No acute cardiopulmonary abnormality. Electronically signed by: Theodore Fuentes MD 10/05/2024 01:24 PM EST RP Abdomen/Pelvis CT 10/05/24 14:01 IMPRESSION: 1. Scarring at the right lung base. No focal airspace opacity is identified. 2. Cystic foci in the pancreas as described above. Nonemergent MRI of the abdomen without and with contrast is recommended. 3. Diverticulosis of the descending and sigmoid colon, without evidence of diverticulitis. Electronically signed by: Theodore Fuentes MD 10/05/2024 03:27 PM EST RP Chest CT 10/05/24 14:42 IMPRESSION: 1. Scarring at the right lung base. No focal airspace opacity is identified. 2. Cystic foci in the pancreas as described above. Nonemergent MRI of the abdomen without and with contrast is recommended. 3. Diverticulosis of the descending and sigmoid colon, without evidence of diverticulitis. Electronically signed by: Theodore Fuentes MD 10/05/2024 03:27 PM EST RP Bone Marrow Biopsy w/ CT 10/06/24 11:12 Impression: CT-guided bone marrow biopsy and aspiration. This procedure was performed by Louie Sorto PA-C and supervised by Dr. Munson. Electronically signed by: Noah Munson MD 10/07/2024 02:20 PM EST RP Chest X-Ray 10/07/24 09:22 IMPRESSION: No active pulmonary disease. Electronically signed by: Brandyn Mosher MD 10/07/2024 09:42 AM EST RP Assessment and Plan Patient Active problem list reviewed?: Yes (1) Thrombocytopenia Status: Acute Assessment and plan: 1. This is a 79-year-old male with multiple medical problems including diabetes mellitus, hypertension, obstructive sleep apnea, chronic stage 3 kidney disease and history of left lower extremity DVT who is presenting with new onset thrombocytopenia and anemia. He also has developed acute on chronic insufficiency. He received azithromycin recently for upper respiratory symptoms. Blood work shows moderately severe thrombocytopenia, platelet count of 19, previously 171 K. ESR elevated at 109, LDH elevated 300, uric acid 13.3. This no evidence of hemolysis. No evidence of DIC or myelophthisic process such as TTP. Imaging with CT chest/abdomen and pelvis without contrast shows scarring at right lung base. Cystic foci in pancreas and diverticulosis. No evidence of hepatosplenomegaly or lymphadenopathy. I recommend hydration, platelet transfusion, rasburicase/allopurinol for hyperuricemia. Hematuria probably secondary to traumatic Stuart catheter placement and low platelets. Repeat coagulation tests do not show evidence of DIC. CT-guided bone marrow aspiration/biopsy, flow cytometry shows lambda light chain restricted plasma cells. Serum immunofixation showed IgG lambda monoclonal band, IgG level 6.5 g with suppression of IgA and IgM levels. Free kappa/lambda ratio 12.2/305, abnormal at 0.04. He has only mild hypercalcemia, this has improved with IV hydration. His kidney functions are stable. He does not need any acute intervention such as plasma pheresis or dialysis. I discussed with the patient about diagnosis of lambda light chain multiple myeloma. He will be started on pulse steroids with dexamethasone 40 mg IV for 4 days. Upon discharge he will start treatment with daratumumab/Velcade and dexamethasone. He mentioned some sort of allergy to prednisone but he could not say what happened. I reached out to his PCP Dr. Josse Iniguez this morning, have not heard back from him. Please monitor daily labs including LFTs. Will follow with you. I - Time Spent With Patient Time Spent with Patient (in minutes): 15
--- NOTE | 2024-10-10 15:08 | P.PNIM_ITS ---
Subjective Subjective Date of Service: 10/10/24 Interval History: feels a little better, no sob less frequent ventricular arrythmia, went into afib today but controlled rate Physical Exam 2 Vital Signs: Vital Signs: Last Vital Signs Temp 97.8 F 10/10/24 12:00 Pulse 65 10/10/24 12:00 Resp 20 10/10/24 12:00 BP 133/53 L 10/10/24 12:00 Pulse Ox 95 10/10/24 12:00 O2 Del Method Room Air 10/10/24 12:00 BMI result Body Mass Index 35.2 Const: Other: General: AO X 3, no acute distress Resp: CTA bilateral CVS: S1,S2,RRR GI: +BS, NT, no distention Skin: No rash Neuro: motor grossly intact Psych: appropriate affect Objective Data Active Medications Acetaminophen (Acetaminophen 325 Mg Tablet) 650 mg PO Q6H PRN PRN Reason: Pain, Mild 1-3,fever,headache Albuterol Sulfate (Albuterol Sulfate 90 Mcg 8 Gm Inhaler) 2 puff INHALE Q4H PRN PRN Reason: Shortness Of Breath Or Wheezing Amiodarone HCl (Amiodarone Hcl 200 Mg Tablet) 400 mg PO BID [facility] Last Admin: 10/10/24 09:26 Dose: 400 mg Documented By: RAY Artificial Tears (Artificial Tears 15 Ml Drops) 1 drop EYE-BOTH QID PRN PRN Reason: Dry Eye(S) Benzocaine (Throat Lozenge, Medicated Lozenge) 1 lozenge MUCOUS MEM Q2H PRN PRN Reason: Sore Throat Last Admin: 10/06/24 21:49 Dose: 1 lozenge Documented By: LACIE Calcium Carbonate (Calcium Carbonate 750 Mg Tab.Chew) 750 mg PO Q4H PRN PRN Reason: Heartburn Last Admin: 10/09/24 21:02 Dose: 750 mg Documented By: SHAAN Dextrose (Dextrose 50 % 25 Gm/50 Ml Syringe) 25 gm IVPUSH Q15M PRN; Protocol PRN Reason: per Hypoglycemia Standing Ord. Finasteride (Finasteride 5 Mg Tablet) 5 mg PO DAILY [facility] Last Admin: 10/10/24 09:28 Dose: 5 mg Documented By: RAY Glucose (Glucose Gel 15 Gm Gel..Gram.) 15 gm PO Q15M PRN; Protocol PRN Reason: per Hypoglycemia Standing Ord. Dexamethasone Sodium Phosphate (40 mg/ Sodium Chloride) 54 mls @ 216 mls/hr IV DAILY [facility] Stop: 10/11/24 09:00 Last Infusion: 10/10/24 09:57 Dose: Infused Documented By: RAY Insulin Glargine (Insulin Glargine,Hum.Rec.Anlog 100 Unit/Ml 10 Ml Vial) 25 unit SUBCUT DAILY [facility] Last Admin: 10/10/24 09:24 Dose: 25 unit Documented By: RAY Insulin Glargine (Insulin Glargine,Hum.Rec.Anlog 100 Unit/Ml 10 Ml Vial) 15 unit SUBCUT BEDTIME [facility] Last Admin: 10/09/24 20:52 Dose: 15 unit Documented By: SHAAN Insulin Human Lispro (Insulin Lispro 100 Unit/Ml 3 Ml Vial) 0 unit SUBCUT QIDACHS [facility]; Protocol Last Admin: 10/10/24 12:07 Dose: 12 unit Documented By: RAY Insulin Human Lispro (Insulin Lispro 100 Unit/Ml 3 Ml Vial) 8 unit SUBCUT QIDACHS [facility] Last Admin: 10/10/24 12:13 Dose: 8 unit Documented By: RAY Magnesium Hydroxide (Milk Of Magnesia 30 Ml Oral.Susp) 30 ml PO DAILY PRN PRN Reason: Constipation Melatonin (Melatonin 3 Mg Tablet) 6 mg PO BEDTIME PRN PRN Reason: Insomnia Metoprolol Tartrate (Metoprolol Tartrate 25 Mg Tablet) 25 mg PO BID [facility]; Protocol Last Admin: 10/10/24 09:26 Dose: 25 mg Documented By: RAY Sodium Chloride (0.9 % Sodium Chloride Flush 3 Ml Syringe) 3 ml IVFLUSH QSHIFT [facility] Last Admin: 10/10/24 09:25 Dose: 3 ml Documented By: RAY Tamsulosin HCl (Tamsulosin Hcl 0.4 Mg Capsule) 0.4 mg PO BEDTIME [facility] Last Admin: 10/09/24 20:51 Dose: 0.4 mg Documented By: SHAAN Labs 10/10/24 07:22 10/10/24 07:22 Labs: Laboratory Results - last 24 hr 10/09/24 10/09/24 10/09/24 16:21 16:50 19:08 MCV MCH MCHC RDW Plt Count MPV Absolute Nucleated RBC Nucleated RBC % (auto) Anion Gap Estim Creat Clear Calc Estimated GFR POC Glucose 403 H* 401 H* 341 H Random Glucose Calcium 10/09/24 10/10/24 10/10/24 22:03 07:22 08:27 MCV 90.3 MCH 30.6 MCHC 33.9 RDW 15.5 Plt Count 30 L MPV 11.8 Absolute Nucleated RBC 0.460 H Nucleated RBC % (auto) 4.5 H Anion Gap 10 L Estim Creat Clear Calc 38.4 Estimated GFR 32 POC Glucose 296 H 254 H Random Glucose 255 H Calcium 9.8 10/10/24 10/10/24 11:24 11:26 MCV MCH MCHC RDW Plt Count MPV Absolute Nucleated RBC Nucleated RBC % (auto) Anion Gap Estim Creat Clear Calc Estimated GFR POC Glucose 394 H* 399 H* Random Glucose Calcium Microbiology Microbiology Results: Microbiology 10/06/24 16:37 Urine Culture - Final Urine clean catch - Clean Catch Midstream Staphylococcus epidermidis Assessment and Plan (1) Hypercalcemia: Status: Acute (2) Low platelet count: Status: Acute (3) Hyperuricemia: Status: Acute (4) HIRO (acute kidney injury): Status: Acute Plan 79/m with history of DVT on eliquis, HTN, DM, HLD, BPH, PATRICK on CPAP, and CKD stage 3 presenting to the emergency department today with shortness of breath, low back pain, weakness, and fatigue for 3 months and found to have HIRO, anemia, thromobocytopenia, high calcium, elevated urinc acid that rasied concern for tumor lyis, he has been having hematuria. 10/07 evpisodes of sustained VTs Anemia/thrombocytopenia. Peripheral smear mostly unrevealing except some reactive lymphocytosis and reduced platelets number. DIC ruled out, doesn't look like hemolysis either. H/H has been stable, has not required transfusion as of yet. Seen by [facility] and had bone marrow biopsy on 10/06 pending, pre prieto MM. Immunological study suggest Multiple Myeloma (MM). Platlets low but stable, 1 unit fo transfusion 10/07 and 2 units on , monitor level MM--Heme starting Dexamethasone, watch for hyperglycemia HIRO on CD3 d/t MM -stable after IVF -continue monitoring and further management of MM as above Hematuria: Possible related to difficult Stuart insertion in the setting of BPH and thrombocytopenia. Hematuria is better, CBI ongoing, uro following Sustained VTs, iv metoprolol overn and started on oral metoprolol 25 mg twice a day, persistent frequent ventricular ectopy. cardiology advises amio 400 bid and . Now new AFIB, no indication for anticoagulation given low plat, once plat within normal can con Hypertension: BP lower side, hold meds, especially in light of renal failure. hx DVT-Hold apixaban d/t low platlets anemia and hematuria DM2- with hyperglycemia d/t steroid, continue Lantus, pre-meal insulin, might add bedtime Lantus BPH- finasteride PATRICK- CPAP bedtime DVT : low palat, compression device when platlet above 50 Full code, discussed with RN present on 10/07 Quality Stroke Does the patient have a stroke diagnosis?: No VTE Prior VTE?: No VTE Risk Level:: Medical - moderate - high VTE Device Contraindication: N/A - Device Ordered VTE Drug Contraindication: N/A - Med Ordered
[2024-10-10 16:00] VITALS: BP 111/58; PULSE 70; RESP 20; TEMP 37.1; O2SAT 95
[2024-10-10 16:51] LABS: Glucose, Whole Blood 285 mg/dL (60-115)
[2024-10-10 20:00] VITALS: BP 121/57; PULSE 63; RESP 18; TEMP 36.2; O2SAT 93
[2024-10-10 21:05] LABS: Glucose, Whole Blood 245 mg/dL (60-115)
--- NOTE | 2024-10-10 21:07 | PC.NURSE ---
Assumed care of patient at 19:00. Dr. Romero called regarding evening POC and coverage. POC 245 this evening. advised to give ISS and lantus per MAR, hold additional 8 units lispro ordered.
[2024-10-10 21:11] VITALS: BP 121/58; PULSE 78
[2024-10-10] MEDS: Tamsulosin HCL 0.4 MG CAPSULE PO (21:11)
[2024-10-10] MEDS: Insulin Glargine,Hum.rec.anlog 100 UNIT/ML 10 ML VIAL 15 UNIT SUBCUT (21:14)
[2024-10-11] VITALS (14 sets, daily range): BP systolic 109–129; BP diastolic 53–65; PULSE 53–80; RESP 16–20; TEMP 36–36.8; O2SAT 93–100
[2024-10-11 07:36] LABS: Glucose, Whole Blood 195 mg/dL (60-115)
[2024-10-11] MEDS: Amiodarone HCL 200 MG TABLET 400 MG PO (08:40)
[2024-10-11] MEDS: Finasteride 5 MG TABLET PO (08:40)
[2024-10-11] MEDS: Metoprolol Tartrate 25 MG TABLET PO ×2 (08:40→19:55)
[2024-10-11] MEDS: Insulin Lispro 100 UNIT/ML 3 ML VIAL SUBCUT ×4 (08:42→21:37)
[2024-10-11] MEDS: 0.9 % Sodium Chloride Flush 3 ML SYRINGE IVFLUSH ×2 (08:43→14:34)
[2024-10-11] MEDS: Insulin Glargine,Hum.rec.anlog 100 UNIT/ML 10 ML VIAL 25 UNIT SUBCUT (08:43)
[2024-10-11] MEDS: DEXAMETHASONE SOD PHOSPHATE IV (08:47)
[2024-10-11] MEDS: SODIUM CHLORIDE 0.9% IV (08:47)
[2024-10-11 09:29] LABS: Hemoglobin 7.8 g/dl (14.0-18.0); Mean Corpuscular HGB Conc 33.9 g/dl (31.0-36.0); Mean Corpuscular Hemoglobin 31.1 pg (27.0-33.0); Mean Corpuscular Volume 91.6 fL (80.0-98.0); Mean Platelet Volume 10.1 fL (9.4-12.4); Red Blood Count 2.51 X10*6/uL (4.60-5.80); Red Cell Distribution Width 15.5 % (11.0-16.0); White Blood Count 9.1 X10*3/uL (4.8-10.8)
[2024-10-11 09:32] LABS: Platelet Count 23 X10*3/uL (160-400)
[2024-10-11 09:43] LABS: Anion Gap 11 (12-20); Blood Urea Nitrogen 80 mg/dL (9-16); Carbon Dioxide 23 mmol/L (22-29); Chloride 104 mmol/L (96-108); Creatinine Clr Calc Pharmacy 37.1; Estimated Glomerular Filt Rate 31; Glucose Random 205 mg/dL (60-115); Potassium 4.5 mmol/L (3.3-5.1); Sodium 133 mmol/L (135-145)
--- NOTE | 2024-10-11 11:12 | P.PNIM_ITS ---
Subjective Subjective Date of Service: 10/11/24 Interval History: feels a little better, no sob less frequent ventricular arrythmia, remains in AFIB with controlled rate cbi still going, plat level is lower and h/h lower Physical Exam 2 Vital Signs: Vital Signs: Last Vital Signs Temp 96.8 F 10/11/24 08:00 Pulse 71 10/11/24 08:00 Resp 16 10/11/24 08:00 BP 129/60 10/11/24 08:00 Pulse Ox 93 10/11/24 08:00 O2 Del Method Room Air 10/11/24 08:00 O2 Flow Rate 3 10/10/24 20:00 BMI result Body Mass Index 35.2 Const: Other: General: AO X 3, no acute distress Resp: CTA bilateral CVS: S1,S2,RRR GI: +BS, NT, no distention : cbi with puch color urine Skin: No rash Neuro: motor grossly intact Psych: appropriate affect Objective Data Active Medications Acetaminophen (Acetaminophen 325 Mg Tablet) 650 mg PO Q6H PRN PRN Reason: Pain, Mild 1-3,fever,headache Albuterol Sulfate (Albuterol Sulfate 90 Mcg 8 Gm Inhaler) 2 puff INHALE Q4H PRN PRN Reason: Shortness Of Breath Or Wheezing Amiodarone HCl (Amiodarone Hcl 200 Mg Tablet) 400 mg PO BID [facility] Last Admin: 10/11/24 08:40 Dose: 400 mg Documented By: SHANDA Artificial Tears (Artificial Tears 15 Ml Drops) 1 drop EYE-BOTH QID PRN PRN Reason: Dry Eye(S) Benzocaine (Throat Lozenge, Medicated Lozenge) 1 lozenge MUCOUS MEM Q2H PRN PRN Reason: Sore Throat Last Admin: 10/06/24 21:49 Dose: 1 lozenge Documented By: LACIE Calcium Carbonate (Calcium Carbonate 750 Mg Tab.Chew) 750 mg PO Q4H PRN PRN Reason: Heartburn Last Admin: 10/09/24 21:02 Dose: 750 mg Documented By: SHAAN Dextrose (Dextrose 50 % 25 Gm/50 Ml Syringe) 25 gm IVPUSH Q15M PRN; Protocol PRN Reason: per Hypoglycemia Standing Ord. Finasteride (Finasteride 5 Mg Tablet) 5 mg PO DAILY [facility] Last Admin: 10/11/24 08:40 Dose: 5 mg Documented By: SHANDA Glucose (Glucose Gel 15 Gm Gel..Gram.) 15 gm PO Q15M PRN; Protocol PRN Reason: per Hypoglycemia Standing Ord. Insulin Glargine (Insulin Glargine,Hum.Rec.Anlog 100 Unit/Ml 10 Ml Vial) 25 unit SUBCUT DAILY [facility] Last Admin: 10/11/24 08:43 Dose: 25 unit Documented By: SHANDA Insulin Glargine (Insulin Glargine,Hum.Rec.Anlog 100 Unit/Ml 10 Ml Vial) 20 unit SUBCUT BEDTIME [facility] Insulin Human Lispro (Insulin Lispro 100 Unit/Ml 3 Ml Vial) 0 unit SUBCUT QIDACHS [facility]; Protocol Last Admin: 10/11/24 08:42 Dose: 2 unit Documented By: SHANDA Magnesium Hydroxide (Milk Of Magnesia 30 Ml Oral.Susp) 30 ml PO DAILY PRN PRN Reason: Constipation Melatonin (Melatonin 3 Mg Tablet) 6 mg PO BEDTIME PRN PRN Reason: Insomnia Metoprolol Tartrate (Metoprolol Tartrate 25 Mg Tablet) 25 mg PO BID [facility]; Protocol Last Admin: 10/11/24 08:40 Dose: 25 mg Documented By: SHANDA Sodium Chloride (0.9 % Sodium Chloride Flush 3 Ml Syringe) 3 ml IVFLUSH QSHIFT [facility] Last Admin: 10/11/24 08:43 Dose: 3 ml Documented By: SHANDA Tamsulosin HCl (Tamsulosin Hcl 0.4 Mg Capsule) 0.4 mg PO BEDTIME [facility] Last Admin: 10/10/24 21:11 Dose: 0.4 mg Documented By: SHAAN Labs 10/12/24 06:14 10/12/24 06:14 Labs: Laboratory Results - last 24 hr 10/10/24 10/10/24 10/10/24 11:24 11:26 16:39 MCV MCH MCHC RDW Plt Count MPV Absolute Nucleated RBC Nucleated RBC % (auto) Anion Gap Estim Creat Clear Calc Estimated GFR POC Glucose 394 H* 399 H* 285 H Random Glucose Calcium Blood Type Antibody Screen 10/10/24 10/11/24 10/11/24 20:37 07:32 08:39 MCV MCH MCHC RDW Plt Count MPV Absolute Nucleated RBC Nucleated RBC % (auto) Anion Gap 11 L Estim Creat Clear Calc 37.1 Estimated GFR 31 POC Glucose 245 H 195 H Random Glucose 205 H Calcium 10.0 Blood Type A Positive Antibody Screen NEGATIVE 10/11/24 08:48 MCV 91.6 MCH 31.1 MCHC 33.9 RDW 15.5 Plt Count 23 L MPV 10.1 Absolute Nucleated RBC 0.640 H Nucleated RBC % (auto) 7.0 H Anion Gap Estim Creat Clear Calc Estimated GFR POC Glucose Random Glucose Calcium Blood Type Antibody Screen Microbiology Microbiology Results: Microbiology 10/06/24 16:37 Urine Culture - Final Urine clean catch - Clean Catch Midstream Staphylococcus epidermidis Assessment and Plan (1) Hypercalcemia: Status: Acute (2) Low platelet count: Status: Acute (3) Hyperuricemia: Status: Acute (4) HIRO (acute kidney injury): Status: Acute Plan 79/m with history of DVT on eliquis, HTN, DM, HLD, BPH, PATRICK on CPAP, and CKD stage 3 presenting to the emergency department today with shortness of breath, low back pain, weakness, and fatigue for 3 months and found to have HIRO, anemia, thromobocytopenia, high calcium, elevated urinc acid that rasied concern for tumor lyis, he has been having hematuria. 10/07 evpisodes of sustained VTs Anemia/thrombocytopenia. Peripheral smear mostly unrevealing except some reactive lymphocytosis and reduced platelets number. DIC ruled out, doesn't look like hemolysis either. H/H has been stable, has not required transfusion as of yet. Seen by Heme and had bone marrow biopsy on 10/06 pending, pre prieto MM. Immunological study suggest Multiple Myeloma (MM). Platlets low but stable, 1 unit fo transfusion 10/07 and 2 units on , monitor level. Transfuse 1 unit of plat and 1 unit of rbc MM--Heme starting Dexamethasone, watch for hyperglycemia HIRO on CD3 d/t MM -stable after IVF -continue monitoring and further management of MM as above Hematuria:Possible related to difficult Stuart insertion in the setting of BPH and thrombocytopenia. Hematuria is better, CBI ongoing, uro following Sustained VTs, iv metoprolol overn and started on oral metoprolol 25 mg twice a day, persistent frequent ventricular ectopy. cardiology advises amio 400 bid and . New AFIB, no indication for anticoagulation given low plat, once plat within normal can continue. Amio stopped per card Hypertension: BP lower side, hold meds, especially in light of renal failure. hx DVT-Hold apixaban d/t low platlets anemia and hematuria DM2- with hyperglycemia d/t steroid, continue Lantus, twice a day. BPH- finasteride PATRICK- CPAP bedtime DVT : low palat, compression device when platlet above 50 Full code, discussed with RN present on 10/07 Quality Stroke Does the patient have a stroke diagnosis?: No VTE Prior VTE?: No VTE Risk Level:: Medical - moderate - high VTE Device Contraindication: N/A - Device Ordered VTE Drug Contraindication: N/A - Med Ordered
[2024-10-11 11:37] LABS: Glucose, Whole Blood 272 mg/dL (60-115)
[2024-10-11] MEDS: Throat Lozenge, Medicated LOZENGE 1 LOZENGE MUCOUS MEM (11:45)
--- NOTE | 2024-10-11 12:34 | P.PNCA_ITS ---
Subjective Subjective Date of Service: 10/11/24 Interval history: Seen examined at bedside. Feeling weak and tired. Telemetry has shown AFib with slow ventricular response. Physical Exam Vital Signs: Last Vital Signs Temp 97.3 F 10/11/24 11:59 Pulse 53 10/11/24 11:59 Resp 20 10/11/24 11:59 BP 115/65 10/11/24 11:59 Pulse Ox 95 10/11/24 11:59 O2 Del Method Room Air 10/11/24 11:59 O2 Flow Rate 3 10/10/24 20:00 BMI result Body Mass Index 35.2 GENERAL APPEARANCE: in no acute distress. NECK: no carotid bruit, no jugular venous distention. SKIN: no suspicious lesions, warm and dry. HEART: no murmurs, irregular rate and rhythm. LUNGS: Bilateral expiratory wheezes. ABDOMEN: soft, nontender. EXTREMITIES: no edema. PERIPHERAL PULSES: equal. NEUROLOGIC: No gross deficits, AAO X 3 Objective Labs and Meds 10/11/24 08:48 10/11/24 08:39 Lab results: Laboratory Results - last 24 hr 10/10/24 10/10/24 10/11/24 16:39 20:37 07:32 WBC RBC Hgb Hct MCV MCH MCHC RDW Plt Count MPV Absolute Nucleated RBC Nucleated RBC % (auto) Sodium Potassium Chloride Carbon Dioxide Anion Gap BUN Creatinine Estim Creat Clear Calc Estimated GFR POC Glucose 285 H 245 H 195 H Random Glucose Calcium Blood Type Antibody Screen Crossmatch 10/11/24 10/11/24 10/11/24 08:39 08:48 11:32 WBC 9.1 RBC 2.51 L Hgb 7.8 L Hct 23.0 L MCV 91.6 MCH 31.1 MCHC 33.9 RDW 15.5 Plt Count 23 L MPV 10.1 Absolute Nucleated RBC 0.640 H Nucleated RBC % (auto) 7.0 H Sodium 133 L Potassium 4.5 Chloride 104 Carbon Dioxide 23 Anion Gap 11 L BUN 80 H Creatinine 2.11 H Estim Creat Clear Calc 37.1 Estimated GFR 31 POC Glucose 272 H Random Glucose 205 H Calcium 10.0 Blood Type A Positive Antibody Screen NEGATIVE Crossmatch See Detail Progress Note: A&P Assessment and plan (1) Gross hematuria: Status: Acute (2) NSVT (nonsustained ventricular tachycardia): Status: Acute (3) PAF (paroxysmal atrial fibrillation): Status: Acute Plan 79 year gentleman with complex issues including gross hematuria currently getting 3 way bladder irrigation. He was in and out of ventricular tachycardia- nonsustained. This was treated with beta-blockers but he had significant PVCs and was in bigeminy. He was started on amiodarone 2 days ago. Yesterday was noticed to be in AFib. We continued amiodarone till today but he continues to be in AFib and is getting more slow response at this stage. Stop the amiodarone. Continue oral beta-blockers with close monitoring of heart rate. If concerns for bradycardia then beta-blockers have to be held 2. Not on anticoagulation due to gross hematuria. Thank you for allowing me to participate in the care of your patient. Please feel free to contact me if you have any questions. Time Spent With Patient Time: Total time managing care of this patient today ____ minutes. Progress Note: Quality Stroke Does the patient have a stroke diagnosis?: No Procedures Date of Service Date of Service: 10/11/24
[2024-10-11] MEDS: Albuterol/Iprat 2.5/0.5MG 3 ML AMPUL.NEB INHALE ×2 (15:13→19:13)
[2024-10-11 17:03] LABS: Glucose, Whole Blood 297 mg/dL (60-115)
--- NOTE | 2024-10-11 19:40 | PC.NURSE ---
Addendum entered by Brenda Bolivar RN 10/11/24 19:42: plts and RBC infusions delayed d/t non-ideal IV gauge size that pt currently had. pt is a hard stick and required a US guided IV with a larger gauze size for safer blood product administration. Original Note: 1200 pt reporting some mild pressure on his bladder. brasher irrigated, no clots removed. pt stated that pressure improved after irrigation
[2024-10-11] MEDS: Tamsulosin HCL 0.4 MG CAPSULE PO (19:55)
[2024-10-11 21:27] LABS: Glucose, Whole Blood 393 mg/dL (60-115)
[2024-10-11] MEDS: Insulin Glargine,Hum.rec.anlog 100 UNIT/ML 10 ML VIAL 20 UNIT SUBCUT (21:37)
[2024-10-12] VITALS (10 sets, daily range): BP systolic 105–135; BP diastolic 53–65; PULSE 63–84; RESP 16–22; TEMP 36.2–36.8; O2SAT 93–97
[2024-10-12] MEDS: Calcium Carbonate 750 MG TAB.CHEW PO (00:25)
[2024-10-12 06:28] LABS: Hematocrit 23.9 % (42.0-52.0); Hemoglobin 8.2 g/dl (14.0-18.0); Mean Corpuscular HGB Conc 34.3 g/dl (31.0-36.0); Mean Corpuscular Hemoglobin 30.7 pg (27.0-33.0); Mean Corpuscular Volume 89.5 fL (80.0-98.0); Mean Platelet Volume 8.8 fL (9.4-12.4); NRBC Pct Auto 10.5 /100WBC (0.0-0.2); Platelet Count 24 X10*3/uL (160-400); Red Blood Count 2.67 X10*6/uL (4.60-5.80); Red Cell Distribution Width 14.9 % (11.0-16.0); White Blood Count 7.9 X10*3/uL (4.8-10.8)
[2024-10-12 06:43] LABS: Anion Gap 12 (12-20); Blood Urea Nitrogen 79 mg/dL (9-16); Calcium 9.7 mg/dL (8.4-10.2); Carbon Dioxide 21 mmol/L (22-29); Chloride 102 mmol/L (96-108); Creatinine Clr Calc Pharmacy 37.6; Estimated Glomerular Filt Rate 31; Glucose Random 314 mg/dL (60-115); Potassium 4.5 mmol/L (3.3-5.1); Sodium 130 mmol/L (135-145)
[2024-10-12] MEDS: Albuterol/Iprat 2.5/0.5MG 3 ML AMPUL.NEB INHALE ×4 (07:15→20:11)
[2024-10-12 07:24] LABS: Alanine Aminotransferase 24 U/L (0-40); Albumin Level 2.5 g/dL (3.5-5.0); Alkaline Phosphatase 33 U/L (39-117); Aspartate Amino Transferase 22 U/L (5-37); Bilirubin Direct 0.3 mg/dL (0.0-0.5); Bilirubin Total 0.6 mg/dL (0.0-1.0); Total Protein 9.2 g/dL (6.5-8.0)
[2024-10-12 07:37] LABS: Glucose, Whole Blood 284 mg/dL (60-115)
[2024-10-12] MEDS: 0.9 % Sodium Chloride Flush 3 ML SYRINGE IVFLUSH ×2 (08:58→16:23)
[2024-10-12] MEDS: Metoprolol Tartrate 25 MG TABLET PO ×2 (08:59→20:05)
[2024-10-12] MEDS: Insulin Lispro 100 UNIT/ML 3 ML VIAL SUBCUT ×4 (08:59→20:06)
[2024-10-12] MEDS: Finasteride 5 MG TABLET PO (08:59)
[2024-10-12] MEDS: Insulin Glargine,Hum.rec.anlog 100 UNIT/ML 10 ML VIAL 25 UNIT SUBCUT (08:59)
[2024-10-12] MEDS: Acetaminophen 325 MG TABLET 650 MG PO (09:01)
--- NOTE | 2024-10-12 09:41 | P.PNNP_ITS ---
Subjective Subjective Date of Service: 10/12/24 Interval history: Events noted Still with hematuria and CBI Physical Exam 2 Vital Signs: Vital Signs: Last Vital Signs Temp 97.2 F 10/12/24 07:30 Pulse 71 10/12/24 07:30 Resp 18 10/12/24 07:30 BP 129/60 10/12/24 07:30 Pulse Ox 97 10/12/24 07:30 O2 Del Method Aerosol Mask 10/12/24 07:30 O2 Flow Rate 5 10/12/24 07:30 BMI result Body Mass Index 35.2 Const: General: no acute distress Orientation/consciousness: patient oriented x3 Eyes: EOM: EOMs intact bilaterally Neck: Neck: Yes supple Resp: Auscultation: diminished lung sounds Cardio: Rate: regular rate GI: Palpation (GI): Soft to palpation Neuro: General: patient oriented x3 and moves all extremities Objective Data Labs 10/13/24 06:47 10/13/24 06:47 Labs: Laboratory Results - last 24 hr 10/11/24 10/11/24 10/11/24 08:39 11:32 16:59 WBC RBC Hgb Hct MCV MCH MCHC RDW Plt Count MPV Absolute Nucleated RBC Nucleated RBC % (auto) Sodium 133 L Potassium 4.5 Chloride 104 Carbon Dioxide 23 Anion Gap 11 L BUN 80 H Creatinine 2.11 H Estim Creat Clear Calc 37.1 Estimated GFR 31 POC Glucose 272 H 297 H Random Glucose 205 H Calcium 10.0 Total Bilirubin Direct Bilirubin AST ALT Alkaline Phosphatase Total Protein Albumin Blood Type A Positive Antibody Screen NEGATIVE Crossmatch See Detail 10/11/24 10/12/24 10/12/24 21:15 06:14 07:29 WBC 7.9 RBC 2.67 L Hgb 8.2 L Hct 23.9 L MCV 89.5 MCH 30.7 MCHC 34.3 RDW 14.9 Plt Count 24 L MPV 8.8 L Absolute Nucleated RBC 0.830 H Nucleated RBC % (auto) 10.5 H Sodium 130 L Potassium 4.5 Chloride 102 Carbon Dioxide 21 L Anion Gap 12 BUN 79 H Creatinine 2.08 H Estim Creat Clear Calc 37.6 Estimated GFR 31 POC Glucose 393 H* 284 H Random Glucose 314 H Calcium 9.7 Total Bilirubin 0.6 Direct Bilirubin 0.3 AST 22 ALT 24 Alkaline Phosphatase 33 L Total Protein 9.2 H Albumin 2.5 L Blood Type Antibody Screen Crossmatch Microbiology Microbiology Results: Microbiology 10/06/24 16:37 Urine clean catch - Clean Catch Midstream Urine Culture - Final Staphylococcus epidermidis Procedures Date of Service Date of Service: 10/13/24 Assessment & Plan Assessment and plan (1) HIRO (acute kidney injury): Status: Acute (2) Hyperuricemia: Status: Acute (3) Anemia: Status: Acute (4) Thrombocytopenia: Status: Acute (5) Hypercalcemia: Status: Acute (6) Low platelet count: Status: Acute Plan 73-year-old man with acute kidney injury with severe anemia and thrombocytopenia along with hypercalcemia and hyperuricemia. Although he has severe thrombocytopenia there were no schistocytes. No petechiae. Urine sediments were benign. HUS/ TTP seems unlikely. 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 Management per Hematology AFib with a rapid ventricular rate. Hematuria currently on CBI Renal function is improving Watch urine output Watch serum calcium potassium and uric acid. No absolute indication for dialysis today. Time Spent With Patient Time: Total time managing care of this patient today ____ minutes. Progress Note: Quality Stroke Does the patient have a stroke diagnosis?: No
--- NOTE | 2024-10-12 10:45 | PM.PNCARD ---
Subjective Subjective Date of Service: 10/12/24 Principal diagnosis: atrial fibrillation, nonsustained VT Interval history: patient offers no cardiac symptoms. Remains in atrial fibrillation controlled rate at this point time. Blood pressure is controlled. No overnight significant ventricular arrhythmias. Echocardiogram done on October 08 showed preserved LV ejection fraction with mild biatrial enlargement. He does not recall having atrial fibrillation in the past. Continues to have hematuria Review of Systems Constitutional: Reports no additional constitutional complaints Cardiovascular: Reports no additional cardiovascular complaints Respiratory: Reports no additional respiratory complaints Genitourinary: Reports hematuria Musculoskeletal: Reports no additional musculoskeletal complaints Reports system reviewed and no additional complaints, except as documented Physical Exam Vital Signs: Last Vital Signs Temp 97.2 F 10/12/24 07:30 Pulse 71 10/12/24 07:30 Resp 18 10/12/24 07:30 BP 129/60 10/12/24 07:30 Pulse Ox 97 10/12/24 07:30 O2 Del Method Aerosol Mask 10/12/24 07:30 O2 Flow Rate 5 10/12/24 07:30 BMI result Body Mass Index 35.2 Objective Labs and Meds 10/12/24 06:14 10/12/24 06:14 Lab results: Laboratory Results - last 24 hr 10/11/24 10/11/24 10/11/24 08:39 11:32 16:59 WBC RBC Hgb Hct MCV MCH MCHC RDW Plt Count MPV Absolute Nucleated RBC Nucleated RBC % (auto) Sodium Potassium Chloride Carbon Dioxide Anion Gap BUN Creatinine Estim Creat Clear Calc Estimated GFR POC Glucose 272 H 297 H Random Glucose Calcium Total Bilirubin Direct Bilirubin AST ALT Alkaline Phosphatase Total Protein Albumin Blood Type A Positive Antibody Screen NEGATIVE Crossmatch See Detail 10/11/24 10/12/24 10/12/24 21:15 06:14 07:29 WBC 7.9 RBC 2.67 L Hgb 8.2 L Hct 23.9 L MCV 89.5 MCH 30.7 MCHC 34.3 RDW 14.9 Plt Count 24 L MPV 8.8 L Absolute Nucleated RBC 0.830 H Nucleated RBC % (auto) 10.5 H Sodium 130 L Potassium 4.5 Chloride 102 Carbon Dioxide 21 L Anion Gap 12 BUN 79 H Creatinine 2.08 H Estim Creat Clear Calc 37.6 Estimated GFR 31 POC Glucose 393 H* 284 H Random Glucose 314 H Calcium 9.7 Total Bilirubin 0.6 Direct Bilirubin 0.3 AST 22 ALT 24 Alkaline Phosphatase 33 L Total Protein 9.2 H Albumin 2.5 L Blood Type Antibody Screen Crossmatch Progress Note: A&P Assessment and plan (1) Persistent atrial fibrillation: Status: Acute Assessment and Plan: patient remains in atrial fibrillation with controlled ventricular response. Currently rate is controlled on current metoprolol therapy. Wewould avoid amiodarone given that there has possibility of chemical cardioversion and given that he can not be on no anticoagulation increase risk of stroke. At this point time he can not be anticoagulated due to his active hematuria. Need to pursue cause for hematuria for further guidance of treatment from cardiac perspective. No signs or symptoms of heart failure at this point time. (2) NSVT (nonsustained ventricular tachycardia): Status: Acute Assessment and Plan: Nonsustained ventricular tachycardia with preserved LV ejection fraction. Continue metoprolol therapy. At this point time will sign off. Can follow-up as outpatient. Time Spent With Patient Time: Total time managing care of this patient today ____ minutes. Progress Note: Quality Stroke Does the patient have a stroke diagnosis?: No Procedures Date of Service Date of Service: 10/12/24
--- NOTE | 2024-10-12 10:56 | MHC.CM.PN ---
Per ROUNDS discussion, Patient is not yet medically cleared for dc (tele monitoring & CBI); Patient may benefit from a PT Eval to assist with disposition. CM will follow.
[2024-10-12 11:27] LABS: Glucose, Whole Blood 390 mg/dL (60-115)
[2024-10-12] MEDS: Insulin Lispro 100 UNIT/ML 3 ML VIAL 8 UNIT SUBCUT ×3 (12:00→20:06)
--- NOTE | 2024-10-12 12:14 | PM.HEMONCPN ---
Medical Summary - Medical Summary Date of Service: 10/12/24 Chief complaint: Weakness Primary Care Provider: Josse Iniguez Glass Melt Operator Utilized?: No - Austrian Speaking Interval History Interval history: Raman Ogden is a 79 year old male with history of diabetes mellitus, chronic kidney disease stage 3, obstructive sleep apnea, DVT on Eliquis who presented with 2 to three-month history of fatigue and weakness. He has been feeling poorly, he had low back pain, loss of appetite and some weight loss. [facility] [place] [facility] for upper respiratory symptoms and was prescribed azithromycin. He was diagnosed with left lower extremity DVT in December 2021. He appears to be on Eliquis ever since. He denies chest pain, abdominal pain or change in bowel habits. He has never been told of low blood counts in the past. He saw his PCP at the [facility] in [place] about 3 months ago. He denies any fever or chills. He lives alone at home. He has a brother and sister who are next of kin. He has never been diagnosed with any malignancy in the past. He was exposed to agent orange. He reports persistent fatigue. He received platelets yesterday because of ongoing hematuria. Eliquis is on hold. Review of Systems - Neurologic Reports no additional neurologic complaints, Denies dizziness, Denies focal weakness, Denies loss of vision, Denies numbness, Denies tingling, Reports weakness PMFSH Medical History: Medical History (Last Updated 10/12/24 @ 10:45 by Rehan Lazo MD) Benign prostatic hyperplasia DVT (deep venous thrombosis) Essential hypertension Insulin dependent type 2 diabetes mellitus Mixed hyperlipidemia PATRICK on CPAP Social History: Social History (Last Reviewed 10/05/24 @ 19:13 by ERIN Oakley) Living Situation History: Household Members: None Housing: House Do you presently have visiting nurse or other home services: No Tobacco History: Patient Tobacco Use Status: Former Tobacco user Occupation Assessmet: service: Yes Home Medications and Allergies Current Medications: Current Medications Acetaminophen (Acetaminophen 325 Mg Tablet) 650 mg PO Q6H PRN PRN Reason: Pain, Mild 1-3,fever,headache Last Admin: 10/12/24 09:01 Dose: 650 mg Albuterol Sulfate (Albuterol Sulfate 90 Mcg 8 Gm Inhaler) 2 puff INHALE Q4H PRN PRN Reason: Shortness Of Breath Or Wheezing Albuterol/Ipratropium (Albuterol/Iprat 2.5/0.5mg 3 Ml Ampul.Neb) 3 ml INHALE RQ4H WHILE AWAKE [facility] Last Admin: 10/12/24 11:05 Dose: 3 ml Artificial Tears (Artificial Tears 15 Ml Drops) 1 drop EYE-BOTH QID PRN PRN Reason: Dry Eye(S) Benzocaine (Throat Lozenge, Medicated Lozenge) 1 lozenge MUCOUS MEM Q2H PRN PRN Reason: Sore Throat Last Admin: 10/11/24 11:45 Dose: 1 lozenge Calcium Carbonate (Calcium Carbonate 750 Mg Tab.Chew) 750 mg PO Q4H PRN PRN Reason: Heartburn Last Admin: 10/12/24 00:25 Dose: 750 mg Dextrose (Dextrose 50 % 25 Gm/50 Ml Syringe) 25 gm IVPUSH Q15M PRN; Protocol PRN Reason: per Hypoglycemia Standing Ord. Finasteride (Finasteride 5 Mg Tablet) 5 mg PO DAILY [facility] Last Admin: 10/12/24 08:59 Dose: 5 mg Glucose (Glucose Gel 15 Gm Gel..Gram.) 15 gm PO Q15M PRN; Protocol PRN Reason: per Hypoglycemia Standing Ord. Insulin Glargine (Insulin Glargine,Hum.Rec.Anlog 100 Unit/Ml 10 Ml Vial) 25 unit SUBCUT DAILY [facility] Last Admin: 10/12/24 08:59 Dose: 25 unit Insulin Glargine (Insulin Glargine,Hum.Rec.Anlog 100 Unit/Ml 10 Ml Vial) 20 unit SUBCUT BEDTIME [facility] Last Admin: 10/11/24 21:37 Dose: 20 unit Insulin Human Lispro (Insulin Lispro 100 Unit/Ml 3 Ml Vial) 0 unit SUBCUT QIDACHS [facility]; Protocol Last Admin: 10/12/24 11:58 Dose: 12 unit Insulin Human Lispro (Insulin Lispro 100 Unit/Ml 3 Ml Vial) 8 unit SUBCUT QIDACHS [facility] Last Admin: 10/12/24 12:00 Dose: 8 unit Magnesium Hydroxide (Milk Of Magnesia 30 Ml Oral.Susp) 30 ml PO DAILY PRN PRN Reason: Constipation Melatonin (Melatonin 3 Mg Tablet) 6 mg PO BEDTIME PRN PRN Reason: Insomnia Metoprolol Tartrate (Metoprolol Tartrate 25 Mg Tablet) 25 mg PO BID [facility]; Protocol Last Admin: 10/12/24 08:59 Dose: 25 mg Sodium Chloride (0.9 % Sodium Chloride Flush 3 Ml Syringe) 3 ml IVFLUSH QSHIFT [facility] Last Admin: 10/12/24 08:58 Dose: 3 ml Tamsulosin HCl (Tamsulosin Hcl 0.4 Mg Capsule) 0.4 mg PO BEDTIME [facility] Last Admin: 10/11/24 19:55 Dose: 0.4 mg Home Medications ?Medication ?Instructions ?Recorded ?Confirmed ?Type amlodipine 10 mg tablet 10 mg PO BEDTIME 06/26/23 10/05/24 History cholecalciferol (vitamin D3) 50 50 mcg PO DAILY@1200 06/26/23 10/05/24 History mcg (2,000 unit) tablet empagliflozin 25 mg tablet 25 mg PO DAILY 06/26/23 10/05/24 History finasteride 5 mg tablet 5 mg PO DAILY 06/26/23 10/05/24 History glucosamine sulfate 500 mg tablet 1,000 mg PO DAILY 06/26/23 10/05/24 History (Glucosamine) insulin aspart U-100 100 unit/mL 1 sliding scale dose subcut TIDAC 06/26/23 10/05/24 History subcutaneous solution (Novolog U-100 Insulin aspart) insulin glargine 100 unit/mL 25 unit subcut BEDTIME 06/26/23 10/05/24 History subcutaneous solution lisinopril 40 mg tablet 40 mg PO BEDTIME 06/26/23 10/05/24 History albuterol sulfate 90 mcg/actuation 2 puff inhalation Q4H PRN 10/05/24 10/05/24 History aerosol inhaler Shortness Of Breath Or Wheezing apixaban 2.5 mg tablet (Eliquis) 2.5 mg PO BID 10/05/24 10/05/24 History benzonatate 200 mg capsule 200 mg PO TID PRN Cough 10/05/24 10/05/24 History carboxymethylcellulose sodium 0.5 1 drp ophthalmic (eye) QID PRN Dry 10/05/24 10/05/24 History % eye drops Eye(S) dextromethorphan-guaifenesin 10 10 ml PO Q6H PRN Cough 10/05/24 10/05/24 History mg-100 mg/5 mL oral syrup glucose 4 gram chewable tablet 4 g PO Q15M PRN Low Blood Sugar 10/05/24 10/05/24 History rosuvastatin 40 mg tablet 20 mg PO DAILY 10/05/24 10/05/24 History Allergies Allergy/AdvReac Type Severity Reaction Status Date / Time [id number] Reductase Allergy Intermediate ELEVATED Verified 10/05/24 11:56 Inhibitor LIVER [Rutuydy-Wph-Ddn Reductase ENZYMES Inhibitor] Statins Depletion Allergy Unknown Unknown Uncoded 06/26/23 00:42 Exam Vital signs: Vital Signs Temp 97.5 F 10/12/24 11:41 Pulse 83 10/12/24 11:41 Resp 16 10/12/24 11:41 BP 105/54 L 10/12/24 11:41 Pulse Ox 96 10/12/24 11:41 O2 Del Method Room Air 10/12/24 11:41 O2 Flow Rate 5 10/12/24 07:30 Intake & Output 10/11/24 10/12/24 10/12/24 18:59 06:59 18:59 Intake Total -2616 / -1856 760 / -1856 250 / 250 Output Total 3625 / 3625 Balance -6241 / -5481 760 / -5481 250 / 250 Urine Output (Average ml/kg/hr) 2.64 2.64 2.64 Intake: Intake, Oral Amount 200 / 610 410 / 610 250 / 250 Intake (Blood Product) Amount 355 / 705 350 / 705 Plt Aph Pas Pathreduced(E8341) 355 / 355 Unit [id number] Red Blood Cells (E0336) Unit 0 / 350 350 / 350 [id number] Continuous Bladder Irrigation -5 / -3225 Fluid - Amount Retained 3-way Urethral -5 / -3225 Intake, IV Amount 54 / 54 dexAMETHasone sod phosphate 40 54 / 54 mg In 0.9 % Sodium Chloride 50 ml @ 216 mls/hr IV DAILY [facility] Rx #:[id number] Output: Output, Urine Amount (Catheter) 3625 / 3625 3-way Urethral 3625 / 3625 Other: Meal Refused No NPO No Breakfast % Eaten 100% 100% Number of Bowel Movements 1 Urine Color Red Tinged Redan Tinged Last Bowel Movement 10/11/24 10/12/24 10/11/24 Stool Bedside Commode Stool Amount Moderate Stool Color Brown Stool Consistency Soft Continuous Bladder Irrigation Fluid - Amount Instilled 3-way Urethral 3,000 Continuous Bladder Irrigation Fluid - Amount Drained 3-way Urethral 3,475 Weight 114.5 kg BMI result Body Mass Index 35.2 - Constitutional Present: no acute distress, obese - Routine HEENT Exam Head: Present: atraumatic, normal inspection - Routine Neck Exam Present: full ROM - Routine Respiratory Exam Present: CTAB. Absent: accessory muscle use, stridor, wheezes - Routine Cardiovascular Exam Cardiovascular: Present: RRR (obese), S1, S2 - Routine Abdominal Exam Present: soft. Absent: mass - Routine Extremities Exam Present: normal inspection. Absent: pedal edema - Routine Skin Exam Present: intact - Routine Neurological Exam Present: alert, oriented X3 Data - Labs CBC & Chem 7: 10/12/24 06:14 10/12/24 06:14 - Imaging Radiologist's impression: ITS Impressions Chest X-Ray 10/05/24 11:57 IMPRESSION: No acute cardiopulmonary abnormality. Electronically signed by: Theodore Fuentes MD 10/05/2024 01:24 PM EST RP Abdomen/Pelvis CT 10/05/24 14:01 IMPRESSION: 1. Scarring at the right lung base. No focal airspace opacity is identified. 2. Cystic foci in the pancreas as described above. Nonemergent MRI of the abdomen without and with contrast is recommended. 3. Diverticulosis of the descending and sigmoid colon, without evidence of diverticulitis. Electronically signed by: Theodore Fuentes MD 10/05/2024 03:27 PM EST RP Chest CT 10/05/24 14:42 IMPRESSION: 1. Scarring at the right lung base. No focal airspace opacity is identified. 2. Cystic foci in the pancreas as described above. Nonemergent MRI of the abdomen without and with contrast is recommended. 3. Diverticulosis of the descending and sigmoid colon, without evidence of diverticulitis. Electronically signed by: Theodore Fuentes MD 10/05/2024 03:27 PM EST RP Bone Marrow Biopsy w/ CT 10/06/24 11:12 Impression: CT-guided bone marrow biopsy and aspiration. This procedure was performed by Louie Sorto PA-C and supervised by Dr. Munson. Electronically signed by: Noah Munson MD 10/07/2024 02:20 PM EST RP Chest X-Ray 10/07/24 09:22 IMPRESSION: No active pulmonary disease. Electronically signed by: Brandyn Mosher MD 10/07/2024 09:42 AM EST RP Assessment and Plan Patient Active problem list reviewed?: Yes (1) Thrombocytopenia Status: Acute Assessment and plan: 1. This is a 79-year-old male with multiple medical problems including diabetes mellitus, hypertension, obstructive sleep apnea, chronic stage 3 kidney disease and history of left lower extremity DVT who is presenting with new onset thrombocytopenia and anemia. Bone marrow biopsy performed 10/07/2024 confirmed plasma cell myeloma, 80% plasma cells in bone marrow. Flow cytometry showed lambda light chain restricted plasma cells comprising 56% of total. Myeloma fish panel is pending. Imaging with CT chest/abdomen and pelvis without contrast shows scarring at right lung base. Cystic foci in pancreas and diverticulosis. No evidence of hepatosplenomegaly or lymphadenopathy. Serum immunofixation showed IgG lambda monoclonal band, IgG level 6.5 g with suppression of IgA and IgM levels. Free kappa/lambda ratio 12.2/305, abnormal at 0.04. He has mild hypercalcemia, this has improved with IV hydration. His kidney functions are stable. He does not need any acute intervention such as plasma pheresis or dialysis. I discussed with the patient about diagnosis of lambda light chain multiple myeloma. He was started on pulse steroids with dexamethasone 40 mg IV for 4 days. Upon discharge he will start treatment with daratumumab/Velcade and dexamethasone. Patient will need to start treatment as outpatient. He will need family support which unfortunately he does not seem to have at this time. He will need placement I discussed his case with social media community manager and hospitalist. Unfortunately, initiating cancer therapy without adequate social support system in this elderly gentleman with multiple comorbidities is going to be challenging. - Time Spent With Patient Time Spent with Patient (in minutes): 20
--- NOTE | 2024-10-12 12:15 | HO.PM.IMPN ---
Subjective Subjective Date of Service: 10/12/24 Interval History: Persistent hematuria no sob Physical Exam Vital Signs: Vital Signs: Last Vital Signs Temp 97.5 F 10/12/24 11:41 Pulse 83 10/12/24 11:41 Resp 16 10/12/24 11:41 BP 105/54 L 10/12/24 11:41 Pulse Ox 96 10/12/24 11:41 O2 Del Method Room Air 10/12/24 11:41 O2 Flow Rate 5 10/12/24 07:30 BMI result Body Mass Index 35.2 Objective Data Active Medications Acetaminophen (Acetaminophen 325 Mg Tablet) 650 mg PO Q6H PRN PRN Reason: Pain, Mild 1-3,fever,headache Last Admin: 10/12/24 09:01 Dose: 650 mg Documented By: DAVID Albuterol Sulfate (Albuterol Sulfate 90 Mcg 8 Gm Inhaler) 2 puff INHALE Q4H PRN PRN Reason: Shortness Of Breath Or Wheezing Albuterol/Ipratropium (Albuterol/Iprat 2.5/0.5mg 3 Ml Ampul.Neb) 3 ml INHALE RQ4H WHILE AWAKE [facility] Last Admin: 10/12/24 11:05 Dose: 3 ml Documented By: ARCELIA Artificial Tears (Artificial Tears 15 Ml Drops) 1 drop EYE-BOTH QID PRN PRN Reason: Dry Eye(S) Benzocaine (Throat Lozenge, Medicated Lozenge) 1 lozenge MUCOUS MEM Q2H PRN PRN Reason: Sore Throat Last Admin: 10/11/24 11:45 Dose: 1 lozenge Documented By: SHANDA Calcium Carbonate (Calcium Carbonate 750 Mg Tab.Chew) 750 mg PO Q4H PRN PRN Reason: Heartburn Last Admin: 10/12/24 00:25 Dose: 750 mg Documented By: MAMADOU Dextrose (Dextrose 50 % 25 Gm/50 Ml Syringe) 25 gm IVPUSH Q15M PRN; Protocol PRN Reason: per Hypoglycemia Standing Ord. Finasteride (Finasteride 5 Mg Tablet) 5 mg PO DAILY [facility] Last Admin: 10/12/24 08:59 Dose: 5 mg Documented By: DAVID Glucose (Glucose Gel 15 Gm Gel..Gram.) 15 gm PO Q15M PRN; Protocol PRN Reason: per Hypoglycemia Standing Ord. Insulin Glargine (Insulin Glargine,Hum.Rec.Anlog 100 Unit/Ml 10 Ml Vial) 25 unit SUBCUT DAILY [facility] Last Admin: 10/12/24 08:59 Dose: 25 unit Documented By: DAVID Insulin Glargine (Insulin Glargine,Hum.Rec.Anlog 100 Unit/Ml 10 Ml Vial) 20 unit SUBCUT BEDTIME [facility] Last Admin: 10/11/24 21:37 Dose: 20 unit Documented By: MAMADOU Insulin Human Lispro (Insulin Lispro 100 Unit/Ml 3 Ml Vial) 0 unit SUBCUT QIDACHS [facility]; Protocol Last Admin: 10/12/24 11:58 Dose: 12 unit Documented By: DAVID Insulin Human Lispro (Insulin Lispro 100 Unit/Ml 3 Ml Vial) 8 unit SUBCUT QIDACHS [facility] Last Admin: 10/12/24 12:00 Dose: 8 unit Documented By: DAVID Magnesium Hydroxide (Milk Of Magnesia 30 Ml Oral.Susp) 30 ml PO DAILY PRN PRN Reason: Constipation Melatonin (Melatonin 3 Mg Tablet) 6 mg PO BEDTIME PRN PRN Reason: Insomnia Metoprolol Tartrate (Metoprolol Tartrate 25 Mg Tablet) 25 mg PO BID [facility]; Protocol Last Admin: 10/12/24 08:59 Dose: 25 mg Documented By: DAVID Sodium Chloride (0.9 % Sodium Chloride Flush 3 Ml Syringe) 3 ml IVFLUSH QSHIFT [facility] Last Admin: 10/12/24 08:58 Dose: 3 ml Documented By: DAVID Tamsulosin HCl (Tamsulosin Hcl 0.4 Mg Capsule) 0.4 mg PO BEDTIME [facility] Last Admin: 10/11/24 19:55 Dose: 0.4 mg Documented By: MAMADOU Labs 10/12/24 06:14 10/12/24 06:14 Labs: Laboratory Results - last 24 hr 10/11/24 10/11/24 10/11/24 08:39 16:59 21:15 MCV MCH MCHC RDW Plt Count MPV Absolute Nucleated RBC Nucleated RBC % (auto) Anion Gap Estim Creat Clear Calc Estimated GFR POC Glucose 297 H 393 H* Random Glucose Calcium Total Bilirubin Direct Bilirubin AST ALT Alkaline Phosphatase Total Protein Albumin Blood Type A Positive Antibody Screen NEGATIVE Crossmatch See Detail 10/12/24 10/12/24 10/12/24 06:14 07:29 11:15 MCV 89.5 MCH 30.7 MCHC 34.3 RDW 14.9 Plt Count 24 L MPV 8.8 L Absolute Nucleated RBC 0.830 H Nucleated RBC % (auto) 10.5 H Anion Gap 12 Estim Creat Clear Calc 37.6 Estimated GFR 31 POC Glucose 284 H 390 H* Random Glucose 314 H Calcium 9.7 Total Bilirubin 0.6 Direct Bilirubin 0.3 AST 22 ALT 24 Alkaline Phosphatase 33 L Total Protein 9.2 H Albumin 2.5 L Blood Type Antibody Screen Crossmatch Assessment and Plan (1) Hypercalcemia: Status: Acute (2) Low platelet count: Status: Acute (3) Hyperuricemia: Status: Acute (4) HIRO (acute kidney injury): Status: Acute Plan 79/m with history of DVT on eliquis, HTN, DM, HLD, BPH, PATRICK on CPAP, and CKD stage 3 presenting to the emergency department today with shortness of breath, low back pain, weakness, and fatigue for 3 months and found to have HIRO, anemia, thromobocytopenia, high calcium, elevated urinc acid that rasied concern for tumor lyis, he has been having hematuria. 10/07 evpisodes of sustained VTs Anemia/thrombocytopenia. Peripheral smear mostly unrevealing except some reactive lymphocytosis and reduced platelets number. DIC ruled out, doesn't look like hemolysis either. H/H has been stable, has not required transfusion as of yet. Seen by [facility] and had bone marrow biopsy on 10/06 pending, pre prieto MM. Immunological study suggest Multiple Myeloma (MM). Platlets low but stable, 1 unit fo transfusion 10/07 and 2 units on , monitor level. 10/11 Transfused 1 unit of plat and 1 unit of rbc, 10/12 2 units of plat for ongoing hematuria MM--Heme starting Dexamethasone, watch for hyperglycemia HIRO on CD3 d/t MM -stable after IVF -continue monitoring and further management of MM as above Hematuria:Possible related to difficult Stuart insertion in the setting of BPH and thrombocytopenia. Hematuria is better, CBI ongoing, uro following Sustained VTs, iv metoprolol overn and started on oral metoprolol 25 mg twice a day, persistent frequent ventricular ectopy. cardiology advises amio 400 bid and . New AFIB, no indication for anticoagulation given low plat, once plat within normal can continue. Amio stopped per card Hypertension: BP lower side, hold meds, especially in light of renal failure. hx DVT-Hold apixaban d/t low platlets anemia and hematuria DM2- with hyperglycemia d/t steroid, continue Lantus 20 am, 25 pm and adjusted as needed, Pre-meal insulin and sliding scale BPH- finasteride PATRICK- CPAP bedtime DVT : low palat, compression device when platlet above 50 Full code, discussed with RN present on 10/07 Quality Stroke Does the patient have a stroke diagnosis?: No VTE Prior VTE?: No VTE Risk Level:: Medical - moderate - high VTE Device Contraindication: N/A - Device Ordered VTE Drug Contraindication: N/A - Med Ordered
--- NOTE | 2024-10-12 15:52 | MHC.CM.PN ---
Per Hailee at the [place] ([phone]), Patient does NOT have SNF benefits under his [employer] insurance.CM is looking into other possible insurances.
[2024-10-12 16:25] LABS: Glucose, Whole Blood 333 mg/dL (60-115)
[2024-10-12 19:55] LABS: Glucose, Whole Blood 263 mg/dL (60-115)
[2024-10-12] MEDS: Insulin Glargine,Hum.rec.anlog 100 UNIT/ML 10 ML VIAL 20 UNIT SUBCUT (20:05)
[2024-10-12] MEDS: Tamsulosin HCL 0.4 MG CAPSULE PO (20:05)
[2024-10-13] VITALS (16 sets, daily range): BP systolic 103–141; BP diastolic 51–65; PULSE 70–105; RESP 16–20; TEMP 36.2–36.9; O2SAT 94–99
[2024-10-13] MEDS: 0.9 % Sodium Chloride Flush 3 ML SYRINGE IVFLUSH ×4 (03:51→21:07)
[2024-10-13 07:08] LABS: Hematocrit 24.5 % (42.0-52.0); Hemoglobin 8.3 g/dl (14.0-18.0); Mean Corpuscular HGB Conc 33.9 g/dl (31.0-36.0); Mean Corpuscular Hemoglobin 30.6 pg (27.0-33.0); Mean Corpuscular Volume 90.4 fL (80.0-98.0); Mean Platelet Volume 9.8 fL (9.4-12.4); Red Blood Count 2.71 X10*6/uL (4.60-5.80); Red Cell Distribution Width 15.2 % (11.0-16.0); White Blood Count 8.2 X10*3/uL (4.8-10.8)
[2024-10-13 07:10] LABS: Glucose, Whole Blood 83 mg/dL (60-115)
[2024-10-13 07:18] LABS: NRBC Pct Auto 14.2 /100WBC (0.0-0.2); Platelet Count 47 X10*3/uL (160-400)
[2024-10-13 07:28] LABS: Anion Gap 10 (12-20); Blood Urea Nitrogen 65 mg/dL (9-16); Calcium 9.9 mg/dL (8.4-10.2); Carbon Dioxide 24 mmol/L (22-29); Chloride 103 mmol/L (96-108); Estimated Glomerular Filt Rate 36; Glucose Random 74 mg/dL (60-115); Potassium 4.2 mmol/L (3.3-5.1); Sodium 133 mmol/L (135-145)
[2024-10-13] MEDS: Albuterol/Iprat 2.5/0.5MG 3 ML AMPUL.NEB INHALE ×4 (07:29→19:58)
[2024-10-13] MEDS: Finasteride 5 MG TABLET PO (08:28)
[2024-10-13] MEDS: Metoprolol Tartrate 25 MG TABLET PO ×2 (08:28→21:06)
[2024-10-13] MEDS: Insulin Glargine,Hum.rec.anlog 100 UNIT/ML 10 ML VIAL 25 UNIT SUBCUT (08:29)
--- NOTE | 2024-10-13 09:41 | HO.PM.IMPN ---
Subjective Subjective Date of Service: 10/13/24 Interval History: Persistent hematuria sob is better, renal function is better Physical Exam Vital Signs: Vital Signs: Last Vital Signs Temp 97.7 F 10/13/24 07:16 Pulse 71 10/13/24 07:31 Resp 18 10/13/24 07:31 BP 103/54 L 10/13/24 07:16 Pulse Ox 98 10/13/24 07:16 O2 Del Method Room Air 10/13/24 07:16 O2 Flow Rate 5 10/12/24 07:30 BMI result Body Mass Index 35.2 Const: Other: General: AO X 3, no acute distress Resp: CTA bilateral CVS: S1,S2,RRR GI: +BS, NT, no distention : cbi with puch color urine Skin: No rash Neuro: motor grossly intact Psych: appropriate affect Objective Data Active Medications Acetaminophen (Acetaminophen 325 Mg Tablet) 650 mg PO Q6H PRN PRN Reason: Pain, Mild 1-3,fever,headache Last Admin: 10/12/24 09:01 Dose: 650 mg Documented By: DAVID Albuterol Sulfate (Albuterol Sulfate 90 Mcg 8 Gm Inhaler) 2 puff INHALE Q4H PRN PRN Reason: Shortness Of Breath Or Wheezing Albuterol/Ipratropium (Albuterol/Iprat 2.5/0.5mg 3 Ml Ampul.Neb) 3 ml INHALE RQ4H WHILE AWAKE ENIO Last Admin: 10/13/24 07:29 Dose: 3 ml Documented By: HERIBERTO Artificial Tears (Artificial Tears 15 Ml Drops) 1 drop EYE-BOTH QID PRN PRN Reason: Dry Eye(S) Benzocaine (Throat Lozenge, Medicated Lozenge) 1 lozenge MUCOUS MEM Q2H PRN PRN Reason: Sore Throat Last Admin: 10/11/24 11:45 Dose: 1 lozenge Documented By: SHANDA Calcium Carbonate (Calcium Carbonate 750 Mg Tab.Chew) 750 mg PO Q4H PRN PRN Reason: Heartburn Last Admin: 10/12/24 00:25 Dose: 750 mg Documented By: MAMADOU Dextrose (Dextrose 50 % 25 Gm/50 Ml Syringe) 25 gm IVPUSH Q15M PRN; Protocol PRN Reason: per Hypoglycemia Standing Ord. Finasteride (Finasteride 5 Mg Tablet) 5 mg PO DAILY [facility] Last Admin: 10/13/24 08:28 Dose: 5 mg Documented By: DAVID Glucose (Glucose Gel 15 Gm Gel..Gram.) 15 gm PO Q15M PRN; Protocol PRN Reason: per Hypoglycemia Standing Ord. Insulin Glargine (Insulin Glargine,Hum.Rec.Anlog 100 Unit/Ml 10 Ml Vial) 25 unit SUBCUT DAILY [facility] Last Admin: 10/13/24 08:29 Dose: 25 unit Documented By: DAVID Insulin Glargine (Insulin Glargine,Hum.Rec.Anlog 100 Unit/Ml 10 Ml Vial) 20 unit SUBCUT BEDTIME [facility] Last Admin: 10/12/24 20:05 Dose: 20 unit Documented By: MAMADOU Insulin Human Lispro (Insulin Lispro 100 Unit/Ml 3 Ml Vial) 0 unit SUBCUT QIDACHS [facility]; Protocol Last Admin: 10/13/24 08:31 Dose: Not Given Documented By: DAVID Non-Admin Reason: No Insulin Coverage Insulin Human Lispro (Insulin Lispro 100 Unit/Ml 3 Ml Vial) 8 unit SUBCUT QIDACHS [facility] Last Admin: 10/13/24 08:31 Dose: Not Given Documented By: DAVID Non-Admin Reason: No Insulin Coverage Magnesium Hydroxide (Milk Of Magnesia 30 Ml Oral.Susp) 30 ml PO DAILY PRN PRN Reason: Constipation Melatonin (Melatonin 3 Mg Tablet) 6 mg PO BEDTIME PRN PRN Reason: Insomnia Metoprolol Tartrate (Metoprolol Tartrate 25 Mg Tablet) 25 mg PO BID [facility]; Protocol Last Admin: 10/13/24 08:28 Dose: 25 mg Documented By: DAVID Sodium Chloride (0.9 % Sodium Chloride Flush 3 Ml Syringe) 3 ml IVFLUSH QSHIFT [facility] Last Admin: 10/13/24 08:30 Dose: 3 ml Documented By: DAVID Tamsulosin HCl (Tamsulosin Hcl 0.4 Mg Capsule) 0.4 mg PO BEDTIME [facility] Last Admin: 10/12/24 20:05 Dose: 0.4 mg Documented By: MAMADOU Labs 10/13/24 06:47 10/13/24 06:47 Labs: Laboratory Results - last 24 hr 10/06/24 10/11/24 10/12/24 11:42 08:39 11:15 MCV MCH MCHC RDW Plt Count MPV Absolute Nucleated RBC Nucleated RBC % (auto) Anion Gap Estim Creat Clear Calc Estimated GFR POC Glucose 390 H* Random Glucose Calcium BM Chromosome Analysis See note Blood Type A Positive Antibody Screen NEGATIVE Crossmatch See Detail 10/12/24 10/12/24 10/13/24 16:16 19:50 06:47 MCV 90.4 MCH 30.6 MCHC 33.9 RDW 15.2 Plt Count 47 L D MPV 9.8 Absolute Nucleated RBC 1.160 H Nucleated RBC % (auto) 14.2 H Anion Gap 10 L Estim Creat Clear Calc 43.0 Estimated GFR 36 POC Glucose 333 H 263 H Random Glucose 74 Calcium 9.9 BM Chromosome Analysis Blood Type Antibody Screen Crossmatch 10/13/24 07:01 MCV MCH MCHC RDW Plt Count MPV Absolute Nucleated RBC Nucleated RBC % (auto) Anion Gap Estim Creat Clear Calc Estimated GFR POC Glucose 83 Random Glucose Calcium BM Chromosome Analysis Blood Type Antibody Screen Crossmatch Assessment and Plan (1) Hypercalcemia: Status: Acute (2) Low platelet count: Status: Acute (3) Hyperuricemia: Status: Acute (4) HIRO (acute kidney injury): Status: Acute Plan 79/m with history of DVT on eliquis, HTN, DM, HLD, BPH, PATRICK on CPAP, and CKD stage 3 presenting to the emergency department today with shortness of breath, low back pain, weakness, and fatigue for 3 months and found to have HIRO, anemia, thromobocytopenia, high calcium, elevated urinc acid that rasied concern for tumor lyis, he has been having hematuria. 10/07 evpisodes of sustained VTs. Bone marrow Bx and immunological studies, + plasama cell myeloma Anemia/thrombocytopenia, bone marrow Bx from 10/06 and immunological studies confirmed Plasma cell Myeloma. Negative hemolysis and DIC work up So far 5 units of platlets, 1 unit of RBC.. H/H low but stable, transfuse for Hgb < 7. Platlet transfusion as needed for bleeding complications Plasma cell Myeloma treated with high dose Decadron 40 mg daily x 4 days and will need Chemo on outpatient basis, Dr. Nation following. HIRO on CD3 related to above, was on IVF, stopped, Creatine improving. Nephro following Hematuria:Possible related to difficult Stuart insertion in the setting of BPH and thrombocytopenia. Hematuria is better, CBI ongoing, uro following Sustained VTs and episodes of Aflutter. stable on metoprolol. Was briefly on amio and stopped by cardio Hypertension: BP lower side, continue Metorprolol hx DVT-Hold apixaban d/t low platlets anemia and hematuria DM2- with hyperglycemia d/t steroid. Now off steroid and sugars down, reducing Lantus to home dose, and continue sliding scale. Monitor sugars BPH- finasteride PATRICK- CPAP bedtime DVT : low palat, compression device when platlet above 50 Full code, discussed with RN present on 10/07 PT recommends STR Quality Stroke Does the patient have a stroke diagnosis?: No VTE Prior VTE?: No VTE Risk Level:: Medical - moderate - high VTE Device Contraindication: N/A - Device Ordered VTE Drug Contraindication: N/A - Med Ordered
[2024-10-13 09:58] LABS: Glucose, Whole Blood 155 mg/dL (60-115)
--- NOTE | 2024-10-13 10:11 | P.PNNP_ITS ---
Subjective Subjective Date of Service: 10/13/24 Principal diagnosis: atrial fibrillation, nonsustained VT Interval history: Persistent hematuria sob is better, renal function is improved Physical Exam 2 Vital Signs: Vital Signs: Last Vital Signs Temp 97.7 F 10/13/24 07:16 Pulse 71 10/13/24 07:31 Resp 18 10/13/24 07:31 BP 103/54 L 10/13/24 07:16 Pulse Ox 98 10/13/24 07:16 O2 Del Method Room Air 10/13/24 07:16 O2 Flow Rate 5 10/12/24 07:30 BMI result Body Mass Index 35.2 Comfortable Neck supple no JVD. Lungs entry equal no rales. Heart S1-S2 heard no gallop or rub. Abdomen soft nontender. Neuro alert awake oriented. No asterixis. Extremities no edema. Const: General: no acute distress Orientation/consciousness: patient oriented x3 Eyes: EOM: EOMs intact bilaterally Neck: Neck: Yes supple Resp: Auscultation: diminished lung sounds Cardio: Rate: regular rate GI: Palpation (GI): Soft to palpation Neuro: General: patient oriented x3 and moves all extremities Objective Data Labs 10/13/24 06:47 10/13/24 06:47 Labs: Laboratory Results - last 24 hr 10/06/24 10/11/24 10/12/24 11:42 08:39 11:15 WBC RBC Hgb Hct MCV MCH MCHC RDW Plt Count MPV Absolute Nucleated RBC Nucleated RBC % (auto) Sodium Potassium Chloride Carbon Dioxide Anion Gap BUN Creatinine Estim Creat Clear Calc Estimated GFR POC Glucose 390 H* Random Glucose Calcium BM Chromosome Analysis See note Blood Type A Positive Antibody Screen NEGATIVE Crossmatch See Detail 10/12/24 10/12/24 10/13/24 16:16 19:50 06:47 WBC 8.2 RBC 2.71 L Hgb 8.3 L Hct 24.5 L MCV 90.4 MCH 30.6 MCHC 33.9 RDW 15.2 Plt Count 47 L D MPV 9.8 Absolute Nucleated RBC 1.160 H Nucleated RBC % (auto) 14.2 H Sodium 133 L Potassium 4.2 Chloride 103 Carbon Dioxide 24 Anion Gap 10 L BUN 65 H Creatinine 1.82 H Estim Creat Clear Calc 43.0 Estimated GFR 36 POC Glucose 333 H 263 H Random Glucose 74 Calcium 9.9 BM Chromosome Analysis Blood Type Antibody Screen Crossmatch 10/13/24 10/13/24 07:01 09:55 WBC RBC Hgb Hct MCV MCH MCHC RDW Plt Count MPV Absolute Nucleated RBC Nucleated RBC % (auto) Sodium Potassium Chloride Carbon Dioxide Anion Gap BUN Creatinine Estim Creat Clear Calc Estimated GFR POC Glucose 83 155 H Random Glucose Calcium BM Chromosome Analysis Blood Type Antibody Screen Crossmatch Microbiology Microbiology Results: Microbiology 10/06/24 16:37 Urine clean catch - Clean Catch Midstream Urine Culture - Final Staphylococcus epidermidis Procedures Date of Service Date of Service: 10/13/24 Assessment & Plan Assessment and plan (1) HIRO (acute kidney injury): Status: Acute (2) Anemia: Status: Acute (3) Thrombocytopenia: Status: Acute (4) Hypercalcemia: Status: Acute Plan 73-year-old man with acute kidney injury with severe anemia and thrombocytopenia along with hypercalcemia and hyperuricemia. Although he has severe thrombocytopenia there were no schistocytes. No petechiae. Urine sediments were benign. HUS/ TTP seems unlikely. 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 Management per Hematology AFib with a rapid ventricular rate. Hematuria currently on CBI Renal function is improving Watch urine output Watch serum calcium potassium and uric acid. No absolute indication for dialysis Time Spent With Patient Time: Total time managing care of this patient today ____ minutes. Progress Note: Quality Stroke Does the patient have a stroke diagnosis?: No
[2024-10-13 10:50] LABS: Glucose, Whole Blood 188 mg/dL (60-115)
--- NOTE | 2024-10-13 12:03 | MHC.CM.PN ---
Per MD, Patient is medically cleared for dc to SNF/STR today. CM met with Patient at bedside and he has accepted a bed offer from [facility] and he will go there by [facility] today at 5:30 PM. CM attempted to inform Primary Contact//Ashley @ [phone] but her vm is full;KATRIN did speak with Second Contact/Son/ED @ [phone], who was pleased with the dc plan and agreed to inform Ashley of the dc plan. Last IMM addressed yesterday.
[2024-10-13] MEDS: Insulin Lispro 100 UNIT/ML 3 ML VIAL SUBCUT ×3 (12:27→21:07)
[2024-10-13] MEDS: Acetaminophen 325 MG TABLET 650 MG PO ×2 (13:05→21:05)
--- NOTE | 2024-10-13 14:41 | MHC.CM.PN ---
Per [facility] and Patient, there is no other insurance other than VA and Patient has no VA SNF benefit. CM met with Patient at bedside this morning and his goal was to return home with VNA ([facility] accepted Patient pending VA auth)(he has a Friend who could drive him to Chemo appointments), but PT is recommending STR(he would need Chemo treatments while at SNF). Patient does not feel that he will qualify for [employer] (he has property for sale in [place]).CM will follow.
[2024-10-13 16:31] LABS: Glucose, Whole Blood 167 mg/dL (60-115)
[2024-10-13 20:53] LABS: Glucose, Whole Blood 189 mg/dL (60-115)
[2024-10-13] MEDS: Melatonin 3 MG TABLET 6 MG PO (21:07)
[2024-10-13] MEDS: Tamsulosin HCL 0.4 MG CAPSULE PO (21:07)
[2024-10-13] MEDS: Calcium Carbonate 750 MG TAB.CHEW PO (22:24)
[2024-10-14] VITALS (12 sets, daily range): BP systolic 106–147; BP diastolic 52–69; PULSE 81–115; RESP 18–23; TEMP 36.3–37.3; O2SAT 93–99
[2024-10-14] MEDS: Throat Lozenge, Medicated LOZENGE 1 LOZENGE MUCOUS MEM ×3 (00:01→20:53)
[2024-10-14] MEDS: Acetaminophen 325 MG TABLET 650 MG PO (02:55)
--- NOTE | 2024-10-14 06:29 | PC.NURSE ---
0600 pt c/o pressure to his bladder, and states his heart feels fluttery vitals obtained. Irrigated bladder with large clots immediately afterwards draining pink tinged urine. CBI remains in place at this time.
[2024-10-14 06:57] LABS: Glucose, Whole Blood 176 mg/dL (60-115)
[2024-10-14 07:13] LABS: Hematocrit 23.9 % (42.0-52.0); Hemoglobin 8.1 g/dl (14.0-18.0); Mean Corpuscular HGB Conc 33.9 g/dl (31.0-36.0); Mean Corpuscular Hemoglobin 30.3 pg (27.0-33.0); Mean Corpuscular Volume 89.5 fL (80.0-98.0); Mean Platelet Volume 9.4 fL (9.4-12.4); Platelet Count 35 X10*3/uL (160-400); Red Blood Count 2.67 X10*6/uL (4.60-5.80); Red Cell Distribution Width 15.4 % (11.0-16.0); White Blood Count 7.9 X10*3/uL (4.8-10.8)
[2024-10-14 07:27] LABS: Anion Gap 10 (12-20); Blood Urea Nitrogen 63 mg/dL (9-16); Carbon Dioxide 22 mmol/L (22-29); Chloride 101 mmol/L (96-108); Creatinine Clr Calc Pharmacy 41.8; Estimated Glomerular Filt Rate 35; Glucose Random 183 mg/dL (60-115); Potassium 4.5 mmol/L (3.3-5.1); Sodium 128 mmol/L (135-145)
[2024-10-14] MEDS: Albuterol/Iprat 2.5/0.5MG 3 ML AMPUL.NEB INHALE ×4 (07:47→20:53)
[2024-10-14] MEDS: Insulin Glargine,Hum.rec.anlog 100 UNIT/ML 10 ML VIAL 20 UNIT SUBCUT (09:20)
[2024-10-14] MEDS: Metoprolol Tartrate 25 MG TABLET PO ×2 (09:20→20:32)
[2024-10-14] MEDS: Insulin Lispro 100 UNIT/ML 3 ML VIAL SUBCUT ×4 (09:21→20:33)
[2024-10-14] MEDS: 0.9 % Sodium Chloride Flush 3 ML SYRINGE IVFLUSH ×3 (09:22→20:40)
[2024-10-14] MEDS: Finasteride 5 MG TABLET PO (09:22)
[2024-10-14 10:50] LABS: Glucose, Whole Blood 357 mg/dL (60-115)
--- NOTE | 2024-10-14 12:44 | MHC.CM.PN ---
Per [facility] discussion, Patient is not yet medically cleared for dc (Hematuria/CBI)PT is recommending STR and CM will continue to follow.
--- NOTE | 2024-10-14 13:33 | P.PNNP_ITS ---
Subjective Subjective Date of Service: 10/14/24 Principal diagnosis: atrial fibrillation, nonsustained VT Interval history: Renal function stable; All recent data reviewed Physical Exam 2 Vital Signs: Vital Signs: Last Vital Signs Temp 97.3 F 10/14/24 11:09 Pulse 91 10/14/24 11:23 Resp 18 10/14/24 11:23 BP 135/60 10/14/24 11:09 Pulse Ox 97 10/14/24 11:09 O2 Del Method Room Air 10/14/24 11:09 O2 Flow Rate 5 10/12/24 07:30 BMI result Body Mass Index 35.2 Const: General: comfortable and no acute distress O rientation/consciousness: patient oriented x3 HEENT: Head: Yes normocephalic Mouth: Normal oral and palatal mucosa present Eyes: EOM: EOMs intact bilaterally Neck: Neck: Yes supple Resp: Auscultation: clear to auscultation bilaterally Cardio: Jugular venous distension: no JVD Rate: regular rate GI: Palpation (GI): Soft to palpation Auscultation: normal bowel sounds Skin: General skin exam: no rashes or lesions noted Neuro: General: patient oriented x3 and moves all extremities Extrem: General: Yes no pedal edema Objective Data Labs 10/14/24 06:57 10/14/24 06:57 Labs: Laboratory Results - last 24 hr 10/13/24 10/13/24 10/14/24 16:27 20:47 06:52 WBC RBC Hgb Hct MCV MCH MCHC RDW Plt Count MPV Absolute Nucleated RBC Nucleated RBC % (auto) Sodium Potassium Chloride Carbon Dioxide Anion Gap BUN Creatinine Estim Creat Clear Calc Estimated GFR POC Glucose 167 H 189 H 176 H Random Glucose Calcium 10/14/24 10/14/24 06:57 10:46 WBC 7.9 RBC 2.67 L Hgb 8.1 L Hct 23.9 L MCV 89.5 MCH 30.3 MCHC 33.9 RDW 15.4 Plt Count 35 L D MPV 9.4 Absolute Nucleated RBC 0.710 H Nucleated RBC % (auto) 9.0 H Sodium 128 L Potassium 4.5 Chloride 101 Carbon Dioxide 22 Anion Gap 10 L BUN 63 H Creatinine 1.87 H Estim Creat Clear Calc 41.8 Estimated GFR 35 POC Glucose 357 H* Random Glucose 183 H Calcium 9.0 D Microbiology Microbiology Results: Microbiology 10/06/24 16:37 Urine clean catch - Clean Catch Midstream Urine Culture - Final Staphylococcus epidermidis Procedures Date of Service Date of Service: 10/14/24 Assessment & Plan Assessment and plan (1) HIRO (acute kidney injury): Status: Acute Plan 73-year-old man with acute kidney injury with severe anemia and thrombocytopenia along with hypercalcemia and hyperuricemia. Urine sediments were benign. ; Had hypercalcemia with elevated serum protein - multiple myeloma confirmed by bone marrow biopsy Serum creatinine stable; C/W current supportive management; Shall closely follow up Progress Note: Quality Stroke Does the patient have a stroke diagnosis?: No
--- NOTE | 2024-10-14 14:21 | HO.PM.IMPN ---
Subjective Subjective Date of Service: 10/14/24 Interval History: Feels tired, complaining of discomfort at site of Stuart catheter has been passing clots. Review of Systems All other system reviewed and are negative Physical Exam Vital Signs: Vital Signs: Last Vital Signs Temp 97.3 F 10/14/24 11:09 Pulse 91 10/14/24 11:23 Resp 18 10/14/24 11:23 BP 135/60 10/14/24 11:09 Pulse Ox 97 10/14/24 11:09 O2 Del Method Room Air 10/14/24 11:09 O2 Flow Rate 5 10/12/24 07:30 BMI result Body Mass Index 35.2 Const: Other: General resting comfortably in no acute distress. Neck no JVD. CVS regular rate rhythm, Respiratory lungs clear to auscultation, no respiratory distress, no wheeze, no rhonchi. Gastrointestinal abdomen soft, non tender, bowel sounds audible Extremities no edema. Neuro non focal Psych appropriate affect CBI with pink tinged urine/passing clots Objective Data Active Medications Acetaminophen (Acetaminophen 325 Mg Tablet) 650 mg PO Q6H PRN PRN Reason: Pain, Mild 1-3,fever,headache Last Admin: 10/14/24 02:55 Dose: 650 mg Documented By: ANJEL Albuterol Sulfate (Albuterol Sulfate 90 Mcg 8 Gm Inhaler) 2 puff INHALE Q4H PRN PRN Reason: Shortness Of Breath Or Wheezing Albuterol/Ipratropium (Albuterol/Iprat 2.5/0.5mg 3 Ml Ampul.Neb) 3 ml INHALE RQ4H WHILE AWAKE ENIO Last Admin: 10/14/24 11:16 Dose: 3 ml Documented By: MARCELINO Artificial Tears (Artificial Tears 15 Ml Drops) 1 drop EYE-BOTH QID PRN PRN Reason: Dry Eye(S) Benzocaine (Throat Lozenge, Medicated Lozenge) 1 lozenge MUCOUS MEM Q2H PRN PRN Reason: Sore Throat Last Admin: 10/14/24 02:56 Dose: 1 lozenge Documented By: ANJEL Calcium Carbonate (Calcium Carbonate 750 Mg Tab.Chew) 750 mg PO Q4H PRN PRN Reason: Heartburn Last Admin: 10/13/24 22:24 Dose: 750 mg Documented By: ANJEL Dextrose (Dextrose 50 % 25 Gm/50 Ml Syringe) 25 gm IVPUSH Q15M PRN; Protocol PRN Reason: per Hypoglycemia Standing Ord. Finasteride (Finasteride 5 Mg Tablet) 5 mg PO DAILY [facility] Last Admin: 10/14/24 09:22 Dose: 5 mg Documented By: GUANAKITO Glucose (Glucose Gel 15 Gm Gel..Gram.) 15 gm PO Q15M PRN; Protocol PRN Reason: per Hypoglycemia Standing Ord. Insulin Glargine (Insulin Glargine,Hum.Rec.Anlog 100 Unit/Ml 10 Ml Vial) 20 unit SUBCUT DAILY [facility] Last Admin: 10/14/24 09:20 Dose: 20 unit Documented By: GUANAIKTO Insulin Human Lispro (Insulin Lispro 100 Unit/Ml 3 Ml Vial) 0 unit SUBCUT QIDACHS [facility]; Protocol Last Admin: 10/14/24 12:16 Dose: 12 unit Documented By: JARRET Magnesium Hydroxide (Milk Of Magnesia 30 Ml Oral.Susp) 30 ml PO DAILY PRN PRN Reason: Constipation Melatonin (Melatonin 3 Mg Tablet) 6 mg PO BEDTIME PRN PRN Reason: Insomnia Last Admin: 10/13/24 21:07 Dose: 6 mg Documented By: ANJEL Metoprolol Tartrate (Metoprolol Tartrate 25 Mg Tablet) 25 mg PO BID [facility]; Protocol Last Admin: 10/14/24 09:20 Dose: 25 mg Documented By: GUANAKITO Sodium Chloride (0.9 % Sodium Chloride Flush 3 Ml Syringe) [address] [facility] Last Admin: 10/14/24 09:22 Dose: 3 ml Documented By: GUANAKITO Tamsulosin HCl (Tamsulosin Hcl 0.4 Mg Capsule) 0.4 mg PO BEDTIME [facility] Last Admin: 10/13/24 21:07 Dose: 0.4 mg Documented By: ANJEL Trazodone HCl (Trazodone Hcl 50 Mg Tablet) 50 mg PO BEDTIME PRN PRN Reason: sleep Labs 10/14/24 06:57 10/14/24 06:57 Labs: Laboratory Results - last 24 hr 10/13/24 10/13/24 10/14/24 16:27 20:47 06:52 MCV MCH MCHC RDW Plt Count MPV Absolute Nucleated RBC Nucleated RBC % (auto) Anion Gap Estim Creat Clear Calc Estimated GFR POC Glucose 167 H 189 H 176 H Random Glucose Calcium 10/14/24 10/14/24 06:57 10:46 MCV 89.5 MCH 30.3 MCHC 33.9 RDW 15.4 Plt Count 35 L D MPV 9.4 Absolute Nucleated RBC 0.710 H Nucleated RBC % (auto) 9.0 H Anion Gap 10 L Estim Creat Clear Calc 41.8 Estimated GFR 35 POC Glucose 357 H* Random Glucose 183 H Calcium 9.0 D Assessment and Plan (1) Persistent atrial fibrillation: Status: Acute (2) Gross hematuria: Status: Acute (3) Low platelet count: Status: Acute (4) HIRO (acute kidney injury): Status: Acute Plan 79/m with history of DVT on eliquis, HTN, DM, HLD, BPH, PATRICK on CPAP, and CKD stage 3 presenting to the emergency department with shortness of breath, low back pain, weakness, and fatigue for 3 months and found to have HIRO, anemia, thromobocytopenia, high calcium, elevated uric acid that rasied concern for tumor lysis, he has been having hematuria. 10/07 episodes of sustained VTs. Bone marrow Bx and immunological studies, + plasama cell myeloma Anemia/thrombocytopenia, bone marrow Bx from 10/06 and immunological studies confirmed Plasma cell Myeloma. Negative hemolysis and DIC work up Due to thrombocytopenia and persistent hematuria will give 1 more unit of packed RBC Has received 5 units of platelets, 1 unit of PRBC.. H/H low but stable, transfuse for Hgb < 7. 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 Nation to arrange transfer to tertiary care center including [facility] for inpatient chemotherapy She spoke with Dr. Malone at [facility], will contact [facility] transfer line. HIRO on CD3 related to above, creatinine improved, status post IV fluid. Hematuria:Possible related to difficult Stuart insertion in the setting of BPH and thrombocytopenia. Passing clots, continue CBI . Sustained VTs and episodes of Aflutter. Stable on metoprolol was briefly treated with amiodarone subsequently discontinued by Cardiology Hypertension: continue Metorprolol hx DVT-Hold apixaban d/t low platelets anemia and hematuria DM2- with hyperglycemia d/t steroid. Continue Lantus and sliding scale. BPH- finasteride PATRICK- CPAP bedtime DVT : low , compression device when platelet above 50 Full code PT recommends STR Quality Stroke Does the patient have a stroke diagnosis?: No VTE Prior VTE?: No VTE Risk Level:: Medical - moderate - high VTE Device Contraindication: N/A - Device Ordered VTE Drug Contraindication: N/A - Med Ordered
--- NOTE | 2024-10-14 14:29 | MHC.CM.PN ---
CM met with Patient and his Brother/HCP/Merlin at bedside. Patient has completed a new HCP, keeping Merlin as the Primary Agent and adding his Sister/Sepideh as the Alternate. CM will follow.
[2024-10-14 16:21] LABS: Glucose, Whole Blood 224 mg/dL (60-115)
--- NOTE | 2024-10-14 18:16 | P.PNHO-ONC_ITS ---
Medical Summary - Medical Summary Date of Service: 10/14/24 Chief complaint: Hematuria Primary Care Provider: Josse Iniguez Insurance Verification Clerk Utilized?: No - Spanish Speaking Interval History Interval history: Raman Ogden is a 79 year old male with history of diabetes mellitus, chronic kidney disease stage 3, obstructive sleep apnea, DVT on Eliquis who presented with 2 to three-month history of fatigue and weakness. He has been feeling poorly, he had low back pain, loss of appetite and some weight loss. [facility] for upper respiratory symptoms and was prescribed azithromycin. He was diagnosed with left lower extremity DVT in December 2021. He appears to be on Eliquis ever since. He denies chest pain, abdominal pain or change in bowel habits. He has never been told of low blood counts in the past. He saw his PCP at [facility] [place] [facility] about 3 months ago. He denies any fever or chills. He lives alone at home. He has a brother and sister who are next of kin. He has never been diagnosed with any malignancy in the past. He was exposed to agent orange. Is doing about the same. Passing occasional clots with intermittent hematuria. Review of Systems - Neurologic Reports no additional neurologic complaints, Denies dizziness, Denies focal weakness, Denies loss of vision, Denies numbness, Denies tingling, Reports weakness PMFSH Medical History: Medical History (Last Updated 10/12/24 @ 10:45 by Rehan Lazo MD) Benign prostatic hyperplasia DVT (deep venous thrombosis) Essential hypertension Insulin dependent type 2 diabetes mellitus Mixed hyperlipidemia PATRICK on CPAP Social History: Social History (Last Reviewed 10/05/24 @ 19:13 by ERIN Oakley) Living Situation History: Household Members: None Housing: House Do you presently have visiting nurse or other home services: No Tobacco History: Patient Tobacco Use Status: Former Tobacco user Occupation Assessmet: service: Yes Home Medications and Allergies Current Medications: Current Medications Acetaminophen (Acetaminophen 325 Mg Tablet) 650 mg PO Q6H PRN PRN Reason: Pain, Mild 1-3,fever,headache Last Admin: 10/14/24 02:55 Dose: 650 mg Albuterol Sulfate (Albuterol Sulfate 90 Mcg 8 Gm Inhaler) 2 puff INHALE Q4H PRN PRN Reason: Shortness Of Breath Or Wheezing Albuterol/Ipratropium (Albuterol/Iprat 2.5/0.5mg 3 Ml Ampul.Neb) 3 ml INHALE RQ4H WHILE AWAKE [facility] Last Admin: 10/14/24 15:14 Dose: 3 ml Artificial Tears (Artificial Tears 15 Ml Drops) 1 drop EYE-BOTH QID PRN PRN Reason: Dry Eye(S) Benzocaine (Throat Lozenge, Medicated Lozenge) 1 lozenge MUCOUS MEM Q2H PRN PRN Reason: Sore Throat Last Admin: 10/14/24 02:56 Dose: 1 lozenge Calcium Carbonate (Calcium Carbonate 750 Mg Tab.Chew) 750 mg PO Q4H PRN PRN Reason: Heartburn Last Admin: 10/13/24 22:24 Dose: 750 mg Dextrose (Dextrose 50 % 25 Gm/50 Ml Syringe) 25 gm IVPUSH Q15M PRN; Protocol PRN Reason: per Hypoglycemia Standing Ord. Finasteride (Finasteride 5 Mg Tablet) 5 mg PO DAILY [facility] Last Admin: 10/14/24 09:22 Dose: 5 mg Glucose (Glucose Gel 15 Gm Gel..Gram.) 15 gm PO Q15M PRN; Protocol PRN Reason: per Hypoglycemia Standing Ord. Insulin Glargine (Insulin Glargine,Hum.Rec.Anlog 100 Unit/Ml 10 Ml Vial) 20 unit SUBCUT DAILY [facility] Last Admin: 10/14/24 09:20 Dose: 20 unit Insulin Human Lispro (Insulin Lispro 100 Unit/Ml 3 Ml Vial) 0 unit SUBCUT QIDACHS [facility]; Protocol Last Admin: 10/14/24 17:20 Dose: 6 unit Magnesium Hydroxide (Milk Of Magnesia 30 Ml Oral.Susp) 30 ml PO DAILY PRN PRN Reason: Constipation Melatonin (Melatonin 3 Mg Tablet) 6 mg PO BEDTIME PRN PRN Reason: Insomnia Last Admin: 10/13/24 21:07 Dose: 6 mg Metoprolol Tartrate (Metoprolol Tartrate 25 Mg Tablet) 25 mg PO BID [facility]; Protocol Last Admin: 10/14/24 09:20 Dose: 25 mg Sodium Chloride (0.9 % Sodium Chloride Flush 3 Ml Syringe) 3 ml IVFLUSH QSHIFT [facility] Last Admin: 10/14/24 17:20 Dose: 3 ml Tamsulosin HCl (Tamsulosin Hcl 0.4 Mg Capsule) 0.4 mg PO BEDTIME [facility] Last Admin: 10/13/24 21:07 Dose: 0.4 mg Trazodone HCl (Trazodone Hcl 50 Mg Tablet) 50 mg PO BEDTIME PRN PRN Reason: sleep Home Medications ?Medication ?Instructions ?Recorded ?Confirmed ?Type amlodipine 10 mg tablet 10 mg PO BEDTIME 06/26/23 10/05/24 History cholecalciferol (vitamin D3) 50 50 mcg PO DAILY@1200 06/26/23 10/05/24 History mcg (2,000 unit) tablet empagliflozin 25 mg tablet 25 mg PO DAILY 06/26/23 10/05/24 History finasteride 5 mg tablet 5 mg PO DAILY 06/26/23 10/05/24 History glucosamine sulfate 500 mg tablet 1,000 mg PO DAILY 06/26/23 10/05/24 History (Glucosamine) insulin aspart U-100 100 unit/mL 1 sliding scale dose subcut TIDAC 06/26/23 10/05/24 History subcutaneous solution (Novolog U-100 Insulin aspart) insulin glargine 100 unit/mL 25 unit subcut BEDTIME 06/26/23 10/05/24 History subcutaneous solution lisinopril 40 mg tablet 40 mg PO BEDTIME 06/26/23 10/05/24 History albuterol sulfate 90 mcg/actuation 2 puff inhalation Q4H PRN 10/05/24 10/05/24 History aerosol inhaler Shortness Of Breath Or Wheezing apixaban 2.5 mg tablet (Eliquis) 2.5 mg PO BID 10/05/24 10/05/24 History benzonatate 200 mg capsule 200 mg PO TID PRN Cough 10/05/24 10/05/24 History carboxymethylcellulose sodium 0.5 1 drp ophthalmic (eye) QID PRN Dry 10/05/24 10/05/24 History % eye drops Eye(S) dextromethorphan-guaifenesin 10 10 ml PO Q6H PRN Cough 10/05/24 10/05/24 History mg-100 mg/5 mL oral syrup glucose 4 gram chewable tablet 4 g PO Q15M PRN Low Blood Sugar 10/05/24 10/05/24 History rosuvastatin 40 mg tablet 20 mg PO DAILY 10/05/24 10/05/24 History Allergies Allergy/AdvReac Type Severity Reaction Status Date / Time Sissnrr-ZIA-IjW Reductase Allergy Intermediate ELEVATED Verified 10/05/24 11:56 Inhibitor LIVER [Actgqvn-Foc-Qjw Reductase ENZYMES Inhibitor] Statins Depletion Allergy Unknown Unknown Uncoded 06/26/23 00:42 Exam Vital signs: Vital Signs Temp 98.2 F 10/14/24 15:49 Pulse 111 H 10/14/24 15:49 Resp 23 H 10/14/24 15:49 BP 137/58 L 10/14/24 15:49 Pulse Ox 94 10/14/24 15:49 O2 Del Method Room Air 10/14/24 15:49 O2 Flow Rate 5 10/12/24 07:30 Intake & Output 10/13/24 10/14/24 10/14/24 18:59 06:59 18:59 Intake Total -910 / -3135 -2225 / -3135 -100 / -100 Output Total 1750 / 3976 2226 / 3976 1800 / 1800 Balance -2660 / -7111 -4451 / -7111 -1900 / -1900 Urine Output (Average ml/kg/hr) 1.27 1.62 1.31 Intake: Intake, Oral Amount 840 / 840 500 / 500 Continuous Bladder Irrigation -1750 / -3975 -2225 / -3975 -600 / -600 Fluid - Amount Retained 3-way Urethral -1750 / -3975 -2225 / -3975 -600 / -600 Output: Output, Urine Amount 0 / 0 Output, Stool Amount 1 / 1 Output, Urine Amount (Catheter) 1750 / 3975 2225 / 3975 1800 / 1800 3-way Urethral 1750 / 3975 2225 / 3975 1800 / 1800 Other: Breakfast % Eaten 75% 100% Lunch % Eaten 75% 100% Dinner % Eaten 100% Eating (Feeding) Ability Independent Independent Number of Incontinent Voids 1 Number of Bowel Movements 1 1 Urine Color [place] Tinged Punch Freedom Last Bowel Movement 10/13/24 10/13/24 10/13/24 Stool Bedside Commode Bedside Commode Stool Amount Large Small Stool Color Yellow Brown Stool Consistency Soft Continuous Bladder Irrigation Fluid - Amount Instilled 3-way Urethral 3,000 3,000 3,000 Continuous Bladder Irrigation Fluid - Amount Drained 3-way Urethral 3,600 3,700 3,400 Weight 114.5 kg BMI result Body Mass Index 35.2 - Constitutional Present: no acute distress, obese - Routine HEENT Exam Head: Present: atraumatic, normal inspection - Routine Neck Exam Present: full ROM - Routine Respiratory Exam Present: CTAB. Absent: accessory muscle use, stridor, wheezes - Routine Cardiovascular Exam Cardiovascular: Present: RRR (obese), S1, S2 - Routine Abdominal Exam Present: soft. Absent: mass - Routine Extremities Exam Present: normal inspection. Absent: pedal edema - Routine Skin Exam Present: intact - Routine Neurological Exam Present: alert, oriented X3 Data - Labs CBC & Chem 7: 10/14/24 06:57 10/14/24 06:57 - Imaging Radiologist's impression: ITS Impressions Chest X-Ray 10/05/24 11:57 IMPRESSION: No acute cardiopulmonary abnormality. Electronically signed by: Theodore Fuentes MD 10/05/2024 01:24 PM EST RP Abdomen/Pelvis CT 10/05/24 14:01 IMPRESSION: 1. Scarring at the right lung base. No focal airspace opacity is identified. 2. Cystic foci in the pancreas as described above. Nonemergent MRI of the abdomen without and with contrast is recommended. 3. Diverticulosis of the descending and sigmoid colon, without evidence of diverticulitis. Electronically signed by: Theodore Fuentes MD 10/05/2024 03:27 PM EST RP Chest CT 10/05/24 14:42 IMPRESSION: 1. Scarring at the right lung base. No focal airspace opacity is identified. 2. Cystic foci in the pancreas as described above. Nonemergent MRI of the abdomen without and with contrast is recommended. 3. Diverticulosis of the descending and sigmoid colon, without evidence of diverticulitis. Electronically signed by: Theodore Fuentes MD 10/05/2024 03:27 PM EST RP Bone Marrow Biopsy w/ CT 10/06/24 11:12 Impression: CT-guided bone marrow biopsy and aspiration. This procedure was performed by Louie Sorto PA-C and supervised by Dr. Munson. Electronically signed by: Noah Munson MD 10/07/2024 02:20 PM EST RP Chest X-Ray 10/07/24 09:22 IMPRESSION: No active pulmonary disease. Electronically signed by: Brandyn Mosher MD 10/07/2024 09:42 AM [facility] and Plan Patient Active problem list reviewed?: Yes (1) Thrombocytopenia Status: Acute Assessment and plan: 1. This is a 79-year-old male with multiple medical problems including diabetes mellitus, hypertension, obstructive sleep apnea, chronic stage 3 kidney disease and history of left lower extremity DVT who is presenting with new onset thrombocytopenia and anemia. Bone marrow biopsy performed 10/07/2024 confirmed plasma cell myeloma, 80% plasma cells in bone marrow. Flow cytometry showed lambda light chain restricted plasma cells comprising 56% of total. Myeloma fish panel is pending. Imaging with CT chest/abdomen and pelvis without contrast shows scarring at right lung base. Cystic foci in pancreas and diverticulosis. No evidence of hepatosplenomegaly or lymphadenopathy. Serum immunofixation showed IgG lambda monoclonal band, IgG level 6.5 g with suppression of IgA and IgM levels. Free kappa/lambda ratio 12.2/305, abnormal at 0.04. He has mild hypercalcemia, this has improved with IV hydration. His kidney functions are stable. He does not need any acute intervention such as plasma pheresis or dialysis. I discussed with the patient about diagnosis of lambda light chain multiple myeloma. He receive pulse steroids with dexamethasone 40 mg IV for 4 days. Upon discharge he will start treatment with daratumumab/Velcade and dexamethasone. He has persistent hematuria. Transfuse platelets to keep it around 40 K. Inpatient chemotherapy with Cytoxan, Velcade and dexamethasone can be offered in the acute setting as patient is unable to be discharged safely for outpatient chemotherapy. This is possible in tertiary care facilities such as [facility] where inpatient chemotherapy is administered. Consider transferring patient for inpatient chemotherapy. Thank you. - Time Spent With Patient Time Spent with Patient (in minutes): 10
[2024-10-14 20:10] LABS: Glucose, Whole Blood 184 mg/dL (60-115)
[2024-10-14] MEDS: Tamsulosin HCL 0.4 MG CAPSULE PO (20:32)
[2024-10-15] VITALS (10 sets, daily range): BP systolic 104–140; BP diastolic 54–65; PULSE 82–99; RESP 19–23; TEMP 36.4–37.4; O2SAT 92–98
[2024-10-15] MEDS: traZODone HCL 50 MG TABLET PO (01:16)
[2024-10-15 06:38] LABS: Hematocrit 21.6 % (42.0-52.0); Hemoglobin 7.3 g/dl (14.0-18.0); Mean Corpuscular HGB Conc 33.8 g/dl (31.0-36.0); Mean Corpuscular Hemoglobin 30.5 pg (27.0-33.0); Mean Corpuscular Volume 90.4 fL (80.0-98.0); Mean Platelet Volume 10.2 fL (9.4-12.4); Red Blood Count 2.39 X10*6/uL (4.60-5.80); Red Cell Distribution Width 15.8 % (11.0-16.0); White Blood Count 11.1 X10*3/uL (4.8-10.8)
[2024-10-15 06:39] LABS: NRBC Pct Auto 5.8 /100WBC (0.0-0.2); Platelet Count 43 X10*3/uL (160-400)
[2024-10-15 06:53] LABS: Anion Gap 10 (12-20); Blood Urea Nitrogen 52 mg/dL (9-16); Calcium 9.2 mg/dL (8.4-10.2); Carbon Dioxide 22 mmol/L (22-29); Chloride 101 mmol/L (96-108); Creatinine Clr Calc Pharmacy 40.8; Estimated Glomerular Filt Rate 34; Glucose Random 155 mg/dL (60-115); Potassium 4.1 mmol/L (3.3-5.1); Sodium 129 mmol/L (135-145)
[2024-10-15 07:03] LABS: Glucose, Whole Blood 156 mg/dL (60-115)
[2024-10-15] MEDS: Albuterol/Iprat 2.5/0.5MG 3 ML AMPUL.NEB INHALE ×4 (07:34→19:23)
[2024-10-15] MEDS: Finasteride 5 MG TABLET PO (08:48)
[2024-10-15] MEDS: Metoprolol Tartrate 25 MG TABLET PO ×2 (08:48→20:57)
[2024-10-15] MEDS: Insulin Glargine,Hum.rec.anlog 100 UNIT/ML 10 ML VIAL 20 UNIT SUBCUT (08:48)
[2024-10-15] MEDS: Insulin Lispro 100 UNIT/ML 3 ML VIAL SUBCUT ×3 (08:49→16:20)
[2024-10-15] MEDS: 0.9 % Sodium Chloride Flush 3 ML SYRINGE IVFLUSH ×2 (08:57→16:20)
[2024-10-15 10:59] LABS: Glucose, Whole Blood 295 mg/dL (60-115)
--- NOTE | 2024-10-15 13:26 | P.PNNP_ITS ---
Subjective Subjective Date of Service: 10/15/24 Principal diagnosis: atrial fibrillation, nonsustained VT Interval history: Feels tired, complaining of discomfort at site of [place] catheter has been passing clots. Physical Exam 2 Vital Signs: Vital Signs: Last Vital Signs Temp 98.9 F 10/15/24 11:01 Pulse 82 10/15/24 11:05 Resp 20 10/15/24 11:05 BP 104/55 L 10/15/24 11:01 Pulse Ox 94 10/15/24 11:01 O2 Del Method Room Air 10/15/24 11:01 O2 Flow Rate 5 10/12/24 07:30 BMI result Body Mass Index 35.2 Const: General: comfortable and no acute distress O rientation/consciousness: patient oriented x3 HEENT: Head: Yes normocephalic Mouth: Normal oral and palatal mucosa present Eyes: EOM: EOMs intact bilaterally Neck: Neck: Yes supple Resp: Auscultation: clear to auscultation bilaterally and diminished lung sounds Cardio: Jugular venous distension: no JVD Rate: regular rate GI: Palpation (GI): Soft to palpation Auscultation: normal bowel sounds Skin: General skin exam: no rashes or lesions noted Neuro: General: patient oriented x3 and moves all extremities Extrem: General: Yes no pedal edema Objective Data Labs 10/15/24 05:47 10/15/24 05:47 Labs: Laboratory Results - last 24 hr 10/06/24 10/14/24 10/14/24 11:42 16:18 18:29 WBC RBC Hgb Hct MCV MCH MCHC RDW Plt Count MPV Absolute Nucleated RBC Nucleated RBC % (auto) Sodium Potassium Chloride Carbon Dioxide Anion Gap BUN Creatinine Estim Creat Clear Calc Estimated GFR POC Glucose 224 H Random Glucose Calcium MDS/AML Profile (FISH) See Note Blood Type A Positive Antibody Screen NEGATIVE 10/14/24 10/15/24 10/15/24 20:07 05:47 05:47 WBC 11.1 H Cancelled RBC 2.39 L Hgb Hct MCV MCH MCHC RDW Plt Count MPV Absolute Nucleated RBC Nucleated RBC % (auto) Sodium Potassium Chloride Carbon Dioxide Anion Gap BUN Creatinine Estim Creat Clear Calc Estimated GFR POC Glucose 184 H Random Glucose Calcium MDS/AML Profile (FISH) Blood Type Antibody Screen 10/15/24 10/15/24 10/15/24 05:47 05:47 05:47 WBC RBC Cancelled Hgb 7.3 L Cancelled Hct 21.6 L Cancelled MCV 90.4 MCH MCHC RDW Plt Count MPV Absolute Nucleated RBC Nucleated RBC % (auto) Sodium Potassium Chloride Carbon Dioxide Anion Gap BUN Creatinine Estim Creat Clear Calc Estimated GFR POC Glucose Random Glucose Calcium MDS/AML Profile (FISH) Blood Type Antibody Screen 10/15/24 10/15/24 10/15/24 05:47 05:47 05:47 WBC RBC Hgb Hct MCV Cancelled MCH 30.5 Cancelled MCHC 33.8 Cancelled RDW 15.8 Plt Count MPV Absolute Nucleated RBC Nucleated RBC % (auto) Sodium Potassium Chloride Carbon Dioxide Anion Gap BUN Creatinine Estim Creat Clear Calc Estimated GFR POC Glucose Random Glucose Calcium MDS/AML Profile (FISH) Blood Type Antibody Screen 10/15/24 10/15/24 10/15/24 05:47 05:47 05:47 WBC RBC Hgb Hct MCV MCH MCHC RDW Cancelled Plt Count 43 L Cancelled MPV 10.2 Cancelled Absolute Nucleated RBC 0.640 H Nucleated RBC % (auto) Sodium Potassium Chloride Carbon Dioxide Anion Gap BUN Creatinine Estim Creat Clear Calc Estimated GFR POC Glucose Random Glucose Calcium MDS/AML Profile (FISH) Blood Type Antibody Screen 10/15/24 10/15/24 10/15/24 05:47 05:47 06:54 WBC RBC Hgb Hct MCV MCH MCHC RDW Plt Count MPV Absolute Nucleated RBC Cancelled Nucleated RBC % (auto) 5.8 H Cancelled Sodium 129 L Potassium 4.1 Chloride 101 Carbon Dioxide 22 Anion Gap 10 L BUN 52 H Creatinine 1.92 H Estim Creat Clear Calc 40.8 Estimated GFR 34 POC Glucose 156 H Random Glucose 155 H Calcium 9.2 MDS/AML Profile (FISH) Blood Type Antibody Screen 10/15/24 10:55 WBC RBC Hgb Hct MCV MCH MCHC RDW Plt Count MPV Absolute Nucleated RBC Nucleated RBC % (auto) Sodium Potassium Chloride Carbon Dioxide Anion Gap BUN Creatinine Estim Creat Clear Calc Estimated GFR POC Glucose 295 H Random Glucose Calcium MDS/AML Profile (FISH) Blood Type Antibody Screen Microbiology Microbiology Results: Microbiology 10/06/24 16:37 Urine clean catch - Clean Catch Midstream Urine Culture - Final Staphylococcus epidermidis Procedures Date of Service Date of Service: 10/15/24 Assessment & Plan Assessment and plan (1) HIRO (acute kidney injury): Status: Acute (2) Anemia: Status: Acute (3) Thrombocytopenia: Status: Acute (4) Hypercalcemia: Status: Acute Plan 73-year-old man with acute kidney injury with severe anemia and thrombocytopenia along with hypercalcemia and hyperuricemia. Although he has severe thrombocytopenia there were no schistocytes. No petechiae. Urine sediments were benign. HUS/ TTP seems unlikely. 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 Management per Hematology AFib with a rapid ventricular rate. Hematuria . CBI Renal function is improving Watch urine output Watch serum calcium potassium and uric acid. No absolute indication for dialysis Time Spent With Patient Time: Total time managing care of this patient today ____ minutes. Progress Note: Quality Stroke Does the patient have a stroke diagnosis?: No
--- NOTE | 2024-10-15 13:35 | MHC.CM.PN ---
CM met with Patient at bedside to discuss dc planning, after CM spoke with [facility] account service representative/Hailee @ [phone]. Patient informed CM that he does not want to proceed with Chemo treatments and that he is ready to pass. Patient is agreeable to a Hospice Informational from [facility]. Per Hailee, if Patient ultimately chooses Hospice, a referral can be made to SNFs contracted with the [place] (for Hospice). CM will follow.
--- NOTE | 2024-10-15 14:51 | P.CNPS_ITS ---
History of Present Illness Date of Service: 10/15/2024 Chief Complaint: ? myeloma/tumer lysis syndrome, [place] Reason for Consult: capacity Discussed with referring provider: Yes Sources of Information: patient interviewed, chart reviewed and crisis/core team assessment reviewed HPI Narrative: Mr. Ogden is a 79 year-old male who initially presented to [facility] ED reporting weakness and fatigue. He was medically admitted due to concerning hematological finding suggestive of multiple myeloma. He was ultimately dx with multiple myeloma. He has been followed by hem/oncology Dr. Nation who recommended chemotherapy outpatient. However, pt lives alone and has multiple other medical conditions making it difficult to attend treatments. Pt expressed to his attending, Dr. Chahal that he did not want further treatment. Psychiatry was asked to assess his ability to make medical decisions. Pt seen in bed. He is observed lying in bed with some degree of shortness of breath. He is softly sleeping but does wake up when I called his name. He is able to tell this medical technical writer that he was diagnosed with type of cancer of the blood. He reports he will have to initiate chemotherapy outpatient. He reports he does not want to prolonged his life and avoid the inevitable. He does agree with being comfortable and accepting supports like hospice but he is clear that he does not want further treatment. He is oriented to place, month, year and situation. [facility] Medical History (Updated 10/15/24 @ 15:08 by Izabel Florence NP) Mixed hyperlipidemia Benign prostatic hyperplasia Essential hypertension PATRICK on CPAP DVT (deep venous thrombosis) Insulin dependent type 2 diabetes mellitus Diagnostics Vital Signs (24Hr): Vital Signs - 24 hr 10/14/24 15:49 10/14/24 19:06 10/14/24 20:53 Temperature 98.2 F 98.4 F Pulse Rate 111 H 95 115 H Respiratory Rate 23 H 23 H 18 Blood Pressure 137/58 L 139/52 L Pulse Oximetry 94 96 Oxygen Delivery Method Room Air Room Air 10/14/24 22:01 10/14/24 22:20 10/14/24 23:51 Temperature 99.0 F 99.2 F 98.0 F Pulse Rate 94 100 92 Respiratory Rate 20 20 19 Blood Pressure 119/55 L 147/58 H 139/62 Pulse Oximetry 94 Oxygen Delivery Method Room Air 10/15/24 00:16 10/15/24 04:00 10/15/24 07:05 Temperature 99.3 F 97.6 F 98.8 F Pulse Rate 82 90 84 Respiratory Rate 20 19 20 Blood Pressure 133/60 127/65 123/62 Pulse Oximetry 92 93 Oxygen Delivery Method Room Air Room Air 10/15/24 07:35 10/15/24 11:01 10/15/24 11:05 Temperature 98.9 F Pulse Rate 84 82 82 Respiratory Rate 20 20 20 Blood Pressure 104/55 L Pulse Oximetry 94 Oxygen Delivery Method Room Air BMI result Body Mass Index 35.2 Labs 10/15/24 05:47 10/15/24 05:47 Labs: Laboratory Results - last 48 hr 10/06/24 10/13/24 10/13/24 11:42 16:27 20:47 WBC RBC Hgb Hct MCV MCH MCHC RDW Plt Count MPV Absolute Nucleated RBC Nucleated RBC % (auto) Sodium Potassium Chloride Carbon Dioxide Anion Gap BUN Creatinine Estim Creat Clear Calc Estimated GFR POC Glucose 167 H 189 H Random Glucose Calcium MDS/AML Profile (FISH) See Note Blood Type Antibody Screen 10/14/24 10/14/24 10/14/24 06:52 06:57 10:46 WBC 7.9 RBC 2.67 L Hgb 8.1 L Hct 23.9 L MCV 89.5 MCH 30.3 MCHC 33.9 RDW 15.4 Plt Count 35 L D MPV 9.4 Absolute Nucleated RBC 0.710 H Nucleated RBC % (auto) 9.0 H Sodium 128 L Potassium 4.5 Chloride 101 Carbon Dioxide 22 Anion Gap 10 L BUN 63 H Creatinine 1.87 H Estim Creat Clear Calc 41.8 Estimated GFR 35 POC Glucose 176 H 357 H* Random Glucose 183 H Calcium 9.0 D MDS/AML Profile (FISH) Blood Type Antibody Screen 10/14/24 10/14/24 10/14/24 16:18 18:29 20:07 WBC RBC Hgb Hct MCV MCH MCHC RDW Plt Count MPV Absolute Nucleated RBC Nucleated RBC % (auto) Sodium Potassium Chloride Carbon Dioxide Anion Gap BUN Creatinine Estim Creat Clear Calc Estimated GFR POC Glucose 224 H 184 H Random Glucose Calcium MDS/AML Profile (FISH) Blood Type A Positive Antibody Screen NEGATIVE 10/15/24 10/15/24 10/15/24 05:47 05:47 05:47 WBC 11.1 H Cancelled RBC 2.39 L Cancelled Hgb 7.3 L Hct MCV MCH MCHC RDW Plt Count MPV Absolute Nucleated RBC Nucleated RBC % (auto) Sodium Potassium Chloride Carbon Dioxide Anion Gap BUN Creatinine Estim Creat Clear Calc Estimated GFR POC Glucose Random Glucose Calcium MDS/AML Profile (FISH) Blood Type Antibody Screen 10/15/24 10/15/24 10/15/24 05:47 05:47 05:47 WBC RBC Hgb Cancelled Hct 21.6 L Cancelled MCV 90.4 Cancelled MCH 30.5 MCHC RDW Plt Count MPV Absolute Nucleated RBC Nucleated RBC % (auto) Sodium Potassium Chloride Carbon Dioxide Anion Gap BUN Creatinine Estim Creat Clear Calc Estimated GFR POC Glucose Random Glucose Calcium MDS/AML Profile (FISH) Blood Type Antibody Screen 10/15/24 10/15/24 10/15/24 05:47 05:47 05:47 WBC RBC Hgb Hct MCV MCH Cancelled MCHC 33.8 Cancelled RDW 15.8 Cancelled Plt Count 43 L MPV Absolute Nucleated RBC Nucleated RBC % (auto) Sodium Potassium Chloride Carbon Dioxide Anion Gap BUN Creatinine Estim Creat Clear Calc Estimated GFR POC Glucose Random Glucose Calcium MDS/AML Profile (FISH) Blood Type Antibody Screen 10/15/24 10/15/24 10/15/24 05:47 05:47 05:47 WBC RBC Hgb Hct MCV MCH MCHC RDW Plt Count Cancelled MPV 10.2 Cancelled Absolute Nucleated RBC 0.640 H Cancelled Nucleated RBC % (auto) 5.8 H Sodium Potassium Chloride Carbon Dioxide Anion Gap BUN Creatinine Estim Creat Clear Calc Estimated GFR POC Glucose Random Glucose Calcium MDS/AML Profile (FISH) Blood Type Antibody Screen 10/15/24 10/15/24 10/15/24 05:47 06:54 10:55 WBC RBC Hgb Hct MCV MCH MCHC RDW Plt Count MPV Absolute Nucleated RBC Nucleated RBC % (auto) Cancelled Sodium 129 L Potassium 4.1 Chloride 101 Carbon Dioxide 22 Anion Gap 10 L BUN 52 H Creatinine 1.92 H Estim Creat Clear Calc 40.8 Estimated GFR 34 POC Glucose 156 H 295 H Random Glucose 155 H Calcium 9.2 MDS/AML Profile (FISH) Blood Type Antibody Screen Imaging Radiology Impressions: ITS Impressions Chest X-Ray 10/05/24 11:57 IMPRESSION: No acute cardiopulmonary abnormality. Electronically signed by: Theodore Fuentes MD 10/05/2024 01:24 PM EST RP Abdomen/Pelvis CT 10/05/24 14:01 IMPRESSION: 1. Scarring at the right lung base. No focal airspace opacity is identified. 2. Cystic foci in the pancreas as described above. Nonemergent MRI of the abdomen without and with contrast is recommended. 3. Diverticulosis of the descending and sigmoid colon, without evidence of diverticulitis. Electronically signed by: Theodore Fuentes MD 10/05/2024 03:27 PM EST RP Chest CT 10/05/24 14:42 IMPRESSION: 1. Scarring at the right lung base. No focal airspace opacity is identified. 2. Cystic foci in the pancreas as described above. Nonemergent MRI of the abdomen without and with contrast is recommended. 3. Diverticulosis of the descending and sigmoid colon, without evidence of diverticulitis. Electronically signed by: Theodore Fuentes MD 10/05/2024 03:27 PM EST RP Bone Marrow Biopsy w/ CT 10/06/24 11:12 Impression: CT-guided bone marrow biopsy and aspiration. This procedure was performed by Louie Sorto PA-C and supervised by Dr. Munson. Electronically signed by: Noah Munson MD 10/07/2024 02:20 PM EST RP Chest X-Ray 10/07/24 09:22 IMPRESSION: No active pulmonary disease. Electronically signed by: Brandyn Mosher MD 10/07/2024 09:42 AM EST RP Mental Status Exam Mental Status Exam Narrative: Appearance: wearing hospital gown, MO, some physical discomfort due to mild shortness of breath. Behavior: engage to extend of responding my questions but noticeably tired. Psychomotor: no agitation or retardation noted Speech: clear, some delayed in response due to somnolence and fatigue, spontaneous TP: linear TC: not wanting treatment Mood: tired Affect: congruent VH/AH: none Delusions: none Insight/judgment: appears intact Memory/cog: alert, oriented x 4. Medications Medications Current Medications Acetaminophen (Acetaminophen 325 Mg Tablet) 650 mg PO Q6H PRN PRN Reason: Pain, Mild 1-3,fever,headache Last Admin: 10/14/24 02:55 Dose: 650 mg Albuterol Sulfate (Albuterol Sulfate 90 Mcg 8 Gm Inhaler) 2 puff INHALE Q4H PRN PRN Reason: Shortness Of Breath Or Wheezing Albuterol/Ipratropium (Albuterol/Iprat 2.5/0.5mg 3 Ml Ampul.Neb) 3 ml INHALE RQ4H WHILE AWAKE [facility] Last Admin: 10/15/24 11:01 Dose: 3 ml Artificial Tears (Artificial Tears 15 Ml Drops) 1 drop EYE-BOTH QID PRN PRN Reason: Dry Eye(S) Benzocaine (Throat Lozenge, Medicated Lozenge) 1 lozenge MUCOUS MEM Q2H PRN PRN Reason: Sore Throat Last Admin: 10/14/24 20:53 Dose: 1 lozenge Calcium Carbonate (Calcium Carbonate 750 Mg Tab.Chew) 750 mg PO Q4H PRN PRN Reason: Heartburn Last Admin: 10/13/24 22:24 Dose: 750 mg Dextrose (Dextrose 50 % 25 Gm/50 Ml Syringe) 25 gm IVPUSH Q15M PRN; Protocol PRN Reason: per Hypoglycemia Standing Ord. Finasteride (Finasteride 5 Mg Tablet) 5 mg PO DAILY [facility] Last Admin: 10/15/24 08:48 Dose: 5 mg Glucose (Glucose Gel 15 Gm Gel..Gram.) 15 gm PO Q15M PRN; Protocol PRN Reason: per Hypoglycemia Standing Ord. Insulin Glargine (Insulin Glargine,Hum.Rec.Anlog 100 Unit/Ml 10 Ml Vial) 20 unit SUBCUT DAILY [facility] Last Admin: 10/15/24 08:48 Dose: 20 unit Insulin Human Lispro (Insulin Lispro 100 Unit/Ml 3 Ml Vial) 0 unit SUBCUT QIDACHS [facility]; Protocol Last Admin: 10/15/24 12:15 Dose: 8 unit Magnesium Hydroxide (Milk Of Magnesia 30 Ml Oral.Susp) 30 ml PO DAILY PRN PRN Reason: Constipation Melatonin (Melatonin 3 Mg Tablet) 6 mg PO BEDTIME PRN PRN Reason: Insomnia Last Admin: 10/13/24 21:07 Dose: 6 mg Metoprolol Tartrate (Metoprolol Tartrate 25 Mg Tablet) 25 mg PO BID [facility]; Protocol Last Admin: 10/15/24 08:48 Dose: 25 mg Morphine Sulfate (Morphine Sulfate 2 Mg/Ml Cartridge) 2 mg IVPUSH Q4H PRN; Protocol PRN Reason: Pain, Severe (Pain Scale 7-10) Sodium Chloride (0.9 % Sodium Chloride Flush 3 Ml Syringe) 3 ml IVFLUSH QSHIFT [facility] Last Admin: 10/15/24 08:57 Dose: 3 ml Tamsulosin HCl (Tamsulosin Hcl 0.4 Mg Capsule) 0.4 mg PO BEDTIME [facility] Last Admin: 10/14/24 20:32 Dose: 0.4 mg Trazodone HCl (Trazodone Hcl 50 Mg Tablet) 50 mg PO BEDTIME PRN PRN Reason: sleep Last Admin: 10/15/24 01:16 Dose: 50 mg Allergies Allergies Allergy/AdvReac Type Severity Reaction Status Date / Time [id number] Reductase Allergy Intermediate ELEVATED Verified 10/05/24 11:56 Inhibitor LIVER [Xcnywap-Fnt-Guy Reductase ENZYMES Inhibitor] Statins Depletion Allergy Unknown Unknown Uncoded 06/26/23 00:42 Assessment & Plan Assessment & Plan (1) Encounter for assessment of decision-making capacity: Status: Acute Code(s): Z00.8 - Encounter for other general examination Plan Mr. Ogden is a 79 year-old male who self presented to [facility] ED reporting weakness and fatigue. He was medically admitted and newly dx with multiple myeloma. Psychiatry asked to assess his capacity to make medical decisions and he is now declining further tx. Mr. Ogden is able to show understanding about his medical condition, and treatment and appreciation of risks versus benefits of accepting or rejecting treatment. He expressed wish not to prolonged his life. He does agree to goals of care focus on comfort and symptomatic management except with chemotherapy. PLAN 1. pt shows capacity to make medical decisions Total time managing care of this patient today ____ minutes.
--- NOTE | 2024-10-15 15:04 | MHC.CM.PN ---
[facility] met with Patient today;Psych Consult is pending and CM will follow
--- NOTE | 2024-10-15 15:29 | P.PNIM_ITS ---
Subjective Subjective Date of Service: 10/16/24 Interval History: Patient requested to be transferred to home, patient able to understand the disease and aware of the treatment and possibility of remission, but adamant that he does not want to prolong suffering and does not want any treatment and wishes to be discharged today. CBI light pink urine, few small clots irrigated. Review of Systems All other system reviewed and are negative Physical Exam 2 Vital Signs: Vital Signs: Last Vital Signs Temp 98.9 F 10/15/24 11:01 Pulse 82 10/15/24 15:02 Resp 20 10/15/24 15:02 BP 104/55 L 10/15/24 11:01 Pulse Ox 94 10/15/24 11:01 O2 Del Method Room Air 10/15/24 11:01 O2 Flow Rate 5 10/12/24 07:30 BMI result Body Mass Index 35.2 Const: Other: General deconditioned, resting comfortably in no acute distress. Neck no JVD. CVS regular rate rhythm, Respiratory lungs clear to auscultation, no respiratory distress, no wheeze, no rhonchi. Gastrointestinal abdomen soft, non tender, bowel sounds audible Extremities no edema. Neuro non focal Psych appropriate affect CBI with pink tinged urine, no large clots noted Objective Data Active Medications Acetaminophen (Acetaminophen 325 Mg Tablet) 650 mg PO Q6H PRN PRN Reason: Pain, Mild 1-3,fever,headache Last Admin: 10/14/24 02:55 Dose: 650 mg Documented By: ANJEL Albuterol Sulfate (Albuterol Sulfate 90 Mcg 8 Gm Inhaler) 2 puff INHALE Q4H PRN PRN Reason: Shortness Of Breath Or Wheezing Albuterol/Ipratropium (Albuterol/Iprat 2.5/0.5mg 3 Ml Ampul.Neb) 3 ml INHALE RQ4H WHILE AWAKE [facility] Last Admin: 10/15/24 15:00 Dose: 3 ml Documented By: SVETLANA Artificial Tears (Artificial Tears 15 Ml Drops) 1 drop EYE-BOTH QID PRN PRN Reason: Dry Eye(S) Benzocaine (Throat Lozenge, Medicated Lozenge) 1 lozenge MUCOUS MEM Q2H PRN PRN Reason: Sore Throat Last Admin: 10/14/24 20:53 Dose: 1 lozenge Documented By: JENI Calcium Carbonate (Calcium Carbonate 750 Mg Tab.Chew) 750 mg PO Q4H PRN PRN Reason: Heartburn Last Admin: 10/13/24 22:24 Dose: 750 mg Documented By: ANJEL Dextrose (Dextrose 50 % 25 Gm/50 Ml Syringe) 25 gm IVPUSH Q15M PRN; Protocol PRN Reason: per Hypoglycemia Standing Ord. Finasteride (Finasteride 5 Mg Tablet) 5 mg PO DAILY [facility] Last Admin: 10/15/24 08:48 Dose: 5 mg Documented By: PIPO Glucose (Glucose Gel 15 Gm Gel..Gram.) 15 gm PO Q15M PRN; Protocol PRN Reason: per Hypoglycemia Standing Ord. Insulin Glargine (Insulin Glargine,Hum.Rec.Anlog 100 Unit/Ml 10 Ml Vial) 20 unit SUBCUT DAILY [facility] Last Admin: 10/15/24 08:48 Dose: 20 unit Documented By: PIPO Insulin Human Lispro (Insulin Lispro 100 Unit/Ml 3 Ml Vial) 0 unit SUBCUT QIDACHS [facility]; Protocol Last Admin: 10/15/24 12:15 Dose: 8 unit Documented By: PIPO Magnesium Hydroxide (Milk Of Magnesia 30 Ml Oral.Susp) 30 ml PO DAILY PRN PRN Reason: Constipation Melatonin (Melatonin 3 Mg Tablet) 6 mg PO BEDTIME PRN PRN Reason: Insomnia Last Admin: 10/13/24 21:07 Dose: 6 mg Documented By: ANJEL Metoprolol Tartrate (Metoprolol Tartrate 25 Mg Tablet) 25 mg PO BID [facility]; Protocol Last Admin: 10/15/24 08:48 Dose: 25 mg Documented By: PIPO Morphine Sulfate (Morphine Sulfate 2 Mg/Ml Cartridge) 2 mg IVPUSH Q4H PRN; Protocol PRN Reason: Pain, Severe (Pain Scale 7-10) Sodium Chloride (0.9 % Sodium Chloride Flush 3 Ml Syringe) 3 ml IVFLUSH QSHIFT [facility] Last Admin: 10/15/24 08:57 Dose: 3 ml Documented By: PIPO Tamsulosin HCl (Tamsulosin Hcl 0.4 Mg Capsule) 0.4 mg PO BEDTIME [facility] Last Admin: 10/14/24 20:32 Dose: 0.4 mg Documented By: JENI Trazodone HCl (Trazodone Hcl 50 Mg Tablet) 50 mg PO BEDTIME PRN PRN Reason: sleep Last Admin: 10/15/24 01:16 Dose: 50 mg Documented By: JENI Labs 10/15/24 05:47 10/15/24 05:47 Labs: Laboratory Results - last 24 hr 10/06/24 10/14/24 10/14/24 11:42 16:18 18:29 MCV MCH MCHC RDW Plt Count MPV Absolute Nucleated RBC Nucleated RBC % (auto) Anion Gap Estim Creat Clear Calc Estimated GFR POC Glucose 224 H Random Glucose Calcium MDS/AML Profile (FISH) See Note Blood Type A Positive Antibody Screen NEGATIVE 10/14/24 10/15/24 10/15/24 20:07 05:47 05:47 MCV 90.4 Cancelled MCH 30.5 MCHC RDW Plt Count MPV Absolute Nucleated RBC Nucleated RBC % (auto) Anion Gap Estim Creat Clear Calc Estimated GFR POC Glucose 184 H Random Glucose Calcium MDS/AML Profile (FISH) Blood Type Antibody Screen 10/15/24 10/15/24 10/15/24 05:47 05:47 05:47 MCV MCH Cancelled MCHC 33.8 Cancelled RDW 15.8 Cancelled Plt Count 43 L MPV Absolute Nucleated RBC Nucleated RBC % (auto) Anion Gap Estim Creat Clear Calc Estimated GFR POC Glucose Random Glucose Calcium MDS/AML Profile (FISH) Blood Type Antibody Screen 10/15/24 10/15/24 10/15/24 05:47 05:47 05:47 MCV MCH MCHC RDW Plt Count Cancelled MPV 10.2 Cancelled Absolute Nucleated RBC 0.640 H Cancelled Nucleated RBC % (auto) 5.8 H Anion Gap Estim Creat Clear Calc Estimated GFR POC Glucose Random Glucose Calcium MDS/AML Profile (FISH) Blood Type Antibody Screen 10/15/24 10/15/24 10/15/24 05:47 06:54 10:55 MCV MCH MCHC RDW Plt Count MPV Absolute Nucleated RBC Nucleated RBC % (auto) Cancelled Anion Gap 10 L Estim Creat Clear Calc 40.8 Estimated GFR 34 POC Glucose 156 H 295 H Random Glucose 155 H Calcium 9.2 MDS/AML Profile (FISH) Blood Type Antibody Screen Assessment and Plan (1) Persistent atrial fibrillation: Status: Acute (2) Gross hematuria: Status: Acute (3) NSVT (nonsustained ventricular tachycardia): Status: Acute (4) Low platelet count: Status: Acute (5) Anemia: Status: Acute Plan 79/m with history of DVT on eliquis, HTN, DM, HLD, BPH, PATRICK on CPAP, and CKD stage 3 presenting to the emergency department with shortness of breath, low back pain, weakness, and fatigue for 3 months and found to have HIRO, anemia, thromobocytopenia, high calcium, elevated uric acid that rasied concern for tumor lysis, he has been having hematuria. 10/07 episodes of sustained VTs. Bone marrow Bx and immunological studies, + plasama cell myeloma Anemia/thrombocytopenia, bone marrow Bx from 10/06 and immunological studies confirmed Plasma cell Myeloma. Negative hemolysis and DIC work up, received 6 units of platelets and 1 unit of packed RBC, urine is gradually clearing , hemoglobin dropped to 7.3, status post 4 days of IV Decadron, plan was for patient to be discharged to [facility] for inpatient chemotherapy however patient declined to undergo treatment , he does not want to prolong his life, case discussed with patient's brother and sister both healthcare proxy they are in agreement with patient's plan, case also discussed with primary oncologist Dr. Nation due to patient's chronic medical issues including chronic kidney disease stage 3, hypertension, diabetes, significant deconditioning, and due to lack of social support it will be challenging to treat patient, with chemotherapy, she agreed with patient decision, case discussed with employment evaluator/case manager patient agreed for hospice, patient also evaluated by Psychiatry, patient has capacity to make medical decision, and showed understanding about his medical condition and treatment and he wish not to prolong his life CM will arrange for hospice meeting and for safe disposition. HIRO on CD3 related to above, creatinine improved, status post IV fluid. Hematuria:Possible related to difficult Stuart insertion in the setting of BPH and thrombocytopenia , gradually DC CBI Sustained VTs and episodes of Aflutter. Stable on metoprolol was briefly treated with amiodarone subsequently discontinued by Cardiology Hypertension: continue Metorprolol hx DVT- apixaban discontinued d/t low platelets anemia and hematuria. DM2- with hyperglycemia d/t steroid. Continue Lantus and sliding scale. BPH- finasteride PATRICK- CPAP bedtime DVT : low platelets, compression device when platelet above 50 Change code status to DNR DNI, patient has capacity to make medical decision does not wish CPR/intubation wishes treatment towards comfort. Disposition to be decided CM arranging for safe disposition/awaiting hospice eval. Quality Stroke Does the patient have a stroke diagnosis?: No VTE Prior VTE?: No VTE Risk Level:: Medical - moderate - high VTE Device Contraindication: N/A - Device Ordered VTE Drug Contraindication: N/A - Med Ordered
[2024-10-15 16:00] LABS: Glucose, Whole Blood 224 mg/dL (60-115)
--- NOTE | 2024-10-15 16:00 | MHC.CM.PN ---
Per conversation with MD and Psych Eval, Patient has capacity to make medical decisions.CM will discuss further with [facility].
[2024-10-15] MEDS: Tamsulosin HCL 0.4 MG CAPSULE PO (20:57)
[2024-10-15] MEDS: Acetaminophen 325 MG TABLET 650 MG PO (20:57)
[2024-10-15 21:23] LABS: Glucose, Whole Blood 139 mg/dL (60-115)
[2024-10-16] VITALS (9 sets, daily range): BP systolic 102–136; BP diastolic 52–59; PULSE 62–82; RESP 16–22; TEMP 36.3–37.3; O2SAT 91–96
--- NOTE | 2024-10-16 07:11 | P.ACPN_ITS ---
Advanced Care Planning Note Advanced Care Planning Note Time spent (in minutes): 30 Narrative: 79-year-old gentleman with multiple medical problems including diabetes mellitus PATRICK, chronic stage 3 kidney disease, hypertension left lower extremity DVT on anticoagulation presented with new onset thrombocytopenia and anemia workup including bone marrow biopsy confirmed plasma cell myeloma, patient also developed hematuria likely due to thrombocytopenia, patient seen by oncologist and recommended chemotherapy with Cytoxan, Velcade and dexamethasone, but patient declined chemotherapy and wishes care towards comfort. Had a family meeting with healthcare proxy patient's sister Sepideh and brother, along with child support case officer and patient's advocate, inform them about diagnosis of multiple myeloma that will require chemotherapy Inform them about course of treatment ,prognosis and side effect of chemotherapy, answered all their questions. due to patient's multiple comorbidities, deconditioning and poor social support ,it is challenging to treat patient, both healthcare proxy agreed with patient's wishes for palliative/hospice care, psychiatric eval obtained for capacity patient showed understanding of his disease. Therefore code status changed to DNR DNI will sign MOLST form, child support case officer will arrange for hospice evaluation ,and for safe disposition. Problems Discussed (1) Persistent atrial fibrillation: (2) Gross hematuria: (3) NSVT (nonsustained ventricular tachycardia): (4) Low platelet count: (5) Anemia: (6) Multiple myeloma:
[2024-10-16] MEDS: Albuterol/Iprat 2.5/0.5MG 3 ML AMPUL.NEB INHALE ×2 (07:38→22:01)
[2024-10-16 07:43] LABS: Glucose, Whole Blood 153 mg/dL (60-115)
[2024-10-16 07:50] LABS: Mean Corpuscular Hemoglobin 30.9 pg (27.0-33.0); Mean Platelet Volume 10.4 fL (9.4-12.4); Red Blood Count 2.23 X10*6/uL (4.60-5.80); Red Cell Distribution Width 15.9 % (11.0-16.0); White Blood Count 7.5 X10*3/uL (4.8-10.8)
[2024-10-16 07:58] LABS: Hemoglobin 6.9 g/dl (14.0-18.0); Platelet Count 37 X10*3/uL (160-400)
[2024-10-16 07:59] LABS: Hematocrit 20.3 % (42.0-52.0); NRBC Pct Auto 4.2 /100WBC (0.0-0.2)
[2024-10-16 08:05] LABS: Anion Gap 8 (12-20); Blood Urea Nitrogen 56 mg/dL (9-16); Calcium 9.3 mg/dL (8.4-10.2); Carbon Dioxide 25 mmol/L (22-29); Chloride 103 mmol/L (96-108); Creatinine Clr Calc Pharmacy 38.9; Estimated Glomerular Filt Rate 32; Glucose Random 147 mg/dL (60-115); Potassium 4.2 mmol/L (3.3-5.1); Sodium 132 mmol/L (135-145)
[2024-10-16] MEDS: Finasteride 5 MG TABLET PO (08:28)
[2024-10-16] MEDS: Insulin Lispro 100 UNIT/ML 3 ML VIAL SUBCUT (08:28)
[2024-10-16] MEDS: Metoprolol Tartrate 25 MG TABLET PO ×2 (08:28→20:21)
[2024-10-16] MEDS: Insulin Glargine,Hum.rec.anlog 100 UNIT/ML 10 ML VIAL 20 UNIT SUBCUT (08:29)
[2024-10-16] MEDS: 0.9 % Sodium Chloride Flush 3 ML SYRINGE IVFLUSH ×3 (08:31→20:21)
--- NOTE | 2024-10-16 09:28 | MHC.CM.PN ---
[facility] has accepted Patient, with a goal of Hospice in a [place] contracted SNF. KATRIN has faxed clinicals to [facility] the [place] @ [phone], requesting [facility] for Hospice in a [place] contracted facility; KATRIN awaits word from [place].CM will follow.
[2024-10-16 12:04] LABS: Glucose, Whole Blood 221 mg/dL (60-115)
--- NOTE | 2024-10-16 14:16 | HO.PM.IMPN ---
Subjective Subjective Date of Service: 10/16/24 Interval History: Patient complaining of mild lower abdominal discomfort, CBI discontinued patient noted to have ruthy hematuria, H&H dropping Patient once again wants goal of care more towards comfort, MOLST form signed patient do not wish for Re hospitalization, no intubation, no artificial nutrition. Review of Systems All other system reviewed and are negative. Physical Exam Vital Signs: Vital Signs: Last Vital Signs Temp 97.3 F 10/16/24 11:47 Pulse 80 10/16/24 11:47 Resp 20 10/16/24 11:47 BP 114/55 L 10/16/24 11:47 Pulse Ox 96 10/16/24 11:47 O2 Del Method Room Air 10/16/24 11:47 O2 Flow Rate 5 10/12/24 07:30 BMI result Body Mass Index 35.2 Const: Other: General deconditioned, in no acute distress. Neck no JVD. CVS regular rate rhythm, Respiratory lungs clear to auscultation, no respiratory distress, no wheeze, no rhonchi. Gastrointestinal abdomen soft, mild lower abdominal tenderness to palpation, bowel sounds audible Extremities no edema. Neuro non focal Psych appropriate affect Stuart catheter hematuria Objective Data Active Medications Acetaminophen (Acetaminophen 325 Mg Tablet) 650 mg PO Q6H PRN PRN Reason: Pain, Mild 1-3,fever,headache Last Admin: 10/15/24 20:57 Dose: 650 mg Documented By: ANJEL Albuterol Sulfate (Albuterol Sulfate 90 Mcg 8 Gm Inhaler) 2 puff INHALE Q4H PRN PRN Reason: Shortness Of Breath Or Wheezing Albuterol/Ipratropium (Albuterol/Iprat 2.5/0.5mg 3 Ml Ampul.Neb) 3 ml INHALE RQ4H WHILE AWAKE ENIO Last Admin: 10/16/24 11:07 Dose: Not Given Documented By: MARCELINO Non-Admin Reason: See Note Artificial Tears (Artificial Tears 15 Ml Drops) 1 drop EYE-BOTH QID PRN PRN Reason: Dry Eye(S) Benzocaine (Throat Lozenge, Medicated Lozenge) 1 lozenge MUCOUS MEM Q2H PRN PRN Reason: Sore Throat Last Admin: 10/14/24 20:53 Dose: 1 lozenge Documented By: JENI Calcium Carbonate (Calcium Carbonate 750 Mg Tab.Chew) 750 mg PO Q4H PRN PRN Reason: Heartburn Last Admin: 10/13/24 22:24 Dose: 750 mg Documented By: ANJEL Dextrose (Dextrose 50 % 25 Gm/50 Ml Syringe) 25 gm IVPUSH Q15M PRN; Protocol PRN Reason: per Hypoglycemia Standing Ord. Finasteride (Finasteride 5 Mg Tablet) 5 mg PO DAILY [facility] Last Admin: 10/16/24 08:28 Dose: 5 mg Documented By: PIPO Glucose (Glucose Gel 15 Gm Gel..Gram.) 15 gm PO Q15M PRN; Protocol PRN Reason: per Hypoglycemia Standing Ord. Insulin Glargine (Insulin Glargine,Hum.Rec.Anlog 100 Unit/Ml 10 Ml Vial) 20 unit SUBCUT DAILY [facility] Last Admin: 10/16/24 08:29 Dose: 20 unit Documented By: PIPO Insulin Human Lispro (Insulin Lispro 100 Unit/Ml 3 Ml Vial) 0 unit SUBCUT QIDACHS [facility]; Protocol Last Admin: 10/16/24 12:10 Dose: Not Given Documented By: PIPO Non-Admin Reason: Physician Held Med Magnesium Hydroxide (Milk Of Magnesia 30 Ml Oral.Susp) 30 ml PO DAILY PRN PRN Reason: Constipation Melatonin (Melatonin 3 Mg Tablet) 6 mg PO BEDTIME PRN PRN Reason: Insomnia Last Admin: 10/13/24 21:07 Dose: 6 mg Documented By: ANJEL Metoprolol Tartrate (Metoprolol Tartrate 25 Mg Tablet) 25 mg PO BID [facility]; Protocol Last Admin: 10/16/24 08:28 Dose: 25 mg Documented By: PIPO Morphine Sulfate (Morphine Sulfate 2 Mg/Ml Cartridge) 2 mg IVPUSH Q4H PRN; Protocol PRN Reason: Pain, Severe (Pain Scale 7-10) Sodium Chloride (0.9 % Sodium Chloride Flush 3 Ml Syringe) 3 ml IVFLUSH QSHIFT [facility] Last Admin: 10/16/24 08:31 Dose: 3 ml Documented By: PIPO Tamsulosin HCl (Tamsulosin Hcl 0.4 Mg Capsule) 0.4 mg PO BEDTIME [facility] Last Admin: 10/15/24 20:57 Dose: 0.4 mg Documented By: ANJEL Trazodone HCl (Trazodone Hcl 50 Mg Tablet) 50 mg PO BEDTIME PRN PRN Reason: sleep Last Admin: 10/15/24 01:16 Dose: 50 mg Documented By: JENI Labs 10/16/24 06:49 10/16/24 06:49 Labs: Laboratory Results - last 24 hr 10/15/24 10/15/24 10/16/24 15:52 21:02 06:49 MCV 91.0 MCH 30.9 MCHC 34.0 RDW 15.9 Plt Count 37 L MPV 10.4 Absolute Nucleated RBC 0.320 H Nucleated RBC % (auto) 4.2 H Anion Gap 8 L Estim Creat Clear Calc 38.9 Estimated GFR 32 POC Glucose 224 H 139 H Random Glucose 147 H Calcium 9.3 10/16/24 10/16/24 07:37 11:45 MCV MCH MCHC RDW Plt Count MPV Absolute Nucleated RBC Nucleated RBC % (auto) Anion Gap Estim Creat Clear Calc Estimated GFR POC Glucose 153 H 221 H Random Glucose Calcium Assessment and Plan (1) Multiple myeloma: Status: Acute (2) Persistent atrial fibrillation: Status: Acute Plan 79/m with history of DVT on eliquis, HTN, DM, HLD, BPH, PATRICK on CPAP, and CKD stage 3 presenting to the emergency department with shortness of breath, low back pain, weakness, and fatigue for 3 months and found to have HIRO, anemia, thromobocytopenia, high calcium, elevated uric acid that rasied concern for tumor lysis, he has been having hematuria. 10/07 episodes of sustained VTs. Bone marrow Bx and immunological studies, + plasama cell myeloma Anemia/thrombocytopenia, bone marrow Bx from 10/06 and immunological studies confirmed Plasma cell Myeloma. Negative hemolysis and DIC work up, received 6 units of platelets and 1 unit of packed RBC, hemoglobin trending down, status post 4 days of IV Decadron, plan was for patient to be discharged to [facility] for inpatient chemotherapy however patient declined to undergo treatment , he does not want to prolong his life, case discussed with patient's brother and sister both healthcare proxy they are in agreement with patient's plan, case also discussed with primary oncologist Dr. Nation due to patient's chronic medical issues including chronic kidney disease stage 3, hypertension, diabetes, significant deconditioning, and due to lack of social support it will be challenging to treat patient, with chemotherapy, she agreed with patient decision, case discussed with case assistant patient agreed for hospice, patient also evaluated by Psychiatry, patient has capacity to make medical decision, and showed understanding about his medical condition and treatment and he wish not to prolong his life [facility]. Patient does not wish any testing to prolong his illness or suffering. Will hold further lab draws, no blood transfusion, CBI discontinued. Continue morphine and IV Ativan as needed for anxiety. MOLST form signed Diagnosis Lambda light chain Multiple myeloma new diagnosis seen by Dr. Nation initial plan was for chemotherapy with Cytoxan, Velcade and dexamethasone , however patient declined treatment as above Anemia/thrombocytopenia due to multiple myeloma HIRO on CD3 related to above, creatinine improved, status post IV fluid. Hematuria:Possible related to difficult Stuart insertion in the setting of BPH and thrombocytopenia , CBI discontinued, Stuart catheter with persistent hematuria Sustained VTs and episodes of Aflutter. Stable on metoprolol was briefly treated with amiodarone subsequently discontinued by Cardiology Hypertension: continue Metorprolol hx DVT- apixaban discontinued d/t low platelets anemia and hematuria. DM2- DC Lantus and sliding scale. BPH- finasteride PATRICK- CPAP bedtime DVT : low platelets code status to DNR DNI, /hospice Disposition to be decided CM arranging for safe disposition to SNF waiting for Auth Quality Stroke Does the patient have a stroke diagnosis?: No VTE Prior VTE?: No VTE Risk Level:: Medical - moderate - high VTE Device Contraindication: N/A - Device Ordered VTE Drug Contraindication: N/A - Med Ordered
[2024-10-16] MEDS: guaiFENesin DM 600/30 1 TAB TAB.ER.12H 2 TAB PO (20:20)
[2024-10-16] MEDS: Tamsulosin HCL 0.4 MG CAPSULE PO (20:21)
[2024-10-16] MEDS: traZODone HCL 50 MG TABLET PO (20:57)
[2024-10-16] MEDS: Morphine Sulfate 2 MG/ML CARTRIDGE IVPUSH (21:30)
[2024-10-17] VITALS (10 sets, daily range): BP systolic 105–146; BP diastolic 45–62; PULSE 71–87; RESP 15–20; TEMP 36.6–37.2; O2SAT 92–100
[2024-10-17] MEDS: Albuterol/Iprat 2.5/0.5MG 3 ML AMPUL.NEB INHALE ×4 (07:42→19:16)
[2024-10-17] MEDS: Metoprolol Tartrate 25 MG TABLET PO ×2 (11:07→21:17)
[2024-10-17] MEDS: Finasteride 5 MG TABLET PO (11:07)
[2024-10-17] MEDS: 0.9 % Sodium Chloride Flush 3 ML SYRINGE IVFLUSH ×2 (11:11→21:17)
--- NOTE | 2024-10-17 12:51 | HO.PM.IMPN ---
Subjective Subjective Date of Service: 10/18/24 Interval History: Complaining of scratchy sore throat, denies fever, no chills complaining of lower abdominal/bladder discomfort, Stuart catheter with brown urine. Review of Systems All other system reviewed and negative. Physical Exam Vital Signs: Vital Signs: Last Vital Signs Temp 97.9 F 10/17/24 12:00 Pulse 86 10/17/24 12:00 Resp 19 10/17/24 12:00 BP 105/45 L 10/17/24 12:00 Pulse Ox 95 10/17/24 12:00 O2 Del Method Room Air 10/17/24 12:00 O2 Flow Rate 5 10/12/24 07:30 BMI result Body Mass Index 35.2 Const: Other: General in no acute distress. Neck no JVD. CVS regular rate rhythm, Respiratory lungs clear to auscultation, no respiratory distress, no wheeze, no rhonchi. Gastrointestinal abdomen soft, mild lower abdominal tenderness to palpation, bowel sounds audible Extremities no edema. Neuro non focal Psych appropriate affect Stuart catheter brown urine Objective Data Active Medications Acetaminophen (Acetaminophen 325 Mg Tablet) 650 mg PO Q6H PRN PRN Reason: Pain, Mild 1-3,fever,headache Last Admin: 10/15/24 20:57 Dose: 650 mg Documented By: ANJEL Albuterol Sulfate (Albuterol Sulfate 90 Mcg 8 Gm Inhaler) 2 puff INHALE Q4H PRN PRN Reason: Shortness Of Breath Or Wheezing Albuterol/Ipratropium (Albuterol/Iprat 2.5/0.5mg 3 Ml Ampul.Neb) 3 ml INHALE RQ4H WHILE AWAKE ENIO Last Admin: 10/17/24 11:49 Dose: 3 ml Documented By: LA Artificial Tears (Artificial Tears 15 Ml Drops) 1 drop EYE-BOTH QID PRN PRN Reason: Dry Eye(S) Belladonna Alkaloids/Opium (Opium/Belladonna 60/16.2 Mg Supp.Rect) 1 supp [place] BID PRN PRN Reason: bladder spasm Benzocaine (Throat Lozenge, Medicated Lozenge) 1 lozenge MUCOUS MEM Q2H PRN PRN Reason: Sore Throat Last Admin: 10/14/24 20:53 Dose: 1 lozenge Documented By: JENI Calcium Carbonate (Calcium Carbonate 750 Mg Tab.Chew) 750 mg PO Q4H PRN PRN Reason: Heartburn Last Admin: 10/13/24 22:24 Dose: 750 mg Documented By: ANJEL Finasteride (Finasteride 5 Mg Tablet) 5 mg PO DAILY [facility] Last Admin: 10/17/24 11:07 Dose: 5 mg Documented By: KINA Guaifenesin/Dextromethorphan (Guaifenesin Dm 600/30 1 Tab Tab.Er.12h) 2 tab PO BID PRN PRN Reason: Cough Last Admin: 10/16/24 20:20 Dose: 2 tab Documented By: MELANIE Lorazepam (Lorazepam 2 Mg/Ml Vial) 0.5 mg IVPUSH Q6H PRN PRN Reason: anxiety/restlessness Magnesium Hydroxide (Milk Of Magnesia 30 Ml Oral.Susp) 30 ml PO DAILY PRN PRN Reason: Constipation Melatonin (Melatonin 3 Mg Tablet) 6 mg PO BEDTIME PRN PRN Reason: Insomnia Last Admin: 10/13/24 21:07 Dose: 6 mg Documented By: ANJEL Metoprolol Tartrate (Metoprolol Tartrate 25 Mg Tablet) 25 mg PO BID [facility]; Protocol Last Admin: 10/17/24 11:07 Dose: 25 mg Documented By: KINA Morphine Sulfate (Morphine Sulfate 2 Mg/Ml Cartridge) 2 mg IVPUSH Q3H PRN; Protocol PRN Reason: Pain, Severe (Pain Scale 7-10) Last Admin: 10/16/24 21:30 Dose: 2 mg Documented By: MELANIE Sodium Chloride (0.9 % Sodium Chloride Flush 3 Ml Syringe) [facility] Last Admin: 10/17/24 11:11 Dose: 3 ml Documented By: KINA Tamsulosin HCl (Tamsulosin Hcl 0.4 Mg Capsule) 0.4 mg PO BEDTIME [facility] Last Admin: 10/16/24 20:21 Dose: 0.4 mg Documented By: MELANIE Trazodone HCl (Trazodone Hcl 50 Mg Tablet) 50 mg PO BEDTIME PRN PRN Reason: sleep Last Admin: 10/16/24 20:57 Dose: 50 mg Documented By: MELANIE Labs 10/16/24 06:49 10/16/24 06:49 Assessment and Plan (1) Multiple myeloma: Status: Acute (2) Persistent atrial fibrillation: Status: Acute Plan 79/m with history of DVT on eliquis, HTN, DM, HLD, BPH, PATRICK on CPAP, and CKD stage 3 presenting to the emergency department with shortness of breath, low back pain, weakness, and fatigue for 3 months and found to have HIRO, anemia, thromobocytopenia, high calcium, elevated uric acid that rasied concern for tumor lysis, he has been having hematuria. 10/07 episodes of sustained VTs. Bone marrow Bx and immunological studies, + plasama cell myeloma Anemia/thrombocytopenia, bone marrow Bx from 10/06 and immunological studies confirmed Plasma cell Myeloma. Negative hemolysis and DIC work up, received 6 units of platelets and 1 unit of packed RBC, hemoglobin trending down, status post 4 days of IV Decadron, plan was for patient to be discharged to [facility] for inpatient chemotherapy however patient declined to undergo treatment , he does not want to prolong his life, case discussed with patient's brother and sister both healthcare proxy they are in agreement with patient's plan, case also discussed with primary oncologist Dr. Nation due to patient's chronic medical issues including chronic kidney disease stage 3, hypertension, diabetes, significant deconditioning, and due to lack of social support it will be challenging to treat patient, with chemotherapy, she agreed with patient decision, case discussed with residential case manager patient agreed for hospice, patient also evaluated by Psychiatry, patient has capacity to make medical decision, and showed understanding about his medical condition and treatment and he wish not to prolong his life [facility]. Patient does not wish any testing to prolong his illness or suffering. Will hold further lab draws, no blood transfusion, CBI discontinued. Continue morphine and IV Ativan as needed for anxiety. Sore throat MOLST form signed Diagnosis Lambda light chain Multiple myeloma new diagnosis seen by Dr. Nation initial plan was for chemotherapy with Cytoxan, Velcade and dexamethasone , however patient declined treatment as above Anemia/thrombocytopenia due to multiple myeloma HIRO on CD3 related to above, creatinine improved, status post IV fluid. Hematuria:Possible related to difficult Stuart insertion in the setting of BPH and thrombocytopenia , CBI discontinued, Stuart catheter with persistent hematuria Sustained VTs and episodes of Aflutter. Stable on metoprolol was briefly treated with amiodarone subsequently discontinued by Cardiology Hypertension: continue Metorprolol hx DVT- apixaban discontinued d/t low platelets anemia and hematuria. DM2- DC Lantus and sliding scale. BPH- finasteride PATRICK- DVT : low platelets code status to DNR DNI, /hospice Disposition to be decided CM arranging for safe disposition to SNF waiting for Auth Quality Stroke Does the patient have a stroke diagnosis?: No VTE Prior VTE?: No VTE Risk Level:: Medical - moderate - high VTE Device Contraindication: N/A - Device Ordered VTE Drug Contraindication: N/A - Med Ordered
[2024-10-17] MEDS: Tamsulosin HCL 0.4 MG CAPSULE PO (21:17)
[2024-10-17] MEDS: traZODone HCL 50 MG TABLET PO (21:17)
[2024-10-18] MEDS: LORazepam 2 MG/ML VIAL 0.5 MG IVPUSH (01:45)
[2024-10-18] MEDS: 0.9 % Sodium Chloride Flush 3 ML SYRINGE IVFLUSH ×3 (01:45→18:41)
[2024-10-18 03:38] VITALS: BP 142/63; PULSE 90; RESP 18; TEMP 36.9; O2SAT 93
[2024-10-18 07:12] VITALS: BP 142/63; PULSE 82; RESP 18; TEMP 36.7; O2SAT 96
[2024-10-18 07:32] VITALS: PULSE 85; RESP 18; O2SAT 90
[2024-10-18] MEDS: Albuterol/Iprat 2.5/0.5MG 3 ML AMPUL.NEB INHALE ×3 (07:32→15:20)
[2024-10-18] MEDS: Metoprolol Tartrate 25 MG TABLET PO ×2 (09:29→22:30)
[2024-10-18] MEDS: Finasteride 5 MG TABLET PO (09:30)
[2024-10-18 10:56] VITALS: PULSE 82; RESP 18; O2SAT 92
[2024-10-18 15:21] VITALS: BP 131/87; PULSE 80; PULSE 86; RESP 20; RESP 22; TEMP 37.3; O2SAT 93; O2SAT 95
--- NOTE | 2024-10-18 16:18 | HO.PM.IMPN ---
Subjective Subjective Date of Service: 10/18/24 Interval History: Refusing breakfast mostly drinking coffee and has been sleeping most of the day, offers no acute complaints, persistent lower abdominal discomfort, Stuart light brown urine no hematuria. Review of Systems All other system reviewed and are negative Physical Exam Vital Signs: Vital Signs: Last Vital Signs Temp 99.1 F 10/18/24 15:21 Pulse 80 10/18/24 15:21 Resp 22 H 10/18/24 15:21 BP 131/87 10/18/24 15:21 Pulse Ox 95 10/18/24 15:21 O2 Del Method Room Air 10/18/24 15:21 O2 Flow Rate 5 10/12/24 07:30 BMI result Body Mass Index 35.2 Const: Other: General in no acute distress. Neck no JVD. No thrush CVS regular rate rhythm, Respiratory lungs clear to auscultation, no respiratory distress, no wheeze, no rhonchi. Gastrointestinal abdomen soft, mild lower abdominal tenderness to palpation, bowel sounds audible Extremities no edema. Neuro non focal Psych appropriate affect Stuart catheter light brown urine Objective Data Active Medications Acetaminophen (Acetaminophen 325 Mg Tablet) 650 mg PO Q6H PRN PRN Reason: Pain, Mild 1-3,fever,headache Last Admin: 10/15/24 20:57 Dose: 650 mg Documented By: ANJEL Albuterol Sulfate (Albuterol Sulfate 90 Mcg 8 Gm Inhaler) 2 puff INHALE Q4H PRN PRN Reason: Shortness Of Breath Or Wheezing Albuterol/Ipratropium (Albuterol/Iprat 2.5/0.5mg 3 Ml Ampul.Neb) 3 ml INHALE RQ4H WHILE AWAKE ENIO Last Admin: 10/18/24 15:20 Dose: 3 ml Documented By: PATRICIA Artificial Tears (Artificial Tears 15 Ml Drops) 1 drop EYE-BOTH QID PRN PRN Reason: Dry Eye(S) Belladonna Alkaloids/Opium (Opium/Belladonna 60/16.2 Mg Supp.Rect) 1 supp [place] BID PRN PRN Reason: bladder spasm Benzocaine (Throat Lozenge, Medicated Lozenge) 1 lozenge MUCOUS MEM Q2H PRN PRN Reason: Sore Throat Last Admin: 10/14/24 20:53 Dose: 1 lozenge Documented By: JENI Calcium Carbonate (Calcium Carbonate 750 Mg Tab.Chew) 750 mg PO Q4H PRN PRN Reason: Heartburn Last Admin: 10/13/24 22:24 Dose: 750 mg Documented By: ANJEL Finasteride (Finasteride 5 Mg Tablet) 5 mg PO DAILY [facility] Last Admin: 10/18/24 09:30 Dose: 5 mg Documented By: KINA Guaifenesin/Dextromethorphan (Guaifenesin Dm 600/30 1 Tab Tab.Er.12h) 2 tab PO BID PRN PRN Reason: Cough Last Admin: 10/16/24 20:20 Dose: 2 tab Documented By: MELANIE Lorazepam (Lorazepam 2 Mg/Ml Vial) 0.5 mg IVPUSH Q6H PRN PRN Reason: anxiety/restlessness Last Admin: 10/18/24 01:45 Dose: 0.5 mg Documented By: MELANIE Magnesium Hydroxide (Milk Of Magnesia 30 Ml Oral.Susp) 30 ml PO DAILY PRN PRN Reason: Constipation Melatonin (Melatonin 3 Mg Tablet) 6 mg PO BEDTIME PRN PRN Reason: Insomnia Last Admin: 10/13/24 21:07 Dose: 6 mg Documented By: ANJEL Metoprolol Tartrate (Metoprolol Tartrate 25 Mg Tablet) 25 mg PO BID [facility]; Protocol Last Admin: 10/18/24 09:29 Dose: 25 mg Documented By: KINA Morphine Sulfate (Morphine Sulfate 2 Mg/Ml Cartridge) 2 mg IVPUSH Q3H PRN; Protocol PRN Reason: Pain, Severe (Pain Scale 7-10) Last Admin: 10/16/24 21:30 Dose: 2 mg Documented By: MELANIE Sodium Chloride (0.9 % Sodium Chloride Flush 3 Ml Syringe) [facility] Last Admin: 10/18/24 09:29 Dose: 3 ml Documented By: KINA Tamsulosin HCl (Tamsulosin Hcl 0.4 Mg Capsule) 0.4 mg PO BEDTIME [facility] Last Admin: 10/17/24 21:17 Dose: 0.4 mg Documented By: MELANIE Trazodone HCl (Trazodone Hcl 50 Mg Tablet) 50 mg PO BEDTIME PRN PRN Reason: sleep Last Admin: 10/17/24 21:17 Dose: 50 mg Documented By: MELANIE Labs 10/16/24 06:49 10/16/24 06:49 Assessment and Plan (1) Multiple myeloma: Status: Acute (2) Persistent atrial fibrillation: Status: Acute (3) Gross hematuria: Status: Acute Plan 79/m with history of DVT on eliquis, HTN, DM, HLD, BPH, PATRICK on CPAP, and CKD stage 3 presenting to the emergency department with shortness of breath, low back pain, weakness, and fatigue for 3 months and found to have HIRO, anemia, thromobocytopenia, high calcium, elevated uric acid that rasied concern for tumor lysis, he has been having hematuria. 10/07 episodes of sustained VTs. Bone marrow Bx and immunological studies, + plasama cell myeloma Anemia/thrombocytopenia, bone marrow Bx from 10/06 and immunological studies confirmed Plasma cell Myeloma. Negative hemolysis and DIC work up, received 6 units of platelets and 1 unit of packed RBC, hemoglobin trending down, status post 4 days of IV Decadron, plan was for patient to be discharged to [facility] for inpatient chemotherapy however patient declined to undergo treatment , he does not want to prolong his life, case discussed with patient's brother and sister both healthcare proxy they are in agreement with patient's plan, case also discussed with primary oncologist Dr. Nation due to patient's chronic medical issues including chronic kidney disease stage 3, hypertension, diabetes, significant deconditioning, and due to lack of social support it will be challenging to treat patient, with chemotherapy, she agreed with patient decision, case discussed with home health care case manager patient agreed for hospice, patient also evaluated by Psychiatry, patient has capacity to make medical decision, and showed understanding about his medical condition and treatment and he wish not to prolong his life [facility]. Patient does not wish any testing to prolong his illness or suffering. Will hold further lab draws, no blood transfusion, CBI discontinued. Continue morphine and IV Ativan as needed for anxiety. Sore throat MOLST form signed Diagnosis Lambda light chain Multiple myeloma new diagnosis seen by Dr. Nation initial plan was for chemotherapy with Cytoxan, Velcade and dexamethasone , however patient declined treatment as above Anemia/thrombocytopenia due to multiple myeloma HIRO on CD3 related to above, creatinine improved, status post IV fluid. Hematuria:Possible related to difficult Stuart insertion in the setting of BPH and thrombocytopenia , CBI discontinued, continue Stuart, hematuria resolved, persistent mild lower abdominal pain, added belladonna suppository question due to bladder spasm. Sustained VTs and episodes of Aflutter. Stable on metoprolol was briefly treated with amiodarone subsequently discontinued by Cardiology Hypertension: continue Metoprolol hx DVT- apixaban discontinued d/t low platelets anemia and hematuria. DM2- DC Lantus and sliding scale. BPH- finasteride PATRICK- DVT : low platelets code status to DNR DNI, /hospice Disposition to be decided CM arranging for safe disposition to SNF waiting for Auth Quality Stroke Does the patient have a stroke diagnosis?: No VTE Prior VTE?: No VTE Risk Level:: Medical - moderate - high VTE Device Contraindication: N/A - Device Ordered VTE Drug Contraindication: N/A - Med Ordered
[2024-10-18] MEDS: Morphine Sulfate 2 MG/ML CARTRIDGE IVPUSH ×2 (18:41→22:49)
[2024-10-18 21:30] VITALS: BP 126/60; PULSE 105; RESP 18; TEMP 37.2; O2SAT 93
[2024-10-18] MEDS: Tamsulosin HCL 0.4 MG CAPSULE PO (22:30)
[2024-10-19] VITALS (8 sets, daily range): BP systolic 134–150; BP diastolic 63–67; PULSE 60–113; RESP 18–24; TEMP 36.4–38.8; O2SAT 87–100
[2024-10-19] MEDS: Albuterol/Iprat 2.5/0.5MG 3 ML AMPUL.NEB INHALE ×2 (07:41→11:35)
--- NOTE | 2024-10-19 10:26 | MHC.CM.PN ---
Addendum entered by Peg Lopez 10/19/24 11:06: PN containing prognosis of < 6 months has been faxed to Hailee at the OR @ [phone]. CM awaits OR auth for Hospice in a SNF. KATRIN will follow. Original Note: KATRIN spoke with Hailee from the OR, who confirmed that she received clinicals from on 10/16/2024 and indicated that she has sent the information to the Palliative Team for review. Hailee also needs MD documentation that Patient's prognosis is less than 6 months(MD is aware and Katrin will forward that to OR as soon as it is available). [facility] accepted Patient and [facility] is contracted with that facility. KATRIN will continue to follow.
[2024-10-19] MEDS: Finasteride 5 MG TABLET PO (10:59)
[2024-10-19] MEDS: Metoprolol Tartrate 25 MG TABLET PO (10:59)
[2024-10-19] MEDS: 0.9 % Sodium Chloride Flush 3 ML SYRINGE IVFLUSH ×3 (11:00→16:04)
[2024-10-19 11:03] LABS: Glucose, Whole Blood 270 mg/dL (60-115)
[2024-10-19] MEDS: Morphine Sulfate 2 MG/ML CARTRIDGE IVPUSH ×2 (11:03→16:00)
--- NOTE | 2024-10-19 11:29 | P.PNNP_ITS ---
Subjective Subjective Date of Service: 10/19/24 Principal diagnosis: atrial fibrillation, nonsustained VT Interval history: Refusing breakfast mostly drinking coffee and has been sleeping most of the day, offers no acute complaints, persistent lower abdominal discomfort, Stuart light brown urine no hematuria. Physical Exam 2 Vital Signs: Vital Signs: Last Vital Signs Temp 97.6 F 10/19/24 08:00 Pulse 98 10/19/24 08:00 Resp 24 H 10/19/24 11:03 BP 150/67 H 10/19/24 08:00 Pulse Ox 100 10/19/24 08:00 O2 Del Method Room Air 10/19/24 04:00 O2 Flow Rate 5 10/12/24 07:30 BMI result Body Mass Index 35.2 Const: General: comfortable and no acute distress O rientation/consciousness: patient oriented x3 HEENT: Head: Yes normocephalic Mouth: Normal oral and palatal mucosa present Eyes: EOM: EOMs intact bilaterally Neck: Neck: Yes supple Resp: Auscultation: clear to auscultation bilaterally and diminished lung sounds Cardio: Jugular venous distension: no JVD Rate: regular rate GI: Palpation (GI): Soft to palpation Auscultation: normal bowel sounds Skin: General skin exam: no rashes or lesions noted Neuro: General: patient oriented x3 and moves all extremities Extrem: General: Yes no pedal edema Objective Data Labs 10/16/24 06:49 10/16/24 06:49 Labs: Laboratory Results - last 24 hr 10/19/24 07:54 POC Glucose 270 H Microbiology Microbiology Results: Microbiology 10/06/24 16:37 Urine clean catch - Clean Catch Midstream Urine Culture - Final Staphylococcus epidermidis Procedures Date of Service Date of Service: 10/19/24 Assessment & Plan Assessment and plan (1) HIRO (acute kidney injury): Status: Acute (2) Anemia: Status: Acute (3) Thrombocytopenia: Status: Acute (4) Hypercalcemia: Status: Acute Plan 73-year-old man with acute kidney injury with severe anemia and thrombocytopenia along with hypercalcemia and hyperuricemia. Although he has severe thrombocytopenia there were no schistocytes. No petechiae. Urine sediments were benign. HUS/ TTP seems unlikely. 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 Management per Hematology AFib with a rapid ventricular rate. Hematuria . CBI Renal function is improving Check renal panel tomorrow Watch urine output Watch serum calcium potassium and uric acid. No absolute indication for dialysis Time Spent With Patient Time: Total time managing care of this patient today ____ minutes. Progress Note: Quality Stroke Does the patient have a stroke diagnosis?: No
--- NOTE | 2024-10-19 12:22 | MHC.CM.PN ---
Patient will be dc'd to [facility] today at 4:30 PM, with [facility]. [facility] through [facility]/any issues late in the day/call MOD @ [phone], Ext [phone]).Per [facility], no med nec needed from . left a detailed message for Sister/HCP/Sepideh @ [phone] and met with Patient and Brother/HCP/Merlin at bedside; all are in agreement with the dc plan.[facility] has been updated on the plan and MD/RN are aware.
--- NOTE | 2024-10-19 13:11 | PM.DS ---
DS: Providers Provider Date of Service: 10/19/24 Date of admission: 10/05/24 17:33 Date of discharge: 10/19/24 Primary care physician: Josse Iniguez Consults: 10/05/24 16:42 Consult to Hematology / Oncology [place]ine [place] [facility] [place] Reason for consultation: possible acute leukemia /tumer lysis Has provider been notified: No Consult to Nephrology Routine Consulting Provider[place] [facility] [place] [facility] Reason for consultation: possible tumer lysis syndrome Has provider been notified: No 10/06/24 14:46 Consult to Urology Routine Consulting Provider[place] [facility] [place] [facility] Reason for consultation: hematuria Has provider been notified: No 10/07/24 17:39 Consult to Cardiology Routine Consulting Provider[place] [facility] [place] [facility] Reason for consultation: Sustained SVTs Has provider been notified: Yes 10/15/24 10:14 Consult to Psychiatry Routine Consulting Provider[place] [facility] [place] [facility] Reason for consultation: denial/depression declining treatment Has provider been notified: No DS: Diagnosis Discharge Diagnosis (1) HIRO (acute kidney injury): Status: Acute (2) Anemia: Status: Acute (3) Thrombocytopenia: Status: Acute (4) Hypercalcemia: Status: Acute DS: Summary Hospital Course Hospital Course: History of presenting illness: Date of Service: 10/05/24 Attending physician on admission: Judy Alegria Chief Complaint: ? 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 Recently had URI for which he went to [facility] and was given azithromycin and cough medication, he did not improve much and still was not feeling better and getting more weaker and weaker so decided to come to the hospital. Denies any new complaint of chest pain or abdominal pain or fever or chills or nausea or vomiting,c/o Dry cough Lab imaging reviewed: Found to have anemia H&H of 9, platelets of 19 peripheral smear shows rare nucleated red blood cells, atypical cells in reactive appearing lymphocytes. Platelets are reduced in number. Sodium of 134, BUN 78, creatinine is 2.59 Uric acid 13.3, haptoglobin 97 Calcium 10.7 Magnesium 2.4, phosphorus level added, ferritin also pending, LDH is 300 Total protein is 10.9 and albumin is 3.2 Coagulation profile: PT is 14.3, INR 1.2, APTT is 25.1, fibrinogen is 266. CT chest: 1. Scarring at the right lung base. No focal airspace opacity is identified. 2. Cystic foci in the pancreas as described above. Nonemergent MRI of the abdomen without and with contrast is recommended. 3. Diverticulosis of the descending and sigmoid colon, without evidence of diverticulitis. CTabdomen:1 CT/CT abdomen pelvis wo IV con IMPRESSION: 1. Scarring at the right lung base. No focal airspace opacity is identified. 2. Cystic foci in the pancreas as described above. Nonemergent MRI of the abdomen without and with contrast is recommended. 3. Diverticulosis of the descending and sigmoid colon, without evidence of diverticulitis Hospital course: 79/m with history of DVT on eliquis, HTN, DM, HLD, BPH, PATRICK on CPAP, and CKD stage 3 presenting to the emergency department with shortness of breath, low back pain, weakness, and fatigue for 3 months and found to have HIRO, anemia, thromobocytopenia, high calcium, elevated uric acid that rasied concern for tumor lysis, hematuria underwent extensive testing and diagnosed to have plasama cell myeloma Anemia/thrombocytopenia, bone marrow Bx from 10/06 and immunological studies confirmed Plasma cell Myeloma. Negative hemolysis and DIC work up, received 6 units of platelets and 1 unit of packed RBC, hemoglobin trending down, status post 4 days of IV Decadron, plan was for patient to be discharged to [facility] for inpatient chemotherapy however patient declined to undergo treatment , he does not want to prolong his life, case discussed with patient's brother and sister both healthcare proxy they are in agreement with patient's plan, case also discussed with primary oncologist Dr. Nation due to patient's chronic medical issues including chronic kidney disease stage 3, hypertension, diabetes, significant deconditioning, and due to lack of social support it will be challenging to treat patient, with chemotherapy, therefore agreed with patient decision, case discussed with disease case manager rn patient agreed for hospice, patient also evaluated by Psychiatry, patient has capacity to make medical decision, and showed understanding about his medical condition and treatment and he wish not to prolong his life [facility] Poor by mouth intake, sore throat recommend lozenges Patient does not wish any testing to prolong his illness or suffering therefore all lab draws, blood transfusion and CBI discontinued. MOLST form signed Discharged to rehab facility on morphine sulfate for shortness of breath and pain and Ativan for anxiety and restlessness, diet as tolerated, continue oxygen and Stuart catheter for comfort. Diagnosis Lambda light chain Multiple myeloma new diagnosis , seen by oncologist Dr. Nation initial plan was for chemotherapy with Cytoxan, Velcade and dexamethasone , however patient declined treatment as above Anemia/thrombocytopenia due to multiple myeloma, HIRO on CD3 related to above, creatinine improved, status post IV fluid. Hematuria:Possible related to difficult Stuart insertion in the setting of BPH and thrombocytopenia , CBI discontinued, continue Stuart, hematuria resolved, persistent mild lower abdominal pain, continue analgesics as above Sustained VTs and episodes of Aflutter. Stable on metoprolol was briefly treated with amiodarone ,subsequently discontinued. Hypertension: continue Metoprolol. hx DVT- apixaban discontinued d/t low platelets anemia and hematuria. DM2- DC Lantus and sliding scale. BPH- finasteride PATRICK- not on CPAP Time Attestation Discharge Coordination Time (in mins): 40 Quality: Safe Use of Opioids Does Pt have an Active Cancer Diagnosis on the Problem List?: No Quality: Stroke Does the patient have a stroke diagnosis?: No Physical Exam Vital Signs: Vital Signs: Last Vital Signs Temp 97.6 F 10/19/24 08:00 Pulse 113 H 10/19/24 11:37 Resp 24 H 10/19/24 11:37 BP 150/67 H 10/19/24 08:00 Pulse Ox 100 10/19/24 08:00 O2 Del Method Room Air 10/19/24 04:00 O2 Flow Rate 5 10/12/24 07:30 BMI result Body Mass Index 35.2 Const: Other: General in no acute distress. Neck no JVD. No thrush CVS regular rate rhythm, Respiratory lungs bilateral expiratory wheeze Gastrointestinal abdomen soft, mild lower abdominal tenderness to palpation, bowel sounds audible Extremities no edema. Neuro non focal Psych appropriate affect Stuart catheter light brown urine DS: Data Data Completed and Pending Completed studies during hospitalization [Text1]: Pending at discharge 10/06/24 11:57 Surgical [PTH] Routine Labs on day of discharge: Laboratory Results - last 24 hr 10/19/24 07:54 POC Glucose 270 H Discharge Plan Discharge Anticipated Discharge Date/Time: 10/19/24 12:37 Patient Disposition: Hospice - Medical Facility Discharge Diagnosis: Multiple myeloma Thrombocytopenia Hematuria resolved Referrals: [facility] [Other] - 1 Week Josse Iniguez [Primary Care Provider] - 1 Week Discharge Medications: New acetaminophen 325 mg Tablet 650 mg PO Q6H PRN (Reason: Pain, Mild 1-3,Fever,Headache) Qty: 90 0RF trazodone 50 mg Tablet 50 mg PO BEDTIME PRN (Reason: sleep) Qty: 30 0RF tamsulosin 0.4 mg Capsule 0.4 mg PO BEDTIME Qty: 30 0RF metoprolol tartrate 25 mg Tablet 25 mg PO BID Qty: 90 0RF Protocol: Hold for SBP/HR < HOLD for SBP < : 90 HOLD for HR < : 60 Sore Throat (benzocaine-menth) 15-3.6 mg Lozenge 1 santiago mucous membrane Q2H PRN (Reason: Sore Throat) Qty: 90 0RF ipratropium-albuterol 0.5 mg-3 mg(2.5 mg base)/3 mL Solution For Nebulization 3 ml inhalation RQ4H WHILE AWAKE PRN (Reason: sob) Qty: 90 0RF morphine concentrate 100 mg/5 mL (20 mg/mL) solution 5 mg PO Q3H PRN (Reason: pain/comfort) 15 Days Qty: 30 0RF Rx Instructions: Partial Fill upon patient request. lorazepam 0.5 mg tablet 0.5 mg PO Q6H PRN (Reason: anxiety/restlessness) 4 Days Qty: 16 0RF lorazepam [Lorazepam Intensol] 2 mg/mL concentrate 0.5 mg PO Q4H PRN (Reason: anxiety/restlessness) Qty: 30 0RF Continued finasteride 5 mg Tablet 5 mg PO DAILY benzonatate 200 mg Capsule 200 mg PO TID PRN (Reason: Cough) dextromethorphan-guaifenesin 10-100 mg/5 mL Syrup 10 ml PO Q6H PRN (Reason: Cough) carboxymethylcellulose sodium 0.5 % Drops 1 drp OPHTHALMIC (EYE) QID PRN (Reason: Dry Eye(S)) albuterol sulfate 90 mcg/actuation Hfa Aerosol Inhaler 2 puff INHALATION Q4H PRN (Reason: Shortness Of Breath Or Wheezing) Discontinued amlodipine 10 mg Tablet 10 mg PO BEDTIME glucosamine sulfate [Glucosamine] 500 mg Tablet 1,000 mg PO DAILY Rx Instructions: administer with a meal cholecalciferol (vitamin D3) 50 mcg (2,000 unit) Tablet 50 mcg PO DAILY@1200 empagliflozin 25 mg Tablet 25 mg PO DAILY insulin glargine 100 unit/mL Solution 25 unit SUBCUT BEDTIME insulin aspart U-100 [Novolog U-100 Insulin aspart] 100 unit/mL Solution 1 sliding scale dose SUBCUT TIDAC Protocol: Insulin Correction Scale Less than or equal to 110 ---- Give (units): 0 111 to 150 Give (units): 0 151 to 200 Give (units): 2 201 to 250 Give (units): 4 251 to 300 Give (units): 6 301 to 350 Give (units): 8 Greater than 350 Give (units): 10 Call MD if Blood Glucose > : 350 Rx Instructions: MAX 40 UNITS DAILY lisinopril 40 mg Tablet 40 mg PO BEDTIME glucose 4 gram Tablet,Chewable 4 g PO Q15M PRN (Reason: Low Blood Sugar) Rx Instructions: until symptoms of low blood sugar are controlled rosuvastatin 40 mg Tablet 20 mg PO DAILY Eliquis 2.5 mg Tablet 2.5 mg PO BID Discharge Orders: Discharge Order (Routine); Ordered 10/19/24 Ordered By: Иван Chahal Diet: Advance to usual diet Activity on Discharge: As tolerated Stand Alone Forms: Patient Portal Discharge page Print Language: Citizen Of [place] Other Ambulatory Orders: Reticulocyte Count (Routine) Timeframe: [id number] Facility: [facility] - Location: Laboratory Ordered By: Darcy Nation Care Plan Goals: Diagnosed with multiple myeloma patient declined treatment discharged to rehab for hospice care Treat with morphine and Ativan as needed Diet as tolerated Continue Stuart catheter, hematuria resolved Oxygen for comfort Health Concerns: Hypertension Diabetes BPH Plan of Treatment: Outpatient follow-up with primary care physician Assessment: As above
[2024-10-19] MEDS: Acetaminophen 325 MG TABLET 650 MG PO (16:01)
== END 2024-10-19 17:04 | disposition hospice, inpatient (51) | DRG 840 ==
LOC: HO.ED 15:01 → HO.EDOVER 17:38 → HO.IMC 10-06 16:07
PROVIDERS: Emergency Medicine; Internal Medicine; Internal Medicine Hypertension Specialist; Pathology Anatomic Pathology & Clinical Pathology; Physician Assistant Medical; Physician Assistant Surgical; Student in an Organized Health Care Education/Training Program; Admitting Provider Internal Medicine; Emergency Provider Emergency Medicine; PCP Internal Medicine; Referring Provider Internal Medicine; Visit Provider Hospitalist
PROC: 079T3ZX Drainage of Bone Marrow, Percutaneous Approach, Diagnostic (ICD-10-PCS; principal; 2024-10-06 11:30)
DX: C90.00 Multiple myeloma not having achieved remission (principal); E88.3 Tumor lysis syndrome; I47.20 Ventricular tachycardia, unspecified; N17.9 Acute kidney failure, unspecified; I48.19 Other persistent atrial fibrillation; I12.9 Hypertensive chronic kidney disease with stage 1 through stage 4 chronic kidney disease, or unspecified chronic kidney disease; E11.22 Type 2 diabetes mellitus with diabetic chronic kidney disease; E78.2 Mixed hyperlipidemia; D63.1 Anemia in chronic kidney disease; E83.52 Hypercalcemia; E79.0 Hyperuricemia without signs of inflammatory arthritis and tophaceous disease; E11.65 Type 2 diabetes mellitus with hyperglycemia; I49.3 Ventricular premature depolarization; Z66 Do not resuscitate; L98.9 Disorder of the skin and subcutaneous tissue, unspecified; G47.33 Obstructive sleep apnea (adult) (pediatric); D63.0 Anemia in neoplastic disease; D69.59 Other secondary thrombocytopenia; N18.31 Chronic kidney disease, stage 3a; Z51.5 Encounter for palliative care; N40.0 Benign prostatic hyperplasia without lower urinary tract symptoms; R31.0 Gross hematuria; Z20.822 Contact with and (suspected) exposure to COVID-19; Z86.718 Personal history of other venous thrombosis and embolism; Z87.891 Personal history of nicotine dependence; Z79.01 Long term (current) use of anticoagulants; Z79.899 Other long term (current) drug therapy
CPT/HCPCS: 0241U; 36415; 38222; 71045; 71046; 71250; 74176; 80048; 80076; 81001; 82043; 82570; 82607; 82728; 82746; 82784; 82947; 83010; 83520; 83521; 83615; 83690; 83735; 83880; 84100; 84156; 84165; 84484; 84550; 85025; 85027; 85384; 85610; 85652; 85730; 86021; 86140; 86160; 86334; 86850; 86900; 86901; 86923; 87086; 87088; 87186; 88184; 88185; 88237; 88264; 88305; 88311; 88313; 88342; 88344; 88374; 93005; 93306; 94640; 97116; 97162; 97530; 99285; J1100; J2060; J2270; J2783; J3010; P9016; P9073; Q9957

== ENCOUNTER → 2024-10-05 11:57 | Outpatient (BNV) | payer OTHER, SELFPAY | PROVIDERS: Emergency Provider Emergency Medicine; PCP Internal Medicine; Visit Provider Radiology Diagnostic Radiology | DX: R91.8 Other nonspecific abnormal finding of lung field (principal); K57.30 Diverticulosis of large intestine without perforation or abscess without bleeding; K86.2 Cyst of pancreas; R05.9 Cough, unspecified | CPT/HCPCS: 71046; 71250; 74176 ==

== ENCOUNTER → 2024-10-05 11:57 | Outpatient (BNV) | payer OTHER, SELFPAY | PROVIDERS: Admitting Provider Internal Medicine; Emergency Provider Emergency Medicine; PCP Internal Medicine; Visit Provider Internal Medicine | DX: I49.3 Ventricular premature depolarization (principal) | CPT/HCPCS: 93010 ==

== ENCOUNTER 2024-10-05 17:33 | Outpatient (BNV) | payer OTHER, SELFPAY | END 2024-10-07 09:22 | PROVIDERS: Admitting Provider Internal Medicine; Emergency Provider Emergency Medicine; PCP Internal Medicine; Visit Provider Radiology Diagnostic Radiology | DX: R06.02 Shortness of breath (principal) | CPT/HCPCS: 71045 ==

== ENCOUNTER 2024-10-05 17:33 | Outpatient (BNV) | payer OTHER, SELFPAY | END 2024-10-07 17:33 | PROVIDERS: Admitting Provider Internal Medicine; Emergency Provider Emergency Medicine; PCP Internal Medicine; Visit Provider Internal Medicine Cardiovascular Disease | DX: I49.3 Ventricular premature depolarization (principal); R00.1 Bradycardia, unspecified | CPT/HCPCS: 93010 ==

== ENCOUNTER 2024-10-05 17:33 | Outpatient (BNV) | payer OTHER, SELFPAY | END 2024-10-10 11:43 | PROVIDERS: Admitting Provider Internal Medicine; Emergency Provider Emergency Medicine; PCP Internal Medicine; Visit Provider Internal Medicine Cardiovascular Disease | DX: I48.91 Unspecified atrial fibrillation (principal) | CPT/HCPCS: 93010 ==

== ENCOUNTER 2024-10-05 17:33 | Outpatient (BNV) | payer OTHER, SELFPAY | END 2024-10-06 11:12 | PROVIDERS: Admitting Provider Internal Medicine; Emergency Provider Emergency Medicine; PCP Internal Medicine; Visit Provider Physician Assistant Surgical | DX: D69.6 Thrombocytopenia, unspecified (principal) | CPT/HCPCS: 38222; 77012 ==

== ENCOUNTER 2024-10-05 17:33 | Outpatient (BNV) | payer OTHER, SELFPAY | END 2024-10-08 07:00 | PROVIDERS: Admitting Provider Internal Medicine; Emergency Provider Emergency Medicine; PCP Internal Medicine; Visit Provider Internal Medicine Cardiovascular Disease | DX: I35.2 Nonrheumatic aortic (valve) stenosis with insufficiency (principal); I27.20 Pulmonary hypertension, unspecified | CPT/HCPCS: 93306 ==

== ENCOUNTER → 2024-10-05 17:33 | Outpatient (BNV) | payer OTHER, SELFPAY | PROVIDERS: Admitting Provider Internal Medicine; Emergency Provider Emergency Medicine; PCP Internal Medicine; Visit Provider Internal Medicine Nephrology | DX: N17.9 Acute kidney failure, unspecified (principal); E79.0 Hyperuricemia without signs of inflammatory arthritis and tophaceous disease; D64.9 Anemia, unspecified; D69.6 Thrombocytopenia, unspecified; E83.52 Hypercalcemia | CPT/HCPCS: 99223; 99232 ==

== ENCOUNTER → 2024-10-05 17:33 | Outpatient (BNV) | payer OTHER, SELFPAY | PROVIDERS: Admitting Provider Internal Medicine; Emergency Provider Emergency Medicine; PCP Internal Medicine; Visit Provider Internal Medicine | DX: E83.52 Hypercalcemia (principal); D69.6 Thrombocytopenia, unspecified; E79.0 Hyperuricemia without signs of inflammatory arthritis and tophaceous disease; N17.9 Acute kidney failure, unspecified | CPT/HCPCS: 99231 ==

== ENCOUNTER → 2024-10-05 17:33 | Outpatient (BNV) | payer OTHER, SELFPAY | PROVIDERS: Admitting Provider Internal Medicine; Emergency Provider Emergency Medicine; PCP Internal Medicine; Visit Provider Urology | DX: D69.6 Thrombocytopenia, unspecified (principal); R31.0 Gross hematuria | CPT/HCPCS: 99222 ==

== ENCOUNTER → 2024-10-05 17:33 | Outpatient (BNV) | payer OTHER, SELFPAY | PROVIDERS: Admitting Provider Internal Medicine; Emergency Provider Emergency Medicine; PCP Internal Medicine; Visit Provider Social Worker | DX: F29 Unspecified psychosis not due to a substance or known physiological condition (principal); Z13.30 Encounter for screening examination for mental health and behavioral disorders, unspecified | CPT/HCPCS: 99232 ==

== ENCOUNTER → 2024-10-05 17:33 | Outpatient (BNV) | payer OTHER, SELFPAY | PROVIDERS: Admitting Provider Internal Medicine; Emergency Provider Emergency Medicine; PCP Internal Medicine; Visit Provider Internal Medicine | DX: D69.6 Thrombocytopenia, unspecified (principal); D64.9 Anemia, unspecified | CPT/HCPCS: 99231; 99232 ==

== ENCOUNTER → 2024-10-05 17:33 | Outpatient (BNV) | payer OTHER, SELFPAY | PROVIDERS: Admitting Provider Internal Medicine; Emergency Provider Emergency Medicine; PCP Internal Medicine; Visit Provider Internal Medicine Cardiovascular Disease | DX: I47.29 Other ventricular tachycardia (principal) | CPT/HCPCS: 99223; 99232 ==